=== PATIENT | male | born 1945 | race Caucasian/White ===

== ENCOUNTER 2018-06-03 14:07 | Inpatient (IN) ==
[2018-06-03] MEDS: Midazolam 50 MG/50 ML Inj 50 MG/50 ML BAG IV.CONT PRN (14:30)
[2018-06-03] MEDS: fentaNYL 10 mcg/mL Premix Drip 2,500 MCG/250 ML BAG IV.SIG PRN (14:34)
[2018-06-03 15:02] LABS: ABG PCO2 45 mmHg (38-42); ABG PO2 83 mmHg (61-120)
--- NOTE | 2018-06-03 15:04 | XR ---
EXAM DATE: 06/03/2018 3:00 PM EST AGE/SEX: 73 years / Male INDICATIONS: Patient presents with respiratory distress; post intubation. CLINICAL DATA: This is the patient's initial encounter. Patient reports that signs and symptoms have been present for 1 day and indicates a pain score of Nonresponsive. MEDICAL/SURGICAL HISTORY: Non-responsive. Non-responsive. COMPARISON: No prior exams available for comparison. FINDINGS: There is an ETT at the level of the clavicles. There is an NGT coursing beyond the GE junction. Cardi ac silhouette is enlarged with diffuse bilateral perihilar opacities and hazy opacities. More conflue nt airspace disease at the left lung base. Osseous structures are intact. CONCLUSION: 1. ETT in good position. NGT beyond the GE junction. 2. Cardiomegaly with pulmonary edema pattern. 3. More focal airspace consolidation in the left lower lung zone. Electronically signed by: Jovanni Finn MD 06/03/2018 3:02 PM EST
--- NOTE | 2018-06-03 15:05 | ED ---
HPI General Chief Complaint: Respiratory Symptoms Stated Complaint: cardiac Time Seen by Provider: 06/03/18 14:20 Source: EMS Mode of arrival: EMS Limitations: altered mental status History of Present Illness 73-year-old male was brought in by EMS with complaint of chest pain and shortness of breath. 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 Patient was found to be hypoxic. EMS was called. Patient was brought to ED for evaluation. Patient was given nonrebreathing mask on the way to the ED. Upon arrival patient's obtunded and unable to provide information. Patient's finally came and provided more information. Patient has been short of breath for the past 2 weeks. Patient was seen by personal physician in [place] and referred to surgical coder. Patient is awaiting bypass surgery scheduled at [facility] in [facility]. 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 Patient has history of diabetes. Patient is on Lasix 4 mg twice a day and Coumadin. Patient was advised to stop Coumadin for the past 3 days [address] bypass surgery[address] Dr. Wisdom, was contacted, advised that patient is seeing Dr. Gupta for 3 valve surgery and CABG next weeks. Patient supposed to have valve surgery of all valves except pulmonary valve. Related Data Home Medications Medication Instructions Recorded Confirmed amlodipine 5 mg PO DAILY 06/03/18 06/03/18 ascorbic acid (vitamin C) [Vitamin 500 mg PO DAILY 06/03/18 06/03/18 C] aspirin 81 mg PO DAILY 06/03/18 06/03/18 atorvastatin [Lipitor] 20 mg PO DAILY 06/03/18 06/03/18 calcium carbonate [Calcium 600] 600 mg PO DAILY 06/03/18 06/03/18 cinnamon bark [Cinnamon] 1,000 mg PO BID 06/03/18 06/03/18 cyanocobalamin (vitamin B-12) 1,000 mcg PO DAILY 06/03/18 06/03/18 [Vitamin B-12] famotidine 20 mg PO DAILY 06/03/18 06/03/18 ferrous sulfate [iron] 325 mg PO BID 06/03/18 06/03/18 furosemide [Lasix] 40 mg PO DAILY 06/03/18 06/03/18 gabapentin 300 mg PO 5 TIMES A DAY 06/03/18 06/03/18 glimepiride 2 mg PO BID 06/03/18 06/03/18 hydrocodone-acetaminophen [[place]] 1 tab PO Q6H PRN 06/03/18 06/03/18 insulin glargine [Lantus U-100 65 unit SUBCUT DAILY 06/03/18 06/03/18 Insulin] lisinopril 10 mg PO DAILY 06/03/18 06/03/18 metformin 500 mg PO QID 06/03/18 06/03/18 metoprolol tartrate 50 mg PO BID 06/03/18 06/03/18 niacin 500 mg PO DAILY 06/03/18 06/03/18 potassium 99 mg PO BID 06/03/18 06/03/18 warfarin [Coumadin] 5 mg PO DAILY 06/03/18 06/03/18 Allergies Allergy/AdvReac Type Severity Reaction Status Date / Time No Allergy Information Allergy Verified 06/03/18 14:22 Available Review of Systems ROS Unobtainable ROS Unobtainable: unobtainable due to mental condition PMFSH Medical History Medical History MDRO (multiple drug resistant organisms) resistance (Acute ~06/03/18) Social History Social History Substance History: Unable to Obtain Smoking Status: Unknown if ever smoked How Often Do You Have a Drink Containing Alcohol: Unable to Obtain Recent Travel in [facility] within the Last 8 Weeks: No Recent Out of Country Travel within the Last 8 Weeks: No Immunization History Tetanus Immunization: Unable to Assess Exam Narrative Exam Narrative: GENERAL: Well-nourished, well-developed patient. SKIN: Focused skin assessment warm/dry. HEAD: Normocephalic. EYES: No scleral icterus. No injection or drainage. NECK: Supple, trachea midline. No JVD or lymphadenopathy. CARDIOVASCULAR: Regular rate and rhythm without murmurs, gallops, or rubs. RESPIRATORY: Labored breathing with rhonchi bibasilar. No wheezes. GASTROINTESTINAL: Abdomen soft, non-tender, nondistended. MUSCULOSKELETAL: No cyanosis, or edema. BACK: Nontender without obvious deformity. No CVA tenderness. Neurologic exam: Patient is obtunded. Patient moves extremity minimally. No obvious focal neurologic deficit. Procedures Central Line Placement Right Femoral: Time Out Performed: Yes MD Prep: mask, gown and gloves Central Line Prep: Povidone-Iodine 1% and sterile drapes applied Ultrasound Used for Placement: Yes Central Line Lumen Inserted: triple Post Procedure: sutured in place, good blood return, all ports aspirated, flushed, capped and sterile dressing applied Patient Tolerated Procedure: well Complications: none Intubation Time Out Performed: Yes Sedative: etomidate Mg Given: 20 Paralytic: succinylcholine Mg Given: 100 Laryngoscope: fiber optic video scope Assist Device Used: fiber optic device ET Tube Size: 7.5 ET Tube Uncuffed: No Tube Secured Depth (cm): 23 Tube Secured Location: lips Tube Placement Confirmation: visualized tube passing through cords, equal breath sounds bilaterally, no breath sounds over epigastrium and confirmation by capnometry Patient Tolerated Procedure: well Intubation Complications: none Course Initial Documented Vital Signs Pulse Rate 87 06/03/18 14:09 Respiratory Rate 27 H 06/03/18 14:09 Blood Pressure 140/89 06/03/18 14:09 Pulse Oximetry 70 L 06/03/18 14:09 Last Documented Vital Signs Temperature 99.3 F 06/08/18 08:00 Pulse Rate 50 L 06/08/18 10:00 Respiratory Rate 16 06/08/18 10:00 Blood Pressure 117/57 L 06/08/18 10:00 Pulse Oximetry 96 06/08/18 10:00 Critical Care Time Critical Care Time: Yes Total Critical Care Time: 60 Attestation: Aggregate critical care time was 60 minutes. Time to perform other separately billable procedures was not included in the critical care time. My time did not include minutes spent treating any other patients simultaneously or on activities that did not directly contribute to the patient's treatment. The services I provided to this patient were to treat and/or prevent clinically significant deterioration that could result in: I provided critical care services requiring my management, as noted below: Chart data review, documentation time, medication orders and management, vital sign assessments/reviewing monitor data, ordering and reviewing lab tests, ordering and interpreting/reviewing x-rays and diagnostic studies, care of the patient and discussion of the patient with the admitting physicians. Medical Decision Making MDM Narrative Medical decision making narrative: 73-year-old male was brought in by EMS with complaint of chest pain or shortness of. Patient was obtunded. Patient was intubated. Right femoral central line placement. Normal saline solution 125 cc an hour. Versed drip and fentanyl drip for sedation. OG tube and Spence catheter applied. I spoke with Dr. Wisdom at [facility]. Patient's doctor is Dr. Gupta. Dr. Gupta's phone #[phone]. I tried to call the number and the physicians in surgery. Will call back. Medical Screen Exam Complete: Yes Emergency Medical Condition: Yes Lab Data Lab results reviewed: Yes I reviewed the patient's lab results. Result diagrams: 06/08/18 04:30 06/08/18 04:30 Lab Results 06/03/18 06/03/18 06/03/18 Range/Units 14:51 14:55 15:00 WBC 9.9 (4.0-11.0) th/mm3 RBC 3.76 L (4.50-5.90) mil/mm3 Hgb 11.2 L (13.0-17.0) gm/dL Hct 34.5 L (39.0-51.0) % MCV 91.8 (80.0-100.0) fL MCH 29.8 (27.0-34.0) pg MCHC 32.5 (32.0-36.0) % RDW 16.6 (11.6-17.2) % Plt Count 212 (150-450) th/mm3 MPV 8.5 (7.0-11.0) fL Neut % (Auto) 86.3 H (16.0-70.0) % Lymph % (Auto) 7.2 L (9.0-44.0) % [place] % (Auto) 5.1 (0.0-8.0) % Eos % (Auto) 1.0 (0.0-4.0) % Baso % (Auto) 0.4 (0.0-2.0) % Neut # (Auto) 8.5 H (1.8-7.7) th/mm3 Lymph # (Auto) 0.7 L (1.0-4.8) th/mm3 [place] # (Auto) 0.5 (0.0-0.9) th/mm3 Eos # (Auto) 0.1 (0.0-0.4) th/mm3 Baso # (Auto) 0.0 (0.0-0.2) th/mm3 WBC Differential . Differential Comment Auto diff final PT (9.8-11.6) sec INR Ratio APTT (23.4-31.7) sec D-Dimer Quant (PE/DVT) (0.00-0.50) mg/L FEU Puncture Site Right radial Patient Temperature 98.6 O2 Saturation 93 (90-100) % ABG pH 7.33 L (7.380-7.420) ABG pCO2 45 H (38-42) mmHg ABG pO2 83 (61-120) mmHg ABG HCO3 23 (22-26) mmol/L ABG O2 Content 15.2 (12.0-20.0) Vol % ABG Base Excess -2.0 (-2-2) mmol/L ABG Methemoglobin 0.4 (0-2) % Gino Test Present Hemoglobin 11.6 L (12.0-16.0) G/DL Carboxyhemoglobin 1.7 (0-4) % O2 Delivery Device Ventilator Vent Setting Vac/16/550/+8 Inspired O2 100 % Critical Value No Sodium (136-145) meq/L Potassium (3.5-5.1) meq/L Chloride (98-107) meq/L Carbon Dioxide (21.0-32.0) meq/L Anion Gap (5-15) meq/L BUN (7-18) mg/dL Creatinine (0.60-1.30) mg/dL Estimated GFR (>89) mL/min POC Glucose (68-110) mg/dl Random Glucose (74-106) mg/dL Lactic Acid (0.4-2.0) mmol/L Calcium (8.5-10.1) mg/dL Phosphorus (2.5-4.9) mg/dL Magnesium (1.5-2.5) mg/dL Total Bilirubin (0.2-1.0) mg/dL AST (15-37) U/L ALT (12-78) U/L Alkaline Phosphatase (45-117) U/L Total Creatine Kinase (39-308) U/L CK-MB (CK-2) (0.5-3.6) ng/mL Troponin I (0.02-0.05) ng/mL B-Natriuretic Peptide (0-100) pg/mL Total Protein (6.4-8.2) g/dL Albumin (3.4-5.0) g/dL Procalcitonin (0.00-0.08) ng/mL Urine Color Yellow (Yellw/Straw) Urine Clarity Hazy H (Clear) Urine pH 5.0 (5.0-8.5) Ur Specific [place] 1.016 (1.002-1.035) Urine Protein 100 H (Neg-Trace) mg/dL Urine Glucose (UA) Negative (Negative) mg/dL Urine Ketones Negative (Negative) mg/dL Urine Occult Blood Negative (Negative) Urine Nitrate Negative (Negative) Urine Bilirubin Negative (Negative) Urine Urobilinogen Less than 2 (Less than 2) mg/dL Ur Leukocyte Esterase Negative (Negative) Urine WBC 1 (0-5) /hpf Ur Squamous Epith Cells <1 (0-5) /hpf Hyaline Casts 14 (0-3) /lpf Urine Mucus Few H (Occasional) /lpf Micro UA Comment Cath-culture not ind Ur Microscopic Review Not Reportable Urine Culture Comments Cath-cult not ind Nasal Screen MRSA (PCR) (Negative) Random Vancomycin Comment 06/03/18 06/03/18 06/03/18 Range/Units 15:00 15:00 15:00 WBC (4.0-11.0) th/mm3 RBC (4.50-5.90) mil/mm3 Hgb (13.0-17.0) gm/dL Hct (39.0-51.0) % MCV (80.0-100.0) fL MCH (27.0-34.0) pg MCHC (32.0-36.0) % RDW (11.6-17.2) % Plt Count (150-450) th/mm3 MPV (7.0-11.0) fL Neut % (Auto) (16.0-70.0) % Lymph % (Auto) (9.0-44.0) % [place] % (Auto) (0.0-8.0) % Eos % (Auto) (0.0-4.0) % Baso % (Auto) (0.0-2.0) % Neut # (Auto) (1.8-7.7) th/mm3 Lymph # (Auto) (1.0-4.8) th/mm3 [place] # (Auto) (0.0-0.9) th/mm3 Eos # (Auto) (0.0-0.4) th/mm3 Baso # (Auto) (0.0-0.2) th/mm3 WBC Differential Differential Comment PT (9.8-11.6) sec INR Ratio APTT (23.4-31.7) sec D-Dimer Quant (PE/DVT) (0.00-0.50) mg/L FEU Puncture Site Patient Temperature O2 Saturation (90-100) % ABG pH (7.380-7.420) ABG pCO2 (38-42) mmHg ABG pO2 (61-120) mmHg ABG HCO3 (22-26) mmol/L ABG O2 Content (12.0-20.0) Vol % ABG Base Excess (-2-2) mmol/L ABG Methemoglobin (0-2) % Gino Test Hemoglobin (12.0-16.0) G/DL Carboxyhemoglobin (0-4) % O2 Delivery Device Vent Setting Inspired O2 % Critical Value Sodium 142 (136-145) meq/L Potassium 5.1 (3.5-5.1) meq/L Chloride 107 (98-107) meq/L Carbon Dioxide 26.1 (21.0-32.0) meq/L Anion Gap 9 (5-15) meq/L BUN 32 H (7-18) mg/dL Creatinine 2.08 H (0.60-1.30) mg/dL Estimated GFR 32 L (>89) mL/min POC Glucose (68-110) mg/dl Random Glucose 283 H (74-106) mg/dL Lactic Acid (0.4-2.0) mmol/L Calcium 8.4 L (8.5-10.1) mg/dL Phosphorus (2.5-4.9) mg/dL Magnesium (1.5-2.5) mg/dL Total Bilirubin 0.7 (0.2-1.0) mg/dL AST 26 (15-37) U/L ALT 32 (12-78) U/L Alkaline Phosphatase 88 (45-117) U/L Total Creatine Kinase 145 Cancelled (39-308) U/L CK-MB (CK-2) 6.2 H (0.5-3.6) ng/mL Troponin I 0.04 (0.02-0.05) ng/mL B-Natriuretic Peptide 755 H (0-100) pg/mL Total Protein 6.9 (6.4-8.2) g/dL Albumin 3.1 L (3.4-5.0) g/dL Procalcitonin (0.00-0.08) ng/mL Urine Color (Yellw/Straw) Urine Clarity (Clear) Urine pH (5.0-8.5) Ur Specific [place] (1.002-1.035) Urine Protein (Neg-Trace) mg/dL Urine Glucose (UA) (Negative) mg/dL Urine Ketones (Negative) mg/dL Urine Occult Blood (Negative) Urine Nitrate (Negative) Urine Bilirubin (Negative) Urine Urobilinogen (Less than 2) mg/dL Ur Leukocyte Esterase (Negative) Urine WBC (0-5) /hpf Ur Squamous Epith Cells (0-5) /hpf Hyaline Casts (0-3) /lpf Urine Mucus (Occasional) /lpf Micro UA Comment Ur Microscopic Review Urine Culture Comments Nasal Screen MRSA (PCR) (Negative) Random Vancomycin Comment 06/03/18 06/03/18 06/03/18 Range/Units 15:00 15:43 20:45 WBC (4.0-11.0) th/mm3 RBC (4.50-5.90) mil/mm3 Hgb (13.0-17.0) gm/dL Hct (39.0-51.0) % MCV (80.0-100.0) fL MCH (27.0-34.0) pg MCHC (32.0-36.0) % RDW (11.6-17.2) % Plt Count (150-450) th/mm3 MPV (7.0-11.0) fL Neut % (Auto) (16.0-70.0) % Lymph % (Auto) (9.0-44.0) % [place] % (Auto) (0.0-8.0) % Eos % (Auto) (0.0-4.0) % Baso % (Auto) (0.0-2.0) % Neut # (Auto) (1.8-7.7) th/mm3 Lymph # (Auto) (1.0-4.8) th/mm3 [place] # (Auto) (0.0-0.9) th/mm3 Eos # (Auto) (0.0-0.4) th/mm3 Baso # (Auto) (0.0-0.2) th/mm3 WBC Differential Differential Comment PT 12.6 H (9.8-11.6) sec INR 1.2 Ratio APTT 26.1 (23.4-31.7) sec D-Dimer Quant (PE/DVT) 3.03 H (0.00-0.50) mg/L FEU Puncture Site Patient Temperature O2 Saturation (90-100) % ABG pH (7.380-7.420) ABG pCO2 (38-42) mmHg ABG pO2 (61-120) mmHg ABG HCO3 (22-26) mmol/L ABG O2 Content (12.0-20.0) Vol % ABG Base Excess (-2-2) mmol/L ABG Methemoglobin (0-2) % Gino Test Hemoglobin (12.0-16.0) G/DL Carboxyhemoglobin (0-4) % O2 Delivery Device Vent Setting Inspired O2 % Critical Value Sodium (136-145) meq/L Potassium (3.5-5.1) meq/L Chloride (98-107) meq/L Carbon Dioxide (21.0-32.0) meq/L Anion Gap (5-15) meq/L BUN (7-18) mg/dL Creatinine (0.60-1.30) mg/dL Estimated GFR (>89) mL/min POC Glucose (68-110) mg/dl Random Glucose (74-106) mg/dL Lactic Acid 3.1 H (0.4-2.0) mmol/L Calcium (8.5-10.1) mg/dL Phosphorus (2.5-4.9) mg/dL Magnesium (1.5-2.5) mg/dL Total Bilirubin (0.2-1.0) mg/dL AST (15-37) U/L ALT (12-78) U/L Alkaline Phosphatase (45-117) U/L Total Creatine Kinase (39-308) U/L CK-MB (CK-2) (0.5-3.6) ng/mL Troponin I (0.02-0.05) ng/mL B-Natriuretic Peptide (0-100) pg/mL Total Protein (6.4-8.2) g/dL Albumin (3.4-5.0) g/dL Procalcitonin (0.00-0.08) ng/mL Urine Color (Yellw/Straw) Urine Clarity (Clear) Urine pH (5.0-8.5) Ur Specific [place] (1.002-1.035) Urine Protein (Neg-Trace) mg/dL Urine Glucose (UA) (Negative) mg/dL Urine Ketones (Negative) mg/dL Urine Occult Blood (Negative) Urine Nitrate (Negative) Urine Bilirubin (Negative) Urine Urobilinogen (Less than 2) mg/dL Ur Leukocyte Esterase (Negative) Urine WBC (0-5) /hpf Ur Squamous Epith Cells (0-5) /hpf Hyaline Casts (0-3) /lpf Urine Mucus (Occasional) /lpf Micro UA Comment Ur Microscopic Review Urine Culture Comments Nasal Screen MRSA (PCR) Mrsa detected (Negative) Random Vancomycin Comment 06/03/18 06/03/18 06/04/18 Range/Units 20:46 20:46 03:55 WBC (4.0-11.0) th/mm3 RBC (4.50-5.90) mil/mm3 Hgb (13.0-17.0) gm/dL Hct (39.0-51.0) % MCV (80.0-100.0) fL MCH (27.0-34.0) pg MCHC (32.0-36.0) % RDW (11.6-17.2) % Plt Count (150-450) th/mm3 MPV (7.0-11.0) fL Neut % (Auto) (16.0-70.0) % Lymph % (Auto) (9.0-44.0) % [place] % (Auto) (0.0-8.0) % Eos % (Auto) (0.0-4.0) % Baso % (Auto) (0.0-2.0) % Neut # (Auto) (1.8-7.7) th/mm3 Lymph # (Auto) (1.0-4.8) th/mm3 [place] # (Auto) (0.0-0.9) th/mm3 Eos # (Auto) (0.0-0.4) th/mm3 Baso # (Auto) (0.0-0.2) th/mm3 WBC Differential Differential Comment PT (9.8-11.6) sec INR Ratio APTT (23.4-31.7) sec D-Dimer Quant (PE/DVT) (0.00-0.50) mg/L FEU Puncture Site Patient Temperature O2 Saturation (90-100) % ABG pH (7.380-7.420) ABG pCO2 (38-42) mmHg ABG pO2 (61-120) mmHg ABG HCO3 (22-26) mmol/L ABG O2 Content (12.0-20.0) Vol % ABG Base Excess (-2-2) mmol/L ABG Methemoglobin (0-2) % Gino Test Hemoglobin (12.0-16.0) G/DL Carboxyhemoglobin (0-4) % O2 Delivery Device Vent Setting Inspired O2 % Critical Value Sodium 144 147 H (136-145) meq/L Potassium 4.1 D 3.3 L D (3.5-5.1) meq/L Chloride 108 H 108 H (98-107) meq/L Carbon Dioxide 28.4 29.1 (21.0-32.0) meq/L Anion Gap 8 10 (5-15) meq/L BUN 33 H 33 H (7-18) mg/dL Creatinine 1.90 H 1.79 H (0.60-1.30) mg/dL Estimated GFR 35 L 38 L (>89) mL/min POC Glucose (68-110) mg/dl Random Glucose 150 H D 57 L (74-106) mg/dL Lactic Acid 1.7 (0.4-2.0) mmol/L Calcium 8.7 8.7 (8.5-10.1) mg/dL Phosphorus 3.0 3.0 (2.5-4.9) mg/dL Magnesium 2.0 2.0 (1.5-2.5) mg/dL Total Bilirubin 1.0 0.9 (0.2-1.0) mg/dL AST 21 17 (15-37) U/L ALT 28 25 (12-78) U/L Alkaline Phosphatase 85 80 (45-117) U/L Total Creatine Kinase 118 90 (39-308) U/L CK-MB (CK-2) 4.9 H (0.5-3.6) ng/mL Troponin I 0.07 H 0.07 H (0.02-0.05) ng/mL B-Natriuretic Peptide (0-100) pg/mL Total Protein 7.0 6.7 (6.4-8.2) g/dL Albumin 3.0 L 2.9 L (3.4-5.0) g/dL Procalcitonin (0.00-0.08) ng/mL Urine Color (Yellw/Straw) Urine Clarity (Clear) Urine pH (5.0-8.5) Ur Specific [place] (1.002-1.035) Urine Protein (Neg-Trace) mg/dL Urine Glucose (UA) (Negative) mg/dL Urine Ketones (Negative) mg/dL Urine Occult Blood (Negative) Urine Nitrate (Negative) Urine Bilirubin (Negative) Urine Urobilinogen (Less than 2) mg/dL Ur Leukocyte Esterase (Negative) Urine WBC (0-5) /hpf Ur Squamous Epith Cells (0-5) /hpf Hyaline Casts (0-3) /lpf Urine Mucus (Occasional) /lpf Micro UA Comment Ur Microscopic Review Urine Culture Comments Nasal Screen MRSA (PCR) (Negative) Random Vancomycin Comment 06/04/18 06/04/18 06/04/18 Range/Units 03:55 03:55 03:55 WBC 7.7 (4.0-11.0) th/mm3 RBC 3.91 L (4.50-5.90) mil/mm3 Hgb 11.3 L (13.0-17.0) gm/dL Hct 34.8 L (39.0-51.0) % MCV 88.9 (80.0-100.0) fL MCH 29.0 (27.0-34.0) pg MCHC 32.6 (32.0-36.0) % RDW 15.8 (11.6-17.2) % Plt Count 201 (150-450) th/mm3 MPV 8.0 (7.0-11.0) fL Neut % (Auto) 69.9 (16.0-70.0) % Lymph % (Auto) 18.0 (9.0-44.0) % [place] % (Auto) 8.7 H (0.0-8.0) % Eos % (Auto) 2.8 (0.0-4.0) % Baso % (Auto) 0.6 (0.0-2.0) % Neut # (Auto) 5.4 (1.8-7.7) th/mm3 Lymph # (Auto) 1.4 (1.0-4.8) th/mm3 [place] # (Auto) 0.7 (0.0-0.9) th/mm3 Eos # (Auto) 0.2 (0.0-0.4) th/mm3 Baso # (Auto) 0.0 (0.0-0.2) th/mm3 WBC Differential . Differential Comment Auto diff final PT 12.1 H (9.8-11.6) sec INR 1.2 Ratio APTT (23.4-31.7) sec D-Dimer Quant (PE/DVT) (0.00-0.50) mg/L FEU Puncture Site Patient Temperature O2 Saturation (90-100) % ABG pH (7.380-7.420) ABG pCO2 (38-42) mmHg ABG pO2 (61-120) mmHg ABG HCO3 (22-26) mmol/L ABG O2 Content (12.0-20.0) Vol % ABG Base Excess (-2-2) mmol/L ABG Methemoglobin (0-2) % Gino Test Hemoglobin (12.0-16.0) G/DL Carboxyhemoglobin (0-4) % O2 Delivery Device Vent Setting Inspired O2 % Critical Value Sodium (136-145) meq/L Potassium (3.5-5.1) meq/L Chloride (98-107) meq/L Carbon Dioxide (21.0-32.0) meq/L Anion Gap (5-15) meq/L BUN (7-18) mg/dL Creatinine (0.60-1.30) mg/dL Estimated GFR (>89) mL/min POC Glucose (68-110) mg/dl Random Glucose (74-106) mg/dL Lactic Acid (0.4-2.0) mmol/L Calcium (8.5-10.1) mg/dL Phosphorus (2.5-4.9) mg/dL Magnesium (1.5-2.5) mg/dL Total Bilirubin (0.2-1.0) mg/dL AST (15-37) U/L ALT (12-78) U/L Alkaline Phosphatase (45-117) U/L Total Creatine Kinase (39-308) U/L CK-MB (CK-2) (0.5-3.6) ng/mL Troponin I (0.02-0.05) ng/mL B-Natriuretic Peptide 811 H (0-100) pg/mL Total Protein (6.4-8.2) g/dL Albumin (3.4-5.0) g/dL Procalcitonin (0.00-0.08) ng/mL Urine Color (Yellw/Straw) Urine Clarity (Clear) Urine pH (5.0-8.5) Ur Specific [place] (1.002-1.035) Urine Protein (Neg-Trace) mg/dL Urine Glucose (UA) (Negative) mg/dL Urine Ketones (Negative) mg/dL Urine Occult Blood (Negative) Urine Nitrate (Negative) Urine Bilirubin (Negative) Urine Urobilinogen (Less than 2) mg/dL Ur Leukocyte Esterase (Negative) Urine WBC (0-5) /hpf Ur Squamous Epith Cells (0-5) /hpf Hyaline Casts (0-3) /lpf Urine Mucus (Occasional) /lpf Micro UA Comment Ur Microscopic Review Urine Culture Comments Nasal Screen MRSA (PCR) (Negative) Random Vancomycin Comment 06/04/18 06/04/18 06/04/18 Range/Units 03:55 05:03 05:31 WBC (4.0-11.0) th/mm3 RBC (4.50-5.90) mil/mm3 Hgb (13.0-17.0) gm/dL Hct (39.0-51.0) % MCV (80.0-100.0) fL MCH (27.0-34.0) pg MCHC (32.0-36.0) % RDW (11.6-17.2) % Plt Count (150-450) th/mm3 MPV (7.0-11.0) fL Neut % (Auto) (16.0-70.0) % Lymph % (Auto) (9.0-44.0) % [place] % (Auto) (0.0-8.0) % Eos % (Auto) (0.0-4.0) % Baso % (Auto) (0.0-2.0) % Neut # (Auto) (1.8-7.7) th/mm3 Lymph # (Auto) (1.0-4.8) th/mm3 [place] # (Auto) (0.0-0.9) th/mm3 Eos # (Auto) (0.0-0.4) th/mm3 Baso # (Auto) (0.0-0.2) th/mm3 WBC Differential Differential Comment PT (9.8-11.6) sec INR Ratio APTT (23.4-31.7) sec D-Dimer Quant (PE/DVT) (0.00-0.50) mg/L FEU Puncture Site Patient Temperature O2 Saturation (90-100) % ABG pH (7.380-7.420) ABG pCO2 (38-42) mmHg ABG pO2 (61-120) mmHg ABG HCO3 (22-26) mmol/L ABG O2 Content (12.0-20.0) Vol % ABG Base Excess (-2-2) mmol/L ABG Methemoglobin (0-2) % Gino Test Hemoglobin (12.0-16.0) G/DL Carboxyhemoglobin (0-4) % O2 Delivery Device Vent Setting Inspired O2 % Critical Value Sodium (136-145) meq/L Potassium (3.5-5.1) meq/L Chloride (98-107) meq/L Carbon Dioxide (21.0-32.0) meq/L Anion Gap (5-15) meq/L BUN (7-18) mg/dL Creatinine (0.60-1.30) mg/dL Estimated GFR (>89) mL/min POC Glucose 66 L 89 (68-110) mg/dl Random Glucose (74-106) mg/dL Lactic Acid 1.3 (0.4-2.0) mmol/L Calcium (8.5-10.1) mg/dL Phosphorus (2.5-4.9) mg/dL Magnesium (1.5-2.5) mg/dL Total Bilirubin (0.2-1.0) mg/dL AST (15-37) U/L ALT (12-78) U/L Alkaline Phosphatase (45-117) U/L Total Creatine Kinase (39-308) U/L CK-MB (CK-2) (0.5-3.6) ng/mL Troponin I (0.02-0.05) ng/mL B-Natriuretic Peptide (0-100) pg/mL Total Protein (6.4-8.2) g/dL Albumin (3.4-5.0) g/dL Procalcitonin (0.00-0.08) ng/mL Urine Color (Yellw/Straw) Urine Clarity (Clear) Urine pH (5.0-8.5) Ur Specific [place] (1.002-1.035) Urine Protein (Neg-Trace) mg/dL Urine Glucose (UA) (Negative) mg/dL Urine Ketones (Negative) mg/dL Urine Occult Blood (Negative) Urine Nitrate (Negative) Urine Bilirubin (Negative) Urine Urobilinogen (Less than 2) mg/dL Ur Leukocyte Esterase (Negative) Urine WBC (0-5) /hpf Ur Squamous Epith Cells (0-5) /hpf Hyaline Casts (0-3) /lpf Urine Mucus (Occasional) /lpf Micro UA Comment Ur Microscopic Review Urine Culture Comments Nasal Screen MRSA (PCR) (Negative) Random Vancomycin Comment 06/04/18 06/04/18 06/04/18 Range/Units 06:05 07:50 08:29 WBC (4.0-11.0) th/mm3 RBC (4.50-5.90) mil/mm3 Hgb (13.0-17.0) gm/dL Hct (39.0-51.0) % MCV (80.0-100.0) fL MCH (27.0-34.0) pg MCHC (32.0-36.0) % RDW (11.6-17.2) % Plt Count (150-450) th/mm3 MPV (7.0-11.0) fL Neut % (Auto) (16.0-70.0) % Lymph % (Auto) (9.0-44.0) % [place] % (Auto) (0.0-8.0) % Eos % (Auto) (0.0-4.0) % Baso % (Auto) (0.0-2.0) % Neut # (Auto) (1.8-7.7) th/mm3 Lymph # (Auto) (1.0-4.8) th/mm3 [place] # (Auto) (0.0-0.9) th/mm3 Eos # (Auto) (0.0-0.4) th/mm3 Baso # (Auto) (0.0-0.2) th/mm3 WBC Differential Differential Comment PT (9.8-11.6) sec INR Ratio APTT (23.4-31.7) sec D-Dimer Quant (PE/DVT) (0.00-0.50) mg/L FEU Puncture Site Right radial Patient Temperature 98.6 O2 Saturation 92 (90-100) % ABG pH 7.48 H (7.380-7.420) ABG pCO2 37 L (38-42) mmHg ABG pO2 69 (61-120) mmHg ABG HCO3 28 H (22-26) mmol/L ABG O2 Content 15.2 (12.0-20.0) Vol % ABG Base Excess 4.2 H (-2-2) mmol/L ABG Methemoglobin 1.4 (0-2) % Gino Test Present Hemoglobin 11.7 L (12.0-16.0) G/DL Carboxyhemoglobin 1.4 (0-4) % O2 Delivery Device Ventilator Vent Setting [id number] Inspired O2 40 % Critical Value No Sodium (136-145) meq/L Potassium (3.5-5.1) meq/L Chloride (98-107) meq/L Carbon Dioxide (21.0-32.0) meq/L Anion Gap (5-15) meq/L BUN (7-18) mg/dL Creatinine (0.60-1.30) mg/dL Estimated GFR (>89) mL/min POC Glucose 75 (68-110) mg/dl Random Glucose (74-106) mg/dL Lactic Acid (0.4-2.0) mmol/L Calcium (8.5-10.1) mg/dL Phosphorus (2.5-4.9) mg/dL Magnesium (1.5-2.5) mg/dL Total Bilirubin (0.2-1.0) mg/dL AST (15-37) U/L ALT (12-78) U/L Alkaline Phosphatase (45-117) U/L Total Creatine Kinase 89 (39-308) U/L CK-MB (CK-2) (0.5-3.6) ng/mL Troponin I 0.06 H (0.02-0.05) ng/mL B-Natriuretic Peptide (0-100) pg/mL Total Protein (6.4-8.2) g/dL Albumin (3.4-5.0) g/dL Procalcitonin (0.00-0.08) ng/mL Urine Color (Yellw/Straw) Urine Clarity (Clear) Urine pH (5.0-8.5) Ur Specific [place] (1.002-1.035) Urine Protein (Neg-Trace) mg/dL Urine Glucose (UA) (Negative) mg/dL Urine Ketones (Negative) mg/dL Urine Occult Blood (Negative) Urine Nitrate (Negative) Urine Bilirubin (Negative) Urine Urobilinogen (Less than 2) mg/dL Ur Leukocyte Esterase (Negative) Urine WBC (0-5) /hpf Ur Squamous Epith Cells (0-5) /hpf Hyaline Casts (0-3) /lpf Urine Mucus (Occasional) /lpf Micro UA Comment Ur Microscopic Review Urine Culture Comments Nasal Screen MRSA (PCR) (Negative) Random Vancomycin Comment 06/04/18 06/04/18 06/04/18 Range/Units 11:35 11:56 12:40 WBC (4.0-11.0) th/mm3 RBC (4.50-5.90) mil/mm3 Hgb (13.0-17.0) gm/dL Hct (39.0-51.0) % MCV (80.0-100.0) fL MCH (27.0-34.0) pg MCHC (32.0-36.0) % RDW (11.6-17.2) % Plt Count (150-450) th/mm3 MPV (7.0-11.0) fL Neut % (Auto) (16.0-70.0) % Lymph % (Auto) (9.0-44.0) % [place] % (Auto) (0.0-8.0) % Eos % (Auto) (0.0-4.0) % Baso % (Auto) (0.0-2.0) % Neut # (Auto) (1.8-7.7) th/mm3 Lymph # (Auto) (1.0-4.8) th/mm3 [place] # (Auto) (0.0-0.9) th/mm3 Eos # (Auto) (0.0-0.4) th/mm3 Baso # (Auto) (0.0-0.2) th/mm3 WBC Differential Differential Comment PT (9.8-11.6) sec INR Ratio APTT 28.4 (23.4-31.7) sec D-Dimer Quant (PE/DVT) (0.00-0.50) mg/L FEU Puncture Site Patient Temperature O2 Saturation (90-100) % ABG pH (7.380-7.420) ABG pCO2 (38-42) mmHg ABG pO2 (61-120) mmHg ABG HCO3 (22-26) mmol/L ABG O2 Content (12.0-20.0) Vol % ABG Base Excess (-2-2) mmol/L ABG Methemoglobin (0-2) % Gino Test Hemoglobin (12.0-16.0) G/DL Carboxyhemoglobin (0-4) % O2 Delivery Device Vent Setting Inspired O2 % Critical Value Sodium (136-145) meq/L Potassium (3.5-5.1) meq/L Chloride (98-107) meq/L Carbon Dioxide (21.0-32.0) meq/L Anion Gap (5-15) meq/L BUN (7-18) mg/dL Creatinine (0.60-1.30) mg/dL Estimated GFR (>89) mL/min POC Glucose 64 L 131 H (68-110) mg/dl Random Glucose (74-106) mg/dL Lactic Acid (0.4-2.0) mmol/L Calcium (8.5-10.1) mg/dL Phosphorus (2.5-4.9) mg/dL Magnesium (1.5-2.5) mg/dL Total Bilirubin (0.2-1.0) mg/dL AST (15-37) U/L ALT (12-78) U/L Alkaline Phosphatase (45-117) U/L Total Creatine Kinase (39-308) U/L CK-MB (CK-2) (0.5-3.6) ng/mL Troponin I (0.02-0.05) ng/mL B-Natriuretic Peptide (0-100) pg/mL Total Protein (6.4-8.2) g/dL Albumin (3.4-5.0) g/dL Procalcitonin (0.00-0.08) ng/mL Urine Color (Yellw/Straw) Urine Clarity (Clear) Urine pH (5.0-8.5) Ur Specific [place] (1.002-1.035) Urine Protein (Neg-Trace) mg/dL Urine Glucose (UA) (Negative) mg/dL Urine Ketones (Negative) mg/dL Urine Occult Blood (Negative) Urine Nitrate (Negative) Urine Bilirubin (Negative) Urine Urobilinogen (Less than 2) mg/dL Ur Leukocyte Esterase (Negative) Urine WBC (0-5) /hpf Ur Squamous Epith Cells (0-5) /hpf Hyaline Casts (0-3) /lpf Urine Mucus (Occasional) /lpf Micro UA Comment Ur Microscopic Review Urine Culture Comments Nasal Screen MRSA (PCR) (Negative) Random Vancomycin Comment 06/04/18 06/04/18 06/04/18 Range/Units 15:38 15:38 15:38 WBC (4.0-11.0) th/mm3 RBC (4.50-5.90) mil/mm3 Hgb (13.0-17.0) gm/dL Hct (39.0-51.0) % MCV (80.0-100.0) fL MCH (27.0-34.0) pg MCHC (32.0-36.0) % RDW (11.6-17.2) % Plt Count (150-450) th/mm3 MPV (7.0-11.0) fL Neut % (Auto) (16.0-70.0) % Lymph % (Auto) (9.0-44.0) % [place] % (Auto) (0.0-8.0) % Eos % (Auto) (0.0-4.0) % Baso % (Auto) (0.0-2.0) % Neut # (Auto) (1.8-7.7) th/mm3 Lymph # (Auto) (1.0-4.8) th/mm3 [place] # (Auto) (0.0-0.9) th/mm3 Eos # (Auto) (0.0-0.4) th/mm3 Baso # (Auto) (0.0-0.2) th/mm3 WBC Differential Differential Comment PT (9.8-11.6) sec INR Ratio APTT (23.4-31.7) sec D-Dimer Quant (PE/DVT) (0.00-0.50) mg/L FEU Puncture Site Patient Temperature O2 Saturation (90-100) % ABG pH (7.380-7.420) ABG pCO2 (38-42) mmHg ABG pO2 (61-120) mmHg ABG HCO3 (22-26) mmol/L ABG O2 Content (12.0-20.0) Vol % ABG Base Excess (-2-2) mmol/L ABG Methemoglobin (0-2) % Gino Test Hemoglobin (12.0-16.0) G/DL Carboxyhemoglobin (0-4) % O2 Delivery Device Vent Setting Inspired O2 % Critical Value Sodium (136-145) meq/L Potassium 4.0 (3.5-5.1) meq/L Chloride (98-107) meq/L Carbon Dioxide (21.0-32.0) meq/L Anion Gap (5-15) meq/L BUN (7-18) mg/dL Creatinine (0.60-1.30) mg/dL Estimated GFR (>89) mL/min POC Glucose (68-110) mg/dl Random Glucose (74-106) mg/dL Lactic Acid (0.4-2.0) mmol/L Calcium (8.5-10.1) mg/dL Phosphorus (2.5-4.9) mg/dL Magnesium (1.5-2.5) mg/dL Total Bilirubin (0.2-1.0) mg/dL AST (15-37) U/L ALT (12-78) U/L Alkaline Phosphatase (45-117) U/L Total Creatine Kinase 95 (39-308) U/L CK-MB (CK-2) (0.5-3.6) ng/mL Troponin I 0.06 H (0.02-0.05) ng/mL B-Natriuretic Peptide (0-100) pg/mL Total Protein (6.4-8.2) g/dL Albumin (3.4-5.0) g/dL Procalcitonin 0.07 (0.00-0.08) ng/mL Urine Color (Yellw/Straw) Urine Clarity (Clear) Urine pH (5.0-8.5) Ur Specific [place] (1.002-1.035) Urine Protein (Neg-Trace) mg/dL Urine Glucose (UA) (Negative) mg/dL Urine Ketones (Negative) mg/dL Urine Occult Blood (Negative) Urine Nitrate (Negative) Urine Bilirubin (Negative) Urine Urobilinogen (Less than 2) mg/dL Ur Leukocyte Esterase (Negative) Urine WBC (0-5) /hpf Ur Squamous Epith Cells (0-5) /hpf Hyaline Casts (0-3) /lpf Urine Mucus (Occasional) /lpf Micro UA Comment Ur Microscopic Review Urine Culture Comments Nasal Screen MRSA (PCR) (Negative) Random Vancomycin Comment 06/04/18 06/04/18 06/04/18 Range/Units 17:22 18:50 18:50 WBC (4.0-11.0) th/mm3 RBC (4.50-5.90) mil/mm3 Hgb (13.0-17.0) gm/dL Hct (39.0-51.0) % MCV (80.0-100.0) fL MCH (27.0-34.0) pg MCHC (32.0-36.0) % RDW (11.6-17.2) % Plt Count (150-450) th/mm3 MPV (7.0-11.0) fL Neut % (Auto) (16.0-70.0) % Lymph % (Auto) (9.0-44.0) % [place] % (Auto) (0.0-8.0) % Eos % (Auto) (0.0-4.0) % Baso % (Auto) (0.0-2.0) % Neut # (Auto) (1.8-7.7) th/mm3 Lymph # (Auto) (1.0-4.8) th/mm3 [place] # (Auto) (0.0-0.9) th/mm3 Eos # (Auto) (0.0-0.4) th/mm3 Baso # (Auto) (0.0-0.2) th/mm3 WBC Differential Differential Comment PT (9.8-11.6) sec INR Ratio APTT 34.1 H D (23.4-31.7) sec D-Dimer Quant (PE/DVT) (0.00-0.50) mg/L FEU Puncture Site Patient Temperature O2 Saturation (90-100) % ABG pH (7.380-7.420) ABG pCO2 (38-42) mmHg ABG pO2 (61-120) mmHg ABG HCO3 (22-26) mmol/L ABG O2 Content (12.0-20.0) Vol % ABG Base Excess (-2-2) mmol/L ABG Methemoglobin (0-2) % Gino Test Hemoglobin (12.0-16.0) G/DL Carboxyhemoglobin (0-4) % O2 Delivery Device Vent Setting Inspired O2 % Critical Value Sodium 142 (136-145) meq/L Potassium 4.2 (3.5-5.1) meq/L Chloride 105 (98-107) meq/L Carbon Dioxide 30.2 (21.0-32.0) meq/L Anion Gap 7 (5-15) meq/L BUN 27 H (7-18) mg/dL Creatinine 1.89 H (0.60-1.30) mg/dL Estimated GFR 35 L (>89) mL/min POC Glucose 103 (68-110) mg/dl Random Glucose 188 H D (74-106) mg/dL Lactic Acid (0.4-2.0) mmol/L Calcium 8.6 (8.5-10.1) mg/dL Phosphorus 4.0 D (2.5-4.9) mg/dL Magnesium 1.8 (1.5-2.5) mg/dL Total Bilirubin (0.2-1.0) mg/dL AST (15-37) U/L ALT (12-78) U/L Alkaline Phosphatase (45-117) U/L Total Creatine Kinase (39-308) U/L CK-MB (CK-2) (0.5-3.6) ng/mL Troponin I (0.02-0.05) ng/mL B-Natriuretic Peptide (0-100) pg/mL Total Protein (6.4-8.2) g/dL Albumin (3.4-5.0) g/dL Procalcitonin (0.00-0.08) ng/mL Urine Color (Yellw/Straw) Urine Clarity (Clear) Urine pH (5.0-8.5) Ur Specific [place] (1.002-1.035) Urine Protein (Neg-Trace) mg/dL Urine Glucose (UA) (Negative) mg/dL Urine Ketones (Negative) mg/dL Urine Occult Blood (Negative) Urine Nitrate (Negative) Urine Bilirubin (Negative) Urine Urobilinogen (Less than 2) mg/dL Ur Leukocyte Esterase (Negative) Urine WBC (0-5) /hpf Ur Squamous Epith Cells (0-5) /hpf Hyaline Casts (0-3) /lpf Urine Mucus (Occasional) /lpf Micro UA Comment Ur Microscopic Review Urine Culture Comments Nasal Screen MRSA (PCR) (Negative) Random Vancomycin Comment 06/04/18 06/04/18 06/05/18 Range/Units 23:39 23:41 03:00 WBC (4.0-11.0) th/mm3 RBC (4.50-5.90) mil/mm3 Hgb (13.0-17.0) gm/dL Hct (39.0-51.0) % MCV (80.0-100.0) fL MCH (27.0-34.0) pg MCHC (32.0-36.0) % RDW (11.6-17.2) % Plt Count (150-450) th/mm3 MPV (7.0-11.0) fL Neut % (Auto) (16.0-70.0) % Lymph % (Auto) (9.0-44.0) % [place] % (Auto) (0.0-8.0) % Eos % (Auto) (0.0-4.0) % Baso % (Auto) (0.0-2.0) % Neut # (Auto) (1.8-7.7) th/mm3 Lymph # (Auto) (1.0-4.8) th/mm3 [place] # (Auto) (0.0-0.9) th/mm3 Eos # (Auto) (0.0-0.4) th/mm3 Baso # (Auto) (0.0-0.2) th/mm3 WBC Differential Differential Comment PT (9.8-11.6) sec INR Ratio APTT (23.4-31.7) sec D-Dimer Quant (PE/DVT) (0.00-0.50) mg/L FEU Puncture Site Patient Temperature O2 Saturation (90-100) % ABG pH (7.380-7.420) ABG pCO2 (38-42) mmHg ABG pO2 (61-120) mmHg ABG HCO3 (22-26) mmol/L ABG O2 Content (12.0-20.0) Vol % ABG Base Excess (-2-2) mmol/L ABG Methemoglobin (0-2) % Gino Test Hemoglobin (12.0-16.0) G/DL Carboxyhemoglobin (0-4) % O2 Delivery Device Vent Setting Inspired O2 % Critical Value Sodium 142 (136-145) meq/L Potassium 4.1 (3.5-5.1) meq/L Chloride 105 (98-107) meq/L Carbon Dioxide 27.9 (21.0-32.0) meq/L Anion Gap 9 (5-15) meq/L BUN 27 H (7-18) mg/dL Creatinine 1.78 H (0.60-1.30) mg/dL Estimated GFR 38 L (>89) mL/min POC Glucose 334 H 317 H (68-110) mg/dl Random Glucose 310 H D (74-106) mg/dL Lactic Acid (0.4-2.0) mmol/L Calcium 8.1 L (8.5-10.1) mg/dL Phosphorus 3.2 (2.5-4.9) mg/dL Magnesium 1.9 (1.5-2.5) mg/dL Total Bilirubin 0.7 (0.2-1.0) mg/dL AST 49 H (15-37) U/L ALT 21 (12-78) U/L Alkaline Phosphatase 72 (45-117) U/L Total Creatine Kinase 290 (39-308) U/L CK-MB (CK-2) (0.5-3.6) ng/mL Troponin I (0.02-0.05) ng/mL B-Natriuretic Peptide (0-100) pg/mL Total Protein 6.1 L D (6.4-8.2) g/dL Albumin 2.4 L (3.4-5.0) g/dL Procalcitonin (0.00-0.08) ng/mL Urine Color (Yellw/Straw) Urine Clarity (Clear) Urine pH (5.0-8.5) Ur Specific [place] (1.002-1.035) Urine Protein (Neg-Trace) mg/dL Urine Glucose (UA) (Negative) mg/dL Urine Ketones (Negative) mg/dL Urine Occult Blood (Negative) Urine Nitrate (Negative) Urine Bilirubin (Negative) Urine Urobilinogen (Less than 2) mg/dL Ur Leukocyte Esterase (Negative) Urine WBC (0-5) /hpf Ur Squamous Epith Cells (0-5) /hpf Hyaline Casts (0-3) /lpf Urine Mucus (Occasional) /lpf Micro UA Comment Ur Microscopic Review Urine Culture Comments Nasal Screen MRSA (PCR) (Negative) Random Vancomycin Comment 06/05/18 06/05/18 06/05/18 Range/Units 03:00 03:00 03:00 WBC 10.3 (4.0-11.0) th/mm3 RBC 3.61 L (4.50-5.90) mil/mm3 Hgb 10.8 L (13.0-17.0) gm/dL Hct 31.8 L (39.0-51.0) % MCV 87.9 (80.0-100.0) fL MCH 29.8 (27.0-34.0) pg MCHC 33.9 (32.0-36.0) % RDW 16.0 (11.6-17.2) % Plt Count 226 (150-450) th/mm3 MPV 8.2 (7.0-11.0) fL Neut % (Auto) 69.1 (16.0-70.0) % Lymph % (Auto) 18.1 (9.0-44.0) % [place] % (Auto) 11.5 H (0.0-8.0) % Eos % (Auto) 0.9 (0.0-4.0) % Baso % (Auto) 0.4 (0.0-2.0) % Neut # (Auto) 7.1 (1.8-7.7) th/mm3 Lymph # (Auto) 1.9 (1.0-4.8) th/mm3 [place] # (Auto) 1.2 H (0.0-0.9) th/mm3 Eos # (Auto) 0.1 (0.0-0.4) th/mm3 Baso # (Auto) 0.0 (0.0-0.2) th/mm3 WBC Differential . Differential Comment Auto diff final PT (9.8-11.6) sec INR Ratio APTT (23.4-31.7) sec D-Dimer Quant (PE/DVT) (0.00-0.50) mg/L FEU Puncture Site Patient Temperature O2 Saturation (90-100) % ABG pH (7.380-7.420) ABG pCO2 (38-42) mmHg ABG pO2 (61-120) mmHg ABG HCO3 (22-26) mmol/L ABG O2 Content (12.0-20.0) Vol % ABG Base Excess (-2-2) mmol/L ABG Methemoglobin (0-2) % Gino Test Hemoglobin (12.0-16.0) G/DL Carboxyhemoglobin (0-4) % O2 Delivery Device Vent Setting Inspired O2 % Critical Value Sodium (136-145) meq/L Potassium (3.5-5.1) meq/L Chloride (98-107) meq/L Carbon Dioxide (21.0-32.0) meq/L Anion Gap (5-15) meq/L BUN (7-18) mg/dL Creatinine (0.60-1.30) mg/dL Estimated GFR (>89) mL/min POC Glucose (68-110) mg/dl Random Glucose (74-106) mg/dL Lactic Acid 1.5 (0.4-2.0) mmol/L Calcium (8.5-10.1) mg/dL Phosphorus (2.5-4.9) mg/dL Magnesium (1.5-2.5) mg/dL Total Bilirubin (0.2-1.0) mg/dL AST (15-37) U/L ALT (12-78) U/L Alkaline Phosphatase (45-117) U/L Total Creatine Kinase (39-308) U/L CK-MB (CK-2) (0.5-3.6) ng/mL Troponin I (0.02-0.05) ng/mL B-Natriuretic Peptide 590 H (0-100) pg/mL Total Protein (6.4-8.2) g/dL Albumin (3.4-5.0) g/dL Procalcitonin (0.00-0.08) ng/mL Urine Color (Yellw/Straw) Urine Clarity (Clear) Urine pH (5.0-8.5) Ur Specific [place] (1.002-1.035) Urine Protein (Neg-Trace) mg/dL Urine Glucose (UA) (Negative) mg/dL Urine Ketones (Negative) mg/dL Urine Occult Blood (Negative) Urine Nitrate (Negative) Urine Bilirubin (Negative) Urine Urobilinogen (Less than 2) mg/dL Ur Leukocyte Esterase (Negative) Urine WBC (0-5) /hpf Ur Squamous Epith Cells (0-5) /hpf Hyaline Casts (0-3) /lpf Urine Mucus (Occasional) /lpf Micro UA Comment Ur Microscopic Review Urine Culture Comments Nasal Screen MRSA (PCR) (Negative) Random Vancomycin Comment 06/05/18 06/05/18 06/05/18 Range/Units 03:00 05:28 06:08 WBC (4.0-11.0) th/mm3 RBC (4.50-5.90) mil/mm3 Hgb (13.0-17.0) gm/dL Hct (39.0-51.0) % MCV (80.0-100.0) fL MCH (27.0-34.0) pg MCHC (32.0-36.0) % RDW (11.6-17.2) % Plt Count (150-450) th/mm3 MPV (7.0-11.0) fL Neut % (Auto) (16.0-70.0) % Lymph % (Auto) (9.0-44.0) % [place] % (Auto) (0.0-8.0) % Eos % (Auto) (0.0-4.0) % Baso % (Auto) (0.0-2.0) % Neut # (Auto) (1.8-7.7) th/mm3 Lymph # (Auto) (1.0-4.8) th/mm3 [place] # (Auto) (0.0-0.9) th/mm3 Eos # (Auto) (0.0-0.4) th/mm3 Baso # (Auto) (0.0-0.2) th/mm3 WBC Differential Differential Comment PT 11.4 (9.8-11.6) sec INR 1.1 Ratio APTT 39.6 H (23.4-31.7) sec D-Dimer Quant (PE/DVT) (0.00-0.50) mg/L FEU Puncture Site Art line Patient Temperature 98.6 O2 Saturation 95 (90-100) % ABG pH 7.44 H (7.380-7.420) ABG pCO2 40 (38-42) mmHg ABG pO2 93 (61-120) mmHg ABG HCO3 27 H (22-26) mmol/L ABG O2 Content 15.1 (12.0-20.0) Vol % ABG Base Excess 2.8 H (-2-2) mmol/L ABG Methemoglobin 1.5 (0-2) % Gino Test Hemoglobin 11.3 L (12.0-16.0) G/DL Carboxyhemoglobin 1.5 (0-4) % O2 Delivery Device Ventilator Vent Setting [id number]/[id number] Inspired O2 40 % Critical Value No Sodium (136-145) meq/L Potassium (3.5-5.1) meq/L Chloride (98-107) meq/L Carbon Dioxide (21.0-32.0) meq/L Anion Gap (5-15) meq/L BUN (7-18) mg/dL Creatinine (0.60-1.30) mg/dL Estimated GFR (>89) mL/min POC Glucose 291 H (68-110) mg/dl Random Glucose (74-106) mg/dL Lactic Acid (0.4-2.0) mmol/L Calcium (8.5-10.1) mg/dL Phosphorus (2.5-4.9) mg/dL Magnesium (1.5-2.5) mg/dL Total Bilirubin (0.2-1.0) mg/dL AST (15-37) U/L ALT (12-78) U/L Alkaline Phosphatase (45-117) U/L Total Creatine Kinase (39-308) U/L CK-MB (CK-2) (0.5-3.6) ng/mL Troponin I (0.02-0.05) ng/mL B-Natriuretic Peptide (0-100) pg/mL Total Protein (6.4-8.2) g/dL Albumin (3.4-5.0) g/dL Procalcitonin (0.00-0.08) ng/mL Urine Color (Yellw/Straw) Urine Clarity (Clear) Urine pH (5.0-8.5) Ur Specific [place] (1.002-1.035) Urine Protein (Neg-Trace) mg/dL Urine Glucose (UA) (Negative) mg/dL Urine Ketones (Negative) mg/dL Urine Occult Blood (Negative) Urine Nitrate (Negative) Urine Bilirubin (Negative) Urine Urobilinogen (Less than 2) mg/dL Ur Leukocyte Esterase (Negative) Urine WBC (0-5) /hpf Ur Squamous Epith Cells (0-5) /hpf Hyaline Casts (0-3) /lpf Urine Mucus (Occasional) /lpf Micro UA Comment Ur Microscopic Review Urine Culture Comments Nasal Screen MRSA (PCR) (Negative) Random Vancomycin Comment 06/05/18 06/05/18 06/05/18 Range/Units 10:00 11:18 11:55 WBC (4.0-11.0) th/mm3 RBC (4.50-5.90) mil/mm3 Hgb (13.0-17.0) gm/dL Hct (39.0-51.0) % MCV (80.0-100.0) fL MCH (27.0-34.0) pg MCHC (32.0-36.0) % RDW (11.6-17.2) % Plt Count (150-450) th/mm3 MPV (7.0-11.0) fL Neut % (Auto) (16.0-70.0) % Lymph % (Auto) (9.0-44.0) % [place] % (Auto) (0.0-8.0) % Eos % (Auto) (0.0-4.0) % Baso % (Auto) (0.0-2.0) % Neut # (Auto) (1.8-7.7) th/mm3 Lymph # (Auto) (1.0-4.8) th/mm3 [place] # (Auto) (0.0-0.9) th/mm3 Eos # (Auto) (0.0-0.4) th/mm3 Baso # (Auto) (0.0-0.2) th/mm3 WBC Differential Differential Comment PT (9.8-11.6) sec INR Ratio APTT 39.9 H (23.4-31.7) sec D-Dimer Quant (PE/DVT) (0.00-0.50) mg/L FEU Puncture Site Patient Temperature O2 Saturation (90-100) % ABG pH (7.380-7.420) ABG pCO2 (38-42) mmHg ABG pO2 (61-120) mmHg ABG HCO3 (22-26) mmol/L ABG O2 Content (12.0-20.0) Vol % ABG Base Excess (-2-2) mmol/L ABG Methemoglobin (0-2) % Gino Test Hemoglobin (12.0-16.0) G/DL Carboxyhemoglobin (0-4) % O2 Delivery Device Vent Setting Inspired O2 % Critical Value Sodium (136-145) meq/L Potassium (3.5-5.1) meq/L Chloride (98-107) meq/L Carbon Dioxide (21.0-32.0) meq/L Anion Gap (5-15) meq/L BUN (7-18) mg/dL Creatinine (0.60-1.30) mg/dL Estimated GFR (>89) mL/min POC Glucose 373 H (68-110) mg/dl Random Glucose (74-106) mg/dL Lactic Acid (0.4-2.0) mmol/L Calcium (8.5-10.1) mg/dL Phosphorus (2.5-4.9) mg/dL Magnesium (1.5-2.5) mg/dL Total Bilirubin (0.2-1.0) mg/dL AST (15-37) U/L ALT (12-78) U/L Alkaline Phosphatase (45-117) U/L Total Creatine Kinase 188 (39-308) U/L CK-MB (CK-2) (0.5-3.6) ng/mL Troponin I (0.02-0.05) ng/mL B-Natriuretic Peptide (0-100) pg/mL Total Protein (6.4-8.2) g/dL Albumin (3.4-5.0) g/dL Procalcitonin (0.00-0.08) ng/mL Urine Color (Yellw/Straw) Urine Clarity (Clear) Urine pH (5.0-8.5) Ur Specific [place] (1.002-1.035) Urine Protein (Neg-Trace) mg/dL Urine Glucose (UA) (Negative) mg/dL Urine Ketones (Negative) mg/dL Urine Occult Blood (Negative) Urine Nitrate (Negative) Urine Bilirubin (Negative) Urine Urobilinogen (Less than 2) mg/dL Ur Leukocyte Esterase (Negative) Urine WBC (0-5) /hpf Ur Squamous Epith Cells (0-5) /hpf Hyaline Casts (0-3) /lpf Urine Mucus (Occasional) /lpf Micro UA Comment Ur Microscopic Review Urine Culture Comments Nasal Screen MRSA (PCR) (Negative) Random Vancomycin Comment 06/05/18 06/05/18 06/05/18 Range/Units 17:00 17:18 23:00 WBC (4.0-11.0) th/mm3 RBC (4.50-5.90) mil/mm3 Hgb (13.0-17.0) gm/dL Hct (39.0-51.0) % MCV (80.0-100.0) fL MCH (27.0-34.0) pg MCHC (32.0-36.0) % RDW (11.6-17.2) % Plt Count (150-450) th/mm3 MPV (7.0-11.0) fL Neut % (Auto) (16.0-70.0) % Lymph % (Auto) (9.0-44.0) % [place] % (Auto) (0.0-8.0) % Eos % (Auto) (0.0-4.0) % Baso % (Auto) (0.0-2.0) % Neut # (Auto) (1.8-7.7) th/mm3 Lymph # (Auto) (1.0-4.8) th/mm3 [place] # (Auto) (0.0-0.9) th/mm3 Eos # (Auto) (0.0-0.4) th/mm3 Baso # (Auto) (0.0-0.2) th/mm3 WBC Differential Differential Comment PT (9.8-11.6) sec INR Ratio APTT 44.1 H 47.3 H (23.4-31.7) sec D-Dimer Quant (PE/DVT) (0.00-0.50) mg/L FEU Puncture Site Patient Temperature O2 Saturation (90-100) % ABG pH (7.380-7.420) ABG pCO2 (38-42) mmHg ABG pO2 (61-120) mmHg ABG HCO3 (22-26) mmol/L ABG O2 Content (12.0-20.0) Vol % ABG Base Excess (-2-2) mmol/L ABG Methemoglobin (0-2) % Gino Test Hemoglobin (12.0-16.0) G/DL Carboxyhemoglobin (0-4) % O2 Delivery Device Vent Setting Inspired O2 % Critical Value Sodium (136-145) meq/L Potassium (3.5-5.1) meq/L Chloride (98-107) meq/L Carbon Dioxide (21.0-32.0) meq/L Anion Gap (5-15) meq/L BUN (7-18) mg/dL Creatinine (0.60-1.30) mg/dL Estimated GFR (>89) mL/min POC Glucose 335 H (68-110) mg/dl Random Glucose (74-106) mg/dL Lactic Acid (0.4-2.0) mmol/L Calcium (8.5-10.1) mg/dL Phosphorus (2.5-4.9) mg/dL Magnesium (1.5-2.5) mg/dL Total Bilirubin (0.2-1.0) mg/dL AST (15-37) U/L ALT (12-78) U/L Alkaline Phosphatase (45-117) U/L Total Creatine Kinase (39-308) U/L CK-MB (CK-2) (0.5-3.6) ng/mL Troponin I (0.02-0.05) ng/mL B-Natriuretic Peptide (0-100) pg/mL Total Protein (6.4-8.2) g/dL Albumin (3.4-5.0) g/dL Procalcitonin (0.00-0.08) ng/mL Urine Color (Yellw/Straw) Urine Clarity (Clear) Urine pH (5.0-8.5) Ur Specific [place] (1.002-1.035) Urine Protein (Neg-Trace) mg/dL Urine Glucose (UA) (Negative) mg/dL Urine Ketones (Negative) mg/dL Urine Occult Blood (Negative) Urine Nitrate (Negative) Urine Bilirubin (Negative) Urine Urobilinogen (Less than 2) mg/dL Ur Leukocyte Esterase (Negative) Urine WBC (0-5) /hpf Ur Squamous Epith Cells (0-5) /hpf Hyaline Casts (0-3) /lpf Urine Mucus (Occasional) /lpf Micro UA Comment Ur Microscopic Review Urine Culture Comments Nasal Screen MRSA (PCR) (Negative) Random Vancomycin Comment 06/05/18 06/06/18 06/06/18 Range/Units 23:31 05:08 05:25 WBC 10.0 (4.0-11.0) th/mm3 RBC 3.42 L (4.50-5.90) mil/mm3 Hgb 10.2 L (13.0-17.0) gm/dL Hct 30.5 L (39.0-51.0) % MCV 89.2 (80.0-100.0) fL MCH 30.0 (27.0-34.0) pg MCHC 33.6 (32.0-36.0) % RDW 15.8 (11.6-17.2) % Plt Count 157 D (150-450) th/mm3 MPV 8.4 (7.0-11.0) fL Neut % (Auto) 75.5 H (16.0-70.0) % Lymph % (Auto) 12.4 (9.0-44.0) % [place] % (Auto) 11.0 H (0.0-8.0) % Eos % (Auto) 0.8 (0.0-4.0) % Baso % (Auto) 0.3 (0.0-2.0) % Neut # (Auto) 7.6 (1.8-7.7) th/mm3 Lymph # (Auto) 1.2 (1.0-4.8) th/mm3 [place] # (Auto) 1.1 H (0.0-0.9) th/mm3 Eos # (Auto) 0.1 (0.0-0.4) th/mm3 Baso # (Auto) 0.0 (0.0-0.2) th/mm3 WBC Differential . Differential Comment Auto diff final PT (9.8-11.6) sec INR Ratio APTT (23.4-31.7) sec D-Dimer Quant (PE/DVT) (0.00-0.50) mg/L FEU Puncture Site Art line Patient Temperature 98.6 O2 Saturation 92 (90-100) % ABG pH 7.41 (7.380-7.420) ABG pCO2 42 (38-42) mmHg ABG pO2 75 (61-120) mmHg ABG HCO3 26 (22-26) mmol/L ABG O2 Content 15.4 (12.0-20.0) Vol % ABG Base Excess 1.9 (-2-2) mmol/L ABG Methemoglobin 1.4 (0-2) % Gino Test Hemoglobin 11.8 L (12.0-16.0) G/DL Carboxyhemoglobin 1.8 (0-4) % O2 Delivery Device Ventilator Vent Setting [id number] Inspired O2 35 % Critical Value No Sodium (136-145) meq/L Potassium (3.5-5.1) meq/L Chloride (98-107) meq/L Carbon Dioxide (21.0-32.0) meq/L Anion Gap (5-15) meq/L BUN (7-18) mg/dL Creatinine (0.60-1.30) mg/dL Estimated GFR (>89) mL/min POC Glucose 346 H (68-110) mg/dl Random Glucose (74-106) mg/dL Lactic Acid (0.4-2.0) mmol/L Calcium (8.5-10.1) mg/dL Phosphorus (2.5-4.9) mg/dL Magnesium (1.5-2.5) mg/dL Total Bilirubin (0.2-1.0) mg/dL AST (15-37) U/L ALT (12-78) U/L Alkaline Phosphatase (45-117) U/L Total Creatine Kinase (39-308) U/L CK-MB (CK-2) (0.5-3.6) ng/mL Troponin I (0.02-0.05) ng/mL B-Natriuretic Peptide (0-100) pg/mL Total Protein (6.4-8.2) g/dL Albumin (3.4-5.0) g/dL Procalcitonin (0.00-0.08) ng/mL Urine Color (Yellw/Straw) Urine Clarity (Clear) Urine pH (5.0-8.5) Ur Specific [place] (1.002-1.035) Urine Protein (Neg-Trace) mg/dL Urine Glucose (UA) (Negative) mg/dL Urine Ketones (Negative) mg/dL Urine Occult Blood (Negative) Urine Nitrate (Negative) Urine Bilirubin (Negative) Urine Urobilinogen (Less than 2) mg/dL Ur Leukocyte Esterase (Negative) Urine WBC (0-5) /hpf Ur Squamous Epith Cells (0-5) /hpf Hyaline Casts (0-3) /lpf Urine Mucus (Occasional) /lpf Micro UA Comment Ur Microscopic Review Urine Culture Comments Nasal Screen MRSA (PCR) (Negative) Random Vancomycin Comment 06/06/18 06/06/18 06/06/18 Range/Units 05:25 05:25 05:25 WBC (4.0-11.0) th/mm3 RBC (4.50-5.90) mil/mm3 Hgb (13.0-17.0) gm/dL Hct (39.0-51.0) % MCV (80.0-100.0) fL MCH (27.0-34.0) pg MCHC (32.0-36.0) % RDW (11.6-17.2) % Plt Count (150-450) th/mm3 MPV (7.0-11.0) fL Neut % (Auto) (16.0-70.0) % Lymph % (Auto) (9.0-44.0) % [place] % (Auto) (0.0-8.0) % Eos % (Auto) (0.0-4.0) % Baso % (Auto) (0.0-2.0) % Neut # (Auto) (1.8-7.7) th/mm3 Lymph # (Auto) (1.0-4.8) th/mm3 [place] # (Auto) (0.0-0.9) th/mm3 Eos # (Auto) (0.0-0.4) th/mm3 Baso # (Auto) (0.0-0.2) th/mm3 WBC Differential Differential Comment PT 10.8 (9.8-11.6) sec INR 1.1 Ratio APTT (23.4-31.7) sec D-Dimer Quant (PE/DVT) (0.00-0.50) mg/L FEU Puncture Site Patient Temperature O2 Saturation (90-100) % ABG pH (7.380-7.420) ABG pCO2 (38-42) mmHg ABG pO2 (61-120) mmHg ABG HCO3 (22-26) mmol/L ABG O2 Content (12.0-20.0) Vol % ABG Base Excess (-2-2) mmol/L ABG Methemoglobin (0-2) % Gino Test Hemoglobin (12.0-16.0) G/DL Carboxyhemoglobin (0-4) % O2 Delivery Device Vent Setting Inspired O2 % Critical Value Sodium 138 (136-145) meq/L Potassium 4.6 (3.5-5.1) meq/L Chloride 102 (98-107) meq/L Carbon Dioxide 27.4 (21.0-32.0) meq/L Anion Gap 9 (5-15) meq/L BUN 29 H (7-18) mg/dL Creatinine 1.87 H (0.60-1.30) mg/dL Estimated GFR 36 L (>89) mL/min POC Glucose (68-110) mg/dl Random Glucose 396 H (74-106) mg/dL Lactic Acid (0.4-2.0) mmol/L Calcium 7.8 L (8.5-10.1) mg/dL Phosphorus 3.2 (2.5-4.9) mg/dL Magnesium 2.3 (1.5-2.5) mg/dL Total Bilirubin 0.6 (0.2-1.0) mg/dL AST 20 (15-37) U/L ALT 19 (12-78) U/L Alkaline Phosphatase 73 (45-117) U/L Total Creatine Kinase (39-308) U/L CK-MB (CK-2) (0.5-3.6) ng/mL Troponin I (0.02-0.05) ng/mL B-Natriuretic Peptide 1037 H (0-100) pg/mL Total Protein 6.1 L (6.4-8.2) g/dL Albumin 2.0 L (3.4-5.0) g/dL Procalcitonin (0.00-0.08) ng/mL Urine Color (Yellw/Straw) Urine Clarity (Clear) Urine pH (5.0-8.5) Ur Specific [place] (1.002-1.035) Urine Protein (Neg-Trace) mg/dL Urine Glucose (UA) (Negative) mg/dL Urine Ketones (Negative) mg/dL Urine Occult Blood (Negative) Urine Nitrate (Negative) Urine Bilirubin (Negative) Urine Urobilinogen (Less than 2) mg/dL Ur Leukocyte Esterase (Negative) Urine WBC (0-5) /hpf Ur Squamous Epith Cells (0-5) /hpf Hyaline Casts (0-3) /lpf Urine Mucus (Occasional) /lpf Micro UA Comment Ur Microscopic Review Urine Culture Comments Nasal Screen MRSA (PCR) (Negative) Random Vancomycin Comment 06/06/18 06/06/18 06/06/18 Range/Units 05:25 05:25 06:10 WBC (4.0-11.0) th/mm3 RBC (4.50-5.90) mil/mm3 Hgb (13.0-17.0) gm/dL Hct (39.0-51.0) % MCV (80.0-100.0) fL MCH (27.0-34.0) pg MCHC (32.0-36.0) % RDW (11.6-17.2) % Plt Count (150-450) th/mm3 MPV (7.0-11.0) fL Neut % (Auto) (16.0-70.0) % Lymph % (Auto) (9.0-44.0) % [place] % (Auto) (0.0-8.0) % Eos % (Auto) (0.0-4.0) % Baso % (Auto) (0.0-2.0) % Neut # (Auto) (1.8-7.7) th/mm3 Lymph # (Auto) (1.0-4.8) th/mm3 [place] # (Auto) (0.0-0.9) th/mm3 Eos # (Auto) (0.0-0.4) th/mm3 Baso # (Auto) (0.0-0.2) th/mm3 WBC Differential Differential Comment PT (9.8-11.6) sec INR Ratio APTT 50.7 H (23.4-31.7) sec D-Dimer Quant (PE/DVT) (0.00-0.50) mg/L FEU Puncture Site Patient Temperature O2 Saturation (90-100) % ABG pH (7.380-7.420) ABG pCO2 (38-42) mmHg ABG pO2 (61-120) mmHg ABG HCO3 (22-26) mmol/L ABG O2 Content (12.0-20.0) Vol % ABG Base Excess (-2-2) mmol/L ABG Methemoglobin (0-2) % Gino Test Hemoglobin (12.0-16.0) G/DL Carboxyhemoglobin (0-4) % O2 Delivery Device Vent Setting Inspired O2 % Critical Value Sodium (136-145) meq/L Potassium (3.5-5.1) meq/L Chloride (98-107) meq/L Carbon Dioxide (21.0-32.0) meq/L Anion Gap (5-15) meq/L BUN (7-18) mg/dL Creatinine (0.60-1.30) mg/dL Estimated GFR (>89) mL/min POC Glucose 355 H (68-110) mg/dl Random Glucose (74-106) mg/dL Lactic Acid 1.3 (0.4-2.0) mmol/L Calcium (8.5-10.1) mg/dL Phosphorus (2.5-4.9) mg/dL Magnesium (1.5-2.5) mg/dL Total Bilirubin (0.2-1.0) mg/dL AST (15-37) U/L ALT (12-78) U/L Alkaline Phosphatase (45-117) U/L Total Creatine Kinase (39-308) U/L CK-MB (CK-2) (0.5-3.6) ng/mL Troponin I (0.02-0.05) ng/mL B-Natriuretic Peptide (0-100) pg/mL Total Protein (6.4-8.2) g/dL Albumin (3.4-5.0) g/dL Procalcitonin (0.00-0.08) ng/mL Urine Color (Yellw/Straw) Urine Clarity (Clear) Urine pH (5.0-8.5) Ur Specific [place] (1.002-1.035) Urine Protein (Neg-Trace) mg/dL Urine Glucose (UA) (Negative) mg/dL Urine Ketones (Negative) mg/dL Urine Occult Blood (Negative) Urine Nitrate (Negative) Urine Bilirubin (Negative) Urine Urobilinogen (Less than 2) mg/dL Ur Leukocyte Esterase (Negative) Urine WBC (0-5) /hpf Ur Squamous Epith Cells (0-5) /hpf Hyaline Casts (0-3) /lpf Urine Mucus (Occasional) /lpf Micro UA Comment Ur Microscopic Review Urine Culture Comments Nasal Screen MRSA (PCR) (Negative) Random Vancomycin Comment 06/06/18 06/06/18 06/06/18 Range/Units 08:59 09:55 11:59 WBC (4.0-11.0) th/mm3 RBC (4.50-5.90) mil/mm3 Hgb (13.0-17.0) gm/dL Hct (39.0-51.0) % MCV (80.0-100.0) fL MCH (27.0-34.0) pg MCHC (32.0-36.0) % RDW (11.6-17.2) % Plt Count (150-450) th/mm3 MPV (7.0-11.0) fL Neut % (Auto) (16.0-70.0) % Lymph % (Auto) (9.0-44.0) % [place] % (Auto) (0.0-8.0) % Eos % (Auto) (0.0-4.0) % Baso % (Auto) (0.0-2.0) % Neut # (Auto) (1.8-7.7) th/mm3 Lymph # (Auto) (1.0-4.8) th/mm3 [place] # (Auto) (0.0-0.9) th/mm3 Eos # (Auto) (0.0-0.4) th/mm3 Baso # (Auto) (0.0-0.2) th/mm3 WBC Differential Differential Comment PT (9.8-11.6) sec INR Ratio APTT (23.4-31.7) sec D-Dimer Quant (PE/DVT) (0.00-0.50) mg/L FEU Puncture Site Art line Art line Art line Patient Temperature 98.6 98.6 98.6 O2 Saturation 89 L* 96 97 (90-100) % ABG pH 7.38 7.37 L 7.36 L (7.380-7.420) ABG pCO2 46 H 46 H 48 H (38-42) mmHg ABG pO2 65 164 H 192 H (61-120) mmHg ABG HCO3 26 26 26 (22-26) mmol/L ABG O2 Content 13.5 14.3 14.4 (12.0-20.0) Vol % ABG Base Excess 1.8 1.1 1.2 (-2-2) mmol/L ABG Methemoglobin 1.3 1.4 1.3 (0-2) % Gino Test Hemoglobin 10.7 L 10.3 L 10.2 L (12.0-16.0) G/DL Carboxyhemoglobin 1.9 1.6 1.3 (0-4) % O2 Delivery Device Ventilator Ventilator Ventilator Vent Setting [id number] Bilevel Bilevel Inspired O2 100 100 80 % Critical Value Yes No No Sodium (136-145) meq/L Potassium (3.5-5.1) meq/L Chloride (98-107) meq/L Carbon Dioxide (21.0-32.0) meq/L Anion Gap (5-15) meq/L BUN (7-18) mg/dL Creatinine (0.60-1.30) mg/dL Estimated GFR (>89) mL/min POC Glucose (68-110) mg/dl Random Glucose (74-106) mg/dL Lactic Acid (0.4-2.0) mmol/L Calcium (8.5-10.1) mg/dL Phosphorus (2.5-4.9) mg/dL Magnesium (1.5-2.5) mg/dL Total Bilirubin (0.2-1.0) mg/dL AST (15-37) U/L ALT (12-78) U/L Alkaline Phosphatase (45-117) U/L Total Creatine Kinase (39-308) U/L CK-MB (CK-2) (0.5-3.6) ng/mL Troponin I (0.02-0.05) ng/mL B-Natriuretic Peptide (0-100) pg/mL Total Protein (6.4-8.2) g/dL Albumin (3.4-5.0) g/dL Procalcitonin (0.00-0.08) ng/mL Urine Color (Yellw/Straw) Urine Clarity (Clear) Urine pH (5.0-8.5) Ur Specific [place] (1.002-1.035) Urine Protein (Neg-Trace) mg/dL Urine Glucose (UA) (Negative) mg/dL Urine Ketones (Negative) mg/dL Urine Occult Blood (Negative) Urine Nitrate (Negative) Urine Bilirubin (Negative) Urine Urobilinogen (Less than 2) mg/dL Ur Leukocyte Esterase (Negative) Urine WBC (0-5) /hpf Ur Squamous Epith Cells (0-5) /hpf Hyaline Casts (0-3) /lpf Urine Mucus (Occasional) /lpf Micro UA Comment Ur Microscopic Review Urine Culture Comments Nasal Screen MRSA (PCR) (Negative) Random Vancomycin Comment 06/06/18 06/06/18 06/07/18 Range/Units 12:14 17:39 00:05 WBC (4.0-11.0) th/mm3 RBC (4.50-5.90) mil/mm3 Hgb (13.0-17.0) gm/dL Hct (39.0-51.0) % MCV (80.0-100.0) fL MCH (27.0-34.0) pg MCHC (32.0-36.0) % RDW (11.6-17.2) % Plt Count (150-450) th/mm3 MPV (7.0-11.0) fL Neut % (Auto) (16.0-70.0) % Lymph % (Auto) (9.0-44.0) % [place] % (Auto) (0.0-8.0) % Eos % (Auto) (0.0-4.0) % Baso % (Auto) (0.0-2.0) % Neut # (Auto) (1.8-7.7) th/mm3 Lymph # (Auto) (1.0-4.8) th/mm3 [place] # (Auto) (0.0-0.9) th/mm3 Eos # (Auto) (0.0-0.4) th/mm3 Baso # (Auto) (0.0-0.2) th/mm3 WBC Differential Differential Comment PT (9.8-11.6) sec INR Ratio APTT (23.4-31.7) sec D-Dimer Quant (PE/DVT) (0.00-0.50) mg/L FEU Puncture Site Patient Temperature O2 Saturation (90-100) % ABG pH (7.380-7.420) ABG pCO2 (38-42) mmHg ABG pO2 (61-120) mmHg ABG HCO3 (22-26) mmol/L ABG O2 Content (12.0-20.0) Vol % ABG Base Excess (-2-2) mmol/L ABG Methemoglobin (0-2) % Gino Test Hemoglobin (12.0-16.0) G/DL Carboxyhemoglobin (0-4) % O2 Delivery Device Vent Setting Inspired O2 % Critical Value Sodium (136-145) meq/L Potassium (3.5-5.1) meq/L Chloride (98-107) meq/L Carbon Dioxide (21.0-32.0) meq/L Anion Gap (5-15) meq/L BUN (7-18) mg/dL Creatinine (0.60-1.30) mg/dL Estimated GFR (>89) mL/min POC Glucose 450 H 437 H 347 H (68-110) mg/dl Random Glucose (74-106) mg/dL Lactic Acid (0.4-2.0) mmol/L Calcium (8.5-10.1) mg/dL Phosphorus (2.5-4.9) mg/dL Magnesium (1.5-2.5) mg/dL Total Bilirubin (0.2-1.0) mg/dL AST (15-37) U/L ALT (12-78) U/L Alkaline Phosphatase (45-117) U/L Total Creatine Kinase (39-308) U/L CK-MB (CK-2) (0.5-3.6) ng/mL Troponin I (0.02-0.05) ng/mL B-Natriuretic Peptide (0-100) pg/mL Total Protein (6.4-8.2) g/dL Albumin (3.4-5.0) g/dL Procalcitonin (0.00-0.08) ng/mL Urine Color (Yellw/Straw) Urine Clarity (Clear) Urine pH (5.0-8.5) Ur Specific [place] (1.002-1.035) Urine Protein (Neg-Trace) mg/dL Urine Glucose (UA) (Negative) mg/dL Urine Ketones (Negative) mg/dL Urine Occult Blood (Negative) Urine Nitrate (Negative) Urine Bilirubin (Negative) Urine Urobilinogen (Less than 2) mg/dL Ur Leukocyte Esterase (Negative) Urine WBC (0-5) /hpf Ur Squamous Epith Cells (0-5) /hpf Hyaline Casts (0-3) /lpf Urine Mucus (Occasional) /lpf Micro UA Comment Ur Microscopic Review Urine Culture Comments Nasal Screen MRSA (PCR) (Negative) Random Vancomycin Comment 06/07/18 06/07/18 06/07/18 Range/Units 04:02 05:10 05:10 WBC 8.9 (4.0-11.0) th/mm3 RBC 3.02 L (4.50-5.90) mil/mm3 Hgb 9.0 L (13.0-17.0) gm/dL Hct 27.0 L (39.0-51.0) % MCV 89.4 (80.0-100.0) fL MCH 29.9 (27.0-34.0) pg MCHC 33.4 (32.0-36.0) % RDW 15.8 (11.6-17.2) % Plt Count 159 (150-450) th/mm3 MPV 9.6 (7.0-11.0) fL Neut % (Auto) 77.3 H (16.0-70.0) % Lymph % (Auto) 10.3 (9.0-44.0) % [place] % (Auto) 9.7 H (0.0-8.0) % Eos % (Auto) 2.3 (0.0-4.0) % Baso % (Auto) 0.4 (0.0-2.0) % Neut # (Auto) 6.9 (1.8-7.7) th/mm3 Lymph # (Auto) 0.9 L (1.0-4.8) th/mm3 [place] # (Auto) 0.9 (0.0-0.9) th/mm3 Eos # (Auto) 0.2 (0.0-0.4) th/mm3 Baso # (Auto) 0.0 (0.0-0.2) th/mm3 WBC Differential . Differential Comment Auto diff final PT (9.8-11.6) sec INR Ratio APTT (23.4-31.7) sec D-Dimer Quant (PE/DVT) (0.00-0.50) mg/L FEU Puncture Site Art line Patient Temperature 98.6 O2 Saturation 96 (90-100) % ABG pH 7.39 (7.380-7.420) ABG pCO2 43 H (38-42) mmHg ABG pO2 119 (61-120) mmHg ABG HCO3 25 (22-26) mmol/L ABG O2 Content 12.4 (12.0-20.0) Vol % ABG Base Excess 0.8 (-2-2) mmol/L ABG Methemoglobin 1.3 (0-2) % Gino Test Hemoglobin 9.0 L (12.0-16.0) G/DL Carboxyhemoglobin 1.5 (0-4) % O2 Delivery Device Ventilator Vent Setting Bilevel Inspired O2 40 % Critical Value No Sodium 138 (136-145) meq/L Potassium 4.9 (3.5-5.1) meq/L Chloride 102 (98-107) meq/L Carbon Dioxide 27.7 (21.0-32.0) meq/L Anion Gap 8 (5-15) meq/L BUN 49 H (7-18) mg/dL Creatinine 2.71 H (0.60-1.30) mg/dL Estimated GFR 23 L (>89) mL/min POC Glucose (68-110) mg/dl Random Glucose 378 H (74-106) mg/dL Lactic Acid (0.4-2.0) mmol/L Calcium 8.1 L (8.5-10.1) mg/dL Phosphorus 4.2 D (2.5-4.9) mg/dL Magnesium 2.6 H (1.5-2.5) mg/dL Total Bilirubin 0.5 (0.2-1.0) mg/dL AST 13 L (15-37) U/L ALT 15 (12-78) U/L Alkaline Phosphatase 73 (45-117) U/L Total Creatine Kinase (39-308) U/L CK-MB (CK-2) (0.5-3.6) ng/mL Troponin I (0.02-0.05) ng/mL B-Natriuretic Peptide (0-100) pg/mL Total Protein 6.4 (6.4-8.2) g/dL Albumin 2.1 L (3.4-5.0) g/dL Procalcitonin (0.00-0.08) ng/mL Urine Color (Yellw/Straw) Urine Clarity (Clear) Urine pH (5.0-8.5) Ur Specific [place] (1.002-1.035) Urine Protein (Neg-Trace) mg/dL Urine Glucose (UA) (Negative) mg/dL Urine Ketones (Negative) mg/dL Urine Occult Blood (Negative) Urine Nitrate (Negative) Urine Bilirubin (Negative) Urine Urobilinogen (Less than 2) mg/dL Ur Leukocyte Esterase (Negative) Urine WBC (0-5) /hpf Ur Squamous Epith Cells (0-5) /hpf Hyaline Casts (0-3) /lpf Urine Mucus (Occasional) /lpf Micro UA Comment Ur Microscopic Review Urine Culture Comments Nasal Screen MRSA (PCR) (Negative) Random Vancomycin Comment 06/07/18 06/07/18 06/07/18 Range/Units 05:10 06:09 09:13 WBC (4.0-11.0) th/mm3 RBC (4.50-5.90) mil/mm3 Hgb (13.0-17.0) gm/dL Hct (39.0-51.0) % MCV (80.0-100.0) fL MCH (27.0-34.0) pg MCHC (32.0-36.0) % RDW (11.6-17.2) % Plt Count (150-450) th/mm3 MPV (7.0-11.0) fL Neut % (Auto) (16.0-70.0) % Lymph % (Auto) (9.0-44.0) % [place] % (Auto) (0.0-8.0) % Eos % (Auto) (0.0-4.0) % Baso % (Auto) (0.0-2.0) % Neut # (Auto) (1.8-7.7) th/mm3 Lymph # (Auto) (1.0-4.8) th/mm3 [place] # (Auto) (0.0-0.9) th/mm3 Eos # (Auto) (0.0-0.4) th/mm3 Baso # (Auto) (0.0-0.2) th/mm3 WBC Differential Differential Comment PT 10.0 (9.8-11.6) sec INR 1.0 Ratio APTT 41.5 H (23.4-31.7) sec D-Dimer Quant (PE/DVT) (0.00-0.50) mg/L FEU Puncture Site Art line Patient Temperature 98.6 O2 Saturation 90 (90-100) % ABG pH 7.37 L (7.380-7.420) ABG pCO2 46 H (38-42) mmHg ABG pO2 67 (61-120) mmHg ABG HCO3 26 (22-26) mmol/L ABG O2 Content 12.4 (12.0-20.0) Vol % ABG Base Excess 1.0 (-2-2) mmol/L ABG Methemoglobin 1.5 (0-2) % Gino Test Hemoglobin 9.7 L (12.0-16.0) G/DL Carboxyhemoglobin 1.4 (0-4) % O2 Delivery Device Ventilator Vent Setting Ac/prvc Inspired O2 40 % Critical Value No Sodium (136-145) meq/L Potassium (3.5-5.1) meq/L Chloride (98-107) meq/L Carbon Dioxide (21.0-32.0) meq/L Anion Gap (5-15) meq/L BUN (7-18) mg/dL Creatinine (0.60-1.30) mg/dL Estimated GFR (>89) mL/min POC Glucose 461 H* (68-110) mg/dl Random Glucose (74-106) mg/dL Lactic Acid (0.4-2.0) mmol/L Calcium (8.5-10.1) mg/dL Phosphorus (2.5-4.9) mg/dL Magnesium (1.5-2.5) mg/dL Total Bilirubin (0.2-1.0) mg/dL AST (15-37) U/L ALT (12-78) U/L Alkaline Phosphatase (45-117) U/L Total Creatine Kinase (39-308) U/L CK-MB (CK-2) (0.5-3.6) ng/mL Troponin I (0.02-0.05) ng/mL B-Natriuretic Peptide (0-100) pg/mL Total Protein (6.4-8.2) g/dL Albumin (3.4-5.0) g/dL Procalcitonin (0.00-0.08) ng/mL Urine Color (Yellw/Straw) Urine Clarity (Clear) Urine pH (5.0-8.5) Ur Specific [place] (1.002-1.035) Urine Protein (Neg-Trace) mg/dL Urine Glucose (UA) (Negative) mg/dL Urine Ketones (Negative) mg/dL Urine Occult Blood (Negative) Urine Nitrate (Negative) Urine Bilirubin (Negative) Urine Urobilinogen (Less than 2) mg/dL Ur Leukocyte Esterase (Negative) Urine WBC (0-5) /hpf Ur Squamous Epith Cells (0-5) /hpf Hyaline Casts (0-3) /lpf Urine Mucus (Occasional) /lpf Micro UA Comment Ur Microscopic Review Urine Culture Comments Nasal Screen MRSA (PCR) (Negative) Random Vancomycin Comment 06/07/18 06/07/18 06/07/18 Range/Units 11:57 13:56 15:04 WBC (4.0-11.0) th/mm3 RBC (4.50-5.90) mil/mm3 Hgb (13.0-17.0) gm/dL Hct (39.0-51.0) % MCV (80.0-100.0) fL MCH (27.0-34.0) pg MCHC (32.0-36.0) % RDW (11.6-17.2) % Plt Count (150-450) th/mm3 MPV (7.0-11.0) fL Neut % (Auto) (16.0-70.0) % Lymph % (Auto) (9.0-44.0) % [place] % (Auto) (0.0-8.0) % Eos % (Auto) (0.0-4.0) % Baso % (Auto) (0.0-2.0) % Neut # (Auto) (1.8-7.7) th/mm3 Lymph # (Auto) (1.0-4.8) th/mm3 [place] # (Auto) (0.0-0.9) th/mm3 Eos # (Auto) (0.0-0.4) th/mm3 Baso # (Auto) (0.0-0.2) th/mm3 WBC Differential Differential Comment PT (9.8-11.6) sec INR Ratio APTT (23.4-31.7) sec D-Dimer Quant (PE/DVT) (0.00-0.50) mg/L FEU Puncture Site Patient Temperature O2 Saturation (90-100) % ABG pH (7.380-7.420) ABG pCO2 (38-42) mmHg ABG pO2 (61-120) mmHg ABG HCO3 (22-26) mmol/L ABG O2 Content (12.0-20.0) Vol % ABG Base Excess (-2-2) mmol/L ABG Methemoglobin (0-2) % Gino Test Hemoglobin (12.0-16.0) G/DL Carboxyhemoglobin (0-4) % O2 Delivery Device Vent Setting Inspired O2 % Critical Value Sodium (136-145) meq/L Potassium (3.5-5.1) meq/L Chloride (98-107) meq/L Carbon Dioxide (21.0-32.0) meq/L Anion Gap (5-15) meq/L BUN (7-18) mg/dL Creatinine (0.60-1.30) mg/dL Estimated GFR (>89) mL/min POC Glucose 352 H 476 H* 507 H* (68-110) mg/dl Random Glucose (74-106) mg/dL Lactic Acid (0.4-2.0) mmol/L Calcium (8.5-10.1) mg/dL Phosphorus (2.5-4.9) mg/dL Magnesium (1.5-2.5) mg/dL Total Bilirubin (0.2-1.0) mg/dL AST (15-37) U/L ALT (12-78) U/L Alkaline Phosphatase (45-117) U/L Total Creatine Kinase (39-308) U/L CK-MB (CK-2) (0.5-3.6) ng/mL Troponin I (0.02-0.05) ng/mL B-Natriuretic Peptide (0-100) pg/mL Total Protein (6.4-8.2) g/dL Albumin (3.4-5.0) g/dL Procalcitonin (0.00-0.08) ng/mL Urine Color (Yellw/Straw) Urine Clarity (Clear) Urine pH (5.0-8.5) Ur Specific [place] (1.002-1.035) Urine Protein (Neg-Trace) mg/dL Urine Glucose (UA) (Negative) mg/dL Urine Ketones (Negative) mg/dL Urine Occult Blood (Negative) Urine Nitrate (Negative) Urine Bilirubin (Negative) Urine Urobilinogen (Less than 2) mg/dL Ur Leukocyte Esterase (Negative) Urine WBC (0-5) /hpf Ur Squamous Epith Cells (0-5) /hpf Hyaline Casts (0-3) /lpf Urine Mucus (Occasional) /lpf Micro UA Comment Ur Microscopic Review Urine Culture Comments Nasal Screen MRSA (PCR) (Negative) Random Vancomycin Comment 06/07/18 06/07/18 06/07/18 Range/Units 15:59 17:14 18:17 WBC (4.0-11.0) th/mm3 RBC (4.50-5.90) mil/mm3 Hgb (13.0-17.0) gm/dL Hct (39.0-51.0) % MCV (80.0-100.0) fL MCH (27.0-34.0) pg MCHC (32.0-36.0) % RDW (11.6-17.2) % Plt Count (150-450) th/mm3 MPV (7.0-11.0) fL Neut % (Auto) (16.0-70.0) % Lymph % (Auto) (9.0-44.0) % [place] % (Auto) (0.0-8.0) % Eos % (Auto) (0.0-4.0) % Baso % (Auto) (0.0-2.0) % Neut # (Auto) (1.8-7.7) th/mm3 Lymph # (Auto) (1.0-4.8) th/mm3 [place] # (Auto) (0.0-0.9) th/mm3 Eos # (Auto) (0.0-0.4) th/mm3 Baso # (Auto) (0.0-0.2) th/mm3 WBC Differential Differential Comment PT (9.8-11.6) sec INR Ratio APTT (23.4-31.7) sec D-Dimer Quant (PE/DVT) (0.00-0.50) mg/L FEU Puncture Site Patient Temperature O2 Saturation (90-100) % ABG pH (7.380-7.420) ABG pCO2 (38-42) mmHg ABG pO2 (61-120) mmHg ABG HCO3 (22-26) mmol/L ABG O2 Content (12.0-20.0) Vol % ABG Base Excess (-2-2) mmol/L ABG Methemoglobin (0-2) % Gino Test Hemoglobin (12.0-16.0) G/DL Carboxyhemoglobin (0-4) % O2 Delivery Device Vent Setting Inspired O2 % Critical Value Sodium (136-145) meq/L Potassium (3.5-5.1) meq/L Chloride (98-107) meq/L Carbon Dioxide (21.0-32.0) meq/L Anion Gap (5-15) meq/L BUN (7-18) mg/dL Creatinine (0.60-1.30) mg/dL Estimated GFR (>89) mL/min POC Glucose 507 H* 393 H 357 H (68-110) mg/dl Random Glucose (74-106) mg/dL Lactic Acid (0.4-2.0) mmol/L Calcium (8.5-10.1) mg/dL Phosphorus (2.5-4.9) mg/dL Magnesium (1.5-2.5) mg/dL Total Bilirubin (0.2-1.0) mg/dL AST (15-37) U/L ALT (12-78) U/L Alkaline Phosphatase (45-117) U/L Total Creatine Kinase (39-308) U/L CK-MB (CK-2) (0.5-3.6) ng/mL Troponin I (0.02-0.05) ng/mL B-Natriuretic Peptide (0-100) pg/mL Total Protein (6.4-8.2) g/dL Albumin (3.4-5.0) g/dL Procalcitonin (0.00-0.08) ng/mL Urine Color (Yellw/Straw) Urine Clarity (Clear) Urine pH (5.0-8.5) Ur Specific [place] (1.002-1.035) Urine Protein (Neg-Trace) mg/dL Urine Glucose (UA) (Negative) mg/dL Urine Ketones (Negative) mg/dL Urine Occult Blood (Negative) Urine Nitrate (Negative) Urine Bilirubin (Negative) Urine Urobilinogen (Less than 2) mg/dL Ur Leukocyte Esterase (Negative) Urine WBC (0-5) /hpf Ur Squamous Epith Cells (0-5) /hpf Hyaline Casts (0-3) /lpf Urine Mucus (Occasional) /lpf Micro UA Comment Ur Microscopic Review Urine Culture Comments Nasal Screen MRSA (PCR) (Negative) Random Vancomycin Comment 06/07/18 06/07/18 06/07/18 Range/Units 19:11 19:25 20:16 WBC (4.0-11.0) th/mm3 RBC (4.50-5.90) mil/mm3 Hgb (13.0-17.0) gm/dL Hct (39.0-51.0) % MCV (80.0-100.0) fL MCH (27.0-34.0) pg MCHC (32.0-36.0) % RDW (11.6-17.2) % Plt Count (150-450) th/mm3 MPV (7.0-11.0) fL Neut % (Auto) (16.0-70.0) % Lymph % (Auto) (9.0-44.0) % [place] % (Auto) (0.0-8.0) % Eos % (Auto) (0.0-4.0) % Baso % (Auto) (0.0-2.0) % Neut # (Auto) (1.8-7.7) th/mm3 Lymph # (Auto) (1.0-4.8) th/mm3 [place] # (Auto) (0.0-0.9) th/mm3 Eos # (Auto) (0.0-0.4) th/mm3 Baso # (Auto) (0.0-0.2) th/mm3 WBC Differential Differential Comment PT (9.8-11.6) sec INR Ratio APTT (23.4-31.7) sec D-Dimer Quant (PE/DVT) (0.00-0.50) mg/L FEU Puncture Site Patient Temperature O2 Saturation (90-100) % ABG pH (7.380-7.420) ABG pCO2 (38-42) mmHg ABG pO2 (61-120) mmHg ABG HCO3 (22-26) mmol/L ABG O2 Content (12.0-20.0) Vol % ABG Base Excess (-2-2) mmol/L ABG Methemoglobin (0-2) % Gino Test Hemoglobin (12.0-16.0) G/DL Carboxyhemoglobin (0-4) % O2 Delivery Device Vent Setting Inspired O2 % Critical Value Sodium 140 (136-145) meq/L Potassium 4.2 (3.5-5.1) meq/L Chloride 101 (98-107) meq/L Carbon Dioxide 26.8 (21.0-32.0) meq/L Anion Gap 12 (5-15) meq/L BUN 56 H (7-18) mg/dL Creatinine 2.67 H (0.60-1.30) mg/dL Estimated GFR 24 L (>89) mL/min POC Glucose 362 H 247 H (68-110) mg/dl Random Glucose 284 H (74-106) mg/dL Lactic Acid (0.4-2.0) mmol/L Calcium 8.8 (8.5-10.1) mg/dL Phosphorus (2.5-4.9) mg/dL Magnesium (1.5-2.5) mg/dL Total Bilirubin (0.2-1.0) mg/dL AST (15-37) U/L ALT (12-78) U/L Alkaline Phosphatase (45-117) U/L Total Creatine Kinase (39-308) U/L CK-MB (CK-2) (0.5-3.6) ng/mL Troponin I (0.02-0.05) ng/mL B-Natriuretic Peptide (0-100) pg/mL Total Protein (6.4-8.2) g/dL Albumin (3.4-5.0) g/dL Procalcitonin (0.00-0.08) ng/mL Urine Color (Yellw/Straw) Urine Clarity (Clear) Urine pH (5.0-8.5) Ur Specific [place] (1.002-1.035) Urine Protein (Neg-Trace) mg/dL Urine Glucose (UA) (Negative) mg/dL Urine Ketones (Negative) mg/dL Urine Occult Blood (Negative) Urine Nitrate (Negative) Urine Bilirubin (Negative) Urine Urobilinogen (Less than 2) mg/dL Ur Leukocyte Esterase (Negative) Urine WBC (0-5) /hpf Ur Squamous Epith Cells (0-5) /hpf Hyaline Casts (0-3) /lpf Urine Mucus (Occasional) /lpf Micro UA Comment Ur Microscopic Review Urine Culture Comments Nasal Screen MRSA (PCR) (Negative) Random Vancomycin Comment 06/07/18 06/07/18 06/07/18 Range/Units 21:18 22:16 23:06 WBC (4.0-11.0) th/mm3 RBC (4.50-5.90) mil/mm3 Hgb (13.0-17.0) gm/dL Hct (39.0-51.0) % MCV (80.0-100.0) fL MCH (27.0-34.0) pg MCHC (32.0-36.0) % RDW (11.6-17.2) % Plt Count (150-450) th/mm3 MPV (7.0-11.0) fL Neut % (Auto) (16.0-70.0) % Lymph % (Auto) (9.0-44.0) % [place] % (Auto) (0.0-8.0) % Eos % (Auto) (0.0-4.0) % Baso % (Auto) (0.0-2.0) % Neut # (Auto) (1.8-7.7) th/mm3 Lymph # (Auto) (1.0-4.8) th/mm3 [place] # (Auto) (0.0-0.9) th/mm3 Eos # (Auto) (0.0-0.4) th/mm3 Baso # (Auto) (0.0-0.2) th/mm3 WBC Differential Differential Comment PT (9.8-11.6) sec INR Ratio APTT (23.4-31.7) sec D-Dimer Quant (PE/DVT) (0.00-0.50) mg/L FEU Puncture Site Patient Temperature O2 Saturation (90-100) % ABG pH (7.380-7.420) ABG pCO2 (38-42) mmHg ABG pO2 (61-120) mmHg ABG HCO3 (22-26) mmol/L ABG O2 Content (12.0-20.0) Vol % ABG Base Excess (-2-2) mmol/L ABG Methemoglobin (0-2) % Gino Test Hemoglobin (12.0-16.0) G/DL Carboxyhemoglobin (0-4) % O2 Delivery Device Vent Setting Inspired O2 % Critical Value Sodium (136-145) meq/L Potassium (3.5-5.1) meq/L Chloride (98-107) meq/L Carbon Dioxide (21.0-32.0) meq/L Anion Gap (5-15) meq/L BUN (7-18) mg/dL Creatinine (0.60-1.30) mg/dL Estimated GFR (>89) mL/min POC Glucose 240 H 236 H 218 H (68-110) mg/dl Random Glucose (74-106) mg/dL Lactic Acid (0.4-2.0) mmol/L Calcium (8.5-10.1) mg/dL Phosphorus (2.5-4.9) mg/dL Magnesium (1.5-2.5) mg/dL Total Bilirubin (0.2-1.0) mg/dL AST (15-37) U/L ALT (12-78) U/L Alkaline Phosphatase (45-117) U/L Total Creatine Kinase (39-308) U/L CK-MB (CK-2) (0.5-3.6) ng/mL Troponin I (0.02-0.05) ng/mL B-Natriuretic Peptide (0-100) pg/mL Total Protein (6.4-8.2) g/dL Albumin (3.4-5.0) g/dL Procalcitonin (0.00-0.08) ng/mL Urine Color (Yellw/Straw) Urine Clarity (Clear) Urine pH (5.0-8.5) Ur Specific [place] (1.002-1.035) Urine Protein (Neg-Trace) mg/dL Urine Glucose (UA) (Negative) mg/dL Urine Ketones (Negative) mg/dL Urine Occult Blood (Negative) Urine Nitrate (Negative) Urine Bilirubin (Negative) Urine Urobilinogen (Less than 2) mg/dL Ur Leukocyte Esterase (Negative) Urine WBC (0-5) /hpf Ur Squamous Epith Cells (0-5) /hpf Hyaline Casts (0-3) /lpf Urine Mucus (Occasional) /lpf Micro UA Comment Ur Microscopic Review Urine Culture Comments Nasal Screen MRSA (PCR) (Negative) Random Vancomycin Comment 06/08/18 06/08/18 06/08/18 Range/Units 00:14 01:08 02:19 WBC (4.0-11.0) th/mm3 RBC (4.50-5.90) mil/mm3 Hgb (13.0-17.0) gm/dL Hct (39.0-51.0) % MCV (80.0-100.0) fL MCH (27.0-34.0) pg MCHC (32.0-36.0) % RDW (11.6-17.2) % Plt Count (150-450) th/mm3 MPV (7.0-11.0) fL Neut % (Auto) (16.0-70.0) % Lymph % (Auto) (9.0-44.0) % [place] % (Auto) (0.0-8.0) % Eos % (Auto) (0.0-4.0) % Baso % (Auto) (0.0-2.0) % Neut # (Auto) (1.8-7.7) th/mm3 Lymph # (Auto) (1.0-4.8) th/mm3 [place] # (Auto) (0.0-0.9) th/mm3 Eos # (Auto) (0.0-0.4) th/mm3 Baso # (Auto) (0.0-0.2) th/mm3 WBC Differential Differential Comment PT (9.8-11.6) sec INR Ratio APTT (23.4-31.7) sec D-Dimer Quant (PE/DVT) (0.00-0.50) mg/L FEU Puncture Site Patient Temperature O2 Saturation (90-100) % ABG pH (7.380-7.420) ABG pCO2 (38-42) mmHg ABG pO2 (61-120) mmHg ABG HCO3 (22-26) mmol/L ABG O2 Content (12.0-20.0) Vol % ABG Base Excess (-2-2) mmol/L ABG Methemoglobin (0-2) % Gino Test Hemoglobin (12.0-16.0) G/DL Carboxyhemoglobin (0-4) % O2 Delivery Device Vent Setting Inspired O2 % Critical Value Sodium (136-145) meq/L Potassium (3.5-5.1) meq/L Chloride (98-107) meq/L Carbon Dioxide (21.0-32.0) meq/L Anion Gap (5-15) meq/L BUN (7-18) mg/dL Creatinine (0.60-1.30) mg/dL Estimated GFR (>89) mL/min POC Glucose 204 H 220 H 210 H (68-110) mg/dl Random Glucose (74-106) mg/dL Lactic Acid (0.4-2.0) mmol/L Calcium (8.5-10.1) mg/dL Phosphorus (2.5-4.9) mg/dL Magnesium (1.5-2.5) mg/dL Total Bilirubin (0.2-1.0) mg/dL AST (15-37) U/L ALT (12-78) U/L Alkaline Phosphatase (45-117) U/L Total Creatine Kinase (39-308) U/L CK-MB (CK-2) (0.5-3.6) ng/mL Troponin I (0.02-0.05) ng/mL B-Natriuretic Peptide (0-100) pg/mL Total Protein (6.4-8.2) g/dL Albumin (3.4-5.0) g/dL Procalcitonin (0.00-0.08) ng/mL Urine Color (Yellw/Straw) Urine Clarity (Clear) Urine pH (5.0-8.5) Ur Specific [place] (1.002-1.035) Urine Protein (Neg-Trace) mg/dL Urine Glucose (UA) (Negative) mg/dL Urine Ketones (Negative) mg/dL Urine Occult Blood (Negative) Urine Nitrate (Negative) Urine Bilirubin (Negative) Urine Urobilinogen (Less than 2) mg/dL Ur Leukocyte Esterase (Negative) Urine WBC (0-5) /hpf Ur Squamous Epith Cells (0-5) /hpf Hyaline Casts (0-3) /lpf Urine Mucus (Occasional) /lpf Micro UA Comment Ur Microscopic Review Urine Culture Comments Nasal Screen MRSA (PCR) (Negative) Random Vancomycin Comment 11/06/08/18 06/08/18 Range/Units 03:23 04:25 04:30 WBC 9.8 (4.0-11.0) th/mm3 RBC 3.04 L (4.50-5.90) mil/mm3 Hgb 9.2 L (13.0-17.0) gm/dL Hct 26.8 L (39.0-51.0) % MCV 88.2 (80.0-100.0) fL MCH 30.1 (27.0-34.0) pg MCHC 34.2 (32.0-36.0) % RDW 15.8 (11.6-17.2) % Plt Count 195 (150-450) th/mm3 MPV 9.2 (7.0-11.0) fL Neut % (Auto) 80.8 H (16.0-70.0) % Lymph % (Auto) 9.1 (9.0-44.0) % [place] % (Auto) 8.3 H (0.0-8.0) % Eos % (Auto) 1.6 (0.0-4.0) % Baso % (Auto) 0.2 (0.0-2.0) % Neut # (Auto) 7.9 H (1.8-7.7) th/mm3 Lymph # (Auto) 0.9 L (1.0-4.8) th/mm3 [place] # (Auto) 0.8 (0.0-0.9) th/mm3 Eos # (Auto) 0.2 (0.0-0.4) th/mm3 Baso # (Auto) 0.0 (0.0-0.2) th/mm3 WBC Differential . Differential Comment Auto diff final PT (9.8-11.6) sec INR Ratio APTT (23.4-31.7) sec D-Dimer Quant (PE/DVT) (0.00-0.50) mg/L FEU Puncture Site Patient Temperature O2 Saturation (90-100) % ABG pH (7.380-7.420) ABG pCO2 (38-42) mmHg ABG pO2 (61-120) mmHg ABG HCO3 (22-26) mmol/L ABG O2 Content (12.0-20.0) Vol % ABG Base Excess (-2-2) mmol/L ABG Methemoglobin (0-2) % Gino Test Hemoglobin (12.0-16.0) G/DL Carboxyhemoglobin (0-4) % O2 Delivery Device Vent Setting Inspired O2 % Critical Value Sodium (136-145) meq/L Potassium (3.5-5.1) meq/L Chloride (98-107) meq/L Carbon Dioxide (21.0-32.0) meq/L Anion Gap (5-15) meq/L BUN (7-18) mg/dL Creatinine (0.60-1.30) mg/dL Estimated GFR (>89) mL/min POC Glucose 208 H 198 H (68-110) mg/dl Random Glucose (74-106) mg/dL Lactic Acid (0.4-2.0) mmol/L Calcium (8.5-10.1) mg/dL Phosphorus (2.5-4.9) mg/dL Magnesium (1.5-2.5) mg/dL Total Bilirubin (0.2-1.0) mg/dL AST (15-37) U/L ALT (12-78) U/L Alkaline Phosphatase (45-117) U/L Total Creatine Kinase (39-308) U/L CK-MB (CK-2) (0.5-3.6) ng/mL Troponin I (0.02-0.05) ng/mL B-Natriuretic Peptide (0-100) pg/mL Total Protein (6.4-8.2) g/dL Albumin (3.4-5.0) g/dL Procalcitonin (0.00-0.08) ng/mL Urine Color (Yellw/Straw) Urine Clarity (Clear) Urine pH (5.0-8.5) Ur Specific [place] (1.002-1.035) Urine Protein (Neg-Trace) mg/dL Urine Glucose (UA) (Negative) mg/dL Urine Ketones (Negative) mg/dL Urine Occult Blood (Negative) Urine Nitrate (Negative) Urine Bilirubin (Negative) Urine Urobilinogen (Less than 2) mg/dL Ur Leukocyte Esterase (Negative) Urine WBC (0-5) /hpf Ur Squamous Epith Cells (0-5) /hpf Hyaline Casts (0-3) /lpf Urine Mucus (Occasional) /lpf Micro UA Comment Ur Microscopic Review Urine Culture Comments Nasal Screen MRSA (PCR) (Negative) Random Vancomycin Comment 06/08/18 06/08/18 06/08/18 Range/Units 04:30 04:30 05:00 WBC (4.0-11.0) th/mm3 RBC (4.50-5.90) mil/mm3 Hgb (13.0-17.0) gm/dL Hct (39.0-51.0) % MCV (80.0-100.0) fL MCH (27.0-34.0) pg MCHC (32.0-36.0) % RDW (11.6-17.2) % Plt Count (150-450) th/mm3 MPV (7.0-11.0) fL Neut % (Auto) (16.0-70.0) % Lymph % (Auto) (9.0-44.0) % [place] % (Auto) (0.0-8.0) % Eos % (Auto) (0.0-4.0) % Baso % (Auto) (0.0-2.0) % Neut # (Auto) (1.8-7.7) th/mm3 Lymph # (Auto) (1.0-4.8) th/mm3 [place] # (Auto) (0.0-0.9) th/mm3 Eos # (Auto) (0.0-0.4) th/mm3 Baso # (Auto) (0.0-0.2) th/mm3 WBC Differential Differential Comment PT 9.8 (9.8-11.6) sec INR 1.0 Ratio APTT 35.6 H (23.4-31.7) sec D-Dimer Quant (PE/DVT) (0.00-0.50) mg/L FEU Puncture Site Art line Patient Temperature 98.6 O2 Saturation 96 (90-100) % ABG pH 7.48 H (7.380-7.420) ABG pCO2 37 L (38-42) mmHg ABG pO2 129 H (61-120) mmHg ABG HCO3 28 H (22-26) mmol/L ABG O2 Content 12.8 (12.0-20.0) Vol % ABG Base Excess 4.2 H (-2-2) mmol/L ABG Methemoglobin 1.4 (0-2) % Gino Test Hemoglobin 9.3 L (12.0-16.0) G/DL Carboxyhemoglobin 1.5 (0-4) % O2 Delivery Device Ventilator Vent Setting See comment Inspired O2 50 % Critical Value No Sodium 142 (136-145) meq/L Potassium 4.0 (3.5-5.1) meq/L Chloride 103 (98-107) meq/L Carbon Dioxide 29.8 (21.0-32.0) meq/L Anion Gap 9 (5-15) meq/L BUN 66 H (7-18) mg/dL Creatinine 2.61 H (0.60-1.30) mg/dL Estimated GFR 24 L (>89) mL/min POC Glucose (68-110) mg/dl Random Glucose 171 H D (74-106) mg/dL Lactic Acid (0.4-2.0) mmol/L Calcium 8.7 (8.5-10.1) mg/dL Phosphorus 3.2 D (2.5-4.9) mg/dL Magnesium 2.6 H (1.5-2.5) mg/dL Total Bilirubin 0.5 (0.2-1.0) mg/dL AST 25 (15-37) U/L ALT 26 (12-78) U/L Alkaline Phosphatase 90 (45-117) U/L Total Creatine Kinase (39-308) U/L CK-MB (CK-2) (0.5-3.6) ng/mL Troponin I (0.02-0.05) ng/mL B-Natriuretic Peptide (0-100) pg/mL Total Protein 6.6 (6.4-8.2) g/dL Albumin 2.0 L (3.4-5.0) g/dL Procalcitonin (0.00-0.08) ng/mL Urine Color (Yellw/Straw) Urine Clarity (Clear) Urine pH (5.0-8.5) Ur Specific [place] (1.002-1.035) Urine Protein (Neg-Trace) mg/dL Urine Glucose (UA) (Negative) mg/dL Urine Ketones (Negative) mg/dL Urine Occult Blood (Negative) Urine Nitrate (Negative) Urine Bilirubin (Negative) Urine Urobilinogen (Less than 2) mg/dL Ur Leukocyte Esterase (Negative) Urine WBC (0-5) /hpf Ur Squamous Epith Cells (0-5) /hpf Hyaline Casts (0-3) /lpf Urine Mucus (Occasional) /lpf Micro UA Comment Ur Microscopic Review Urine Culture Comments Nasal Screen MRSA (PCR) (Negative) Random Vancomycin 18.1 Comment 06/08/18 06/08/18 06/08/18 Range/Units 05:23 06:17 08:00 WBC (4.0-11.0) th/mm3 RBC (4.50-5.90) mil/mm3 Hgb (13.0-17.0) gm/dL Hct (39.0-51.0) % MCV (80.0-100.0) fL MCH (27.0-34.0) pg MCHC (32.0-36.0) % RDW (11.6-17.2) % Plt Count (150-450) th/mm3 MPV (7.0-11.0) fL Neut % (Auto) (16.0-70.0) % Lymph % (Auto) (9.0-44.0) % [place] % (Auto) (0.0-8.0) % Eos % (Auto) (0.0-4.0) % Baso % (Auto) (0.0-2.0) % Neut # (Auto) (1.8-7.7) th/mm3 Lymph # (Auto) (1.0-4.8) th/mm3 [place] # (Auto) (0.0-0.9) th/mm3 Eos # (Auto) (0.0-0.4) th/mm3 Baso # (Auto) (0.0-0.2) th/mm3 WBC Differential Differential Comment PT (9.8-11.6) sec INR Ratio APTT (23.4-31.7) sec D-Dimer Quant (PE/DVT) (0.00-0.50) mg/L FEU Puncture Site Patient Temperature O2 Saturation (90-100) % ABG pH (7.380-7.420) ABG pCO2 (38-42) mmHg ABG pO2 (61-120) mmHg ABG HCO3 (22-26) mmol/L ABG O2 Content (12.0-20.0) Vol % ABG Base Excess (-2-2) mmol/L ABG Methemoglobin (0-2) % Gino Test Hemoglobin (12.0-16.0) G/DL Carboxyhemoglobin (0-4) % O2 Delivery Device Vent Setting Inspired O2 % Critical Value Sodium (136-145) meq/L Potassium (3.5-5.1) meq/L Chloride (98-107) meq/L Carbon Dioxide (21.0-32.0) meq/L Anion Gap (5-15) meq/L BUN (7-18) mg/dL Creatinine (0.60-1.30) mg/dL Estimated GFR (>89) mL/min POC Glucose 182 H 183 H 186 H (68-110) mg/dl Random Glucose (74-106) mg/dL Lactic Acid (0.4-2.0) mmol/L Calcium (8.5-10.1) mg/dL Phosphorus (2.5-4.9) mg/dL Magnesium (1.5-2.5) mg/dL Total Bilirubin (0.2-1.0) mg/dL AST (15-37) U/L ALT (12-78) U/L Alkaline Phosphatase (45-117) U/L Total Creatine Kinase (39-308) U/L CK-MB (CK-2) (0.5-3.6) ng/mL Troponin I (0.02-0.05) ng/mL B-Natriuretic Peptide (0-100) pg/mL Total Protein (6.4-8.2) g/dL Albumin (3.4-5.0) g/dL Procalcitonin (0.00-0.08) ng/mL Urine Color (Yellw/Straw) Urine Clarity (Clear) Urine pH (5.0-8.5) Ur Specific [place] (1.002-1.035) Urine Protein (Neg-Trace) mg/dL Urine Glucose (UA) (Negative) mg/dL Urine Ketones (Negative) mg/dL Urine Occult Blood (Negative) Urine Nitrate (Negative) Urine Bilirubin (Negative) Urine Urobilinogen (Less than 2) mg/dL Ur Leukocyte Esterase (Negative) Urine WBC (0-5) /hpf Ur Squamous Epith Cells (0-5) /hpf Hyaline Casts (0-3) /lpf Urine Mucus (Occasional) /lpf Micro UA Comment Ur Microscopic Review Urine Culture Comments Nasal Screen MRSA (PCR) (Negative) Random Vancomycin Comment 06/08/18 Range/Units 09:07 WBC (4.0-11.0) th/mm3 RBC (4.50-5.90) mil/mm3 Hgb (13.0-17.0) gm/dL Hct (39.0-51.0) % MCV (80.0-100.0) fL MCH (27.0-34.0) pg MCHC (32.0-36.0) % RDW (11.6-17.2) % Plt Count (150-450) th/mm3 MPV (7.0-11.0) fL Neut % (Auto) (16.0-70.0) % Lymph % (Auto) (9.0-44.0) % [place] % (Auto) (0.0-8.0) % Eos % (Auto) (0.0-4.0) % Baso % (Auto) (0.0-2.0) % Neut # (Auto) (1.8-7.7) th/mm3 Lymph # (Auto) (1.0-4.8) th/mm3 [place] # (Auto) (0.0-0.9) th/mm3 Eos # (Auto) (0.0-0.4) th/mm3 Baso # (Auto) (0.0-0.2) th/mm3 WBC Differential Differential Comment PT (9.8-11.6) sec INR Ratio APTT (23.4-31.7) sec D-Dimer Quant (PE/DVT) (0.00-0.50) mg/L FEU Puncture Site Patient Temperature O2 Saturation (90-100) % ABG pH (7.380-7.420) ABG pCO2 (38-42) mmHg ABG pO2 (61-120) mmHg ABG HCO3 (22-26) mmol/L ABG O2 Content (12.0-20.0) Vol % ABG Base Excess (-2-2) mmol/L ABG Methemoglobin (0-2) % Gino Test Hemoglobin (12.0-16.0) G/DL Carboxyhemoglobin (0-4) % O2 Delivery Device Vent Setting Inspired O2 % Critical Value Sodium (136-145) meq/L Potassium (3.5-5.1) meq/L Chloride (98-107) meq/L Carbon Dioxide (21.0-32.0) meq/L Anion Gap (5-15) meq/L BUN (7-18) mg/dL Creatinine (0.60-1.30) mg/dL Estimated GFR (>89) mL/min POC Glucose 176 H (68-110) mg/dl Random Glucose (74-106) mg/dL Lactic Acid (0.4-2.0) mmol/L Calcium (8.5-10.1) mg/dL Phosphorus (2.5-4.9) mg/dL Magnesium (1.5-2.5) mg/dL Total Bilirubin (0.2-1.0) mg/dL AST (15-37) U/L ALT (12-78) U/L Alkaline Phosphatase (45-117) U/L Total Creatine Kinase (39-308) U/L CK-MB (CK-2) (0.5-3.6) ng/mL Troponin I (0.02-0.05) ng/mL B-Natriuretic Peptide (0-100) pg/mL Total Protein (6.4-8.2) g/dL Albumin (3.4-5.0) g/dL Procalcitonin (0.00-0.08) ng/mL Urine Color (Yellw/Straw) Urine Clarity (Clear) Urine pH (5.0-8.5) Ur Specific [place] (1.002-1.035) Urine Protein (Neg-Trace) mg/dL Urine Glucose (UA) (Negative) mg/dL Urine Ketones (Negative) mg/dL Urine Occult Blood (Negative) Urine Nitrate (Negative) Urine Bilirubin (Negative) Urine Urobilinogen (Less than 2) mg/dL Ur Leukocyte Esterase (Negative) Urine WBC (0-5) /hpf Ur Squamous Epith Cells (0-5) /hpf Hyaline Casts (0-3) /lpf Urine Mucus (Occasional) /lpf Micro UA Comment Ur Microscopic Review Urine Culture Comments Nasal Screen MRSA (PCR) (Negative) Random Vancomycin Comment Imaging Data Attestation: I personally reviewed and interpreted this imaging study as follows : Radiologist's impression: Chest X-Ray 06/03/18 14:22 CONCLUSION: 1. ETT in good position. NGT beyond the GE junction. 2. Cardiomegaly with pulmonary edema pattern. 3. More focal airspace consolidation in the left lower lung zone. Head CT 06/03/18 15:01 CONCLUSION: No acute intracranial abnormality demonstrated. . Chest X-Ray 06/04/18 05:00 CONCLUSION: Unchanged exam. Chest X-Ray 06/05/18 05:00 CONCLUSION: No interval change. Chest X-Ray 06/06/18 09:18 CONCLUSION: Bilateral effusions and diffuse interstitial prominence most consistent with CHF. Unchanged from prior. Chest X-Ray 06/06/18 17:04 CONCLUSION: 1. New left IJ central venous catheter with distal tip projecting over the mid SVC. 2. No appreciable pneumothorax. 3. Persistent ill-defined opacification of the mid and lower lungs, likely a combination of airspace disease and pleural fluid. Abdomen/Bladder Ultrasound 06/07/18 00:00 CONCLUSION: 1. Mildly increased renal cortical echogenicity bilaterally. 2. No evidence of hydronephrosis Chest X-Ray 06/07/18 04:00 CONCLUSION: 1. No significant change. Perihilar and bibasilar opacities are again noted most characteristic of pulmonary edema. 2. Bilateral pleural effusions are again noted. Chest X-Ray 06/08/18 06:00 CONCLUSION: Findings most characteristic of congestive heart failure. This appears mildly increased in the perihilar regions. Discharge Plan Discharge Disposition Patient Disposition: 30 Still Patient Discharge Details Diagnosis: Respiratory failure, Sepsis, Pulmonary edema Physicians Team ED Provider: Ousmane Rich Primary Care Provider: UNKNOWN, Attending Provider: Nadir Verduzco Other Providers: Kalen Schwab ; Jenaro Murrieta Status ED Status: Left Department Discharge Information Discharge Date/Time: 06/03/18 20:45
[2018-06-03 15:34] LABS: Baso % (Auto) 0.4 % (0.0-2.0); Eos # (Auto) 0.1 th/mm3 (0.0-0.4); Hematocrit 34.5 % (39.0-51.0); Hemoglobin 11.2 gm/dL (13.0-17.0); Lymph # (Auto) 0.7 th/mm3 (1.0-4.8); Lymph % (Auto) 7.2 % (9.0-44.0); Mean Corpuscular HGB Conc 32.5 % (32.0-36.0); Mean Corpuscular Hemoglobin 29.8 pg (27.0-34.0); Mean Corpuscular Volume 91.8 fL (80.0-100.0); Mean Platelet Volume 8.5 fL (7.0-11.0); Mono # (Auto) 0.5 th/mm3 (0.0-0.9); Mono % (Auto) 5.1 % (0.0-8.0); Neut # (Auto) 8.5 th/mm3 (1.8-7.7); Neut % (Auto) 86.3 % (16.0-70.0); Platelet Count 212 th/mm3 (150-450); Red Blood Count 3.76 mil/mm3 (4.50-5.90); Red Cell Distribution Width 16.6 % (11.6-17.2); White Blood Count 9.9 th/mm3 (4.0-11.0)
[2018-06-03] MEDS: DOPamine 800 MG/500 ML Premix 800 MG/500 ML PLAST..BAG IV.CONT PRN (15:34)
[2018-06-03 15:44] LABS: Bilirubin,Urine Negative (Negative); Clarity,Urine Hazy (Clear); Color,Urine Yellow (Yellw/Straw); Glucose,Urine (UA) Negative (Negative); Hyaline Casts,Urine 14 /lpf (0-3); Leukocyte Esterase,Urine Negative (Negative); Mucus,Urine Few /lpf (Occasional); Nitrite,Urine Negative (Negative); Specific Gravity,Urine 1.016 (1.002-1.035); Squamous Epithelial Cell,Urine <1 /hpf (0-5)
[2018-06-03 15:47] LABS: Alanine Aminotransferase 32 U/L (12-78); Albumin 3.1 g/dL (3.4-5.0); Anion Gap 9 meq/L (5-15); Aspartate Aminotransferase 26 U/L (15-37); Blood Urea Nitrogen 32 mg/dL (7-18); Calcium 8.4 mg/dL (8.5-10.1); Carbon Dioxide 26.1 meq/L (21.0-32.0); Chloride 107 meq/L (98-107); Glomerular Filtration Rate 32 mL/min (>89); Glucose,Random 283 mg/dL (74-106); Potassium 5.1 meq/L (3.5-5.1); Sodium 142 meq/L (136-145)
[2018-06-03 15:51] LABS: Alkaline Phosphatase 88 U/L (45-117); Creatine Kinase 145 U/L (39-308); Total Protein 6.9 g/dL (6.4-8.2); Troponin I 0.04 ng/mL (0.02-0.05)
[2018-06-03 16:04] LABS: Creatine Kinase MB 6.2 ng/mL (0.5-3.6)
[2018-06-03 16:10] LABS: Activated Partial Thrombo Time 26.1 sec (23.4-31.7); INR 1.2 Ratio; Prothrombin Time 12.6 sec (9.8-11.6)
[2018-06-03 16:12] LABS: D-Dimer 3.03 mg/L FEU (0.00-0.50)
[2018-06-03] MEDS ORDERED: Piperacil/Tazo 2.25 GM Premix 50 ML IV.SIG ONE (16:49)
[2018-06-03] MEDS ORDERED: Vancomycin Inj 1,000 MG in Sodium Chlor 0.9% Inj 250 ML IV.SIG ONE (16:49)
--- NOTE | 2018-06-03 18:15 | P.HPCC ---
History of Present Illness Service: Critical care Medicine Primary Care Physician: UNKNOWN Chief Complaint: Shortness of breath History of Present Illness: 73-year-old male with a medical history of cardiac problems who recently had a workup done at [facility] and [facility] in [place] per family and was evaluated by CT surgeon at [facility] in [place] last week including Dr. Jay Wisdom per family for CT surgery. Patient has been having shortness of breath for the last week or so per his and today his breathing worsened and he was brought to the ER at [facility] where he was in respiratory extremis with O2 sats in the 70s and was intubated and placed on mechanical ventilation. He was also very hypotensive on arrival and after receiving about 500 cc of normal saline bolus he was started on Levophed and dopamine for pressor support. He had a femoral central line placed by ER physician. His chest x-ray in the ER showed pulmonary edema and questionable infiltrates. He did not have a fever or white count on his labs and due to elevated creatinine could not get a CTA of the chest per ER physician. Subsequently he was maintaining his O2 sats around 96% on mechanical ventilation with 100% FiO2 with heart rate in the 60s and systolic blood pressure 100s on dopamine 5 mics per KG per minute. When I evaluated the patient in the ER he was propofol, orally intubated on mechanical ventilation. I spoke with patient's who could not really give me any details of his medical history including recent workup or diagnosis. She tells me he has a history of having "holes in the heart" however is unclear regarding what surgery he was scheduled for at [facility]. I discussed this with Dr. Rich in the ER and requested that he contact Dr. Jay Wisdom who evaluated the patient for his to see if he would want patient transferred to [facility] as he was scheduled for surgery there with him. We do not have any details of his recent workup or diagnosis at this time. Inpatient Certification: I certify that the inpatient services were ordered in accordance with Medicare regulations governing the order. This includes certification that hospital inpatient services are reasonable and necessary and in the case of services not specified as inpatient-only under 42 CFR 419.22(n), that they are appropriately provided as inpatient services in accordance to with the 2-midnight benchmark under 43 CFR 412.3(e) Estimated Total Length of Stay (Days): 7 Plans for Post Hospital Care: Not yet determined Review of Systems unobtainable due to endotracheal tube PMFSH - History History Provided By: Family Member, Med Spec / EMT - Medical / Surgical Hx Neg / Unobtainable Medical Problems Denied: Unable to Obtain - Tobacco History Smoking Status: Unknown if ever smoked - Alcohol History How Often Do You Have a Drink Containing Alcohol: Unable to Obtain - Substance Use History Substance History: Unable to Obtain - Travel History Recent Travel in the [place] Within the Last 8 Weeks: No Recent Travel Out of the Country Within the Last 8 Weeks: No - Immunization History Tetanus Immunization: Unable to Assess Medications and Allergies Active Medications: Active Medications Fentanyl (Fentanyl 10 Mcg/Ml Premix Drip) 2,500 mcg in 250 mls @ 5 mls/hr IV.SIG TITRATE PRN; Protocol PRN Reason: Per Protocol Last Admin: 06/03/18 14:34 Dose: 50 mcg/hr, 5 mls/hr Midazolam HCl (Versed Inj) 50 mg in 50 mls @ 2 mls/hr IV.CONT TITRATE PRN; Protocol PRN Reason: Per Protocol Last Titration: 06/03/18 14:37 Dose: 7 mg/hr, 7 mls/hr Dopamine HCl/Dextrose (Dopamine 800 Mg/500 Ml Premix) 800 mg in 500 mls @ 12.757 mls/hr IV.CONT TITRATE PRN; Protocol PRN Reason: Per Protocol Last Titration: 06/03/18 15:53 Dose: 5 mcg/kg/min, 21.26 mls/hr Norepinephrine Bitartrate (Levophed-Dextrose 4 Mg/250 Ml Drip) 4 mg in 250 mls @ 7.5 mls/hr IV.SIG TITRATE PRN; Protocol PRN Reason: Per Protocol Terbutaline Sulfate (Brethine Inj) 1 mg SQ ONCE PRN PRN Reason: Extravasation Terbutaline Sulfate (Brethine Inj) 1 mg SQ UNSCH PRN PRN Reason: For Extravasation Allergies Allergy/AdvReac Type Severity Reaction Status Date / Time No Allergy Information Allergy Verified 06/03/18 14:22 Available Home Medications Medication Instructions Recorded Confirmed Type amlodipine 5 mg PO DAILY 06/03/18 06/03/18 History ascorbic acid (vitamin C) [Vitamin 500 mg PO DAILY 06/03/18 06/03/18 History C] aspirin 81 mg PO DAILY 06/03/18 06/03/18 History atorvastatin [Lipitor] 20 mg PO DAILY 06/03/18 06/03/18 History calcium carbonate [Calcium 600] 600 mg PO DAILY 06/03/18 06/03/18 History cinnamon bark [Cinnamon] 1,000 mg PO BID 06/03/18 06/03/18 History cyanocobalamin (vitamin B-12) 1,000 mcg PO DAILY 06/03/18 06/03/18 History [Vitamin B-12] famotidine 20 mg PO DAILY 06/03/18 06/03/18 History ferrous sulfate [iron] 325 mg PO BID 06/03/18 06/03/18 History furosemide [Lasix] 40 mg PO DAILY 06/03/18 06/03/18 History gabapentin 300 mg PO 5 TIMES A DAY 06/03/18 06/03/18 History glimepiride 2 mg PO BID 06/03/18 06/03/18 History hydrocodone-acetaminophen [Mitchell] 1 tab PO Q6H PRN 06/03/18 06/03/18 History insulin glargine [Lantus U-100 65 unit SUBCUT DAILY 06/03/18 06/03/18 History Insulin] lisinopril 10 mg PO DAILY 06/03/18 06/03/18 History metformin 500 mg PO QID 06/03/18 06/03/18 History metoprolol tartrate 50 mg PO BID 06/03/18 06/03/18 History niacin 500 mg PO DAILY 06/03/18 06/03/18 History potassium 99 mg PO BID 06/03/18 06/03/18 History warfarin [Coumadin] 5 mg PO DAILY 06/03/18 06/03/18 History Results - Labs CBC & Chem 7: 06/03/18 15:00 06/03/18 15:00 Labs: Short CBC 06/03/18 Range/Units 15:00 WBC 9.9 (4.0-11.0) th/mm3 Hgb 11.2 L (13.0-17.0) gm/dL Hct 34.5 L (39.0-51.0) % Plt Count 212 (150-450) th/mm3 BMP 06/03/18 15:00 Sodium 142 Potassium 5.1 Chloride 107 Carbon Dioxide 26.1 BUN 32 H Creatinine 2.08 H Calcium 8.4 L Cardiac Enzymes 06/03/18 06/03/18 Range/Units 15:00 15:00 Total Creatine Kinase 145 Cancelled (39-308) U/L CK-MB (CK-2) 6.2 H (0.5-3.6) ng/mL Troponin I 0.04 (0.02-0.05) ng/mL Liver Function 06/03/18 Range/Units 15:00 Total Bilirubin 0.7 (0.2-1.0) mg/dL AST 26 (15-37) U/L ALT 32 (12-78) U/L Alkaline Phosphatase 88 (45-117) U/L Albumin 3.1 L (3.4-5.0) g/dL Urine 06/03/18 Range/Units 14:51 Urine Color Yellow (Yellw/Straw) Urine Clarity Hazy H (Clear) Urine pH 5.0 (5.0-8.5) Ur Specific [place] 1.016 (1.002-1.035) Urine Protein 100 H (Neg-Trace) mg/dL Urine Glucose (UA) Negative (Negative) mg/dL - Imaging Impressions Chest X-Ray 06/03/18 14:22 CONCLUSION: 1. ETT in good position. NGT beyond the GE junction. 2. Cardiomegaly with pulmonary edema pattern. 3. More focal airspace consolidation in the left lower lung zone. Exam Vital signs: Vital Signs 06/03/18 14:09 06/03/18 14:17 06/03/18 14:34 Pulse Rate 87 92 H 93 H Respiratory Rate 27 H 24 17 Blood Pressure 140/89 114/60 Pulse Oximetry 70 L 92 L 99 06/03/18 14:41 06/03/18 14:47 06/03/18 15:23 Pulse Rate 59 L Respiratory Rate 16 17 Blood Pressure 72/40 L Pulse Oximetry 92 L 94 L 96 06/03/18 15:45 06/03/18 15:53 06/03/18 16:01 Pulse Rate 60 62 62 Respiratory Rate 17 17 12 Blood Pressure 66/36 L 77/42 L 86/48 L Pulse Oximetry 93 L 94 L 94 L 06/03/18 16:15 06/03/18 16:25 Pulse Rate 65 67 Respiratory Rate 12 12 Blood Pressure 89/53 L 96/51 L Pulse Oximetry 95 96 Intake & Output 06/02/18 06/03/18 06/03/18 18:59 06:59 18:59 Weight 113.398 kg Narrative: HEENT/ Neuro: Sedated, orally intubated, Pallor present, no icterus, tongue/ mucosa moist Neck: No JVD Chest/Pulm: on mech vent, good air entry bilaterally, no wheezing or crackles CVS: S1-S2 regular, no murmur GI/abdomen: soft, nontender, bowel sounds sluggish Extremities: warm bilaterally, no edema Caprini VTE Risk Assessment Caprini VTE Risk Assessment: Moderate/High Risk (score >= 2) Caprini Risk Assessment Model: Point Value = 1 Point Value = 2 Point Value = 3 Point Value = 5 Age 41-60 Minor surgery BMI > 25 kg/m2 Swollen legs Varicose veins or History of unexplained or recurrent spontaneous Oral contraceptives or hormone replacement Sepsis (< 1 month) Serious lung disease, including pneumonia (< 1 month) Abnormal pulmonary function Acute myocardial infarction Congestive heart failure (< 1 month) History of inflammatory bowel disease Medical patient at bed rest Age 61-74 Arthroscopic surgery Major open surgery (> 45 min) Laparoscopic surgery (> 45 min) Malignancy Confined to bed (> 72 hours) Immobilizing plaster cast Central venous access Age >= 75 History of VTE Family history of VTE Factor V Leiden Prothrombin [id number] Lupus anticoagulant Anticardiolipin antibodies Elevated serum homocysteine Heparin-induced thrombocytopenia Other congenital or acquired thrombophilia Stroke (< 1 month) Elective arthroplasty Hip, pelvis, or leg fracture Acute spinal cord injury (< 1 month) Prophylaxis Regimen: Total Risk Factor Score Risk Level Prophylaxis Regimen 0-1 Low Early ambulation 2 Moderate Order ONE of the following: *Sequential Compression Device (SCD) *Heparin 5000 units SQ BID 3-4 Higher Order ONE of the following medications: *Heparin 5000 units SQ TID *Enoxaparin/Lovenox 40 mg SQ daily (WT < 150 kg, CrCl > 30 mL/min) *Enoxaparin/Lovenox 30 mg SQ daily (WT < 150 kg, CrCl > 10-29 mL/min) *Enoxaparin/Lovenox 30 mg SQ BID (WT < 150 kg, CrCl > 30 mL/min) AND/OR *Sequential Compression Device (SCD) 5 or more Highest Order ONE of the following medications: *Heparin 5000 units SQ TID (Preferred with Epidurals) *Enoxaparin/Lovenox 40 mg SQ daily (WT < 150 kg, CrCl > 30 mL/min) *Enoxaparin/Lovenox 30 mg SQ daily (WT < 150 kg, CrCl > 10-29 mL/min) *Enoxaparin/Lovenox 30 mg SQ BID (WT < 150 kg, CrCl > 30 mL/min) AND *Sequential Compression Device (SCD) Assessment and Plan - Assessment and Plan Plan: 73-year-old male with: Acute respiratory failure Hypotension Pulmonary edema Questionable pulmonary infiltrate HANS Plan: Neuro: Sedation with propofol, a follow-up CT head which is pending, follow neuro checks Cardiovascular: Awaiting stat 2D echo. On dopamine 5 mics per KG per minute for hypotension. May require diuresis. Further recommendations following 2D echo and decision regarding transfer to [facility] ER physician speaks with Dr. Dylan Wisdom. If admitted at [facility] [place] will plan to obtain cardiac enzymes cardiology evaluation and medical records from Dr. Connor Wisdom as well as [facility] regarding his previous cardiac workup. Pulmonary: Continue mechanical ventilation, vent bundle, bronchodilators as needed. GI/liver: N.p.o. for now Renal: Strict intake output, monitor and replete electrolytes, follow BUN creatinine. Chest x-ray with pulmonary edema. Await 2D echo to decide fluid management including diuretics. Heme: Follow CBC and coags Endocrine: Watch for hyperglycemia, SSI for glycemic control if needed. Prophylaxis: PPI/SCDs/subcu heparin versus full anticoagulation provided head CT negative for bleed
--- NOTE | 2018-06-03 20:17 | CT ---
EXAM DATE: 06/03/2018 8:15 PM EST AGE/SEX: 73 years / Male INDICATIONS: Altered Mental Status CLINICAL DATA: This is the patient's initial encounter. Patient reports that signs and symptoms have been present for 1 day and indicates a pain score of 0/10. MEDICAL/SURGICAL HISTORY: Non-responsive. Non-responsive. RADIATION DOSE: 56.35 CTDI (mGy) COMPARISON: No prior exams available for comparison. TECHNIQUE: CT of the head without contrast. Using automated exposure control and adjustment of the mA and/or kV according to patient size, radiation dose was kept as low as reasonably achievable to ob tain optimal diagnostic quality images. DICOM format image data is available electronically for revi ew and comparison. FINDINGS: Cerebrum: The ventricles are normal for age. No evidence of midline shift, mass lesion, hemorrhage or acute infarction. No extraaxial fluid collections are seen. Posterior Fossa: The cerebellum and brainstem are intact. The 4th ventricle is midline. The cerebe llopontine angle is unremarkable. Extracranial: The visualized portion of the orbits is intact. Skull: The calvaria is intact. No evidence of skull fracture. CONCLUSION: No acute intracranial abnormality demonstrated. . Electronically signed by: Maximo Mitchell MD 06/03/2018 8:16 PM EST
[2018-06-03 21:30] LABS: Alanine Aminotransferase 28 U/L (12-78); Anion Gap 8 meq/L (5-15); Aspartate Aminotransferase 21 U/L (15-37); Blood Urea Nitrogen 33 mg/dL (7-18); Calcium 8.7 mg/dL (8.5-10.1); Carbon Dioxide 28.4 meq/L (21.0-32.0); Chloride 108 meq/L (98-107); Glomerular Filtration Rate 35 mL/min (>89); Glucose,Random 150 mg/dL (74-106); Potassium 4.1 meq/L (3.5-5.1); Sodium 144 meq/L (136-145)
[2018-06-03 21:35] LABS: Alkaline Phosphatase 85 U/L (45-117); Creatine Kinase 118 U/L (39-308); Troponin I 0.07 ng/mL (0.02-0.05)
[2018-06-03 21:50] LABS: Creatine Kinase MB 4.9 ng/mL (0.5-3.6)
[2018-06-03] MEDS: Famotidine PF Inj 20 MG/2 ML Vial IV.PUSH SCH (21:50)
--- NOTE | 2018-06-03 21:56 | ECG ---
Date Performed: 06/03/2018 Time Performed: 14:15:19 PTAGE: 73 years EKG: SINUS TACHYCARDIA POSSIBLE ANTERIOR MYOCARDIAL INFARCTION ABNORMAL ECG NO PREVIOUS TRACING DOCTOR: Wilber Lazaro Interpretating Date/Time 06/03/2018 21:56:39
[2018-06-04] MEDS: Midazolam 50 MG/50 ML Inj 50 MG/50 ML BAG IV.CONT PRN ×3 (01:05→16:35)
[2018-06-04] MEDS: DOPamine 800 MG/500 ML Premix 800 MG/500 ML PLAST..BAG IV.CONT PRN (01:24)
[2018-06-04] MEDS ORDERED: Potassium Chlor 40 mEq Premix 40 MEQ/100 ML PIGGYBACK IV.SIG PRN ×2 (03:38)
[2018-06-04] MEDS ORDERED: Sodium Phosphate Inj 30 MMOL in Sodium Chlor 0.9% Inj 250 ML IV.SIG PRN (03:38)
[2018-06-04] MEDS ORDERED: Potassium Phosphate Inj 30 MMOL in Sodium Chlor 0.9% Inj 250 ML IV.SIG PRN (03:38)
[2018-06-04] MEDS ORDERED: Potassium Phosphate 500 MG Soluble Tablet PO PRN ×2 (03:38)
[2018-06-04] MEDS ORDERED: Potassium Chlor 20 mEq Premix 20 MEQ/100 ML PIGGYBACK IV.SIG PRN (03:38)
[2018-06-04] MEDS ORDERED: Magnesium Sulfate Inj 2 GM in Sodium Chlor 0.9% Inj 96 ML IV.SIG PRN (03:38)
[2018-06-04] MEDS ORDERED: Magnesium Sulfate Inj 4 GM in Sodium Chlor 0.9% Inj 92 ML IV.SIG PRN (03:38)
[2018-06-04] MEDS ORDERED: Magnesium Oxide 400 MG Tablet PO PRN (03:38)
[2018-06-04] MEDS ORDERED: Potassium Chloride 25 MEQ Effervescent Tablet PO PRN (03:38)
[2018-06-04] MEDS ORDERED: Chlorhexidine Gluconate 2% 1 Pack (2 Cloths) TOPICAL PRN (04:00)
[2018-06-04] MEDS: Chlorhexidine Gluconate 2% 1 Pack (2 Cloths) TOPICAL SCH (04:16)
[2018-06-04 04:21] LABS: Baso % (Auto) 0.6 % (0.0-2.0); Eos # (Auto) 0.2 th/mm3 (0.0-0.4); Eos % (Auto) 2.8 % (0.0-4.0); Hematocrit 34.8 % (39.0-51.0); Hemoglobin 11.3 gm/dL (13.0-17.0); Lymph # (Auto) 1.4 th/mm3 (1.0-4.8); Mean Corpuscular HGB Conc 32.6 % (32.0-36.0); Mean Corpuscular Volume 88.9 fL (80.0-100.0); Mono # (Auto) 0.7 th/mm3 (0.0-0.9); Mono % (Auto) 8.7 % (0.0-8.0); Neut # (Auto) 5.4 th/mm3 (1.8-7.7); Neut % (Auto) 69.9 % (16.0-70.0); Platelet Count 201 th/mm3 (150-450); Red Blood Count 3.91 mil/mm3 (4.50-5.90); Red Cell Distribution Width 15.8 % (11.6-17.2); White Blood Count 7.7 th/mm3 (4.0-11.0)
[2018-06-04 04:29] LABS: INR 1.2 Ratio; Prothrombin Time 12.1 sec (9.8-11.6)
[2018-06-04 04:47] LABS: Alanine Aminotransferase 25 U/L (12-78); Albumin 2.9 g/dL (3.4-5.0); Anion Gap 10 meq/L (5-15); Aspartate Aminotransferase 17 U/L (15-37); Blood Urea Nitrogen 33 mg/dL (7-18); Calcium 8.7 mg/dL (8.5-10.1); Carbon Dioxide 29.1 meq/L (21.0-32.0); Chloride 108 meq/L (98-107); Glomerular Filtration Rate 38 mL/min (>89); Glucose,Random 57 mg/dL (74-106); Potassium 3.3 meq/L (3.5-5.1); Sodium 147 meq/L (136-145)
[2018-06-04 04:52] LABS: Alkaline Phosphatase 80 U/L (45-117); Total Protein 6.7 g/dL (6.4-8.2); Troponin I 0.07 ng/mL (0.02-0.05)
[2018-06-04] MEDS: Potassium Chlor 20 mEq Premix 20 MEQ/100 ML PIGGYBACK IV.SIG PRN ×2 (04:55→07:11)
[2018-06-04 04:56] LABS: Creatine Kinase 90 U/L (39-308)
[2018-06-04] MEDS ORDERED: Dextrose 50% in Water Syringe 50 ML ONE (05:12)
[2018-06-04] MEDS ORDERED: Dextrose 50% in Water 50 ML Vial IV.PUSH ONE (05:30)
--- NOTE | 2018-06-04 05:44 | XR ---
EXAM DATE: 06/04/2018 4:43 AM EST AGE/SEX: 73 years / Male INDICATIONS: Shortness of breath, possible pulmonary disease. CLINICAL DATA: This is the patient's subsequent encounter. Patient reports that signs and symptoms h ave been present for 2 days and indicates a pain score of Nonresponsive. MEDICAL/SURGICAL HISTORY: Non-responsive. Non-responsive. COMPARISON: [facility] [place] 1V SINGLE AP, [place]/03/2018. . FINDINGS: A single AP view of the chest demonstrates no significant change. Bilateral posterior layering pleura l effusions. Bibasilar consolidations left larger than right. Mild cardiomegaly. Tip of the endotrach eal tube 3 cm from the jatin. Nasogastric tube courses off the inferior margin of the film. Degenera tive spine. CONCLUSION: Unchanged exam. Electronically signed by: Gabe Yost MD 06/04/2018 5:42 AM EST
[2018-06-04 06:19] LABS: ABG Base Excess 4.2 mmol/L (-2-2); ABG PCO2 37 mmHg (38-42); ABG PO2 69 mmHG (61-120)
[2018-06-04 09:15] LABS: Troponin I 0.06 ng/mL (0.02-0.05)
[2018-06-04] MEDS ORDERED: Dextrose 50% in Water 50 ML Vial IV.PUSH PRN (10:13)
[2018-06-04] MEDS: Famotidine PF Inj 20 MG/2 ML Vial IV.PUSH SCH ×2 (10:17→22:26)
[2018-06-04] MEDS: Insulin NovoLIN Regular Correctional Sugar Inj SQ SCH ×3 (11:42→23:48)
[2018-06-04] MEDS ORDERED: Heparin 10,000 UNITS/10 ML Vial (for IV use) IV.PUSH STA (12:14)
--- NOTE | 2018-06-04 12:42 | MB ---
cc: Kalen Schwab MD DATE: 06/04/2018 REASON FOR CONSULTATION: Coronary artery disease, hypertension, valvular disease. HISTORY OF PRESENT ILLNESS: History is unobtainable from the patient who is intubated and sedated. Limited history is obtained from electronic records, both from [facility] and [facility]. He is a 73-year-old white male with a history of non-Hodgkin lymphoma, status post chemotherapy, paroxysmal atrial fibrillation, sleep apnea, diabetes, congestive heart failure, reportedly severe coronary artery disease and valvular disease, being considered for open heart surgery in the near future by Dr. Brandyn Enriquez, who was brought to the hospital due to chest pains, shortness of breath. He was found to be hypotensive and in congestive heart failure, so he was admitted for further evaluation and treatment. Because of increasing respiratory distress, he was intubated and placed on mechanical ventilation. PAST MEDICAL HISTORY: 1. Non-Hodgkin lymphoma, status post chemotherapy. 2. Paroxysmal atrial fibrillation. 3. Sleep apnea. 4. Diabetes. 5. Congestive heart failure, dating back to at least 2014, at which time he had an echocardiogram 01/07/2015 showing ejection fraction of 20-25%. He did have another echocardiogram 06/08/2016 showing ejection fraction of 55-60% during an admission for congestive heart failure at [facility]. 6. Reportedly severe coronary artery disease and valvular disease, currently being considered for open heart surgery at [facility]. CARDIAC MEDICATIONS AT HOME: 1. Potassium 99 mg b.i.d. 2. Niacin 500 mg daily. 3. Aspirin 81 mg daily. 4. Warfarin 5 mg daily. 5. Atorvastatin 20 mg daily. 6. Amlodipine 5 mg daily. 7. Lisinopril 10 mg daily. 8. Metoprolol tartrate 50 mg b.i.d. 9. Furosemide 40 mg daily. ALLERGIES: UNKNOWN. FAMILY HISTORY: Noncontributory. SOCIAL HISTORY: The patient is a former smoker. There is no definite history of alcohol abuse. REVIEW OF SYSTEMS: As in history of present illness, otherwise negative or noncontributory. Review of systems currently unobtainable. PHYSICAL EXAMINATION: VITAL SIGNS: His blood pressure 107/61 with a pulse of 75, respirations 16. GENERAL: He is a well-developed, well-nourished white male, currently intubated and sedated. NECK: Jugular venous pressure is 8-9 cm of water. Carotid pulses are 2+ bilaterally and without bruits. CHEST: Reveals clear lungs butterfield anteriorly. CARDIAC: He has a regular rhythm and rate with a grade 2/6 systolic ejection murmur heard throughout the precordium, heard best at the right upper sternal border. The S2 heart sound is markedly diminished. There may also be a separate grade 2/6 holosystolic murmur heard closer to the apex. ABDOMEN: He has a soft, obese abdomen. Bowel sounds are present. There is no definite hepatosplenomegaly. EXTREMITIES: Reveals no clubbing, cyanosis or edema. DIAGNOSTIC DATA: EKG shows sinus tachycardia, poor R-wave progression. Chest x-ray shows increased perihilar opacities and left lower lobe consolidation. LABORATORY DATA: Includes WBC 7.7, hemoglobin 11.3, platelets 201. INR 1.2. Potassium 3.3, BUN 33, creatinine 1.79. Troponin 0.07, CK 90. Brain-natriuretic peptide level 811. IMPRESSION: Acute congestive heart failure in this 73-year-old white male with history of non-Hodgkin lymphoma, paroxysmal atrial fibrillation, sleep apnea, diabetes, congestive heart failure, reportedly severe coronary and valvular disease, being considered for open heart surgery by Dr. Enriquez at [facility] in the near future. Chest x-ray and his clinical presentation are most consistent with acute congestive heart failure. His ejection fraction is severely reduced at 20-25% by echocardiogram yesterday. He also likely has severe aortic stenosis by exam and by echocardiogram. There may also be moderate mitral regurgitation. The patient was initially hypotensive. He is now off pressor support. Chest x-ray today is overall unchanged compared to admission. The patient does remain in sinus rhythm. RECOMMENDATIONS: 1. Intravenous furosemide diuresis. 2. When blood pressures are better, would resume his beta celestine therapy. 3. Resume statin therapy when he is able to take oral medications. 4. Await additional history, recent testing results from outside hospitals. He does not appear to have had a cardiac catheterization at [facility] or [facility] recently. He may have had work up done at [facility]. MD SUSANA Carrillo/alisia , 12:12 PM , 12:24 PM [email or web address]
[2018-06-04] MEDS: Heparin Drip 25,000 UNIT/250 ML BAG IV.CONT PRN (12:45)
--- NOTE | 2018-06-04 15:32 | P.PNCC ---
Subjective Subjective Remarks/Hospital Course: 06/03: 73-year-old male with a medical history of cardiac problems who recently had a workup done at [facility] and [facility] in [place] per family and was evaluated by CT surgeon at [facility] in [place] last week including Dr. Jay Wisdom per family for CT surgery. Patient has been having shortness of breath for the last week or so per his and today his breathing worsened and he was brought to the ER at [facility] where he was in respiratory extremis with O2 sats in the 70s and was intubated and placed on mechanical ventilation. He was also very hypotensive on arrival and after receiving about 500 cc of normal saline bolus he was started on Levophed and dopamine for pressor support. He had a femoral central line placed by ER physician. His chest x-ray in the ER showed pulmonary edema and questionable infiltrates. He did not have a fever or white count on his labs and due to elevated creatinine could not get a CTA of the chest per ER physician. Subsequently he was maintaining his O2 sats around 96% on mechanical ventilation with 100% FiO2 with heart rate in the 60s and systolic blood pressure 100s on dopamine 5 mics per KG per minute. When I evaluated the patient in the ER he was propofol, orally intubated on mechanical ventilation. I spoke with patient's who could not really give me any details of his medical history including recent workup or diagnosis. She tells me he has a history of having "holes in the heart" however is unclear regarding what surgery he was scheduled for at [facility]. I discussed this with Dr. Rich in the ER and requested that he contact Dr. Jay Wisdom who evaluated the patient for his to see if he would want patient transferred to [facility] as he was scheduled for surgery there with him. We do not have any details of his recent workup or diagnosis at this time. 06/04 : Further history revealed following cardiology evaluation by Dr. Schwab who was able to look up his medical records at [facility]. Patient reportedly has severe coronary artery disease and valvular dysfunction and was scheduled for surgery in the near future with CT surgeon at [facility]. Still awaiting medical records from outside hospitals regarding cardiac workup. In the meanwhile patient remains sedated, orally intubated on mechanical ventilation. Off dopamine. Objective Vital Signs / I&O: Vital Signs 06/03/18 15:23 06/03/18 15:45 06/03/18 15:53 Temperature Pulse Rate 59 L 60 62 Respiratory Rate 17 17 17 Blood Pressure 72/40 L 66/36 L 77/42 L Pulse Oximetry 96 93 L 94 L 06/03/18 16:01 06/03/18 16:15 06/03/18 16:25 Temperature Pulse Rate 62 65 67 Respiratory Rate 12 12 12 Blood Pressure 86/48 L 89/53 L 96/51 L Pulse Oximetry 94 L 95 96 06/03/18 17:05 06/03/18 17:30 06/03/18 18:10 Temperature Pulse Rate 69 67 71 Respiratory Rate 14 17 17 Blood Pressure 102/55 L 103/55 L 103/54 L Pulse Oximetry 96 06/03/18 18:35 06/03/18 18:56 06/03/18 19:16 Temperature Pulse Rate 66 66 Respiratory Rate 12 16 16 Blood Pressure 99/55 L 100/57 L Pulse Oximetry 97 97 98 06/03/18 19:50 06/03/18 19:58 06/03/18 20:00 Temperature Pulse Rate 64 64 64 Respiratory Rate 16 16 Blood Pressure 98/56 L Pulse Oximetry 98 100 06/03/18 20:10 06/03/18 20:20 06/03/18 20:28 Temperature 97.5 F L Pulse Rate 84 Respiratory Rate 17 19 Blood Pressure Pulse Oximetry 100 100 06/03/18 20:33 06/03/18 20:45 06/03/18 21:00 Temperature Pulse Rate 80 79 77 Respiratory Rate 41 H 2 L 12 Blood Pressure 108/56 L 108/65 115/62 Pulse Oximetry 91 L 100 06/03/18 21:15 06/03/18 21:34 06/03/18 21:45 Temperature Pulse Rate 74 69 65 Respiratory Rate 2 L 3 L 1 L Blood Pressure 108/55 L 103/57 L 102/58 L Pulse Oximetry 100 100 100 06/03/18 22:00 06/03/18 22:15 06/03/18 22:30 Temperature Pulse Rate 67 71 67 Respiratory Rate 0 L 0 L 8 L Blood Pressure 105/59 L 106/57 L 103/59 L Pulse Oximetry 98 98 98 06/03/18 22:45 06/03/18 23:00 06/03/18 23:15 Temperature Pulse Rate 67 65 64 Respiratory Rate 8 L 11 L 10 L Blood Pressure 102/58 L 100/56 L 102/55 L Pulse Oximetry 99 99 100 06/03/18 23:30 06/03/18 23:45 06/04/18 00:00 Temperature Pulse Rate 65 64 65 Respiratory Rate 12 7 L 8 L Blood Pressure 101/55 L 102/58 L 113/57 L Pulse Oximetry 100 100 100 06/04/18 00:15 06/04/18 00:30 06/04/18 00:45 Temperature Pulse Rate 59 L 61 61 Respiratory Rate 7 L 0 L 0 L Blood Pressure 101/58 L 106/56 L 108/57 L Pulse Oximetry 100 100 100 06/04/18 00:53 06/04/18 01:00 06/04/18 01:15 Temperature Pulse Rate 62 65 Respiratory Rate 16 1 L 8 L Blood Pressure 107/59 L 109/58 L Pulse Oximetry 99 98 97 06/04/18 01:30 06/04/18 01:45 06/04/18 01:57 Temperature Pulse Rate 61 56 L 54 L Respiratory Rate 3 L 6 L 5 L Blood Pressure 91/50 L 86/49 L 83/52 L Pulse Oximetry 97 97 98 06/04/18 02:00 06/04/18 02:06 06/04/18 02:15 Temperature Pulse Rate 54 L 53 L 54 L Respiratory Rate 0 L 1 L 7 L Blood Pressure 85/51 L 99/56 L 99/57 L Pulse Oximetry 97 97 97 06/04/18 02:30 06/04/18 02:45 06/04/18 03:00 Temperature Pulse Rate 57 L 56 L 56 L Respiratory Rate 16 16 11 L Blood Pressure 99/54 L 97/53 L 96/54 L Pulse Oximetry 97 97 97 06/04/18 03:15 06/04/18 03:30 06/04/18 03:45 Temperature Pulse Rate 57 L 58 L 57 L Respiratory Rate 13 15 16 Blood Pressure 98/54 L 97/54 L 99/57 L Pulse Oximetry 97 97 97 06/04/18 04:00 06/04/18 04:15 06/04/18 04:30 Temperature 97.6 F Pulse Rate 59 L 58 L 64 Respiratory Rate 16 15 16 Blood Pressure 99/56 L 99/54 L 99/54 L Pulse Oximetry 97 96 97 06/04/18 04:45 06/04/18 04:46 06/04/18 05:00 Temperature Pulse Rate 68 66 Respiratory Rate 16 16 16 Blood Pressure 106/55 L 104/59 L Pulse Oximetry 97 97 06/04/18 05:15 06/04/18 05:30 06/04/18 05:45 Temperature Pulse Rate 68 72 69 Respiratory Rate 16 16 16 Blood Pressure 108/67 123/61 114/59 L Pulse Oximetry 96 94 L 97 06/04/18 06:00 06/04/18 06:15 06/04/18 06:30 Temperature Pulse Rate 68 69 71 Respiratory Rate 16 16 16 Blood Pressure 105/70 107/62 106/60 Pulse Oximetry 97 97 97 06/04/18 06:45 06/04/18 07:00 06/04/18 07:15 Temperature Pulse Rate 73 72 73 Respiratory Rate 16 15 17 Blood Pressure 111/65 112/64 109/62 Pulse Oximetry 96 97 97 06/04/18 07:30 06/04/18 07:45 06/04/18 08:00 Temperature 97.7 F Pulse Rate 90 82 76 Respiratory Rate 16 15 16 Blood Pressure 109/63 109/65 101/55 L Pulse Oximetry 97 96 97 06/04/18 08:15 06/04/18 08:30 06/04/18 08:45 Temperature Pulse Rate 71 68 68 Respiratory Rate 16 16 16 Blood Pressure 100/55 L 94/53 L 95/54 L Pulse Oximetry 96 97 97 06/04/18 09:00 06/04/18 09:12 06/04/18 09:15 Temperature Pulse Rate 67 67 67 Respiratory Rate 16 16 16 Blood Pressure 96/54 L 102/59 L Pulse Oximetry 97 98 06/04/18 09:30 06/04/18 09:45 06/04/18 10:00 Temperature Pulse Rate 69 74 77 Respiratory Rate 16 16 16 Blood Pressure 106/62 111/65 112/66 Pulse Oximetry 98 98 98 06/04/18 10:15 06/04/18 10:30 06/04/18 10:45 Temperature Pulse Rate 76 77 76 Respiratory Rate 16 16 16 Blood Pressure 112/64 111/64 113/65 Pulse Oximetry 99 98 98 06/04/18 11:00 06/04/18 11:15 06/04/18 11:30 Temperature Pulse Rate 75 76 80 Respiratory Rate 16 13 13 Blood Pressure 107/61 107/59 L 117/61 Pulse Oximetry 98 98 98 06/04/18 11:45 06/04/18 12:00 06/04/18 12:15 Temperature 98.4 F Pulse Rate 83 81 82 Respiratory Rate 13 13 13 Blood Pressure 115/65 118/64 112/64 Pulse Oximetry 99 100 99 06/04/18 12:30 06/04/18 12:45 06/04/18 13:00 Temperature Pulse Rate 81 84 83 Respiratory Rate 14 16 14 Blood Pressure 112/65 112/64 108/63 Pulse Oximetry 99 99 99 06/04/18 13:15 06/04/18 13:30 06/04/18 13:45 Temperature Pulse Rate 87 84 82 Respiratory Rate 17 16 16 Blood Pressure 114/63 106/66 99/51 L Pulse Oximetry 99 99 99 06/04/18 14:00 06/04/18 14:15 06/04/18 14:30 Temperature Pulse Rate 85 76 76 Respiratory Rate 16 16 16 Blood Pressure 99/57 L 89/54 L 89/54 L Pulse Oximetry 99 99 100 06/04/18 14:45 Temperature Pulse Rate 75 Respiratory Rate 14 Blood Pressure 88/54 L Pulse Oximetry 98 Intake & Output 06/03/18 06/04/18 06/04/18 18:59 06:59 18:59 Intake Total 250 / 250 700 / 700 150 / 150 Output Total 700 / 700 3000 / 3000 Balance -450 / -450 -2300 / -2300 150 / 150 Weight 113.398 kg 108.5 kg Intake: IV 250 / 250 700 / 700 150 / 150 DOPamine 800 MG/500 ML Premix 500 / 500 800 mg In 500 ml @ 3 MCG/KG/MIN 12.757 mls/hr IV.CONT TITRATE PRN Rx#:[id number] Versed Inj 50 mg In 50 ml @ 2 50 / 50 50 / 50 MG/HR 2 mls/hr IV.CONT TITRATE PRN Rx#:[id number] Zosyn 2.25 GM Premix 50 ML @ 50 / 50 100 mls/hr IV.SIG ONCE ONE Rx#: [id number] KCl 20 mEq Premix Inj 20 meq In 100 / 100 100 / 100 100 ml @ 50 mls/hr IV.SIG Q2H PRN Rx#:[id number] Vancomycin Inj 1,000 MG In NS 250 / 250 Inj 250 ML @ 250 mls/hr IV.SIG ONCE ONE Rx#:[id number] Oral 0 / 0 Output: Urine Amount (Catheter) 700 / 700 3000 / 3000 Indwelling Urethral Catheter 700 / 700 3000 / 3000 Other: Weight On Admission 110 kg Result Diagrams: 06/04/18 03:55 06/04/18 03:55 Other Results: Laboratory Results - last 24 hr 06/03/18 06/03/18 06/03/18 14:51 15:00 15:00 WBC 9.9 RBC 3.76 L Hgb 11.2 L Hct 34.5 L MCV 91.8 MCH 29.8 MCHC 32.5 RDW 16.6 Plt Count 212 MPV 8.5 Neut % (Auto) 86.3 H Lymph % (Auto) 7.2 L Morton % (Auto) 5.1 Eos % (Auto) 1.0 Baso % (Auto) 0.4 Neut # (Auto) 8.5 H Lymph # (Auto) 0.7 L Morton # (Auto) 0.5 Eos # (Auto) 0.1 Baso # (Auto) 0.0 WBC Differential . Differential Comment Auto diff final PT INR APTT D-Dimer Quant (PE/DVT) Puncture Site Patient Temperature O2 Saturation ABG pH ABG pCO2 ABG pO2 ABG HCO3 ABG O2 Content ABG Base Excess ABG Methemoglobin Gino Test Hemoglobin Carboxyhemoglobin O2 Delivery Device Vent Setting Inspired O2 Critical Value Sodium 142 Potassium 5.1 Chloride 107 Carbon Dioxide 26.1 Anion Gap 9 BUN 32 H Creatinine 2.08 H Estimated GFR 32 L POC Glucose Random Glucose 283 H Lactic Acid Calcium 8.4 L Phosphorus Magnesium Total Bilirubin 0.7 AST 26 ALT 32 Alkaline Phosphatase 88 Total Creatine Kinase 145 CK-MB (CK-2) 6.2 H Troponin I 0.04 B-Natriuretic Peptide Total Protein 6.9 Albumin 3.1 L Urine Color Yellow Urine Clarity Hazy H Urine pH 5.0 Ur Specific [place] 1.016 Urine Protein 100 H Urine Glucose (UA) Negative Urine Ketones Negative Urine Occult Blood Negative Urine Nitrate Negative Urine Bilirubin Negative Urine Urobilinogen Less than 2 Ur Leukocyte Esterase Negative Urine WBC 1 Ur Squamous Epith Cells <1 Hyaline Casts 14 Urine Mucus Few H Micro UA Comment Cath-culture not ind Ur Microscopic Review Not Reportable Urine Culture Comments Cath-cult not ind Nasal Screen MRSA (PCR) 06/03/18 06/03/18 06/03/18 15:00 15:00 15:00 WBC RBC Hgb Hct MCV MCH MCHC RDW Plt Count MPV Neut % (Auto) Lymph % (Auto) Morton % (Auto) Eos % (Auto) Baso % (Auto) Neut # (Auto) Lymph # (Auto) Morton # (Auto) Eos # (Auto) Baso # (Auto) WBC Differential Differential Comment PT INR APTT D-Dimer Quant (PE/DVT) Puncture Site Patient Temperature O2 Saturation ABG pH ABG pCO2 ABG pO2 ABG HCO3 ABG O2 Content ABG Base Excess ABG Methemoglobin Gino Test Hemoglobin Carboxyhemoglobin O2 Delivery Device Vent Setting Inspired O2 Critical Value Sodium Potassium Chloride Carbon Dioxide Anion Gap BUN Creatinine Estimated GFR POC Glucose Random Glucose Lactic Acid 3.1 H Calcium Phosphorus Magnesium Total Bilirubin AST ALT Alkaline Phosphatase Total Creatine Kinase Cancelled CK-MB (CK-2) Troponin I B-Natriuretic Peptide 755 H Total Protein Albumin Urine Color Urine Clarity Urine pH Ur Specific [place] Urine Protein Urine Glucose (UA) Urine Ketones Urine Occult Blood Urine Nitrate Urine Bilirubin Urine Urobilinogen Ur Leukocyte Esterase Urine WBC Ur Squamous Epith Cells Hyaline Casts Urine Mucus Micro UA Comment Ur Microscopic Review Urine Culture Comments Nasal Screen MRSA (PCR) 06/03/18 06/03/18 06/03/18 15:43 20:45 20:46 WBC RBC Hgb Hct MCV MCH MCHC RDW Plt Count MPV Neut % (Auto) Lymph % (Auto) Morton % (Auto) Eos % (Auto) Baso % (Auto) Neut # (Auto) Lymph # (Auto) Morton # (Auto) Eos # (Auto) Baso # (Auto) WBC Differential Differential Comment PT 12.6 H INR 1.2 APTT 26.1 D-Dimer Quant (PE/DVT) 3.03 H Puncture Site Patient Temperature O2 Saturation ABG pH ABG pCO2 ABG pO2 ABG HCO3 ABG O2 Content ABG Base Excess ABG Methemoglobin Gino Test Hemoglobin Carboxyhemoglobin O2 Delivery Device Vent Setting Inspired O2 Critical Value Sodium 144 Potassium 4.1 D Chloride 108 H Carbon Dioxide 28.4 Anion Gap 8 BUN 33 H Creatinine 1.90 H Estimated GFR 35 L POC Glucose Random Glucose 150 H D Lactic Acid Calcium 8.7 Phosphorus 3.0 Magnesium 2.0 Total Bilirubin 1.0 AST 21 ALT 28 Alkaline Phosphatase 85 Total Creatine Kinase 118 CK-MB (CK-2) 4.9 H Troponin I 0.07 H B-Natriuretic Peptide Total Protein 7.0 Albumin 3.0 L Urine Color Urine Clarity Urine pH Ur Specific [place] Urine Protein Urine Glucose (UA) Urine Ketones Urine Occult Blood Urine Nitrate Urine Bilirubin Urine Urobilinogen Ur Leukocyte Esterase Urine WBC Ur Squamous Epith Cells Hyaline Casts Urine Mucus Micro UA Comment Ur Microscopic Review Urine Culture Comments Nasal Screen MRSA (PCR) Mrsa detected 06/03/18 06/04/18 06/04/18 20:46 03:55 03:55 WBC 7.7 RBC 3.91 L Hgb 11.3 L Hct 34.8 L MCV 88.9 MCH 29.0 MCHC 32.6 RDW 15.8 Plt Count 201 MPV 8.0 Neut % (Auto) 69.9 Lymph % (Auto) 18.0 Morton % (Auto) 8.7 H Eos % (Auto) 2.8 Baso % (Auto) 0.6 Neut # (Auto) 5.4 Lymph # (Auto) 1.4 Morton # (Auto) 0.7 Eos # (Auto) 0.2 Baso # (Auto) 0.0 WBC Differential . Differential Comment Auto diff final PT INR APTT D-Dimer Quant (PE/DVT) Puncture Site Patient Temperature O2 Saturation ABG pH ABG pCO2 ABG pO2 ABG HCO3 ABG O2 Content ABG Base Excess ABG Methemoglobin Gino Test Hemoglobin Carboxyhemoglobin O2 Delivery Device Vent Setting Inspired O2 Critical Value Sodium 147 H Potassium 3.3 L D Chloride 108 H Carbon Dioxide 29.1 Anion Gap 10 BUN 33 H Creatinine 1.79 H Estimated GFR 38 L POC Glucose Random Glucose 57 L Lactic Acid 1.7 Calcium 8.7 Phosphorus 3.0 Magnesium 2.0 Total Bilirubin 0.9 AST 17 ALT 25 Alkaline Phosphatase 80 Total Creatine Kinase 90 CK-MB (CK-2) Troponin I 0.07 H B-Natriuretic Peptide Total Protein 6.7 Albumin 2.9 L Urine Color Urine Clarity Urine pH Ur Specific [place] Urine Protein Urine Glucose (UA) Urine Ketones Urine Occult Blood Urine Nitrate Urine Bilirubin Urine Urobilinogen Ur Leukocyte Esterase Urine WBC Ur Squamous Epith Cells Hyaline Casts Urine Mucus Micro UA Comment Ur Microscopic Review Urine Culture Comments Nasal Screen MRSA (PCR) 06/04/18 06/04/18 06/04/18 03:55 03:55 03:55 WBC RBC Hgb Hct MCV MCH MCHC RDW Plt Count MPV Neut % (Auto) Lymph % (Auto) Morton % (Auto) Eos % (Auto) Baso % (Auto) Neut # (Auto) Lymph # (Auto) Morton # (Auto) Eos # (Auto) Baso # (Auto) WBC Differential Differential Comment PT 12.1 H INR 1.2 APTT D-Dimer Quant (PE/DVT) Puncture Site Patient Temperature O2 Saturation ABG pH ABG pCO2 ABG pO2 ABG HCO3 ABG O2 Content ABG Base Excess ABG Methemoglobin Gino Test Hemoglobin Carboxyhemoglobin O2 Delivery Device Vent Setting Inspired O2 Critical Value Sodium Potassium Chloride Carbon Dioxide Anion Gap BUN Creatinine Estimated GFR POC Glucose Random Glucose Lactic Acid 1.3 Calcium Phosphorus Magnesium Total Bilirubin AST ALT Alkaline Phosphatase Total Creatine Kinase CK-MB (CK-2) Troponin I B-Natriuretic Peptide 811 H Total Protein Albumin Urine Color Urine Clarity Urine pH Ur Specific [place] Urine Protein Urine Glucose (UA) Urine Ketones Urine Occult Blood Urine Nitrate Urine Bilirubin Urine Urobilinogen Ur Leukocyte Esterase Urine WBC Ur Squamous Epith Cells Hyaline Casts Urine Mucus Micro UA Comment Ur Microscopic Review Urine Culture Comments Nasal Screen MRSA (PCR) 06/04/18 06/04/18 06/04/18 05:03 05:31 06:05 WBC RBC Hgb Hct MCV MCH MCHC RDW Plt Count MPV Neut % (Auto) Lymph % (Auto) Morton % (Auto) Eos % (Auto) Baso % (Auto) Neut # (Auto) Lymph # (Auto) Morton # (Auto) Eos # (Auto) Baso # (Auto) WBC Differential Differential Comment PT INR APTT D-Dimer Quant (PE/DVT) Puncture Site Right radial Patient Temperature 98.6 O2 Saturation 92 ABG pH 7.48 H ABG pCO2 37 L ABG pO2 69 ABG HCO3 28 H ABG O2 Content 15.2 ABG Base Excess 4.2 H ABG Methemoglobin 1.4 Gino Test Present Hemoglobin 11.7 L Carboxyhemoglobin 1.4 O2 Delivery Device Ventilator Vent Setting [id number] Inspired O2 40 Critical Value No Sodium Potassium Chloride Carbon Dioxide Anion Gap BUN Creatinine Estimated GFR POC Glucose 66 L 89 Random Glucose Lactic Acid Calcium Phosphorus Magnesium Total Bilirubin AST ALT Alkaline Phosphatase Total Creatine Kinase CK-MB (CK-2) Troponin I B-Natriuretic Peptide Total Protein Albumin Urine Color Urine Clarity Urine pH Ur Specific [place] Urine Protein Urine Glucose (UA) Urine Ketones Urine Occult Blood Urine Nitrate Urine Bilirubin Urine Urobilinogen Ur Leukocyte Esterase Urine WBC Ur Squamous Epith Cells Hyaline Casts Urine Mucus Micro UA Comment Ur Microscopic Review Urine Culture Comments Nasal Screen MRSA (PCR) 06/04/18 06/04/18 06/04/18 07:50 08:29 11:35 WBC RBC Hgb Hct MCV MCH MCHC RDW Plt Count MPV Neut % (Auto) Lymph % (Auto) Morton % (Auto) Eos % (Auto) Baso % (Auto) Neut # (Auto) Lymph # (Auto) Morton # (Auto) Eos # (Auto) Baso # (Auto) WBC Differential Differential Comment PT INR APTT D-Dimer Quant (PE/DVT) Puncture Site Patient Temperature O2 Saturation ABG pH ABG pCO2 ABG pO2 ABG HCO3 ABG O2 Content ABG Base Excess ABG Methemoglobin Gino Test Hemoglobin Carboxyhemoglobin O2 Delivery Device Vent Setting Inspired O2 Critical Value Sodium Potassium Chloride Carbon Dioxide Anion Gap BUN Creatinine Estimated GFR POC Glucose 75 64 L Random Glucose Lactic Acid Calcium Phosphorus Magnesium Total Bilirubin AST ALT Alkaline Phosphatase Total Creatine Kinase 89 CK-MB (CK-2) Troponin I 0.06 H B-Natriuretic Peptide Total Protein Albumin Urine Color Urine Clarity Urine pH Ur Specific [place] Urine Protein Urine Glucose (UA) Urine Ketones Urine Occult Blood Urine Nitrate Urine Bilirubin Urine Urobilinogen Ur Leukocyte Esterase Urine WBC Ur Squamous Epith Cells Hyaline Casts Urine Mucus Micro UA Comment Ur Microscopic Review Urine Culture Comments Nasal Screen MRSA (PCR) 06/04/18 06/04/18 11:56 12:40 WBC RBC Hgb Hct MCV MCH MCHC RDW Plt Count MPV Neut % (Auto) Lymph % (Auto) Morton % (Auto) Eos % (Auto) Baso % (Auto) Neut # (Auto) Lymph # (Auto) Morton # (Auto) Eos # (Auto) Baso # (Auto) WBC Differential Differential Comment PT INR APTT 28.4 D-Dimer Quant (PE/DVT) Puncture Site Patient Temperature O2 Saturation ABG pH ABG pCO2 ABG pO2 ABG HCO3 ABG O2 Content ABG Base Excess ABG Methemoglobin Gino Test Hemoglobin Carboxyhemoglobin O2 Delivery Device Vent Setting Inspired O2 Critical Value Sodium Potassium Chloride Carbon Dioxide Anion Gap BUN Creatinine Estimated GFR POC Glucose 131 H Random Glucose Lactic Acid Calcium Phosphorus Magnesium Total Bilirubin AST ALT Alkaline Phosphatase Total Creatine Kinase CK-MB (CK-2) Troponin I B-Natriuretic Peptide Total Protein Albumin Urine Color Urine Clarity Urine pH Ur Specific [place] Urine Protein Urine Glucose (UA) Urine Ketones Urine Occult Blood Urine Nitrate Urine Bilirubin Urine Urobilinogen Ur Leukocyte Esterase Urine WBC Ur Squamous Epith Cells Hyaline Casts Urine Mucus Micro UA Comment Ur Microscopic Review Urine Culture Comments Nasal Screen MRSA (PCR) Imaging: Impressions Chest X-Ray 06/03/18 14:22 CONCLUSION: 1. ETT in good position. NGT beyond the GE junction. 2. Cardiomegaly with pulmonary edema pattern. 3. More focal airspace consolidation in the left lower lung zone. Head CT 06/03/18 15:01 CONCLUSION: No acute intracranial abnormality demonstrated. . Chest X-Ray 06/04/18 05:00 CONCLUSION: Unchanged exam. Objective Remarks: HEENT/ Neuro: Sedated, orally intubated, Pallor present, no icterus, tongue/ mucosa moist Neck: No JVD Chest/Pulm: on mech vent, good air entry bilaterally, no wheezing or crackles CVS: S1-S2 regular, systolic murmur murmur noted GI/abdomen: soft, nontender, bowel sounds sluggish Extremities: warm bilaterally, no edema Assessment and Plan - Assessment and Plan Plan: 73-year-old male with: Acute respiratory failure Hypotension Pulmonary edema Questionable pulmonary infiltrate Severe CAD Aortic stenosis Moderate to severe mitral regurgitation, moderate mitral stenosis History of paroxysmal A. fib History of non-Hodgkin's lymphoma status post previous chemotherapy Obstructive sleep apnea syndrome HASN Plan: Neuro: Sedation with propofol, CT head negative for bleed, follow neuro checks Cardiovascular: 2D echo results noted. Off dopamine. Obtain medical records from [facility] regarding his previous cardiac workup. Aspirin, statin. Betablocker if remains off dopamine. Cardiology consult noted. Started on heparin GTT for anticoagulation per Dr. Schwab and Lasix for diuresis. Will initiate aspirin 81 mg daily Pulmonary: Continue mechanical ventilation, vent bundle, bronchodilators as needed. GI/liver: Start tube feeds and advance to goal as tolerated Renal: Strict intake output, monitor and replete electrolytes, follow BUN creatinine. Chest x-ray with pulmonary edema. Diuresis with Lasix. Heme: Follow CBC and coags Endocrine: Watch for hyperglycemia, SSI for glycemic control if needed. Prophylaxis: PPI/SCDs/full anticoagulation with heparin gtt. Condition critical Time spent on critical care excluding procedures 40 minutes
[2018-06-04] MEDS: fentaNYL 10 mcg/mL Premix Drip 2,500 MCG/250 ML BAG IV.SIG PRN (16:30)
[2018-06-04 16:56] LABS: Troponin I 0.06 ng/mL (0.02-0.05)
[2018-06-04] MEDS ORDERED: Digoxin Inj 500 MCG/2 ML Ampul ONE (19:18)
[2018-06-04] MEDS ORDERED: AMIODARONE IV.CONT PRN ×2 (19:24)
[2018-06-04] MEDS ORDERED: DEXTROSE 5% IV.CONT PRN ×2 (19:24)
[2018-06-04] MEDS ORDERED: WATER IV.CONT PRN ×2 (19:24)
[2018-06-04] MEDS ORDERED: Amiodarone Inj 150 MG in Dextrose 5% in Water Inj 97 ML IV.SIG ONE ×2 (20:00)
[2018-06-04 20:04] LABS: Calcium 8.6 mg/dL (8.5-10.1); Carbon Dioxide 30.2 meq/L (21.0-32.0); Magnesium 1.8 mg/dL (1.5-2.5); Potassium 4.2 meq/L (3.5-5.1)
[2018-06-05] MEDS: Midazolam 50 MG/50 ML Inj 50 MG/50 ML BAG IV.CONT PRN ×2 (02:43→11:15)
[2018-06-05 03:08] LABS: Baso % (Auto) 0.4 % (0.0-2.0); Eos # (Auto) 0.1 th/mm3 (0.0-0.4); Eos % (Auto) 0.9 % (0.0-4.0); Hematocrit 31.8 % (39.0-51.0); Hemoglobin 10.8 gm/dL (13.0-17.0); Lymph # (Auto) 1.9 th/mm3 (1.0-4.8); Lymph % (Auto) 18.1 % (9.0-44.0); Mean Corpuscular HGB Conc 33.9 % (32.0-36.0); Mean Corpuscular Hemoglobin 29.8 pg (27.0-34.0); Mean Corpuscular Volume 87.9 fL (80.0-100.0); Mean Platelet Volume 8.2 fL (7.0-11.0); Mono # (Auto) 1.2 th/mm3 (0.0-0.9); Mono % (Auto) 11.5 % (0.0-8.0); Neut # (Auto) 7.1 th/mm3 (1.8-7.7); Neut % (Auto) 69.1 % (16.0-70.0); Platelet Count 226 th/mm3 (150-450); Red Blood Count 3.61 mil/mm3 (4.50-5.90); White Blood Count 10.3 th/mm3 (4.0-11.0)
[2018-06-05 03:21] LABS: Activated Partial Thrombo Time 39.6 sec (23.4-31.7); INR 1.1 Ratio; Prothrombin Time 11.4 sec (9.8-11.6)
[2018-06-05 03:42] LABS: Alanine Aminotransferase 21 U/L (12-78); Albumin 2.4 g/dL (3.4-5.0); Alkaline Phosphatase 72 U/L (45-117); Anion Gap 9 meq/L (5-15); Aspartate Aminotransferase 49 U/L (15-37); Blood Urea Nitrogen 27 mg/dL (7-18); Calcium 8.1 mg/dL (8.5-10.1); Carbon Dioxide 27.9 meq/L (21.0-32.0); Chloride 105 meq/L (98-107); Creatine Kinase 290 U/L (39-308); Glomerular Filtration Rate 38 mL/min (>89); Glucose,Random 310 mg/dL (74-106); Magnesium 1.9 mg/dL (1.5-2.5); Phosphorus 3.2 mg/dL (2.5-4.9); Potassium 4.1 meq/L (3.5-5.1); Sodium 142 meq/L (136-145); Total Protein 6.1 g/dL (6.4-8.2)
[2018-06-05] MEDS: Chlorhexidine Gluconate 2% 1 Pack (2 Cloths) TOPICAL SCH (03:50)
--- NOTE | 2018-06-05 04:38 | XR ---
EXAM DATE: 06/05/2018 4:13 AM EST AGE/SEX: 73 years / Male INDICATIONS: Shortness of breath, possible pulmonary disease. CLINICAL DATA: This is the patient's subsequent encounter. Patient reports that signs and symptoms h ave been present for 3 days and indicates a pain score of Nonresponsive. MEDICAL/SURGICAL HISTORY: Non-responsive. Non-responsive. COMPARISON: [facility] [place], CHEST 1V SINGLE AP, 06/04/2018. . FINDINGS: A single AP view of the chest demonstrates no interval change. Bilateral posterior layering pleural e ffusions with bibasilar pulmonary infiltrates. Mild cardiomegaly. Endotracheal tube 5 cm from the car harsha. Nasogastric tube tip just past the GE junction. CONCLUSION: No interval change. Electronically signed by: Gabe Yost MD 06/05/2018 4:37 AM EST
[2018-06-05 05:37] LABS: ABG Base Excess 2.8 mmol/L (-2-2); ABG PCO2 40 mmHg (38-42); ABG PO2 93 mmHG (61-120)
[2018-06-05] MEDS: Insulin NovoLIN Regular Correctional Sugar Inj SQ SCH ×4 (06:09→23:43)
[2018-06-05] MEDS: Famotidine PF Inj 20 MG/2 ML Vial IV.PUSH SCH ×2 (08:58→20:48)
--- NOTE | 2018-06-05 10:43 | P.PNCA ---
Subjective Interval history: Intubated. Sedated. Medications and Allergies Active Medications: Active Medications Acetaminophen (Tylenol Liq) 650 mg NG/OG Q6H PRN PRN Reason: TEMP>101F, PAIN 1-10, HEADACHE Last Admin: 06/05/18 09:00 Dose: 650 mg Albuterol (Duoneb Neb (Prn)) 1 ampul NEB Q2HR NEB PRN PRN Reason: WHEEZING Albuterol (Duoneb Neb (Migdalia)) 1 ampul NEB Q6HR NEB MIGDALIA Last Admin: 06/05/18 08:29 Dose: 1 ampul Chlorhexidine Gluconate (Chlorhexidine 2% Cloth) 3 pack TOPICAL DAILY@0400 MIGDALIA Stop: 06/09/18 03:59 Last Admin: 06/05/18 03:50 Dose: 3 pack Chlorhexidine Gluconate (Chlorhexidine 2% Cloth) 3 pack TOPICAL DAILY@0400 PRN PRN Reason: Extra cloth needed Stop: 06/09/18 03:59 Dextrose (D50w Vial) 50 ml IV.PUSH UNSCH PRN PRN Reason: PER HYPOGLYCEMIA PROTOCOL Last Admin: 06/04/18 11:42 Dose: 50 ml Famotidine (Pepcid Pf Inj) 20 mg IV.PUSH Q12HR MIGDALIA Last Admin: 06/05/18 08:58 Dose: 20 mg Furosemide (Lasix Inj) 40 mg IV.PUSH DAILY MIGDALIA Last Admin: 06/05/18 08:56 Dose: 40 mg Glucagon (Glucagon Inj) 1 mg OTHER PRN PRN PRN Reason: for Hypoglycemia Protocol Fentanyl (Fentanyl 10 Mcg/Ml Premix Drip) 2,500 mcg in 250 mls @ 5 mls/hr IV.SIG TITRATE PRN; Protocol PRN Reason: Per Protocol Last Titration: 06/05/18 06:39 Dose: 150 mcg/hr, 15 mls/hr Midazolam HCl (Versed Inj) 50 mg in 50 mls @ 2 mls/hr IV.CONT TITRATE PRN; Protocol PRN Reason: Per Protocol Last Titration: 06/05/18 06:40 Dose: 6 mg/hr, 6 mls/hr Dopamine HCl/Dextrose (Dopamine 800 Mg/500 Ml Premix) 800 mg in 500 mls @ 12.757 mls/hr IV.CONT TITRATE PRN; Protocol PRN Reason: Per Protocol Last Titration: 06/04/18 18:02 Dose: Infused Norepinephrine Bitartrate (Levophed-Dextrose 4 Mg/250 Ml Drip) 4 mg in 250 mls @ 7.5 mls/hr IV.SIG TITRATE PRN; Protocol PRN Reason: Per Protocol Last Titration: 06/05/18 06:39 Dose: 0 mcg/min, 0 mls/hr Magnesium Sulfate 4 gm/ Sodium (Chloride) 100 mls @ 50 mls/hr IV.SIG UNSCH PRN PRN Reason: For Magnesium 0.9 - 1.1 mg/dL Magnesium Sulfate 2 gm/ Sodium (Chloride) 100 mls @ 50 mls/hr IV.SIG UNSCH PRN PRN Reason: For Magnesium 1.2 - 1.6 mg/dL Potassium Chloride (Kcl 40 Meq Premix Inj) 40 meq in 100 mls @ 25 mls/hr IV.SIG Q2H PRN PRN Reason: For Potassium 2.8 - 3.2 mEq/L Potassium Chloride (Kcl 20 Meq Premix Inj) 20 meq in 100 mls @ 50 mls/hr IV.SIG Q2H PRN PRN Reason: For Potassium 3.3 - 3.5 mEq/L Last Infusion: 06/04/18 10:25 Dose: Infused Potassium Chloride (Kcl 40 Meq Premix Inj) 40 meq in 100 mls @ 25 mls/hr IV.SIG UNSCH PRN PRN Reason: For Potassium 3.3 - 3.5 mEq/L Potassium Phosphate 30 mmol/ (Sodium Chloride) 260 mls @ 42 mls/hr IV.SIG UNSCH PRN PRN Reason: SEE LABEL COMMENTS Sodium Phosphate 30 mmol/ (Sodium Chloride) 260 mls @ 42 mls/hr IV.SIG UNSCH PRN PRN Reason: For Phosphorus < 2.5 mg/dL Potassium Chloride (Kcl 20 Meq Premix Inj) 20 meq in 100 mls @ 50 mls/hr IV.SIG Q2H PRN PRN Reason: For Potassium 2.8 - 3.2 mEq/L Heparin Sodium/Dextrose (Heparin/D5w 25,000 U/250 Ml) 25,000 unit in 250 mls @ 10 mls/hr IV.CONT TITRATE PRN; Protocol PRN Reason: Per Protocol Last Titration: 06/05/18 03:56 Dose: 1,200 units/hr, 12 mls/hr Cefepime HCl 1,000 mg/ Sodium (Chloride) 100 mls @ 200 mls/hr IV.SIG Q8H MIGDALIA Last Admin: 06/05/18 08:57 Dose: 200 mls/hr Amiodarone HCl 450 mg/ (Dextrose) 250 mls @ 33.33 mls/hr IV.CONT TITRATE PRN; Protocol PRN Reason: Per Protocol Last Admin: 06/05/18 05:22 Dose: 0.5 mg/min, 16.66 mls/hr Insulin Human Regular (Novolin R Correctional Sugar Inj) 0 units SQ Q6HR MIGDALIA; Protocol Last Admin: 06/05/18 06:09 Dose: 5 units Magnesium Oxide (Mag-Ox) 800 mg PO UNSCH PRN PRN Reason: For Magnesium 1.2 - 1.6 mg/dL Ondansetron HCl (Zofran Inj) 4 mg IV.PUSH Q6H PRN PRN Reason: NAUSEA OR VOMITING Potassium Bicarb/Potassium Chloride (K-Lyte Cl Eff) 50 meq PO UNSCH PRN PRN Reason: For Potassium 3.3 - 3.5 mEq/L Potassium Phosphate (K-Phos Original) 2,000 mg PO Q4H PRN PRN Reason: Phosphorus Less Than 2.5 mg/dL Potassium Phosphate (K-Phos Original) 2,000 mg PO UNSCH PRN PRN Reason: SEE LABEL COMMENTS Sodium Chloride (Ns Flush) 2 ml IV.FLUSH UNSCH PRN PRN Reason: FLUSH AFTER USING IV ACCESS Terbutaline Sulfate (Brethine Inj) 1 mg SQ ONCE PRN PRN Reason: Extravasation Terbutaline Sulfate (Brethine Inj) 1 mg SQ UNSCH PRN PRN Reason: For Extravasation Allergies Allergy/AdvReac Type Severity Reaction Status Date / Time No Allergy Information Allergy Verified 06/03/18 14:22 Available Home Medications Medication Instructions Recorded Confirmed Type amlodipine 5 mg PO DAILY 06/03/18 06/03/18 History ascorbic acid (vitamin C) [Vitamin 500 mg PO DAILY 06/03/18 06/03/18 History C] aspirin 81 mg PO DAILY 06/03/18 06/03/18 History atorvastatin [Lipitor] 20 mg PO DAILY 06/03/18 06/03/18 History calcium carbonate [Calcium 600] 600 mg PO DAILY 06/03/18 06/03/18 History cinnamon bark [Cinnamon] 1,000 mg PO BID 06/03/18 06/03/18 History cyanocobalamin (vitamin B-12) 1,000 mcg PO DAILY 06/03/18 06/03/18 History [Vitamin B-12] famotidine 20 mg PO DAILY 06/03/18 06/03/18 History ferrous sulfate [iron] 325 mg PO BID 06/03/18 06/03/18 History furosemide [Lasix] 40 mg PO DAILY 06/03/18 06/03/18 History gabapentin 300 mg PO 5 TIMES A DAY 06/03/18 06/03/18 History glimepiride 2 mg PO BID 06/03/18 06/03/18 History hydrocodone-acetaminophen [[place]] 1 tab PO Q6H PRN 06/03/18 06/03/18 History insulin glargine [Lantus U-100 65 unit SUBCUT DAILY 06/03/18 06/03/18 History Insulin] lisinopril 10 mg PO DAILY 06/03/18 06/03/18 History metformin 500 mg PO QID 06/03/18 06/03/18 History metoprolol tartrate 50 mg PO BID 06/03/18 06/03/18 History niacin 500 mg PO DAILY 06/03/18 06/03/18 History potassium 99 mg PO BID 06/03/18 06/03/18 History warfarin [Coumadin] 5 mg PO DAILY 06/03/18 06/03/18 History Physical Exam Vital signs: Vital Signs 06/04/18 10:45 06/04/18 11:00 06/04/18 11:15 Temperature Pulse Rate 76 75 76 Respiratory Rate 16 16 13 Blood Pressure 113/65 107/61 107/59 L Pulse Oximetry 98 98 98 06/04/18 11:30 06/04/18 11:45 06/04/18 12:00 Temperature 98.4 F Pulse Rate 80 83 81 Respiratory Rate 13 13 13 Blood Pressure 117/61 115/65 118/64 Pulse Oximetry 98 99 100 06/04/18 12:15 06/04/18 12:30 06/04/18 12:45 Temperature Pulse Rate 82 81 84 Respiratory Rate 13 14 16 Blood Pressure 112/64 112/65 112/64 Pulse Oximetry 99 99 99 06/04/18 13:00 06/04/18 13:15 11/10/18 13:30 Temperature Pulse Rate 83 87 84 Respiratory Rate 14 17 16 Blood Pressure 108/63 114/63 106/66 Pulse Oximetry 99 99 99 06/04/18 13:45 06/04/18 14:00 06/04/18 14:15 Temperature Pulse Rate 82 85 76 Respiratory Rate 16 16 16 Blood Pressure 99/51 L 99/57 L 89/54 L Pulse Oximetry 99 99 99 06/04/18 14:30 06/04/18 14:45 06/04/18 15:00 Temperature Pulse Rate 76 75 77 Respiratory Rate 16 14 16 Blood Pressure 89/54 L 88/54 L 90/54 L Pulse Oximetry 100 98 99 06/04/18 15:15 06/04/18 15:30 06/04/18 15:45 Temperature Pulse Rate 79 89 98 H Respiratory Rate 13 13 13 Blood Pressure 98/59 L 119/72 126/72 Pulse Oximetry 99 99 98 06/04/18 16:00 06/04/18 16:15 06/04/18 16:24 Temperature Pulse Rate 98 H 104 H 102 H Respiratory Rate 16 14 20 Blood Pressure 130/81 138/80 Pulse Oximetry 95 96 06/04/18 16:30 06/04/18 16:45 06/04/18 17:00 Temperature 101.3 F H Pulse Rate 104 H 104 H 102 H Respiratory Rate 14 14 16 Blood Pressure 129/72 131/68 111/55 L Pulse Oximetry 92 L 96 96 06/04/18 17:30 06/04/18 18:00 06/04/18 18:30 Temperature 101 F H Pulse Rate 94 H 92 H 90 Respiratory Rate 16 13 15 Blood Pressure 101/54 L 93/51 L 85/50 L Pulse Oximetry 93 L 94 L 95 06/04/18 18:34 06/04/18 18:37 06/04/18 18:38 Temperature Pulse Rate 90 90 91 H Respiratory Rate 16 12 16 Blood Pressure 81/45 L 74/46 L Pulse Oximetry 95 95 95 06/04/18 18:41 06/04/18 18:44 06/04/18 18:45 Temperature 101 F H Pulse Rate 88 93 H 98 H Respiratory Rate 16 16 14 Blood Pressure 80/49 L 72/43 L 74/47 L Pulse Oximetry 97 93 L 93 L 06/04/18 18:46 06/04/18 18:49 06/04/18 18:53 Temperature Pulse Rate 106 H 117 H 116 H Respiratory Rate 16 16 16 Blood Pressure 80/49 L 80/48 L 81/50 L Pulse Oximetry 97 95 95 06/04/18 18:55 06/04/18 19:00 06/04/18 19:05 Temperature Pulse Rate 115 H 108 H 113 H Respiratory Rate 16 13 19 Blood Pressure 84/53 L 84/47 L 77/47 L Pulse Oximetry 91 L 91 L 92 L 06/04/18 19:06 06/04/18 19:10 06/04/18 19:12 Temperature Pulse Rate 153 H 158 H Respiratory Rate 16 17 19 Blood Pressure 82/50 L 84/51 L Pulse Oximetry 90 L 93 L 93 L 06/04/18 19:15 06/04/18 19:20 06/04/18 19:23 Temperature Pulse Rate 157 H 149 H 146 H Respiratory Rate 27 H 16 15 Blood Pressure 86/52 L 77/53 L 83/52 L Pulse Oximetry 94 L 98 98 06/04/18 19:25 06/04/18 19:30 06/04/18 19:35 Temperature Pulse Rate 143 H 135 H 135 H Respiratory Rate 0 L 0 L 1 L Blood Pressure 93/49 L 83/51 L 84/54 L Pulse Oximetry 99 99 99 06/04/18 19:40 06/04/18 19:42 06/04/18 19:45 Temperature Pulse Rate 134 H 131 H 127 H Respiratory Rate 0 L 1 L 1 L Blood Pressure 75/56 L 75/50 L 74/50 L Pulse Oximetry 99 99 99 06/04/18 19:47 06/04/18 19:50 06/04/18 19:55 Temperature Pulse Rate 126 H 123 H 120 H Respiratory Rate 0 L 0 L 0 L Blood Pressure 86/50 L 88/56 L 88/53 L Pulse Oximetry 99 99 100 06/04/18 20:00 06/04/18 20:05 06/04/18 20:10 Temperature 100.1 F H Pulse Rate 119 H 117 H 120 H Respiratory Rate 1 L 0 L 0 L Blood Pressure 96/50 L 84/49 L 84/51 L Pulse Oximetry 100 100 99 06/04/18 20:15 06/04/18 20:20 06/04/18 20:25 Temperature Pulse Rate 116 H 116 H 114 H Respiratory Rate 0 L 15 16 Blood Pressure 80/52 L 88/52 L 87/51 L Pulse Oximetry 100 99 98 06/04/18 20:30 06/04/18 20:35 06/04/18 20:40 Temperature Pulse Rate 115 H 115 H 109 H Respiratory Rate 16 16 16 Blood Pressure 88/54 L 90/55 L 89/54 L Pulse Oximetry 98 98 98 06/04/18 20:41 06/04/18 20:45 06/04/18 20:50 Temperature Pulse Rate 109 H 110 H 107 H Respiratory Rate 16 16 16 Blood Pressure 88/50 L 96/54 L Pulse Oximetry 98 99 06/04/18 20:55 06/04/18 21:00 06/04/18 22:00 Temperature Pulse Rate 110 H 106 H 95 H Respiratory Rate 16 16 16 Blood Pressure 99/49 L 99/57 L 96/62 L Pulse Oximetry 99 99 99 06/04/18 23:00 06/05/18 00:00 06/05/18 00:06 Temperature Pulse Rate 80 71 Respiratory Rate 16 16 16 Blood Pressure 106/52 L 112/56 L Pulse Oximetry 99 100 100 06/05/18 01:00 06/05/18 01:01 06/05/18 02:00 Temperature Pulse Rate 67 66 67 Respiratory Rate 16 16 16 Blood Pressure 91/47 L Pulse Oximetry 99 99 99 06/05/18 02:35 06/05/18 03:00 06/05/18 04:00 Temperature 99.9 F H Pulse Rate 65 62 68 Respiratory Rate 16 16 13 Blood Pressure 100/54 L 103/55 L 116/53 L Pulse Oximetry 99 99 99 06/05/18 04:27 06/05/18 04:28 06/05/18 05:00 Temperature Pulse Rate 78 79 Respiratory Rate 16 16 0 L Blood Pressure 112/56 L Pulse Oximetry 100 100 06/05/18 05:51 06/05/18 06:00 06/05/18 08:00 Temperature Pulse Rate 108 H 111 H Respiratory Rate 12 15 16 Blood Pressure 111/67 112/58 L Pulse Oximetry 99 98 98 Intake & Output 06/04/18 06/05/18 06/05/18 18:59 06:59 18:59 Intake Total 911 / 911 1625 / 1625 Output Total 2165 / 2165 650 / 650 Balance -1254 / -1254 975 / 975 Weight 110.5 kg Intake: IV 620 / 620 750 / 750 Cordarone Inj 450 MG In D5W Inj 250 / 250 241 ML @ 1 MG/MIN 33.33 mls/hr IV.CONT TITRATE PRN Rx#: [id number] DOPamine 800 MG/500 ML Premix 100 / 100 800 mg In 500 ml @ 3 MCG/KG/MIN 12.757 mls/hr IV.CONT TITRATE PRN Rx#:[id number] Versed Inj 50 mg In 50 ml @ 2 100 / 100 50 / 50 MG/HR 2 mls/hr IV.CONT TITRATE PRN Rx#:[id number] Cordarone Inj 150 MG In D5W Inj 100 / 100 97 ML @ 600 mls/hr IV.SIG ONCE ONE Rx#:[id number] Maxipime Inj 1,000 MG In NS Inj 100 / 100 100 / 100 100 ML @ 200 mls/hr IV.SIG Q8H MIGDALIA Rx#:[id number] Levophed-Dextrose 4 mg/250 ml 250 / 250 Drip 4 mg In 250 ml @ 2 MCG/MIN 7.5 mls/hr IV.SIG TITRATE PRN Rx#:[id number] KCl 20 mEq Premix Inj 20 meq In 100 / 100 100 ml @ 50 mls/hr IV.SIG Q2H PRN Rx#:[id number] fentaNYL 10 mcg/mL Premix Drip 220 / 220 2,500 mcg In 250 ml @ 50 MCG/HR 5 mls/hr IV.SIG TITRATE PRN Rx #:[id number] Oral 0 / 0 0 / 0 Tube Feeding 251 / 251 875 / 875 Water Bolus Amount 40 / 40 0 / 0 Output: Urine Amount (Catheter) 216 / 216 650 / 650 Indwelling Urethral Catheter 2164 / 216 650 / 650 - Constitutional Comments: Intubated. Sedated. - Routine Neck Exam Absent: JVD - Routine Respiratory Exam Comments: Lungs clear anteriorly. - Routine Cardiovascular Exam Present: S1, S2, murmur, irregular rhythm. Absent: gallop Comments: II/ diffuse systolic murmur. Markedly diminished S2. - Routine Abdominal Exam Present: soft, normoactive bowel sounds. Absent: organomegaly - Routine Extremities Exam Absent: cyanosis, clubbing, edema - Urinary Catheter Management Indwelling Urethral Catheter Cath placed during this visit: yes Reason for continuing: Hourly intake/output Insertion date: 06/03/18 Insertion time: 14:46 Results 06/05/18 03:00 06/05/18 03:00 Cardiac Enzymes 06/03/18 06/03/18 06/03/18 Range/Units 15:00 15:00 20:46 AST 26 21 (15-37) U/L CK-MB (CK-2) 6.2 H 4.9 H (0.5-3.6) ng/mL Troponin I 0.04 0.07 H (0.02-0.05) ng/mL B-Natriuretic Peptide 755 H (0-100) pg/mL 06/04/18 06/04/18 06/04/18 Range/Units 03:55 03:55 08:29 AST 17 (15-37) U/L CK-MB (CK-2) (0.5-3.6) ng/mL Troponin I 0.07 H 0.06 H (0.02-0.05) ng/mL B-Natriuretic Peptide 811 H (0-100) pg/mL 06/04/18 06/05/18 06/05/18 Range/Units 15:38 03:00 03:00 AST 49 H (15-37) U/L CK-MB (CK-2) (0.5-3.6) ng/mL Troponin I 0.06 H (0.02-0.05) ng/mL B-Natriuretic Peptide 590 H (0-100) pg/mL Coagulation 06/03/18 06/03/18 06/04/18 Range/Units 15:00 15:43 03:55 PT 12.6 H 12.1 H (9.8-11.6) sec APTT 26.1 (23.4-31.7) sec B-Natriuretic Peptide 755 H (0-100) pg/mL 06/04/18 06/04/18 06/04/18 Range/Units 03:55 12:40 18:50 PT (9.8-11.6) sec APTT 28.4 34.1 H D (23.4-31.7) sec B-Natriuretic Peptide 811 H (0-100) pg/mL 06/05/18 06/05/1818 Range/Units 03:00 03:00 10:00 PT 11.4 (9.8-11.6) sec APTT 39.6 H 39.9 H (23.4-31.7) sec B-Natriuretic Peptide 590 H (0-100) pg/mL CBC 06/03/18 06/04/18 06/05/18 Range/Units 15:00 03:55 03:00 WBC 9.9 7.7 10.3 (4.0-11.0) th/mm3 RBC 3.76 L 3.91 L 3.61 L (4.50-5.90) mil/mm3 Hgb 11.2 L 11.3 L 10.8 L (13.0-17.0) gm/dL Hct 34.5 L 34.8 L 31.8 L (39.0-51.0) % Plt Count 212 201 226 (150-450) th/mm3 Neut # (Auto) 8.5 H 5.4 7.1 (1.8-7.7) th/mm3 Lymph # (Auto) 0.7 L 1.4 1.9 (1.0-4.8) th/mm3 [place] # (Auto) 0.5 0.7 1.2 H (0.0-0.9) th/mm3 Eos # (Auto) 0.1 0.2 0.1 (0.0-0.4) th/mm3 Baso # (Auto) 0.0 0.0 0.0 (0.0-0.2) th/mm3 Comprehensive Metabolic Panel 06/03/18 06/03/18 06/04/18 Range/Units 15:00 20:46 03:55 Sodium 142 144 147 H (136-145) meq/L Potassium 5.1 4.1 D 3.3 L D (3.5-5.1) meq/L Chloride 107 108 H 108 H (98-107) meq/L Carbon Dioxide 26.1 28.4 29.1 (21.0-32.0) meq/L BUN 32 H 33 H 33 H (7-18) mg/dL Creatinine 2.08 H 1.90 H 1.79 H (0.60-1.30) mg/dL Calcium 8.4 L 8.7 8.7 (8.5-10.1) mg/dL AST 26 21 17 (15-37) U/L ALT 32 28 25 (12-78) U/L Alkaline Phosphatase 88 85 80 (45-117) U/L Total Protein 6.9 7.0 6.7 (6.4-8.2) g/dL Albumin 3.1 L 3.0 L 2.9 L (3.4-5.0) g/dL 06/04/18 06/04/18 06/05/18 Range/Units 15:38 18:50 03:00 Sodium 142 142 (136-145) meq/L Potassium 4.0 4.2 4.1 (3.5-5.1) meq/L Chloride 105 105 (98-107) meq/L Carbon Dioxide 30.2 27.9 (21.0-32.0) meq/L BUN 27 H 27 H (7-18) mg/dL Creatinine 1.89 H 1.78 H (0.60-1.30) mg/dL Calcium 8.6 8.1 L (8.5-10.1) mg/dL AST 49 H (15-37) U/L ALT 21 (12-78) U/L Alkaline Phosphatase 72 (45-117) U/L Total Protein 6.1 L D (6.4-8.2) g/dL Albumin 2.4 L (3.4-5.0) g/dL Intake and Output 06/04/18 06/05/18 06/05/18 22:59 06:59 14:59 Intake Total 911 / 911 1475 / 1475 Output Total 2165 / 2165 650 / 650 Balance -1254 / -1254 825 / 825 Intake: IV 620 / 620 600 / 600 Cordarone Inj 450 MG In D5W Inj 250 / 250 241 ML @ 1 MG/MIN 33.33 mls/hr IV.CONT TITRATE PRN Rx#: [id number] DOPamine 800 MG/500 ML Premix 100 / 100 800 mg In 500 ml @ 3 MCG/KG/MIN 12.757 mls/hr IV.CONT TITRATE PRN Rx#:[id number] Versed Inj 50 mg In 50 ml @ 2 100 / 100 MG/HR 2 mls/hr IV.CONT TITRATE PRN Rx#:[id number] Cordarone Inj 150 MG In D5W Inj 100 / 100 97 ML @ 600 mls/hr IV.SIG ONCE ONE Rx#:[id number] Maxipime Inj 1,000 MG In NS Inj 100 / 100 100 / 100 100 ML @ 200 mls/hr IV.SIG Q8H [facility] Rx#:[id number] Levophed-Dextrose 4 mg/250 ml 250 / 250 Drip 4 mg In 250 ml @ 2 MCG/MIN 7.5 mls/hr IV.SIG TITRATE PRN Rx#:[id number] fentaNYL 10 mcg/mL Premix Drip 220 / 220 2,500 mcg In 250 ml @ 50 MCG/HR 5 mls/hr IV.SIG TITRATE PRN Rx #:[id number] Oral 0 / 0 0 / 0 Tube Feeding 251 / 251 875 / 875 Water Bolus Amount 40 / 40 0 / 0 Output: Urine Amount (Catheter) 2165 / 2165 650 / 650 Indwelling Urethral Catheter 2165 / 2165 650 / 650 Other: Weight 110.5 kg - Imaging and Cardiology Imaging: Impressions Chest X-Ray 06/03/18 14:22 CONCLUSION: 1. ETT in good position. NGT beyond the GE junction. 2. Cardiomegaly with pulmonary edema pattern. 3. More focal airspace consolidation in the left lower lung zone. Head CT 06/03/18 15:01 CONCLUSION: No acute intracranial abnormality demonstrated. . Chest X-Ray 06/04/18 05:00 CONCLUSION: Unchanged exam. Chest X-Ray 06/05/18 05:00 CONCLUSION: No interval change. Assessment and Plan - Assessment (1) Congestive heart failure Code(s): I50.9 - Heart failure, unspecified Status: Acute Plan: Severely reduced left ventricular function. Acute CHF. No change overnight. Chest x-ray unchanged. Recommend continue diuresis. No beta celestine, ARB or HAI-I with hypotension, renal insufficiency. (2) Paroxysmal atrial fibrillation Code(s): I48.0 - Paroxysmal atrial fibrillation Status: Acute Plan: Back in atrial fib, initially elevated HR's, now normal on IV Amiodarone. Recommend continue IV Amiodarone, heparin drip. His thromboembolic risk is high. (3) Aortic stenosis Code(s): I35.0 - Nonrheumatic aortic (valve) stenosis Status: Chronic Plan: Severe by exam, echo. Await CABG/AVR which apparently was to be performed by Dr. Enriquez at [facility]. (4) Coronary artery disease Code(s): I25.10 - Atherosclerotic heart disease of [place] coronary artery without angina pectoris Status: Chronic Plan: Overall no definite evidence for ACS. CK's negative for DE. No acute EKG changes. Troponin levels only minimally elevated, in the setting of renal insufficiency. Recommend daily aspirin. - Plan Code Status: full code (1) Congestive heart failure Qualifiers: Heart failure type: systolic (4) Coronary artery disease Qualifiers: Coronary Disease-Associated Artery/Lesion type: [place] artery [place] vs. transplanted heart: [place] heart Associated angina: angina presence unspecified Qualified Code(s): I25.10 - Atherosclerotic heart disease of [place] coronary artery without angina pectoris
[2018-06-05] MEDS: Heparin Drip 25,000 UNIT/250 ML BAG IV.CONT PRN (11:05)
[2018-06-05] MEDS ORDERED: Heparin 10,000 UNITS/10 ML Vial (for IV use) IV.PUSH PRN (11:19)
[2018-06-05] MEDS: Heparin 10,000 UNITS/10 ML Vial (for IV use) IV.PUSH PRN (11:22)
--- NOTE | 2018-06-05 12:04 | P.DIET ---
Nutritional Evaluation Type of nutrition evaluation: initial Nutrition consult regarding: Tube Feeding Subjective Subjective Comments: Assessment here uses guidelines from [employer] and [employer] for critically ill patients w/BMI > 30 Objective - Diagnosis Respiratory Failure, Pulmonary Edema, Pneumonia - Objective % IBW: 168 Energy Needs - Lower Range (kCal/kg): 11 Energy Needs - Upper Range (kCal/kg): 14 Lower Limit kCal/kg (kCals): 1,194 Upper Limit kCal/kg (kCals): 1,519 Lower Limit Protein Factor (Grams per Kg): 1.5 Upper Limit Protein Factor (Grams per Kg): 1.8 Lower Protein Needs (Protein): 97 Upper Protein Needs (Protein): 116 Dietitian Reviewed in Medical Record: Curent medications, Intake & Output, Labs , Medical history, Tube feeding Diet Order: NPO Objective Comments: PMH includes: Severe CAD, Aortic Stenosis, h/o paroxymal AFib, Non-Hodgkin's Lymphoma s/p previous chemotherapy; HERMAN, HANS Labs include: BUN 27, Creatinine 1.78, estGFR 38, random Glucose 310, POC Glucose 291 Meds include: Lasix, Zofran, Pepcid, Novolin R +UOP 2815ml Feeding - Current Tube Feeding Tube Feeding Product: Jevity 1.5 Tube Feeding Rate: 60 Current kCals Provided by Tube Feedin,160 Current Protein Provided by Tube Feeding (gPRO): 92 Current Free H2O Provided (m/l): 1,094 Assessment Assessment: Pt is at nutritional risk r/t diagnosis and need for TF'ing. To best meet pt's assessed needs, while on vent support, Rec TF'ing w/Vital High Protein @ goal rate 50ml/hr to offer 1200 kcal, 105g protein and 1003ml free water. Monitor renal labs and glucose closely. Additional Recs r/t Clinical Course. Recommendations: 1. To best meet pt's assessed needs, while on vent support, Rec TF'ing w/Vital High Protein @ goal rate 50ml/hr 2. Additional Recs r/t Clinical Course Dietitian to Monitor: Lab values, Renal labs, Glucose level, Intake & Output, Tube feeding tolerance, Weight change, Medical course
[2018-06-05] MEDS: fentaNYL 10 mcg/mL Premix Drip 2,500 MCG/250 ML BAG IV.SIG PRN (12:32)
--- NOTE | 2018-06-05 12:56 | ECHRPT ---
Indication: Cardiomyopathy CONCLUSIONS Moderately dilated left ventricle. Mild concentric left ventricular hypertrophy. The left ventricular systolic function is severely reduced with an estimated ejection fraction in th e range of 20-25%. There is global left ventricular dysfunction. The right ventricle is mildly dilated. Moderate mitral valve regurgitation. Moderate mitral annular calcification. [id number] mitral valve stenosis. Diffuse calcification of the aortic valve. Trace aortic valve regurgitation. Aortic valve sclerosis is present. Aortic valve area is 1.3 cm. Aortic valve mean gradient is 26.2 mmHg. Moderate to severe aortic valve stenosis (probable low gradient aortic stenosis with reduced ejectio n fraction) There is mild tricuspid valve regurgitation. The estimated pulmonary arterial pressure is 64 mmHg. A large left sided pleural effusion is noted. BP: 115 / 62 HR: 77 Rhythm: MEASUREMENTS (Male / Female) Normal Values Technical Quality:Fair 2D ECHO LV Diastolic Diameter PLAX 5.6 cm 4.2 - 5.9 / 3.9 - 5.3 cm LV Systolic Diameter PLAX 4.4 cm IVS Diastolic Thickness 1.0 cm 0.6 - 1.0 / 0.6 - 0.9 cm LVPW Diastolic Thickness 1.0 cm 0.6 - 1.0 / 0.6 - 0.9 cm LV Relative Wall Thickness 0.3 RV Internal Dim ED PLAX 4.6 cm LVOT Diameter 2.0 cm Aortic Root Diameter 3.1 cm LA Systolic Diameter LX 3.8 cm 3.0 - 4.0 / 2.7 - 3.8 cm DOPPLER AV Peak Velocity 329.6 cm/s AV Peak Gradient 43.5 mmHg AV Mean Gradient 26.2 mmHg AV Velocity Time Integral 81.3 cm LVOT Peak Velocity 170.0 cm/s LVOT Peak Gradient 11.6 mmHg LVOT Velocity Time Integral 34.2 cm LVOT Cardiac Index 3515.5 cm/minm AV Area Cont Eq vti 1.3 cm AV Area Cont Eq pk 1.6 cm Mitral E Point Velocity 96.3 cm/s LV E' Lateral Velocity 8.1 cm/s Mitral E to LV E' Lateral Ratio 11.9 LV E' Septal Velocity 5.4 cm/s Mitral E to LV E' Septal Ratio 18.0 TR Peak Velocity 350.0 cm/s TR Peak Gradient 49.0 mmHg Right Atrial Pressure 15.0 mmHg Pulmonary Artery Systolic Pressu 64.0 mmHg Right Ventricular Systolic Press 64.0 mmHg PV Peak Velocity 172.0 cm/s PV Peak Gradient 11.8 mmHg FINDINGS LEFT VENTRICLE Moderately dilated left ventricle. Mild concentric left ventricular hypertrophy. The left ventricular systolic function is severely reduced with an estimated ejection fraction in th e range of 20-25%. There is global left ventricular dysfunction. RIGHT VENTRICLE The right ventricle is mildly dilated. LEFT ATRIUM The left atrial size is normal. RIGHT ATRIUM The right atrial size is normal. ATRIAL SEPTUM Normal atrial septal thickness without atrial level shunting by limited color doppler interrogation. AORTA The aortic root and proximal ascending aorta are normal in size on limited imaging. MITRAL VALVE Moderate mitral valve regurgitation. Moderate mitral annular calcification. [id number]-oestriad mitral valve stenosis. AORTIC VALVE Diffuse calcification of the aortic valve. Trace aortic valve regurgitation. Aortic valve sclerosis is present. Aortic valve area is 1.3 cm. Aortic valve mean gradient is 26.2 mmHg. Moderate to severe aortic valve stenosis (probable low gradient aortic stenosis with reduced ejectio n fraction) TRICUSPID VALVE There is mild tricuspid valve regurgitation. The estimated pulmonary arterial pressure is 64 mmHg. PULMONARY VALVE No pulmonary valve regurgitation or stenosis. VESSELS The inferior vena cava is normal in size. PERICARDIUM A large left sided pleural effusion is noted. Seun Walker MD, FACC (Electronically Signed) Final Date:03 June 2018 21:58
[2018-06-05] MEDS ORDERED: Digoxin Inj 500 MCG/2 ML Ampul IV.PUSH ONE (15:40)
[2018-06-05] MEDS ORDERED: Vancomycin Consult Pharmacy OTHER PRN (15:43)
[2018-06-05] MEDS ORDERED: Amiodarone Inj 150 MG in Dextrose 5% in Water Inj 97 ML IV.SIG ONE ×2 (16:00)
[2018-06-05] MEDS ORDERED: Magnesium Sulfate Inj 2 GM in Sodium Chlor 0.9% Inj 96 ML IV.SIG ONE (16:00)
--- NOTE | 2018-06-05 16:08 | P.PNCC ---
Subjective Subjective Remarks/Hospital Course: 06/03: 73-year-old male with a medical history of cardiac problems who recently had a workup done at [facility] in [place] per family and was evaluated by CT surgeon at [facility] in [place] last week including Dr. Jay Wisdom per family for CT surgery. Patient has been having shortness of breath for the last week or so per his and today his breathing worsened and he was brought to the ER at [facility] where he was in respiratory extremis with O2 sats in the 70s and was intubated and placed on mechanical ventilation. He was also very hypotensive on arrival and after receiving about 500 cc of normal saline bolus he was started on Levophed and dopamine for pressor support. He had a femoral central line placed by ER physician. His chest x-ray in the ER showed pulmonary edema and questionable infiltrates. He did not have a fever or white count on his labs and due to elevated creatinine could not get a CTA of the chest per ER physician. Subsequently he was maintaining his O2 sats around 96% on mechanical ventilation with 100% FiO2 with heart rate in the 60s and systolic blood pressure 100s on dopamine 5 mics per KG per minute. When I evaluated the patient in the ER he was propofol, orally intubated on mechanical ventilation. I spoke with patient's who could not really give me any details of his medical history including recent workup or diagnosis. She tells me he has a history of having "holes in the heart" however is unclear regarding what surgery he was scheduled for at [facility]. I discussed this with Dr. Rich in the ER and requested that he contact Dr. Jay Wisdom who evaluated the patient for his to see if he would want patient transferred to [facility] as he was scheduled for surgery there with him. We do not have any details of his recent workup or diagnosis at this time. 06/04 : Further history revealed following cardiology evaluation by Dr. Schwab who was able to look up his medical records at [facility]. Patient reportedly has severe coronary artery disease and valvular dysfunction and was scheduled for surgery in the near future with CT surgeon at [facility]. Still awaiting medical records from outside hospitals regarding cardiac workup. In the meanwhile patient remains sedated, orally intubated on mechanical ventilation. Off dopamine. 06/05: off pressors. remains intubated. back in afib RVR. diuresing. Objective Vital Signs / I&O: Vital Signs 06/04/18 16:15 06/04/18 16:24 06/04/18 16:30 Temperature Pulse Rate 104 H 102 H 104 H Respiratory Rate 14 20 14 Blood Pressure 138/80 129/72 Pulse Oximetry 96 92 L 06/04/18 16:45 06/04/18 17:00 06/04/18 17:30 Temperature 38.5 C H 38.3 C H Pulse Rate 104 H 102 H 94 H Respiratory Rate 14 16 16 Blood Pressure 131/68 111/55 L 101/54 L Pulse Oximetry 96 96 93 L 06/04/18 18:00 06/04/18 18:30 06/04/18 18:34 Temperature Pulse Rate 92 H 90 90 Respiratory Rate 13 15 16 Blood Pressure 93/51 L 85/50 L 81/45 L Pulse Oximetry 94 L 95 95 06/04/18 18:37 06/04/18 18:38 06/04/18 18:41 Temperature 38.3 C H Pulse Rate 90 91 H 88 Respiratory Rate 12 16 16 Blood Pressure 74/46 L 80/49 L Pulse Oximetry 95 95 97 06/04/18 18:44 06/04/18 18:45 06/04/18 18:46 Temperature Pulse Rate 93 H 98 H 106 H Respiratory Rate 16 14 16 Blood Pressure 72/43 L 74/47 L 80/49 L Pulse Oximetry 93 L 93 L 97 06/04/18 18:49 06/04/18 18:53 06/04/18 18:55 Temperature Pulse Rate 117 H 116 H 115 H Respiratory Rate 16 16 16 Blood Pressure 80/48 L 81/50 L 84/53 L Pulse Oximetry 95 95 91 L 06/04/18 19:00 06/04/18 19:05 06/04/18 19:06 Temperature Pulse Rate 108 H 113 H Respiratory Rate 13 19 16 Blood Pressure 84/47 L 77/47 L Pulse Oximetry 91 L 92 L 90 L 06/04/18 19:10 06/04/18 19:12 06/04/18 19:15 Temperature Pulse Rate 153 H 158 H 157 H Respiratory Rate 17 19 27 H Blood Pressure 82/50 L 84/51 L 86/52 L Pulse Oximetry 93 L 93 L 94 L 06/04/18 19:20 06/04/18 19:23 06/04/18 19:25 Temperature Pulse Rate 149 H 146 H 143 H Respiratory Rate 16 15 0 L Blood Pressure 77/53 L 83/52 L 93/49 L Pulse Oximetry 98 98 99 06/04/18 19:30 06/04/18 19:35 06/04/18 19:40 Temperature Pulse Rate 135 H 135 H 134 H Respiratory Rate 0 L 1 L 0 L Blood Pressure 83/51 L 84/54 L 75/56 L Pulse Oximetry 99 99 99 06/04/18 19:42 06/04/18 19:45 06/04/18 19:47 Temperature Pulse Rate 131 H 127 H 126 H Respiratory Rate 1 L 1 L 0 L Blood Pressure 75/50 L 74/50 L 86/50 L Pulse Oximetry 99 99 99 06/04/18 19:50 06/04/18 19:55 06/04/18 20:00 Temperature 37.8 C H Pulse Rate 123 H 120 H 119 H Respiratory Rate 0 L 0 L 1 L Blood Pressure 88/56 L 88/53 L 96/50 L Pulse Oximetry 99 100 100 06/04/18 20:05 06/04/18 20:10 06/04/18 20:15 Temperature Pulse Rate 117 H 120 H 116 H Respiratory Rate 0 L 0 L 0 L Blood Pressure 84/49 L 84/51 L 80/52 L Pulse Oximetry 100 99 100 06/04/18 20:20 06/04/18 20:25 06/04/18 20:30 Temperature Pulse Rate 116 H 114 H 115 H Respiratory Rate 15 16 16 Blood Pressure 88/52 L 87/51 L 88/54 L Pulse Oximetry 99 98 98 06/04/18 20:35 06/04/18 20:40 06/04/18 20:41 Temperature Pulse Rate 115 H 109 H 109 H Respiratory Rate 16 16 16 Blood Pressure 90/55 L 89/54 L Pulse Oximetry 98 98 06/04/18 20:45 06/04/18 20:50 06/04/18 20:55 Temperature Pulse Rate 110 H 107 H 110 H Respiratory Rate 16 16 16 Blood Pressure 88/50 L 96/54 L 99/49 L Pulse Oximetry 98 99 99 06/04/18 21:00 06/04/18 22:00 06/04/18 23:00 Temperature Pulse Rate 106 H 95 H 80 Respiratory Rate 16 16 16 Blood Pressure 99/57 L 96/62 L 106/52 L Pulse Oximetry 99 99 99 06/05/18 00:00 06/05/18 00:06 06/05/18 01:00 Temperature Pulse Rate 71 67 Respiratory Rate 16 16 16 Blood Pressure 112/56 L Pulse Oximetry 100 100 99 06/05/18 01:01 06/05/18 02:00 06/05/18 02:35 Temperature Pulse Rate 66 67 65 Respiratory Rate 16 16 16 Blood Pressure 91/47 L 100/54 L Pulse Oximetry 99 99 99 06/05/18 03:00 06/05/18 04:00 06/05/18 04:27 Temperature 37.7 C H Pulse Rate 62 68 78 Respiratory Rate 16 13 16 Blood Pressure 103/55 L 116/53 L Pulse Oximetry 99 99 06/05/18 04:28 06/05/18 05:00 06/05/18 05:51 Temperature Pulse Rate 79 108 H Respiratory Rate 16 0 L 12 Blood Pressure 112/56 L 111/67 Pulse Oximetry 100 100 99 06/05/18 06:00 06/05/18 06:45 06/05/18 07:00 Temperature Pulse Rate 111 H 113 H 130 H Respiratory Rate 15 16 16 Blood Pressure 112/58 L 112/55 L 102/57 L Pulse Oximetry 98 94 L 95 06/05/18 07:15 06/05/18 08:00 06/05/18 08:01 Temperature 38.5 C H Pulse Rate 127 H 106 H 106 H Respiratory Rate 16 16 14 Blood Pressure 87/48 L 88/52 L Pulse Oximetry 96 97 97 06/05/18 09:00 06/05/18 09:05 06/05/18 10:00 Temperature Pulse Rate 124 H 127 H 120 H Respiratory Rate 14 13 13 Blood Pressure 83/52 L 104/60 95/53 L Pulse Oximetry 97 97 97 06/05/18 11:00 06/05/18 11:32 06/05/18 12:00 Temperature 38.3 C H Pulse Rate 71 74 Respiratory Rate 15 16 14 Blood Pressure 106/61 108/62 Pulse Oximetry 97 98 98 06/05/18 13:00 06/05/18 14:00 06/05/18 14:01 Temperature Pulse Rate 81 124 H 125 H Respiratory Rate 16 16 16 Blood Pressure 115/56 L 106/58 L Pulse Oximetry 99 98 98 06/05/18 14:23 06/05/18 15:00 Temperature Pulse Rate 121 H 127 H Respiratory Rate 16 9 L Blood Pressure 94/58 L Pulse Oximetry 97 97 Intake & Output 06/04/18 06/05/18 06/05/18 18:59 06:59 18:59 Intake Total 911 / 911 1625 / 1625 610 / 610 Output Total 2165 / 2165 650 / 650 Balance -1254 / -1254 975 / 975 610 / 610 Weight 110.5 kg Intake: IV 620 / 620 750 / 750 610 / 610 Cordarone Inj 450 MG In D5W Inj 250 / 250 241 ML @ 1 MG/MIN 33.33 mls/hr IV.CONT TITRATE PRN Rx#: [id number] DOPamine 800 MG/500 ML Premix 100 / 100 800 mg In 500 ml @ 3 MCG/KG/MIN 12.757 mls/hr IV.CONT TITRATE PRN Rx#:[id number] Heparin/D5W 25,000 U/250 mL 25, 240 / 240 000 unit In 250 ml @ 1,000 UNITS/HR 10 mls/hr IV.CONT TITRATE PRN Rx#:[id number] Versed Inj 50 mg In 50 ml @ 2 100 / 100 50 / 50 40 / 40 MG/HR 2 mls/hr IV.CONT TITRATE PRN Rx#:[id number] Cordarone Inj 150 MG In D5W Inj 100 / 100 97 ML @ 600 mls/hr IV.SIG ONCE ONE Rx#:[id number] Maxipime Inj 1,000 MG In NS Inj 100 / 100 100 / 100 90 / 90 100 ML @ 200 mls/hr IV.SIG Q8H BLANCHE Rx#:[id number] Levophed-Dextrose 4 mg/250 ml 250 / 250 Drip 4 mg In 250 ml @ 2 MCG/MIN 7.5 mls/hr IV.SIG TITRATE PRN Rx#:[id number] KCl 20 mEq Premix Inj 20 meq In 100 / 100 100 ml @ 50 mls/hr IV.SIG Q2H PRN Rx#:[id number] fentaNYL 10 mcg/mL Premix Drip 220 / 220 240 / 240 2,500 mcg In 250 ml @ 50 MCG/HR 5 mls/hr IV.SIG TITRATE PRN Rx #:[id number] Oral 0 / 0 0 / 0 Tube Feeding 251 / 251 875 / 875 Water Bolus Amount 40 / 40 0 / 0 Output: Urine Amount (Catheter) 2164 / 2164 650 / 650 Indwelling Urethral Catheter 2164 / 2164 650 / 650 Result Diagrams: 06/05/18 03:00 06/05/18 03:00 Objective Remarks: gen: elderly male, lying in bed, intubated, sedated, critically ill. HEENT: nc. at. very poor dentition. mucous membranes moist. Neck: trachea midline. [place] and neck circumference make accurate assessment of JVD difficult. Chest/Pulm: on mech vent, equal chest rise. fio2 40%. peep 5. CVS: tachycardic rate, irregularly irregular rhythm. afib by tele. GI/abdomen: soft, nontender, nondistended. no guarding. Extremities: warm bilaterally, 1+ edema. neuro: RASS -2. withdraws x 4. does not follow commands. Assessment and Plan - Assessment and Plan Plan: 73-year-old male with: Acute hypoxic and hypercarbic respiratory failure Cardiogenic shock- resolving Acute Pulmonary edema Questionable pulmonary infiltrate Severe CAD Severe Aortic stenosis Moderate to severe mitral regurgitation, moderate mitral stenosis History of paroxysmal A. fib History of non-Hodgkin's lymphoma status post previous chemotherapy Obstructive sleep apnea syndrome HANS Plan: Neuro: Sedation with propofol, CT head negative for bleed, follow neuro checks. daily sedation vacation. Cardiovascular: 2D echo results noted. Off dopamine. Aspirin, statin. Betablocker if remains off dopamine. Cardiology consult noted. Started on heparin GTT for anticoagulation per Dr. Schwab and Lasix for diuresis. Will initiate aspirin 81 mg daily. amiodarone drip, increase to 1mg/min. rebolus amio. digoxin 0.5mg iv x 1. 2gm mgso4 for persistent RVR. Pulmonary: Continue mechanical ventilation, vent bundle, bronchodilators as needed. daily SBTs. GI/liver: tube feeds and advance to goal as tolerated Renal: Strict intake output, monitor and replete electrolytes, follow BUN creatinine. Chest x-ray with pulmonary edema. Diuresis with Lasix. Heme: Follow CBC and coags Endocrine: Watch for hyperglycemia, SSI for glycemic control if needed. Prophylaxis: PPI/SCDs/full anticoagulation with heparin gtt. Condition critical Time spent on critical care excluding procedures 36 minutes
[2018-06-05] MEDS ORDERED: Vancomycin Inj 2,000 MG in Sodium Chlor 0.9% Inj 500 ML IV.SIG ONE (17:00)
[2018-06-06] MEDS: fentaNYL 10 mcg/mL Premix Drip 2,500 MCG/250 ML BAG IV.SIG PRN (02:53)
[2018-06-06 05:23] LABS: ABG Base Excess 1.9 mmol/L (-2-2); ABG PCO2 42 mmHg (38-42); ABG PO2 75 mmHG (61-120)
[2018-06-06 05:43] LABS: Baso % (Auto) 0.3 % (0.0-2.0); Eos # (Auto) 0.1 th/mm3 (0.0-0.4); Eos % (Auto) 0.8 % (0.0-4.0); Hematocrit 30.5 % (39.0-51.0); Hemoglobin 10.2 gm/dL (13.0-17.0); Lymph # (Auto) 1.2 th/mm3 (1.0-4.8); Lymph % (Auto) 12.4 % (9.0-44.0); Mean Corpuscular HGB Conc 33.6 % (32.0-36.0); Mean Corpuscular Volume 89.2 fL (80.0-100.0); Mean Platelet Volume 8.4 fL (7.0-11.0); Mono # (Auto) 1.1 th/mm3 (0.0-0.9); Neut # (Auto) 7.6 th/mm3 (1.8-7.7); Neut % (Auto) 75.5 % (16.0-70.0); Platelet Count 157 th/mm3 (150-450); Red Blood Count 3.42 mil/mm3 (4.50-5.90); Red Cell Distribution Width 15.8 % (11.6-17.2)
[2018-06-06 05:55] LABS: INR 1.1 Ratio; Prothrombin Time 10.8 sec (9.8-11.6)
[2018-06-06 06:13] LABS: Alanine Aminotransferase 19 U/L (12-78); Anion Gap 9 meq/L (5-15); Aspartate Aminotransferase 20 U/L (15-37); Blood Urea Nitrogen 29 mg/dL (7-18); Calcium 7.8 mg/dL (8.5-10.1); Carbon Dioxide 27.4 meq/L (21.0-32.0); Chloride 102 meq/L (98-107); Glomerular Filtration Rate 36 mL/min (>89); Glucose,Random 396 mg/dL (74-106); Magnesium 2.3 mg/dL (1.5-2.5); Phosphorus 3.2 mg/dL (2.5-4.9); Potassium 4.6 meq/L (3.5-5.1); Sodium 138 meq/L (136-145)
[2018-06-06 06:15] LABS: Alkaline Phosphatase 73 U/L (45-117); Total Protein 6.1 g/dL (6.4-8.2)
[2018-06-06] MEDS: Insulin NovoLIN Regular Correctional Sugar Inj SQ SCH ×3 (06:17→17:48)
[2018-06-06] MEDS: Chlorhexidine Gluconate 2% 1 Pack (2 Cloths) TOPICAL SCH (06:17)
[2018-06-06] MEDS: Heparin Drip 25,000 UNIT/250 ML BAG IV.CONT PRN (06:27)
--- NOTE | 2018-06-06 08:19 | P.PNCA ---
Subjective Interval history: Intubated. Sedated. Medications and Allergies Active Medications: Active Medications Acetaminophen (Tylenol Liq) 650 mg NG/OG Q6H PRN PRN Reason: TEMP>101F, PAIN 1-10, HEADACHE Last Admin: 06/05/18 17:20 Dose: 650 mg Albuterol (Duoneb Neb (Prn)) 1 ampul NEB Q2HR NEB PRN PRN Reason: WHEEZING Albuterol (Duoneb Neb (Migdalia)) 1 ampul NEB Q6HR NEB MIGDALIA Last Admin: 06/06/18 03:40 Dose: 1 ampul Aspirin (Aspirin Chew) 81 mg PO DAILY MIGDALIA Last Admin: 06/05/18 12:00 Dose: 81 mg Chlorhexidine Gluconate (Chlorhexidine 2% Cloth) 3 pack TOPICAL DAILY@0400 MIGDALIA Stop: 06/09/18 03:59 Last Admin: 06/06/18 06:17 Dose: 3 pack Chlorhexidine Gluconate (Chlorhexidine 2% Cloth) 3 pack TOPICAL DAILY@0400 PRN PRN Reason: Extra cloth needed Stop: 06/09/18 03:59 Dextrose (D50w Vial) 50 ml IV.PUSH UNSCH PRN PRN Reason: PER HYPOGLYCEMIA PROTOCOL Last Admin: 06/04/18 11:42 Dose: 50 ml Famotidine (Pepcid Pf Inj) 20 mg IV.PUSH Q12HR MIGDALIA Last Admin: 06/05/18 20:48 Dose: 20 mg Furosemide (Lasix Inj) 40 mg IV.PUSH DAILY MIGDALIA Last Admin: 06/05/18 08:56 Dose: 40 mg Glucagon (Glucagon Inj) 1 mg OTHER PRN PRN PRN Reason: for Hypoglycemia Protocol Heparin Sodium (Porcine) (Heparin Inj) 5,000 units IV.PUSH UNSCH PRN PRN Reason: aPTT < 25 Heparin Sodium (Porcine) (Heparin Inj) 2,500 units IV.PUSH UNSCH PRN PRN Reason: aPTT 25-39 Last Admin: 06/05/18 11:22 Dose: 2,500 units Fentanyl (Fentanyl 10 Mcg/Ml Premix Drip) 2,500 mcg in 250 mls @ 5 mls/hr IV.SIG TITRATE PRN; Protocol PRN Reason: Per Protocol Last Admin: 06/06/18 02:53 Dose: 200 mcg/hr, 20 mls/hr Midazolam HCl (Versed Inj) 50 mg in 50 mls @ 2 mls/hr IV.CONT TITRATE PRN; Protocol PRN Reason: Per Protocol Last Titration: 06/05/18 18:45 Dose: Infused Dopamine HCl/Dextrose (Dopamine 800 Mg/500 Ml Premix) 800 mg in 500 mls @ 12.757 mls/hr IV.CONT TITRATE PRN; Protocol PRN Reason: Per Protocol Last Titration: 06/04/18 18:02 Dose: Infused Norepinephrine Bitartrate (Levophed-Dextrose 4 Mg/250 Ml Drip) 4 mg in 250 mls @ 7.5 mls/hr IV.SIG TITRATE PRN; Protocol PRN Reason: Per Protocol Last Titration: 06/06/18 06:30 Dose: Infused Magnesium Sulfate 4 gm/ Sodium (Chloride) 100 mls @ 50 mls/hr IV.SIG UNSCH PRN PRN Reason: For Magnesium 0.9 - 1.1 mg/dL Magnesium Sulfate 2 gm/ Sodium (Chloride) 100 mls @ 50 mls/hr IV.SIG UNSCH PRN PRN Reason: For Magnesium 1.2 - 1.6 mg/dL Potassium Chloride (Kcl 40 Meq Premix Inj) 40 meq in 100 mls @ 25 mls/hr IV.SIG Q2H PRN PRN Reason: For Potassium 2.8 - 3.2 mEq/L Potassium Chloride (Kcl 20 Meq Premix Inj) 20 meq in 100 mls @ 50 mls/hr IV.SIG Q2H PRN PRN Reason: For Potassium 3.3 - 3.5 mEq/L Last Infusion: 06/04/18 10:25 Dose: Infused Potassium Chloride (Kcl 40 Meq Premix Inj) 40 meq in 100 mls @ 25 mls/hr IV.SIG UNSCH PRN PRN Reason: For Potassium 3.3 - 3.5 mEq/L Potassium Phosphate 30 mmol/ (Sodium Chloride) 260 mls @ 42 mls/hr IV.SIG UNSCH PRN PRN Reason: SEE LABEL COMMENTS Sodium Phosphate 30 mmol/ (Sodium Chloride) 260 mls @ 42 mls/hr IV.SIG UNSCH PRN PRN Reason: For Phosphorus < 2.5 mg/dL Potassium Chloride (Kcl 20 Meq Premix Inj) 20 meq in 100 mls @ 50 mls/hr IV.SIG Q2H PRN PRN Reason: For Potassium 2.8 - 3.2 mEq/L Heparin Sodium/Dextrose (Heparin/D5w 25,000 U/250 Ml) 25,000 unit in 250 mls @ 10 mls/hr IV.CONT TITRATE PRN; Protocol PRN Reason: Per Protocol Last Admin: 06/06/18 06:27 Dose: 1,300 units/hr, 13 mls/hr Cefepime HCl 1,000 mg/ Sodium (Chloride) 100 mls @ 200 mls/hr IV.SIG Q8H MIGDALIA Last Infusion: 06/06/18 00:39 Dose: Infused Amiodarone HCl 450 mg/ (Dextrose) 250 mls @ 33.33 mls/hr IV.CONT CONT PRN PRN Reason: tachycardia Last Admin: 06/06/18 04:23 Dose: 1 mg/min, 33.33 mls/hr Vancomycin HCl 1,500 mg/ (Sodium Chloride) 515 mls @ 250 mls/hr IV.SIG Q24H MIGDALIA Insulin Human Regular (Novolin R Correctional Sugar Inj) 0 units SQ Q6HR MIGDALIA; Protocol Last Admin: 06/06/18 06:17 Dose: 9 units Magnesium Oxide (Mag-Ox) 800 mg PO UNSCH PRN PRN Reason: For Magnesium 1.2 - 1.6 mg/dL Miscellaneous Information ([facility] Ordered Lab Info) 1 each OTHER ONCE MIGDALIA Ondansetron HCl (Zofran Inj) 4 mg IV.PUSH Q6H PRN PRN Reason: NAUSEA OR VOMITING Pharmacy Profile Note (Vancomycin Consult Pharmacy) 1 each OTHER UNSCH PRN PRN Reason: Pharmacy to dose Potassium Bicarb/Potassium Chloride (K-Lyte Cl Eff) 50 meq PO UNSCH PRN PRN Reason: For Potassium 3.3 - 3.5 mEq/L Potassium Phosphate (K-Phos Original) 2,000 mg PO Q4H PRN PRN Reason: Phosphorus Less Than 2.5 mg/dL Potassium Phosphate (K-Phos Original) 2,000 mg PO UNSCH PRN PRN Reason: SEE LABEL COMMENTS Sodium Chloride (Ns Flush) 2 ml IV.FLUSH UNSCH PRN PRN Reason: FLUSH AFTER USING IV ACCESS Terbutaline Sulfate (Brethine Inj) 1 mg SQ ONCE PRN PRN Reason: Extravasation Terbutaline Sulfate (Brethine Inj) 1 mg SQ UNSCH PRN PRN Reason: For Extravasation Allergies Allergy/AdvReac Type Severity Reaction Status Date / Time No Allergy Information Allergy Verified 06/03/18 14:22 Available Home Medications Medication Instructions Recorded Confirmed Type amlodipine 5 mg PO DAILY 06/03/18 06/03/18 History ascorbic acid (vitamin C) [Vitamin 500 mg PO DAILY 06/03/18 06/03/18 History C] aspirin 81 mg PO DAILY 06/03/18 06/03/18 History atorvastatin [Lipitor] 20 mg PO DAILY 06/03/18 06/03/18 History calcium carbonate [Calcium 600] 600 mg PO DAILY 06/03/18 06/03/18 History cinnamon bark [Cinnamon] 1,000 mg PO BID 06/03/18 06/03/18 History cyanocobalamin (vitamin B-12) 1,000 mcg PO DAILY 06/03/18 06/03/18 History [Vitamin B-12] famotidine 20 mg PO DAILY 06/03/18 06/03/18 History ferrous sulfate [iron] 325 mg PO BID 06/03/18 06/03/18 History furosemide [Lasix] 40 mg PO DAILY 06/03/18 06/03/18 History gabapentin 300 mg PO 5 TIMES A DAY 06/03/18 06/03/18 History glimepiride 2 mg PO BID 06/03/18 06/03/18 History hydrocodone-acetaminophen [[place]] 1 tab PO Q6H PRN 06/03/18 06/03/18 History insulin glargine [Lantus U-100 65 unit SUBCUT DAILY 06/03/18 06/03/18 History Insulin] lisinopril 10 mg PO DAILY 06/03/18 06/03/18 History metformin 500 mg PO QID 06/03/18 06/03/18 History metoprolol tartrate 50 mg PO BID 06/03/18 06/03/18 History niacin 500 mg PO DAILY 06/03/18 06/03/18 History potassium 99 mg PO BID 06/03/18 06/03/18 History warfarin [Coumadin] 5 mg PO DAILY 06/03/18 06/03/18 History Physical Exam Vital signs: Vital Signs 06/05/18 09:00 06/05/18 09:05 06/05/18 10:00 Temperature Pulse Rate 124 H 127 H 120 H Respiratory Rate 14 13 13 Blood Pressure 83/52 L 104/60 95/53 L Pulse Oximetry 97 97 97 06/05/18 11:00 06/05/18 11:32 06/05/18 12:00 Temperature 100.9 F H Pulse Rate 71 74 Respiratory Rate 15 16 14 Blood Pressure 106/61 108/62 Pulse Oximetry 97 98 98 06/05/18 13:00 06/05/18 14:00 06/05/18 14:01 Temperature Pulse Rate 81 124 H 125 H Respiratory Rate 16 16 16 Blood Pressure 115/56 L 106/58 L Pulse Oximetry 99 98 98 06/05/18 14:23 06/05/18 15:00 06/05/18 16:00 Temperature 102.9 F H Pulse Rate 121 H 127 H 134 H Respiratory Rate 16 9 L 14 Blood Pressure 94/58 L 107/64 Pulse Oximetry 97 97 97 06/05/18 17:00 06/05/18 17:01 06/05/18 18:00 Temperature Pulse Rate 121 H 126 H 97 H Respiratory Rate 14 14 14 Blood Pressure 127/61 107/60 Pulse Oximetry 92 L 92 L 92 L 06/05/18 19:00 06/05/18 19:57 06/05/18 19:58 Temperature 100.2 F H Pulse Rate 76 67 Respiratory Rate 17 19 16 Blood Pressure 110/55 L Pulse Oximetry 93 L 95 06/05/18 20:00 06/05/18 20:01 06/05/18 21:00 Temperature Pulse Rate 73 123 H 71 Respiratory Rate 24 28 H 16 Blood Pressure 131/74 Pulse Oximetry 95 99 95 06/05/18 21:01 06/05/18 22:00 06/05/18 23:00 Temperature Pulse Rate 73 67 58 L Respiratory Rate 16 16 16 Blood Pressure 95/54 L 107/56 L 118/58 L Pulse Oximetry 95 97 97 06/05/18 23:30 06/05/18 23:59 06/06/18 00:00 Temperature Pulse Rate 57 L 57 L Respiratory Rate 16 16 16 Blood Pressure 108/51 L Pulse Oximetry 97 97 97 06/06/18 01:00 06/06/18 02:00 06/06/18 03:00 Temperature Pulse Rate 62 61 58 L Respiratory Rate 16 16 16 Blood Pressure 112/55 L 103/55 L 100/54 L Pulse Oximetry 95 94 L 93 L 06/06/18 03:38 06/06/18 03:40 06/06/18 04:00 Temperature Pulse Rate 62 58 L Respiratory Rate 22 16 16 Blood Pressure 103/52 L Pulse Oximetry 98 94 L 06/06/18 05:00 06/06/18 06:00 Temperature Pulse Rate 55 L 71 Respiratory Rate 16 16 Blood Pressure 101/53 L 129/58 L Pulse Oximetry 94 L 91 L Intake & Output 06/05/18 06/06/18 06/06/18 18:59 06:59 18:59 Intake Total 2434 / 2434 1954 / 1954 Output Total 1700 / 1700 550 / 550 Balance 734 / 734 1404 / 1404 Weight 110.5 kg Intake: IV 1590 / 1590 1090 / 1090 Cordarone Inj 450 MG In D5W Inj 175 / 175 250 / 250 241 ML @ 1 MG/MIN 33.33 mls/hr IV.CONT CONT PRN Rx#:[id number] Heparin/D5W 25,000 U/250 mL 25, 240 / 240 250 / 250 000 unit In 250 ml @ 1,000 UNITS/HR 10 mls/hr IV.CONT TITRATE PRN Rx#:[id number] Versed Inj 50 mg In 50 ml @ 2 45 / 45 MG/HR 2 mls/hr IV.CONT TITRATE PRN Rx#:[id number] Cordarone Inj 150 MG In D5W Inj 90 / 90 97 ML @ 100 mls/hr IV.SIG ONCE ONE Rx#:[id number] Maxipime Inj 1,000 MG In NS Inj 180 / 180 100 / 100 100 ML @ 200 mls/hr IV.SIG Q8H MIGDALIA Rx#:[id number] Magnesium Sulfate Inj 2 GM In 100 / 100 NS Inj 96 ML @ 50 mls/hr IV.SIG ONCE ONE Rx#:[id number] Levophed-Dextrose 4 mg/250 ml 240 / 240 Drip 4 mg In 250 ml @ 2 MCG/MIN 7.5 mls/hr IV.SIG TITRATE PRN Rx#:[id number] Vancomycin Inj 2,000 MG In NS 520 / 520 Inj 500 ML @ 250 mls/hr IV.SIG ONCE ONE Rx#:[id number] fentaNYL 10 mcg/mL Premix Drip 240 / 240 250 / 250 2,500 mcg In 250 ml @ 50 MCG/HR 5 mls/hr IV.SIG TITRATE PRN Rx #:[id number] Oral 0 / 0 Tube Feeding 754 / 754 864 / 864 Water Bolus Amount 90 / 90 Output: Urine Amount (Catheter) 1700 / 1700 550 / 550 Indwelling Urethral Catheter 1700 / 1700 Straight 550 / 550 Other: # Incontinent Voids 1 - Constitutional Comments: Intubated. Sedated. - Routine Neck Exam Absent: JVD - Routine Respiratory Exam Comments: Lungs clear anteriorly. - Routine Cardiovascular Exam Present: RRR, S1, S2, murmur. Absent: gallop Comments: Unchanged diffuse systolic murmur. - Routine Abdominal Exam Present: soft, normoactive bowel sounds. Absent: organomegaly - Routine Extremities Exam Absent: cyanosis, clubbing, edema - Urinary Catheter Management Indwelling Urethral Catheter Cath placed during this visit: yes, but has since been removed by the nurse Reason for continuing: Decision to DC catheter Insertion date: 06/03/18 Insertion time: 14:46 Removal date: 06/05/18 Removal time: 18:00 Straight Cath placed during this visit: no Results 06/06/18 05:25 06/06/18 05:25 Cardiac Enzymes 06/04/18 06/04/18 06/05/18 Range/Units 08:29 15:38 03:00 AST 49 H (15-37) U/L Troponin I 0.06 H 0.06 H (0.02-0.05) ng/mL B-Natriuretic Peptide (0-100) pg/mL 06/05/18 06/06/18 06/06/18 Range/Units 03:00 05:25 05:25 AST 20 (15-37) U/L Troponin I (0.02-0.05) ng/mL B-Natriuretic Peptide 590 H 1037 H (0-100) pg/mL Coagulation 06/04/18 06/04/18 06/05/18 Range/Units 12:40 18:50 03:00 PT (9.8-11.6) sec APTT 28.4 34.1 H D (23.4-31.7) sec B-Natriuretic Peptide 590 H (0-100) pg/mL 06/05/18 06/05/18 06/05/18 Range/Units 03:00 10:00 17:00 PT 11.4 (9.8-11.6) sec APTT 39.6 H 39.9 H 44.1 H (23.4-31.7) sec B-Natriuretic Peptide (0-100) pg/mL 06/05/18 06/06/18 06/06/18 Range/Units 23:00 05:25 05:25 PT 10.8 (9.8-11.6) sec APTT 47.3 H (23.4-31.7) sec B-Natriuretic Peptide 1037 H (0-100) pg/mL 06/06/18 Range/Units 05:25 PT (9.8-11.6) sec APTT 50.7 H (23.4-31.7) sec B-Natriuretic Peptide (0-100) pg/mL CBC 06/05/18 06/06/18 Range/Units 03:00 05:25 WBC 10.3 10.0 (4.0-11.0) th/mm3 RBC 3.61 L 3.42 L (4.50-5.90) mil/mm3 Hgb 10.8 L 10.2 L (13.0-17.0) gm/dL Hct 31.8 L 30.5 L (39.0-51.0) % Plt Count 226 157 D (150-450) th/mm3 Neut # (Auto) 7.1 7.6 (1.8-7.7) th/mm3 Lymph # (Auto) 1.9 1.2 (1.0-4.8) th/mm3 [place]eves # (Auto) 1.2 H 1.1 H (0.0-0.9) th/mm3 Eos # (Auto) 0.1 0.1 (0.0-0.4) th/mm3 Baso # (Auto) 0.0 0.0 (0.0-0.2) th/mm3 Comprehensive Metabolic Panel 06/04/18 06/04/18 06/05/18 Range/Units 15:38 18:50 03:00 Sodium 142 142 (136-145) meq/L Potassium 4.0 4.2 4.1 (3.5-5.1) meq/L Chloride 105 105 (98-107) meq/L Carbon Dioxide 30.2 27.9 (21.0-32.0) meq/L BUN 27 H 27 H (7-18) mg/dL Creatinine 1.89 H 1.78 H (0.60-1.30) mg/dL Calcium 8.6 8.1 L (8.5-10.1) mg/dL AST 49 H (15-37) U/L ALT 21 (12-78) U/L Alkaline Phosphatase 72 (45-117) U/L Total Protein 6.1 L D (6.4-8.2) g/dL Albumin 2.4 L (3.4-5.0) g/dL 06/06/18 Range/Units 05:25 Sodium 138 (136-145) meq/L Potassium 4.6 (3.5-5.1) meq/L Chloride 102 (98-107) meq/L Carbon Dioxide 27.4 (21.0-32.0) meq/L BUN 29 H (7-18) mg/dL Creatinine 1.87 H (0.60-1.30) mg/dL Calcium 7.8 L (8.5-10.1) mg/dL AST 20 (15-37) U/L ALT 19 (12-78) U/L Alkaline Phosphatase 73 (45-117) U/L Total Protein 6.1 L (6.4-8.2) g/dL Albumin 2.0 L (3.4-5.0) g/dL Intake and Output 06/05/18 06/06/18 06/06/18 22:59 06:59 14:59 Intake Total 1824 / 1824 1954 / 1954 Output Total 1700 / 1700 550 / 550 Balance 124 / 124 1404 / 1404 Intake: IV 980 / 980 1090 / 1090 Cordarone Inj 450 MG In D5W Inj 175 / 175 250 / 250 241 ML @ 1 MG/MIN 33.33 mls/hr IV.CONT CONT PRN Rx#:[id number] Heparin/D5W 25,000 U/250 mL 25, 250 / 250 000 unit In 250 ml @ 1,000 UNITS/HR 10 mls/hr IV.CONT TITRATE PRN Rx#:[id number] Versed Inj 50 mg In 50 ml @ 2 5 / 5 MG/HR 2 mls/hr IV.CONT TITRATE PRN Rx#:[id number] Cordarone Inj 150 MG In D5W Inj 90 / 90 97 ML @ 100 mls/hr IV.SIG ONCE ONE Rx#:[id number] Maxipime Inj 1,000 MG In NS Inj 90 / 90 100 / 100 100 ML @ 200 mls/hr IV.SIG Q8H MIGDALIA Rx#:[id number] Magnesium Sulfate Inj 2 GM In 100 / 100 NS Inj 96 ML @ 50 mls/hr IV.SIG ONCE ONE Rx#:[id number] Levophed-Dextrose 4 mg/250 ml 240 / 240 Drip 4 mg In 250 ml @ 2 MCG/MIN 7.5 mls/hr IV.SIG TITRATE PRN Rx#:[id number] Vancomycin Inj 2,000 MG In NS 520 / 520 Inj 500 ML @ 250 mls/hr IV.SIG ONCE ONE Rx#:[id number] fentaNYL 10 mcg/mL Premix Drip 250 / 250 2,500 mcg In 250 ml @ 50 MCG/HR 5 mls/hr IV.SIG TITRATE PRN Rx #:[id number] Oral 0 / 0 Tube Feeding 754 / 754 864 / 864 Water Bolus Amount 90 / 90 Output: Urine Amount (Catheter) 1700 / 1700 550 / 550 Indwelling Urethral Catheter 1700 / 1700 Straight 550 / 550 Other: # Incontinent Voids 1 Weight 110.5 kg - Imaging and Cardiology Imaging: Impressions Chest X-Ray 06/05/18 05:00 CONCLUSION: No interval change. Assessment and Plan - Assessment (1) Congestive heart failure Code(s): I50.9 - Heart failure, unspecified Status: Acute Plan: Severely reduced left ventricular function. Acute CHF. No major change overnight. Recommend continued diuresis. Consider start low dose beta cel[place]. No ARB or HAI-I with renal insufficiency. (2) Paroxysmal atrial fibrillation Code(s): I48.0 - Paroxysmal atrial fibrillation Status: Acute Plan: Possibly back in NSR or accelerated junctional. Few runs AIVR. Occasional atrial flutter as well. Recommend continue IV Amiodarone, heparin drip. His thromboembolic risk is high. (3) Aortic stenosis Code(s): I35.0 - Nonrheumatic aortic (valve) stenosis Status: Chronic Plan: Severe by exam, echo. Await CABG/AVR which apparently was to be performed by Dr. Enriquez at [facility]. (4) Coronary artery disease Code(s): I25.10 - Atherosclerotic heart disease of [place] coronary artery without angina pectoris Status: Chronic Plan: Overall no definite evidence for ACS. CK's negative for [place]. No acute EKG changes. Troponin levels only minimally elevated, in the setting of renal insufficiency. - Plan Code Status: full code (1) Congestive heart failure Qualifiers: Heart failure type: systolic (4) Coronary artery disease Qualifiers: Coronary Disease-Associated Artery/Lesion type: [place] artery [place] vs. transplanted heart: [place] heart Associated angina: angina presence unspecified Qualified Code(s): I25.10 - Atherosclerotic heart disease of [place] coronary artery without angina pectoris
[2018-06-06] MEDS: Famotidine PF Inj 20 MG/2 ML Vial IV.PUSH SCH ×2 (08:37→21:27)
[2018-06-06] MEDS ORDERED: Sodium Chloride 0.9% 2 ML Flush PRN IV.FLUSH (09:58)
--- NOTE | 2018-06-06 09:58 | P.PNCC ---
Subjective Subjective Remarks/Hospital Course: 06/03: 73-year-old male with a medical history of cardiac problems who recently had a workup done at [facility] in [place] per family and was evaluated by CT surgeon at [facility] in [place] last week including Dr. Jay Wisdom per family for CT surgery. Patient has been having shortness of breath for the last week or so per his and today his breathing worsened and he was brought to the ER at [facility] where he was in respiratory extremis with O2 sats in the 70s and was intubated and placed on mechanical ventilation. He was also very hypotensive on arrival and after receiving about 500 cc of normal saline bolus he was started on Levophed and dopamine for pressor support. He had a femoral central line placed by ER physician. His chest x-ray in the ER showed pulmonary edema and questionable infiltrates. He did not have a fever or white count on his labs and due to elevated creatinine could not get a CTA of the chest per ER physician. Subsequently he was maintaining his O2 sats around 96% on mechanical ventilation with 100% FiO2 with heart rate in the 60s and systolic blood pressure 100s on dopamine 5 mics per KG per minute. When I evaluated the patient in the ER he was propofol, orally intubated on mechanical ventilation. I spoke with patient's who could not really give me any details of his medical history including recent workup or diagnosis. She tells me he has a history of having "holes in the heart" however is unclear regarding what surgery he was scheduled for at [facility]. I discussed this with Dr. Rich in the ER and requested that he contact Dr. Jay Wisdom who evaluated the patient for his to see if he would want patient transferred to [facility] as he was scheduled for surgery there with him. We do not have any details of his recent workup or diagnosis at this time. 06/04 : Further history revealed following cardiology evaluation by Dr. Schwab who was able to look up his medical records at [facility]. Patient reportedly has severe coronary artery disease and valvular dysfunction and was scheduled for surgery in the near future with CT surgeon at [facility]. Still awaiting medical records from outside hospitals regarding cardiac workup. In the meanwhile patient remains sedated, orally intubated on mechanical ventilation. Off dopamine. 06/05: off pressors. remains intubated. back in afib RVR. diuresing. 06/06: This a.m., patient had worsening hypoxia requiring 100% O2. I was called emergently at bedside by RT. Blood gas reviewed, vent settings changed, currently patient 98% on FiO2 of 1. T-max of 102.9. I/O 4388/2250. Sedation is achieved with fentanyl drip. Patient is sedated and intubated, opens eyes to voice stimuli but does not follow any commands. Amiodarone is infusing at 1 mg/min, patient is still in A. fib with heart rate in the 60s-70s. ROS -unobtainable, patient is intubated Objective Vital Signs / I&O: Vital Signs 06/05/18 10:00 06/05/18 11:00 06/05/18 11:32 Temperature Pulse Rate 120 H 71 Respiratory Rate 13 15 16 Blood Pressure 95/53 L 106/61 Pulse Oximetry 97 97 98 06/05/18 12:00 06/05/18 13:00 06/05/18 14:00 Temperature 100.9 F H Pulse Rate 74 81 124 H Respiratory Rate 14 16 16 Blood Pressure 108/62 115/56 L Pulse Oximetry 98 99 98 06/05/18 14:01 06/05/18 14:23 06/05/18 15:00 Temperature Pulse Rate 125 H 121 H 127 H Respiratory Rate 16 16 9 L Blood Pressure 106/58 L 94/58 L Pulse Oximetry 98 97 97 06/05/18 16:00 06/05/18 17:00 06/05/18 17:01 Temperature 102.9 F H Pulse Rate 134 H 121 H 126 H Respiratory Rate 14 14 14 Blood Pressure 107/64 127/61 Pulse Oximetry 97 92 L 92 L 06/05/18 18:00 06/05/18 19:00 06/05/18 19:57 Temperature 100.2 F H Pulse Rate 97 H 76 Respiratory Rate 14 17 19 Blood Pressure 107/60 110/55 L Pulse Oximetry 92 L 93 L 95 06/05/18 19:58 06/05/18 20:00 06/05/18 20:01 Temperature Pulse Rate 67 73 123 H Respiratory Rate 16 24 28 H Blood Pressure 131/74 Pulse Oximetry 95 99 06/05/18 21:00 06/05/18 21:01 11/11/18 22:00 Temperature Pulse Rate 71 73 67 Respiratory Rate 16 16 16 Blood Pressure 95/54 L 107/56 L Pulse Oximetry 95 95 97 06/05/18 23:00 06/05/18 23:30 06/05/18 23:59 Temperature Pulse Rate 58 L 57 L Respiratory Rate 16 16 16 Blood Pressure 118/58 L 108/51 L Pulse Oximetry 97 97 97 06/06/18 00:00 06/06/18 01:00 06/06/18 02:00 Temperature Pulse Rate 57 L 62 61 Respiratory Rate 16 16 16 Blood Pressure 112/55 L 103/55 L Pulse Oximetry 97 95 94 L 06/06/18 03:00 06/06/18 03:38 06/06/18 03:40 Temperature Pulse Rate 58 L 62 Respiratory Rate 16 22 16 Blood Pressure 100/54 L Pulse Oximetry 93 L 98 06/06/18 04:00 06/06/18 05:00 06/06/18 06:00 Temperature Pulse Rate 58 L 55 L 71 Respiratory Rate 16 16 16 Blood Pressure 103/52 L 101/53 L 129/58 L Pulse Oximetry 94 L 94 L 91 L 06/06/18 08:43 06/06/18 08:49 06/06/18 09:37 Temperature Pulse Rate 60 Respiratory Rate 16 16 18 Blood Pressure Pulse Oximetry 92 L 99 Intake & Output 06/05/18 06/06/18 06/06/18 18:59 06:59 18:59 Intake Total 2434 / 2434 1954 / 1954 Output Total 1700 / 1700 550 / 550 Balance 734 / 734 1404 / 1404 Weight 110.5 kg Intake: IV 1590 / 1590 1090 / 1090 Cordarone Inj 450 MG In D5W Inj 175 / 175 250 / 250 241 ML @ 1 MG/MIN 33.33 mls/hr IV.CONT CONT PRN Rx#:[id number] Heparin/D5W 25,000 U/250 mL 25, 240 / 240 250 / 250 000 unit In 250 ml @ 1,000 UNITS/HR 10 mls/hr IV.CONT TITRATE PRN Rx#:[id number] Versed Inj 50 mg In 50 ml @ 2 45 / 45 MG/HR 2 mls/hr IV.CONT TITRATE PRN Rx#:[id number] Cordarone Inj 150 MG In D5W Inj 90 / 90 97 ML @ 100 mls/hr IV.SIG ONCE ONE Rx#:[id number] Maxipime Inj 1,000 MG In NS Inj 180 / 180 100 / 100 100 ML @ 200 mls/hr IV.SIG Q8H BLANCHE Rx#:[id number] Magnesium Sulfate Inj 2 GM In 100 / 100 NS Inj 96 ML @ 50 mls/hr IV.SIG ONCE ONE Rx#:[id number] Levophed-Dextrose 4 mg/250 ml 240 / 240 Drip 4 mg In 250 ml @ 2 MCG/MIN 7.5 mls/hr IV.SIG TITRATE PRN Rx#:[id number] Vancomycin Inj 2,000 MG In NS 520 / 520 Inj 500 ML @ 250 mls/hr IV.SIG ONCE ONE Rx#:[id number] fentaNYL 10 mcg/mL Premix Drip 240 / 240 250 / 250 2,500 mcg In 250 ml @ 50 MCG/HR 5 mls/hr IV.SIG TITRATE PRN Rx #:[id number] Oral 0 / 0 Tube Feeding 754 / 754 864 / 864 Water Bolus Amount 90 / 90 Output: Urine Amount (Catheter) 1700 / 1700 550 / 550 Indwelling Urethral Catheter 1700 / 1700 Straight 550 / 550 Other: # Incontinent Voids 1 Result Diagrams: 06/06/18 05:25 06/06/18 05:25 Other Results: Magnesium 2.3, BNP 1037 ABG 7.38/45.6/65/26 on 100% oxygen Albumin 2 Imaging: Chest x-ray reviewed -worsening bibasilar infiltrates, pulmonary congestion Objective Remarks: General: Elderly gentleman, intubated and sedated, very ill-appearing HEENT: Pupils are equal and reactive, sclerae anicteric, orally intubated, + NGT Neck: Trachea midline, neck is supple and without rigidity, unable to appreciate neck vein distention due to body habitus, no carotid bruit Chest/Pulm: Coarse breath sounds bilateral, decreased breath sounds at bases, no wheezes CVS: Irregular heart sounds, systolic ejection murmur at the apex GI/abdomen: Soft, appears nontender, distended, unable to appreciate hepatomegaly or splenomegaly Extremities: Warm and well-perfused, peripheral pulses are present, 1+ edema. Neuro: RASS -2, opens eyes to voice stimuli but does not follow any commands, pupils are equal and reactive, no gaze deviation, withdraws to pain Assessment and Plan - Assessment and Plan Plan: 73-year-old male with: Acute hypoxic and hypercarbic respiratory failure -worsening O2 requirements with worsening bibasilar infiltrates Cardiogenic shock-off pressors Acute Pulmonary edema -worsening despite diuresis MRSA pneumonia -persistently febrile despite appropriate antibiotics Severe CAD Severe Aortic stenosis Moderate to severe mitral regurgitation, moderate mitral stenosis Paroxysmal A. fib - better controlled on amiodarone History of non-Hodgkin's lymphoma status post previous chemotherapy Obstructive sleep apnea syndrome HANS -urine output remains adequate Uncontrolled diabetes Plan: Neuro: Sedation with fentanyl, CT head negative for bleed, follow neuro checks. daily sedation vacation Cardiovascular: Cardiology following, off dopamine. Continue amiodarone infusion per cardiology. Diuresis with Lasix, received 40 mg this morning. We will repeat albumin and Lasix in the afternoon. 2D echo results noted. Aspirin , statin. Betablocker if remains off dopamine. Will initiate aspirin 81 mg daily. Pulmonary: Continue mechanical ventilation, due to worsening hypoxia ventilator settings changed to APRV, PH 28, TH 5, Tpeep 0.7, Peep 0, PS above peep 4. Repeat ABG at 10 and will readjust settings based on results. Continue broad- spectrum antibiotics with vancomycin GI/liver: tube feeds and advance to goal as tolerated Renal: Strict intake output, monitor and replete electrolytes, follow BUN creatinine. Diuresis with Lasix. Place Spence catheter for accurate urine output measurement Heme: Follow CBC and coags ID: Continue broad-spectrum antibiotics with vancomycin and cefepime. Due to persistent fever check respiratory viral panel PCR and will ask infectious disease consult evaluate. Femoral central line will need to be changed Endocrine: Continue insulin sliding scale, add insulin NPH 5 units twice daily due to high blood sugar Prophylaxis: PPI/SCDs/full anticoagulation with heparin gtt Patient remains critically ill, with worsening hypoxic and hypercapnic respiratory failure despite full support, MRSA pneumonia, and he is at very high risk for further deterioration and . No family was present at bedside. I spent 34 minutes of critical care time, excluding procedures, managing life- threatening oxygenation, ventilator, sedation, diuresis, reviewing data and ordering labs, discussing with nursing staff and RT.
--- NOTE | 2018-06-06 09:59 | XR ---
EXAM DATE: 06/06/2018 9:31 AM EST AGE/SEX: 73 years / Male INDICATIONS: Short of Breath CLINICAL DATA: This is the patient's subsequent encounter. Patient reports that signs and symptoms h ave been present for 3 days and indicates a pain score of Nonresponsive. MEDICAL/SURGICAL HISTORY: Non-responsive. Non-responsive. COMPARISON: [facility], CHEST 1V SINGLE AP, 06/05/2018. . FINDINGS: The endotracheal tubes in good position. There is a nasogastric tube present. The heart is mildly enl arged. There are bilateral effusions and diffuse interstitial prominence. The exam would suggest aneudy estive failure. The overall appearance of the exam is unchanged from a prior dated 06/05/2018. CONCLUSION: Bilateral effusions and diffuse interstitial prominence most consistent with CHF. Unchanged from ronn gardner Electronically signed by: Jeffy Sanchez MD 06/06/2018 9:58 AM EST
[2018-06-06 10:09] LABS: ABG Base Excess 1.8 mmol/L (-2-2); ABG PCO2 46 mmHg (38-42); ABG PO2 65 mmHG (61-120)
[2018-06-06 10:11] LABS: ABG Base Excess 1.1 mmol/L (-2-2); ABG PCO2 46 mmHg (38-42); ABG PO2 164 mmHG (61-120)
[2018-06-06 12:07] LABS: ABG Base Excess 1.2 mmol/L (-2-2); ABG PCO2 48 mmHg (38-42); ABG PO2 192 mmHG (61-120)
--- NOTE | 2018-06-06 13:35 | MB ---
cc: Jenaro Murrieta MD DATE: 06/06/2018 REQUESTING PHYSICIAN: Dr. Turner REASON FOR CONSULTATION: MRSA pneumonia. Persistent fever despite broad spectrum antibiotics. HISTORY OF PRESENT ILLNESS: This is a 73-year-old white male who was brought to the emergency department with respiratory distress. The patient was also noted to have altered mental status. The patient was intubated and he remains on the ventilator. The patient has had fevers with temperature being persistently elevated since 06/04/2018. He was admitted on 06/03/2018 and temperature on admission was 97.5. Sputum culture was taken and has grown MRSA. Blood cultures have no growth. Urine culture has no growth. The last elevated temperature was 101.8 degrees early this morning. The patient is on vancomycin. His white blood cell count is normal. Chest x-ray showed bilateral effusions and diffuse interstitial prominence, most consistent with CHF. The patient is currently on 80% FiO2. He is sedated. Information is obtained from the medical record. The patient was also noted to have altered mental status when he presented to the emergency department. PAST MEDICAL HISTORY: Unable to obtain because the patient is on the ventilator. He reportedly has coronary artery disease and is here to undergo valve replacement for heart valve disease. ALLERGIES: UNABLE TO OBTAIN. MEDICATIONS: 1. Cefepime. 2. Vancomycin. 3. Amiodarone. 4. Aspirin. 5. DuoNeb. 6. Pepcid. 7. Fentanyl. 8. Potassium. SOCIAL HISTORY: The patient is . Unable to obtain smoking or alcohol use. PHYSICAL EXAMINATION: GENERAL: This is a moderately obese male who is intubated on the ventilator. He is sedated. VITAL SIGNS: Temperature 101.8, heart rate 57, blood pressure 105/52. HEENT: Unable to fully assess because the patient cannot cooperate. No icterus. Oropharynx intubated. NECK: No adenopathy. LUNGS: Coarse rhonchi bilaterally. HEART: A 3/6 to 4/6 systolic murmur at the left sternal border. ABDOMEN: Bowel sounds present. Obese, soft. Unable to appreciate tenderness. RECTAL: Not performed. EXTREMITIES: There is no clubbing, cyanosis or edema. Decreased peripheral pulses. SKIN: No rash. NEUROLOGIC: Unable to assess. PSYCHIATRIC: Unable to assess. LABORATORY DATA: WBC 10.0, platelets 157, hemoglobin 10.2. BUN 29, creatinine 1.87, estimated GFR 36. Liver function tests normal. A 2-D echocardiogram revealed a decreased ejection fraction in the range of 20% to 25%. IMPRESSION: 1. Pneumonia due to methicillin-resistant Staphylococcus aureus. 2. Acute respiratory failure. 3. Acute kidney disease. Unknown whether patient has chronic kidney disease as well. 4. Fever despite broad spectrum antibiotics. The only culture so far is methicillin-resistant Staphylococcus aureus in the sputum. White blood cell count is normal. Not knowing the patient's allergy history, it is also possible that he may be having fever on the basis of an allergy to medication of drug-induced fever due to cefepime. The vancomycin should adequately be treating the methicillin-resistant Staphylococcus aureus. RECOMMENDATIONS: 1. Discontinue cefepime. 2. Continue vancomycin. 3. Continue to follow the blood cultures. 4. Monitor temperature. 5. Monitor kidney function. Thank you for this consultation. The patient's progress will be monitored and further recommendations will given upon followup if necessary. MD LEANDER Camacho/kevin , 11:14 AM , 11:27 AM JAYDEN
[2018-06-06] MEDS ORDERED: Albumin Human 25% Inj 100 ML IV.SIG ONE (15:00)
[2018-06-06] MEDS ORDERED: Vancomycin Inj 1,500 MG in Sodium Chlor 0.9% Inj 500 ML IV.SIG SCH (17:00)
--- NOTE | 2018-06-06 17:13 | P.PCN ---
Date of procedure: 06/06/18 Pre-op diagnosis: Acute respiratory failure Procedure: Central Line Procedure Note -left internal jugular Diagnosis: Acute hypoxic respiratory failure Indications: Poor IV access, old femoral central line Consent: obtained Anesthesia: Patient was on fentanyl infusion which was continued during the procedure Description of the Procedure: The patient was placed in the supine, mild- Trendelenburg position. The area was prepped and draped sterilely. A 19g needle was inserted under negative pressure aspiration and dark venous blood was obtained. A guidewire was inserted easily without resistance. A small incision was made using a #11 blade. Using a modified Seldinger technique, the dilator and central venous catheter were advanced over the guidewire without resistance. All ports were aspirated and flushed, and had brisk blood return. The line was secured at 18 cm at the skin using 2-0 silk interrupted sutures. A Biopatch and Transparent sterile dressing were applied. There were no immediate complications noted. There was minimal EBL. The patient tolerated the procedure well. Ultrasound Guidance: Ultrasound guidance was used to identify the left internal jugular vein. The vascular anatomy was normal. The vessel was cannulated under direct, real-time ultrasound visualization. After placement of the guidewire, confirmation of the guidewire in the lumen of the vessel was made using ultrasound visualization, before dilation of the tract. A Chest x-ray has been ordered.
--- NOTE | 2018-06-06 17:37 | XR ---
EXAM DATE: 06/06/2018 5:32 PM EST AGE/SEX: 73 years / Male INDICATIONS: Central line placement. CLINICAL DATA: This is the patient's subsequent encounter. Patient reports that signs and symptoms h ave been present for 1 week and indicates a pain score of 0/10. MEDICAL/SURGICAL HISTORY: Non-responsive. Non-responsive. COMPARISON: [facility] [place], CHEST 1V SINGLE AP, 06/06/2018. . FINDINGS: A single AP view of the chest demonstrates interval placement of a left IJ central venous catheter wi th distal tip projecting over the mid SVC. No appreciable pneumothorax. Endotracheal tube and nasoent apurva tube remain in place. Persistent ill-defined opacification of the mid and lower lungs, likely a combination of airspace disease and pleural fluid. The cardiomediastinal contours are grossly stable. Postoperative changes of the right shoulder. CONCLUSION: 1. New left IJ central venous catheter with distal tip projecting over the mid SVC. 2. No appreciable pneumothorax. 3. Persistent ill-defined opacification of the mid and lower lungs, likely a combination of airspace disease and pleural fluid. Electronically signed by: Verona Robles MD 06/06/2018 5:36 PM EST
--- NOTE | 2018-06-06 19:51 | MG ---
cc: Dante Arnold MD, PhD TEST NUMBER: [id number] TECHNIQUE: 17-channel EEG. DESCRIPTION: Background rhythm reveals generalized slowing delta frequency of 3-4 Hz, amplitude 20 microvolts. Photic stimulation was done, but no driving response is elicited. There is fairly frequent muscle artifact. No epileptiform discharges were identified. INTERPRETATION: Abnormal study with significant diffuse slowing consistent with severe encephalopathy. Dante Arnold MD, PhD RAMA/sv/ll , 07:18 PM , 07:22 PM
[2018-06-06] MEDS: Sodium Chloride 0.9% 2 ML Flush BID IV.FLUSH SCH (21:27)
[2018-06-07] MEDS: Insulin NovoLIN Regular Correctional Sugar Inj SQ SCH ×2 (00:26→06:27)
[2018-06-07] MEDS: Heparin Drip 25,000 UNIT/250 ML BAG IV.CONT PRN ×2 (02:05→22:10)
[2018-06-07 04:15] LABS: ABG Base Excess 0.8 mmol/L (-2-2); ABG PCO2 43 mmHg (38-42); ABG PO2 119 mmHG (61-120)
[2018-06-07] MEDS: fentaNYL 10 mcg/mL Premix Drip 2,500 MCG/250 ML BAG IV.SIG PRN ×2 (04:35→20:03)
[2018-06-07] MEDS: Chlorhexidine Gluconate 2% 1 Pack (2 Cloths) TOPICAL SCH (05:04)
--- NOTE | 2018-06-07 05:51 | XR ---
EXAM DATE: 06/07/2018 5:09 AM EST AGE/SEX: 73 years / Male INDICATIONS: Short of breath. CLINICAL DATA: This is the patient's subsequent encounter. Patient reports that signs and symptoms h ave been present for 4 - 6 days and indicates a pain score of 0/10. MEDICAL/SURGICAL HISTORY: Non-responsive. Non-responsive. COMPARISON: [facility] [place], CHEST 1V SINGLE AP, 06/06/2018. . FINDINGS: 2 portable semierect views of the chest were obtained again demonstrating endotracheal tube in place with tip approximately 2 cm above the jatin. Nasogastric tube is again seen coursing through the eso phagus into the stomach. The left internal jugular central venous line remains in place. There is haz y perihilar and bibasilar opacities again noted without significant change. Both costophrenic angles are blunted. The heart size is at the upper limits of normal. The bony thorax is intact with degenera tive change and scoliosis. CONCLUSION: 1. No significant change. Perihilar and bibasilar opacities are again noted most characteristic of p ulmonary edema. 2. Bilateral pleural effusions are again noted. Electronically signed by: Riley Peter MD 06/07/2018 5:50 AM EST
[2018-06-07 06:08] LABS: Baso % (Auto) 0.4 % (0.0-2.0); Eos # (Auto) 0.2 th/mm3 (0.0-0.4); Eos % (Auto) 2.3 % (0.0-4.0); Lymph # (Auto) 0.9 th/mm3 (1.0-4.8); Lymph % (Auto) 10.3 % (9.0-44.0); Mean Corpuscular HGB Conc 33.4 % (32.0-36.0); Mean Corpuscular Hemoglobin 29.9 pg (27.0-34.0); Mean Corpuscular Volume 89.4 fL (80.0-100.0); Mean Platelet Volume 9.6 fL (7.0-11.0); Mono # (Auto) 0.9 th/mm3 (0.0-0.9); Mono % (Auto) 9.7 % (0.0-8.0); Neut # (Auto) 6.9 th/mm3 (1.8-7.7); Neut % (Auto) 77.3 % (16.0-70.0); Platelet Count 159 th/mm3 (150-450); Red Blood Count 3.02 mil/mm3 (4.50-5.90); Red Cell Distribution Width 15.8 % (11.6-17.2); White Blood Count 8.9 th/mm3 (4.0-11.0)
[2018-06-07 06:37] LABS: Alanine Aminotransferase 15 U/L (12-78); Albumin 2.1 g/dL (3.4-5.0); Alkaline Phosphatase 73 U/L (45-117); Anion Gap 8 meq/L (5-15); Aspartate Aminotransferase 13 U/L (15-37); Blood Urea Nitrogen 49 mg/dL (7-18); Calcium 8.1 mg/dL (8.5-10.1); Carbon Dioxide 27.7 meq/L (21.0-32.0); Chloride 102 meq/L (98-107); Glomerular Filtration Rate 23 mL/min (>89); Glucose,Random 378 mg/dL (74-106); Magnesium 2.6 mg/dL (1.5-2.5); Phosphorus 4.2 mg/dL (2.5-4.9); Potassium 4.9 meq/L (3.5-5.1); Sodium 138 meq/L (136-145); Total Protein 6.4 g/dL (6.4-8.2)
[2018-06-07 06:45] LABS: Activated Partial Thrombo Time 41.5 sec (23.4-31.7)
[2018-06-07] MEDS: Famotidine PF Inj 20 MG/2 ML Vial IV.PUSH SCH (08:57)
[2018-06-07] MEDS: Sodium Chloride 0.9% 2 ML Flush BID IV.FLUSH SCH ×2 (08:58→20:18)
[2018-06-07 09:23] LABS: ABG PCO2 46 mmHg (38-42); ABG PO2 67 mmHG (61-120)
--- NOTE | 2018-06-07 10:26 | P.PNID ---
Subjective Remarks: On the ventilator. Sedated. No meaningful response. Afebrile. Thick beige secretions via ETT. This is a 73-year-old white male who was brought to the emergency department with respiratory distress. The patient was also noted to have altered mental status. Past Medical History: PAST MEDICAL HISTORY: Unable to obtain because the patient is on the ventilator. He reportedly has coronary artery disease and is due to undergo valve replacement for heart valve disease. Allergies/Adverse Reactions: Allergies No Allergy Information Available Allergy (Verified 06/03/18 14:22) Allergy unobtainable Objective Vital Signs 06/06/18 11:00 06/06/18 12:00 06/06/18 13:00 Temperature 99.5 F 99.5 F Pulse Rate 56 L 54 L 52 L Respiratory Rate 16 16 16 Blood Pressure 99/53 L 100/53 L 97/51 L Pulse Oximetry 99 99 99 06/06/18 13:21 06/06/18 14:00 06/06/18 16:00 Temperature 99.3 F Pulse Rate 71 52 L Respiratory Rate 10 L 16 16 Blood Pressure 123/64 98/51 L Pulse Oximetry 99 98 98 06/06/18 16:27 06/06/18 17:00 06/06/18 18:00 Temperature Pulse Rate 51 L 53 L 51 L Respiratory Rate 29 H 18 20 Blood Pressure 102/51 L 93/55 L Pulse Oximetry 98 98 97 06/06/18 19:00 06/06/18 20:00 06/06/18 20:31 Temperature 97.8 F Pulse Rate 47 L 50 L 50 L Respiratory Rate 11 L 11 L 26 H Blood Pressure 94/54 L 97/55 L Pulse Oximetry 98 98 98 06/06/18 21:00 06/06/18 22:00 06/06/18 23:00 Temperature Pulse Rate 47 L 48 L 47 L Respiratory Rate 11 L 11 L 11 L Blood Pressure 95/50 L 100/51 L 92/52 L Pulse Oximetry 98 98 98 06/07/18 00:00 06/07/18 00:08 06/07/18 01:00 Temperature 98.7 F Pulse Rate 54 L 51 L Respiratory Rate 15 25 H 11 L Blood Pressure 96/57 L 99/53 L Pulse Oximetry 98 98 98 06/07/18 02:00 06/07/18 03:00 06/07/18 03:25 Temperature Pulse Rate 49 L 56 L 49 L Respiratory Rate 11 L 11 L 21 Blood Pressure 97/52 L 106/59 L Pulse Oximetry 98 98 06/07/18 03:52 06/07/18 04:00 06/07/18 05:00 Temperature 98.8 F Pulse Rate 52 L 52 L Respiratory Rate 20 11 L 11 L Blood Pressure 111/53 L 104/53 L Pulse Oximetry 97 98 97 06/07/18 05:45 06/07/18 06:00 06/07/18 08:00 Temperature 98.5 F Pulse Rate 76 62 56 L Respiratory Rate 11 L 11 L 16 Blood Pressure 130/60 117/56 L 125/58 L Pulse Oximetry 96 98 99 06/07/18 08:06 06/07/18 08:19 06/07/18 09:00 Temperature Pulse Rate 51 L 65 Respiratory Rate 29 H 16 Blood Pressure 123/58 L Pulse Oximetry 99 99 98 06/07/18 10:00 Temperature Pulse Rate 64 Respiratory Rate 16 Blood Pressure 130/60 Pulse Oximetry 96 Intake & Output 06/06/18 06/07/18 06/07/18 18:59 06:59 18:59 Intake Total 1080 / 1080 2404 / 2404 Output Total 600 / 600 300 / 300 Balance 480 / 480 2104 / 2104 Weight 110 kg Intake: IV 100 / 100 1495 / 1495 Heparin/D5W 25,000 U/250 mL 25, 250 / 250 000 unit In 250 ml @ 1,000 UNITS/HR 10 mls/hr IV.CONT TITRATE PRN Rx#:[id number] Flexbumin 25% Inj 100 ML @ 60 100 / 100 mls/hr IV.SIG ONCE ONE Rx#: [id number] Maxipime Inj 1,000 MG In NS Inj 100 / 100 200 / 200 100 ML @ 200 mls/hr IV.SIG Q8H [facility] Rx#:[id number] Vancomycin Inj 1,500 MG In NS 515 / 515 Inj 500 ML @ 250 mls/hr IV.SIG Q24H [facility] Rx#:[id number] fentaNYL 10 mcg/mL Premix Drip 430 / 430 2,500 mcg In 250 ml @ 50 MCG/HR 5 mls/hr IV.SIG TITRATE PRN Rx #:[id number] Tube Feeding 860 / 860 789 / 789 Water Bolus Amount 120 / 120 120 / 120 Output: Urine 600 / 600 Urine Amount (Catheter) 300 / 300 Indwelling Urethral Catheter 300 / 300 06/04/18 16:15 Sputum - Endotracheal Gram Stain - Final 06/04/18 16:15 Sputum - Endotracheal Sputum Culture - Final S. aureus MRSA 06/04/18 17:25 Blood - Peripheral Aerobic Blood Culture - Preliminary No growth in 2 days 06/04/18 17:25 Blood - Peripheral Anaerobic Blood Culture - Preliminary No growth in 2 days 06/04/18 17:30 Blood - Peripheral Aerobic Blood Culture - Preliminary No growth in 2 days 06/04/18 17:30 Blood - Peripheral Anaerobic Blood Culture - Preliminary No growth in 2 days 06/03/18 15:05 Blood - Peripheral Aerobic Blood Culture - Preliminary No growth in 3 days 06/03/18 15:05 Blood - Peripheral Anaerobic Blood Culture - Preliminary No growth in 3 days 06/03/18 15:00 Blood - Peripheral Aerobic Blood Culture - Preliminary No growth in 3 days 06/03/18 15:00 Blood - Peripheral Anaerobic Blood Culture - Preliminary No growth in 3 days 06/04/18 16:15 Catheterized Urine Urine Culture - Final No growth in 48 hours Lab - Hematology Results 06/06/18 06/07/18 05:25 05:10 WBC 10.0 8.9 RBC 3.42 L 3.02 L Hgb 10.2 L 9.0 L Hct 30.5 L 27.0 L MCV 89.2 89.4 MCH 30.0 29.9 MCHC 33.6 33.4 RDW 15.8 15.8 Plt Count 157 D 159 MPV 8.4 9.6 Neut % (Auto) 75.5 H 77.3 H Lymph % (Auto) 12.4 10.3 [place] % (Auto) 11.0 H 9.7 H Eos % (Auto) 0.8 2.3 Baso % (Auto) 0.3 0.4 Neut # (Auto) 7.6 6.9 Lymph # (Auto) 1.2 0.9 L [place] # (Auto) 1.1 H 0.9 Eos # (Auto) 0.1 0.2 Baso # (Auto) 0.0 0.0 WBC Differential . . Differential Comment Auto diff final Auto diff final Lab - Chemistry Results 06/05/18 06/05/18 06/05/18 11:18 11:55 17:18 Sodium Potassium Chloride Carbon Dioxide Anion Gap BUN Creatinine Estimated GFR POC Glucose 373 H 335 H Random Glucose Lactic Acid Calcium Phosphorus Magnesium Total Bilirubin AST ALT Alkaline Phosphatase Total Creatine Kinase 188 B-Natriuretic Peptide Total Protein Albumin 06/05/18 06/06/18 06/06/18 23:31 05:25 05:25 Sodium 138 Potassium 4.6 Chloride 102 Carbon Dioxide 27.4 Anion Gap 9 BUN 29 H Creatinine 1.87 H Estimated GFR 36 L POC Glucose 346 H Random Glucose 396 H Lactic Acid Calcium 7.8 L Phosphorus 3.2 Magnesium 2.3 Total Bilirubin 0.6 AST 20 ALT 19 Alkaline Phosphatase 73 Total Creatine Kinase B-Natriuretic Peptide 1037 H Total Protein 6.1 L Albumin 2.0 L 06/06/18 06/06/18 06/06/18 05:25 06:10 12:14 Sodium Potassium Chloride Carbon Dioxide Anion Gap BUN Creatinine Estimated GFR POC Glucose 355 H 450 H Random Glucose Lactic Acid 1.3 Calcium Phosphorus Magnesium Total Bilirubin AST ALT Alkaline Phosphatase Total Creatine Kinase B-Natriuretic Peptide Total Protein Albumin 06/06/18 06/07/18 06/07/18 17:39 00:05 05:10 Sodium 138 Potassium 4.9 Chloride 102 Carbon Dioxide 27.7 Anion Gap 8 BUN 49 H Creatinine 2.71 H Estimated GFR 23 L POC Glucose 437 H 347 H Random Glucose 378 H Lactic Acid Calcium 8.1 L Phosphorus 4.2 D Magnesium 2.6 H Total Bilirubin 0.5 AST 13 L ALT 15 Alkaline Phosphatase 73 Total Creatine Kinase B-Natriuretic Peptide Total Protein 6.4 Albumin 2.1 L 06/07/18 06:09 Sodium Potassium Chloride Carbon Dioxide Anion Gap BUN Creatinine Estimated GFR POC Glucose 461 H* Random Glucose Lactic Acid Calcium Phosphorus Magnesium Total Bilirubin AST ALT Alkaline Phosphatase Total Creatine Kinase B-Natriuretic Peptide Total Protein Albumin Imaging: ITS Impressions Head CT 06/03/18 15:01 CONCLUSION: No acute intracranial abnormality demonstrated. . Chest X-Ray 06/07/18 04:00 CONCLUSION: 1. No significant change. Perihilar and bibasilar opacities are again noted most characteristic of pulmonary edema. 2. Bilateral pleural effusions are again noted. Physical Exam: PHYSICAL EXAMINATION: GENERAL: Sedated on the ventilator. HEENT: Unable to fully assess because the patient cannot cooperate. No icterus. Oropharynx intubated. NECK: No adenopathy. LUNGS: Coarse rhonchi. HEART: A 3/6 to 4/6 systolic murmur at the left sternal border. ABDOMEN: Bowel sounds present. Obese, soft. EXTREMITIES: No clubbing, cyanosis or edema. Decreased peripheral pulses. SKIN: No rash. NEUROLOGIC: Unable to assess. Sedated on the vent. PSYCHIATRIC: Unable to assess. Assessment and Plan - Plan IMPRESSION: 1. Pneumonia due to methicillin-resistant Staphylococcus aureus. CXR has bilateral infiltrates. 2. Acute respiratory failure. 3. Acute kidney disease. 4. Fever. Temp lower. The only culture so far is methicillin-resistant Staphylococcus aureus in the sputum. RECOMMENDATIONS: 1. Continue vancomycin. 2. Continue to follow the blood cultures. 3. Monitor temperature. 4. Monitor kidney function.
--- NOTE | 2018-06-07 10:41 | P.PNCA ---
Subjective Interval history: Intubated. Sedated. Medications and Allergies Active Medications: Active Medications Acetaminophen (Tylenol Liq) 650 mg NG/OG Q6H PRN PRN Reason: TEMP>101F, PAIN 1-10, HEADACHE Last Admin: 06/06/18 10:40 Dose: 650 mg Albuterol (Duoneb Neb (Prn)) 1 ampul NEB Q2HR NEB PRN PRN Reason: WHEEZING Albuterol (Duoneb Neb ([place]ig[place])) 1 ampul NEB Q6HR NEB [facility]IG[facility]ALIA Last Admin: 06/07/18 08:05 Dose: 1 ampul Aspirin (Aspirin Chew) 81 mg PO DAILY [facility]IG[facility]ALIA Last Admin: 06/07/18 08:54 Dose: 81 mg Chlorhexidine Gluconate (Chlorhexidine 2% Cloth) 3 pack TOPICAL DAILY@0400 [facility] Stop: 06/09/18 03:59 Last Admin: 06/07/18 05:04 Dose: 3 pack Chlorhexidine Gluconate (Chlorhexidine 2% Cloth) 3 pack TOPICAL DAILY@0400 PRN PRN Reason: Extra cloth needed Stop: 06/09/18 03:59 Dextrose (D50w Vial) 50 ml IV.PUSH UNSCH PRN PRN Reason: PER HYPOGLYCEMIA PROTOCOL Last Admin: 06/04/18 11:42 Dose: 50 ml Famotidine (Pepcid Pf Inj) 10 mg IV.PUSH Q12HR [facility] Last Admin: 06/07/18 08:57 Dose: 10 mg Furosemide (Lasix Inj) 40 mg IV.PUSH DAILY [facility] Last Admin: 06/07/18 08:57 Dose: 40 mg Glucagon (Glucagon Inj) 1 mg OTHER PRN PRN PRN Reason: for Hypoglycemia Protocol Heparin Sodium (Porcine) (Heparin Inj) 5,000 units IV.PUSH UNSCH PRN PRN Reason: aPTT < 25 Heparin Sodium (Porcine) (Heparin Inj) 2,500 units IV.PUSH UNSCH PRN PRN Reason: aPTT 25-39 Last Admin: 06/05/18 11:22 Dose: 2,500 units Fentanyl (Fentanyl 10 Mcg/Ml Premix Drip) 2,500 mcg in 250 mls @ 5 mls/hr IV.SIG TITRATE PRN; Protocol PRN Reason: Per Protocol Last Admin: 06/07/18 04:35 Dose: 150 mcg/hr, 15 mls/hr Midazolam HCl (Versed Inj) 50 mg in 50 mls @ 2 mls/hr IV.CONT TITRATE PRN; Protocol PRN Reason: Per Protocol Last Titration: 06/05/18 18:45 Dose: Infused Dopamine HCl/Dextrose (Dopamine 800 Mg/500 Ml Premix) 800 mg in 500 mls @ 12.757 mls/hr IV.CONT TITRATE PRN; Protocol PRN Reason: Per Protocol Last Titration: 06/04/18 18:02 Dose: Infused Norepinephrine Bitartrate (Levophed-Dextrose 4 Mg/250 Ml Drip) 4 mg in 250 mls @ 7.5 mls/hr IV.SIG TITRATE PRN; Protocol PRN Reason: Per Protocol Last Titration: 06/06/18 06:30 Dose: Infused Magnesium Sulfate 4 gm/ Sodium (Chloride) 100 mls @ 50 mls/hr IV.SIG UNSCH PRN PRN Reason: For Magnesium 0.9 - 1.1 mg/dL Magnesium Sulfate 2 gm/ Sodium (Chloride) 100 mls @ 50 mls/hr IV.SIG UNSCH PRN PRN Reason: For Magnesium 1.2 - 1.6 mg/dL Potassium Chloride (Kcl 40 Meq Premix Inj) 40 meq in 100 mls @ 25 mls/hr IV.SIG Q2H PRN PRN Reason: For Potassium 2.8 - 3.2 mEq/L Potassium Chloride (Kcl 20 Meq Premix Inj) 20 meq in 100 mls @ 50 mls/hr IV.SIG Q2H PRN PRN Reason: For Potassium 3.3 - 3.5 mEq/L Last Infusion: 06/04/18 10:25 Dose: Infused Potassium Chloride (Kcl 40 Meq Premix Inj) 40 meq in 100 mls @ 25 mls/hr IV.SIG UNSCH PRN PRN Reason: For Potassium 3.3 - 3.5 mEq/L Potassium Phosphate 30 mmol/ (Sodium Chloride) 260 mls @ 42 mls/hr IV.SIG UNSCH PRN PRN Reason: SEE LABEL COMMENTS Sodium Phosphate 30 mmol/ (Sodium Chloride) 260 mls @ 42 mls/hr IV.SIG UNSCH PRN PRN Reason: For Phosphorus < 2.5 mg/dL Potassium Chloride (Kcl 20 Meq Premix Inj) 20 meq in 100 mls @ 50 mls/hr IV.SIG Q2H PRN PRN Reason: For Potassium 2.8 - 3.2 mEq/L Heparin Sodium/Dextrose (Heparin/D5w 25,000 U/250 Ml) 25,000 unit in 250 mls @ 10 mls/hr IV.CONT TITRATE PRN; Protocol PRN Reason: Per Protocol Last Admin: 06/07/18 02:05 Dose: 1,300 units/hr, 13 mls/hr Cefepime HCl 1,000 mg/ Sodium (Chloride) 100 mls @ 200 mls/hr IV.SIG Q8H [facility] Last Admin: 06/07/18 08:55 Dose: 200 mls/hr Amiodarone HCl 450 mg/ (Dextrose) 250 mls @ 33.33 mls/hr IV.CONT CONT PRN PRN Reason: tachycardia Last Infusion: 06/06/18 16:00 Dose: 0 mg/min, 0 mls/hr Insulin Human NPH (Novolin N Inj) 5 units SQ BID@0800,1700 [facility] Last Admin: 06/06/18 17:47 Dose: 5 units Insulin Human Regular (Novolin R Correctional Sugar Inj) 0 units SQ Q6HR [facility]; Protocol Last Admin: 06/07/18 06:27 Dose: 9 units Magnesium Oxide (Mag-Ox) 800 mg PO UNSCH PRN PRN Reason: For Magnesium 1.2 - 1.6 mg/dL Ondansetron HCl (Zofran Inj) 4 mg IV.PUSH Q6H PRN PRN Reason: NAUSEA OR VOMITING Pharmacy Profile Note (Vancomycin Consult Pharmacy) 1 each OTHER UNSCH PRN PRN Reason: Pharmacy to dose Potassium Bicarb/Potassium Chloride (K-Lyte Cl Eff) 50 meq PO UNSCH PRN PRN Reason: For Potassium 3.3 - 3.5 mEq/L Potassium Phosphate (K-Phos Original) 2,000 mg PO Q4H PRN PRN Reason: Phosphorus Less Than 2.5 mg/dL Potassium Phosphate (K-Phos Original) 2,000 mg PO UNSCH PRN PRN Reason: SEE LABEL COMMENTS Sodium Chloride (Ns Flush) 2 ml IV.FLUSH BID [facility] Last Admin: 06/07/18 08:58 Dose: 2 ml Sodium Chloride (Ns Flush) 2 ml IV.FLUSH PRN PRN PRN Reason: FLUSH AFTER USING IV ACCESS Terbutaline Sulfate (Brethine Inj) 1 mg SQ ONCE PRN PRN Reason: Extravasation Terbutaline Sulfate (Brethine Inj) 1 mg SQ UNSCH PRN PRN Reason: For Extravasation Allergies Allergy/AdvReac Type Severity Reaction Status Date / Time No Allergy Information Allergy Verified 06/03/18 14:22 Available Home Medications Medication Instructions Recorded Confirmed Type amlodipine 5 mg PO DAILY 06/03/18 06/03/18 History ascorbic acid (vitamin C) [Vitamin 500 mg PO DAILY 06/03/18 06/03/18 History C] aspirin 81 mg PO DAILY 06/03/18 06/03/18 History atorvastatin [Lipitor] 20 mg PO DAILY 06/03/18 06/03/18 History calcium carbonate [Calcium 600] 600 mg PO DAILY 06/03/18 06/03/18 History cinnamon bark [Cinnamon] 1,000 mg PO BID 06/03/18 06/03/18 History cyanocobalamin (vitamin B-12) 1,000 mcg PO DAILY 06/03/18 06/03/18 History [Vitamin B-12] famotidine 20 mg PO DAILY 06/03/18 06/03/18 History ferrous sulfate [iron] 325 mg PO BID 06/03/18 06/03/18 History furosemide [Lasix] 40 mg PO DAILY 06/03/18 06/03/18 History gabapentin 300 mg PO 5 TIMES A DAY 06/03/18 06/03/18 History glimepiride 2 mg PO BID 06/03/18 06/03/18 History hydrocodone-acetaminophen [[place]] 1 tab PO Q6H PRN 06/03/18 06/03/18 History insulin glargine [Lantus U-100 65 unit SUBCUT DAILY 06/03/18 06/03/18 History Insulin] lisinopril 10 mg PO DAILY 06/03/18 06/03/18 History metformin 500 mg PO QID 06/03/18 06/03/18 History metoprolol tartrate 50 mg PO BID 06/03/18 06/03/18 History niacin 500 mg PO DAILY 06/03/18 06/03/18 History potassium 99 mg PO BID 06/03/18 06/03/18 History warfarin [Coumadin] 5 mg PO DAILY 06/03/18 06/03/18 History Physical Exam Vital signs: Vital Signs 06/06/18 11:00 06/06/18 12:00 06/06/18 13:00 Temperature 99.5 F 99.5 F Pulse Rate 56 L 54 L 52 L Respiratory Rate 16 16 16 Blood Pressure 99/53 L 100/53 L 97/51 L Pulse Oximetry 99 99 99 06/06/18 13:21 06/06/18 14:00 06/06/18 16:00 Temperature 99.3 F Pulse Rate 71 52 L Respiratory Rate 10 L 16 16 Blood Pressure 123/64 98/51 L Pulse Oximetry 99 98 98 06/06/18 16:27 06/06/18 17:00 06/06/18 18:00 Temperature Pulse Rate 51 L 53 L 51 L Respiratory Rate 29 H 18 20 Blood Pressure 102/51 L 93/55 L Pulse Oximetry 98 98 97 06/06/18 19:00 06/06/18 20:00 06/06/18 20:31 Temperature 97.8 F Pulse Rate 47 L 50 L 50 L Respiratory Rate 11 L 11 L 26 H Blood Pressure 94/54 L 97/55 L Pulse Oximetry 98 98 98 06/06/18 21:00 06/06/18 22:00 06/06/18 23:00 Temperature Pulse Rate 47 L 48 L 47 L Respiratory Rate 11 L 11 L 11 L Blood Pressure 95/50 L 100/51 L 92/52 L Pulse Oximetry 98 98 98 06/07/18 00:00 06/07/18 00:08 06/07/18 01:00 Temperature 98.7 F Pulse Rate 54 L 51 L Respiratory Rate 15 25 H 11 L Blood Pressure 96/57 L 99/53 L Pulse Oximetry 98 98 98 06/07/18 02:00 06/07/18 03:00 06/07/18 03:25 Temperature Pulse Rate 49 L 56 L 49 L Respiratory Rate 11 L 11 L 21 Blood Pressure 97/52 L 106/59 L Pulse Oximetry 98 98 06/07/18 03:52 06/07/18 04:00 06/07/18 05:00 Temperature 98.8 F Pulse Rate 52 L 52 L Respiratory Rate 20 11 L 11 L Blood Pressure 111/53 L 104/53 L Pulse Oximetry 97 98 97 06/07/18 05:45 06/07/18 06:00 06/07/18 08:00 Temperature 98.5 F Pulse Rate 76 62 56 L Respiratory Rate 11 L 11 L 16 Blood Pressure 130/60 117/56 L 125/58 L Pulse Oximetry 96 98 99 06/07/18 08:06 06/07/18 08:19 06/07/18 09:00 Temperature Pulse Rate 51 L 65 Respiratory Rate 29 H 16 Blood Pressure 123/58 L Pulse Oximetry 99 99 98 06/07/18 10:00 Temperature Pulse Rate 64 Respiratory Rate 16 Blood Pressure 130/60 Pulse Oximetry 96 Intake & Output 06/06/18 06/07/18 06/07/18 18:59 06:59 18:59 Intake Total 1080 / 1080 2404 / 2404 Output Total 600 / 600 300 / 300 Balance 480 / 480 2104 / 2104 Weight 110 kg Intake: IV 100 / 100 1495 / 1495 Heparin/D5W 25,000 U/250 mL 25, 250 / 250 000 unit In 250 ml @ 1,000 UNITS/HR 10 mls/hr IV.CONT TITRATE PRN Rx#:[id number] Flexbumin 25% Inj 100 ML @ 60 100 / 100 mls/hr IV.SIG ONCE ONE Rx#: [id number] Maxipime Inj 1,000 MG In NS Inj 100 / 100 200 / 200 100 ML @ 200 mls/hr IV.SIG Q8H [facility] Rx#:[id number] Vancomycin Inj 1,500 MG In NS 515 / 515 Inj 500 ML @ 250 mls/hr IV.SIG Q24H [facility] Rx#:[id number] fentaNYL 10 mcg/mL Premix Drip 430 / 430 2,500 mcg In 250 ml @ 50 MCG/HR 5 mls/hr IV.SIG TITRATE PRN Rx #:[id number] Tube Feeding 860 / 860 789 / 789 Water Bolus Amount 120 / 120 120 / 120 Output: Urine 600 / 600 Urine Amount (Catheter) 300 / 300 Indwelling Urethral Catheter 300 / 300 - Constitutional Comments: Intubated. Sedated. - Routine Neck Exam Absent: JVD - Routine Respiratory Exam Comments: Lungs clear anteriorly. - Routine Cardiovascular Exam Present: RRR, S1, S2, murmur. Absent: gallop Comments: II-III/ ANGELA base with markedly diminished S2. II/ systolic murmur apex. - Routine Abdominal Exam Present: soft, normoactive bowel sounds. Absent: organomegaly - Routine Extremities Exam Absent: cyanosis, clubbing, edema - Urinary Catheter Management Indwelling Urethral Catheter Cath placed during this visit: yes, but has since been removed by the nurse Reason for continuing: Hourly intake/output Insertion date: 06/06/18 Insertion time: 16:00 Removal date: 06/05/18 Removal time: 18:00 Straight Cath placed during this visit: no Reason for continuing: Hourly intake/output Results 06/07/18 05:10 06/07/18 05:10 Cardiac Enzymes 06/06/18 06/06/18 06/07/18 Range/Units 05:25 05:25 05:10 AST 20 13 L (15-37) U/L B-Natriuretic Peptide 1037 H (0-100) pg/mL Coagulation 06/05/18 06/05/18 06/06/18 Range/Units 17:00 23:00 05:25 PT 10.8 (9.8-11.6) sec APTT 44.1 H 47.3 H (23.4-31.7) sec B-Natriuretic Peptide (0-100) pg/mL 06/06/18 06/06/18 06/07/18 Range/Units 05:25 05:25 05:10 PT 10.0 (9.8-11.6) sec APTT 50.7 H 41.5 H (23.4-31.7) sec B-Natriuretic Peptide 1037 H (0-100) pg/mL CBC 06/06/18 06/07/18 Range/Units 05:25 05:10 WBC 10.0 8.9 (4.0-11.0) th/mm3 RBC 3.42 L 3.02 L (4.50-5.90) mil/mm3 Hgb 10.2 L 9.0 L (13.0-17.0) gm/dL Hct 30.5 L 27.0 L (39.0-51.0) % Plt Count 157 D 159 (150-450) th/mm3 Neut # (Auto) 7.6 6.9 (1.8-7.7) th/mm3 Lymph # (Auto) 1.2 0.9 L (1.0-4.8) th/mm3 [place] # (Auto) 1.1 H 0.9 (0.0-0.9) th/mm3 Eos # (Auto) 0.1 0.2 (0.0-0.4) th/mm3 Baso # (Auto) 0.0 0.0 (0.0-0.2) th/mm3 Comprehensive Metabolic Panel 06/06/18 06/07/18 Range/Units 05:25 05:10 Sodium 138 138 (136-145) meq/L Potassium 4.6 4.9 (3.5-5.1) meq/L Chloride 102 102 (98-107) meq/L Carbon Dioxide 27.4 27.7 (21.0-32.0) meq/L BUN 29 H 49 H (7-18) mg/dL Creatinine 1.87 H 2.71 H (0.60-1.30) mg/dL Calcium 7.8 L 8.1 L (8.5-10.1) mg/dL AST 20 13 L (15-37) U/L ALT 19 15 (12-78) U/L Alkaline Phosphatase 73 73 (45-117) U/L Total Protein 6.1 L 6.4 (6.4-8.2) g/dL Albumin 2.0 L 2.1 L (3.4-5.0) g/dL Intake and Output 06/06/18 06/07/18 06/07/18 22:59 06:59 14:59 Intake Total 1180 / 1180 2204 / 2204 Output Total 600 / 600 300 / 300 Balance 580 / 580 1904 / 1904 Intake: IV 200 / 200 1295 / 1295 Heparin/D5W 25,000 U/250 mL 25, 250 / 250 000 unit In 250 ml @ 1,000 UNITS/HR 10 mls/hr IV.CONT TITRATE PRN Rx#:[id number] Flexbumin 25% Inj 100 ML @ 60 100 / 100 mls/hr IV.SIG ONCE ONE Rx#: [id number] Maxipime Inj 1,000 MG In NS Inj 100 / 100 100 / 100 100 ML @ 200 mls/hr IV.SIG Q8H [facility] Rx#:[id number] Vancomycin Inj 1,500 MG In NS 515 / 515 Inj 500 ML @ 250 mls/hr IV.SIG Q24H [facility] Rx#:[id number] fentaNYL 10 mcg/mL Premix Drip 430 / 430 2,500 mcg In 250 ml @ 50 MCG/HR 5 mls/hr IV.SIG TITRATE PRN Rx #:[id number] Tube Feeding 860 / 860 789 / 789 Water Bolus Amount 120 / 120 120 / 120 Output: Urine 600 / 600 Urine Amount (Catheter) 300 / 300 Indwelling Urethral Catheter 300 / 300 Other: Weight 110 kg - Imaging and Cardiology Imaging: Impressions Chest X-Ray 06/06/18 09:18 CONCLUSION: Bilateral effusions and diffuse interstitial prominence most consistent with CHF. Unchanged from prior. Chest X-Ray 06/06/18 17:04 CONCLUSION: 1. New left IJ central venous catheter with distal tip projecting over the mid SVC. 2. No appreciable pneumothorax. 3. Persistent ill-defined opacification of the mid and lower lungs, likely a combination of airspace disease and pleural fluid. Chest X-Ray 06/07/18 04:00 CONCLUSION: 1. No significant change. Perihilar and bibasilar opacities are again noted most characteristic of pulmonary edema. 2. Bilateral pleural effusions are again noted. Assessment and Plan - Assessment (1) Congestive heart failure Code(s): I50.9 - Heart failure, unspecified Status: Acute Plan: Severely reduced left ventricular function, EF 20-25%. Acute CHF, unchanged since admission. Chest x-ray unchanged. REC start beta [place]. No ARB or HAI-I with renal insufficiency. Intensify efforts to diurese. (2) Paroxysmal atrial fibrillation Code(s): I48.0 - Paroxysmal atrial fibrillation Status: Acute Plan: Back in NSR this morning. Episodic junctional rhythm necessitating discontinuation of IV Amiodarone. Few runs AIVR and possibly aberrantly conducted atrial tachycardia. Occasional atrial flutter as well. Recommend continue to hold IV Amiodarone, continue heparin drip. His thromboembolic risk is high. (3) Aortic stenosis Code(s): I35.0 - Nonrheumatic aortic (valve) stenosis Status: Chronic Plan: Severe by exam, echo. Await CABG/AVR which apparently was to be performed by Dr. Enriquez at [facility]. Patient currently in no condition to undergo open heart surgery. (4) Coronary artery disease Code(s): I25.10 - Atherosclerotic heart disease of [place] coronary artery without angina pectoris Status: Chronic Plan: Overall no definite evidence for ACS. CK's negative for [place]. No acute EKG changes. Troponin levels only minimally elevated, in the setting of renal insufficiency. - Plan Code Status: full code Discussed Condition With: nurse (1) Congestive heart failure Qualifiers: Heart failure type: systolic (4) Coronary artery disease Qualifiers: Coronary Disease-Associated Artery/Lesion type: [place] artery [place] vs. transplanted heart: [place] heart Associated angina: angina presence unspecified Qualified Code(s): I25.10 - Atherosclerotic heart disease of [place] coronary artery without angina pectoris
[2018-06-07] MEDS ORDERED: Dextrose 50% in Water 50 ML Vial IV.PUSH PRN (11:49)
[2018-06-07] MEDS ORDERED: Vancomycin Consult Pharmacy OTHER PRN (11:51)
--- NOTE | 2018-06-07 11:55 | P.PNCC ---
Subjective Subjective Remarks/Hospital Course: 06/03: 73-year-old male with a medical history of cardiac problems who recently had a workup done at [facility] and [facility] in [place] per family and was evaluated by CT surgeon at [facility] in [place] last week including Dr. Jay Wisdom per family for CT surgery. Patient has been having shortness of breath for the last week or so per his and today his breathing worsened and he was brought to the ER at [facility] where he was in respiratory extremis with O2 sats in the 70s and was intubated and placed on mechanical ventilation. He was also very hypotensive on arrival and after receiving about 500 cc of normal saline bolus he was started on Levophed and dopamine for pressor support. He had a femoral central line placed by ER physician. His chest x-ray in the ER showed pulmonary edema and questionable infiltrates. He did not have a fever or white count on his labs and due to elevated creatinine could not get a CTA of the chest per ER physician. Subsequently he was maintaining his O2 sats around 96% on mechanical ventilation with 100% FiO2 with heart rate in the 60s and systolic blood pressure 100s on dopamine 5 mics per KG per minute. When I evaluated the patient in the ER he was propofol, orally intubated on mechanical ventilation. I spoke with patient's who could not really give me any details of his medical history including recent workup or diagnosis. She tells me he has a history of having "holes in the heart" however is unclear regarding what surgery he was scheduled for at [facility]. I discussed this with Dr. Rich in the ER and requested that he contact Dr. Jay Wisdom who evaluated the patient for his to see if he would want patient transferred to [facility] as he was scheduled for surgery there with him. We do not have any details of his recent workup or diagnosis at this time. 06/04 : Further history revealed following cardiology evaluation by Dr. Schwab who was able to look up his medical records at [facility]. Patient reportedly has severe coronary artery disease and valvular dysfunction and was scheduled for surgery in the near future with CT surgeon at [facility]. Still awaiting medical records from outside hospitals regarding cardiac workup. In the meanwhile patient remains sedated, orally intubated on mechanical ventilation. Off dopamine. 06/05: off pressors. remains intubated. back in afib RVR. diuresing. 06/06: This a.m., patient had worsening hypoxia requiring 100% O2. I was called emergently at bedside by RT. Blood gas reviewed, vent settings changed, currently patient 98% on FiO2 of 1. T-max of 102.9. I/O 4388/2250. Sedation is achieved with fentanyl drip. Patient is sedated and intubated, opens eyes to voice stimuli but does not follow any commands. Amiodarone is infusing at 1 mg/min, patient is still in A. fib with heart rate in the 60s-70s. Subjective 06/07: Afebrile. Switch from APRV to PRVC ventilation. PEEP of 10. Arousable on the ventilator. Noted episodic dysrhythmias overnight. Amiodarone discontinued per cardiology recommendation. Potassium and magnesium are greater than 4/2 respectively. Objective Vital Signs / I&O: Vital Signs 06/06/18 12:00 06/06/18 13:00 06/06/18 13:21 Temperature 99.5 F 99.5 F Pulse Rate 54 L 52 L Respiratory Rate 16 16 10 L Blood Pressure 100/53 L 97/51 L Pulse Oximetry 99 99 99 06/06/18 14:00 06/06/18 16:00 06/06/18 16:27 Temperature 99.3 F Pulse Rate 71 52 L 51 L Respiratory Rate 16 16 29 H Blood Pressure 123/64 98/51 L Pulse Oximetry 98 98 98 06/06/18 17:00 06/06/18 18:00 06/06/18 19:00 Temperature Pulse Rate 53 L 51 L 47 L Respiratory Rate 18 20 11 L Blood Pressure 102/51 L 93/55 L 94/54 L Pulse Oximetry 98 97 98 06/06/18 20:00 06/06/18 20:31 06/06/18 21:00 Temperature 97.8 F Pulse Rate 50 L 50 L 47 L Respiratory Rate 11 L 26 H 11 L Blood Pressure 97/55 L 95/50 L Pulse Oximetry 98 98 98 06/06/18 22:00 06/06/18 23:00 06/07/18 00:00 Temperature 98.7 F Pulse Rate 48 L 47 L 54 L Respiratory Rate 11 L 11 L 15 Blood Pressure 100/51 L 92/52 L 96/57 L Pulse Oximetry 98 98 98 06/07/18 00:08 06/07/18 01:00 06/07/18 02:00 Temperature Pulse Rate 51 L 49 L Respiratory Rate 25 H 11 L 11 L Blood Pressure 99/53 L 97/52 L Pulse Oximetry 98 98 98 06/07/18 03:00 06/07/18 03:25 06/07/18 03:52 Temperature Pulse Rate 56 L 49 L Respiratory Rate 11 L 21 20 Blood Pressure 106/59 L Pulse Oximetry 98 97 06/07/18 04:00 06/07/18 05:00 06/07/18 05:45 Temperature 98.8 F Pulse Rate 52 L 52 L 76 Respiratory Rate 11 L 11 L 11 L Blood Pressure 111/53 L 104/53 L 130/60 Pulse Oximetry 98 97 96 06/07/18 06:00 06/07/18 08:00 06/07/18 08:06 Temperature 98.5 F Pulse Rate 62 49 L 51 L Respiratory Rate 11 L 16 29 H Blood Pressure 117/56 L 125/58 L Pulse Oximetry 98 99 99 06/07/18 08:19 06/07/18 09:00 06/07/18 10:00 Temperature Pulse Rate 65 64 Respiratory Rate 16 16 Blood Pressure 123/58 L 130/60 Pulse Oximetry 99 98 96 Intake & Output 06/06/18 06/07/18 06/07/18 18:59 06:59 18:59 Intake Total 1080 / 1080 2404 / 2404 Output Total 600 / 600 300 / 300 Balance 480 / 480 2104 / 2104 Weight 110 kg Intake: IV 100 / 100 1495 / 1495 Heparin/D5W 25,000 U/250 mL 25, 250 / 250 000 unit In 250 ml @ 1,000 UNITS/HR 10 mls/hr IV.CONT TITRATE PRN Rx#:[id number] Flexbumin 25% Inj 100 ML @ 60 100 / 100 mls/hr IV.SIG ONCE ONE Rx#: [id number] Maxipime Inj 1,000 MG In NS Inj 100 / 100 200 / 200 100 ML @ 200 mls/hr IV.SIG Q8H [facility] Rx#:[id number] Vancomycin Inj 1,500 MG In NS 515 / 515 Inj 500 ML @ 250 mls/hr IV.SIG Q24H [facility] Rx#:[id number] fentaNYL 10 mcg/mL Premix Drip 430 / 430 2,500 mcg In 250 ml @ 50 MCG/HR 5 mls/hr IV.SIG TITRATE PRN Rx #:[id number] Tube Feeding 860 / 860 789 / 789 Water Bolus Amount 120 / 120 120 / 120 Output: Urine 600 / 600 Urine Amount (Catheter) 300 / 300 Indwelling Urethral Catheter 300 / 300 Result Diagrams: 06/07/18 05:10 06/07/18 05:10 Other Results: Microbiology 06/04/18 17:25 Blood - Peripheral Aerobic Blood Culture - Preliminary No growth in 3 days 06/04/18 17:25 Blood - Peripheral Anaerobic Blood Culture - Preliminary No growth in 3 days 06/04/18 17:30 Blood - Peripheral Aerobic Blood Culture - Preliminary No growth in 3 days 06/04/18 17:30 Blood - Peripheral Anaerobic Blood Culture - Preliminary No growth in 3 days 06/03/18 15:05 Blood - Peripheral Aerobic Blood Culture - Preliminary No growth in 4 days 06/03/18 15:05 Blood - Peripheral Anaerobic Blood Culture - Preliminary No growth in 4 days 06/03/18 15:00 Blood - Peripheral Aerobic Blood Culture - Preliminary No growth in 4 days 06/03/18 15:00 Blood - Peripheral Anaerobic Blood Culture - Preliminary No growth in 4 days 06/04/18 16:15 Sputum - Endotracheal Gram Stain - Final 06/04/18 16:15 Sputum - Endotracheal Sputum Culture - Final S. aureus MRSA 06/04/18 16:15 Catheterized Urine Urine Culture - Final No growth in 48 hours Imaging: Chest X-Ray 06/03/18 14:22 CONCLUSION: 1. ETT in good position. NGT beyond the GE junction. 2. Cardiomegaly with pulmonary edema pattern. 3. More focal airspace consolidation in the left lower lung zone. Head CT 06/03/18 15:01 CONCLUSION: No acute intracranial abnormality demonstrated. . Chest X-Ray 06/04/18 05:00 CONCLUSION: Unchanged exam. Chest X-Ray 06/05/18 05:00 CONCLUSION: No interval change. Chest X-Ray 06/06/18 09:18 CONCLUSION: Bilateral effusions and diffuse interstitial prominence most consistent with CHF. Unchanged from prior. Chest X-Ray 06/06/18 17:04 CONCLUSION: 1. New left IJ central venous catheter with distal tip projecting over the mid SVC. 2. No appreciable pneumothorax. 3. Persistent ill-defined opacification of the mid and lower lungs, likely a combination of airspace disease and pleural fluid. Chest X-Ray 06/07/18 04:00 CONCLUSION: 1. No significant change. Perihilar and bibasilar opacities are again noted most characteristic of pulmonary edema. 2. Bilateral pleural effusions are again noted. Objective Remarks: General: Elderly gentleman, intubated and sedated, very ill-appearing HEENT: Pupils are equal and reactive, sclerae anicteric, orally intubated, + NGT Neck: Trachea midline, neck is supple and without rigidity, unable to appreciate neck vein distention due to body habitus, no carotid bruit. Left IJ CVL is clean dry and intact Chest/Pulm: Coarse breath sounds bilateral, decreased breath sounds at bases, no wheezes CVS: Irregular heart sounds, 2/6 systolic ejection murmur at the apex GI/abdomen: Soft, appears nontender, distended, unable to appreciate hepatomegaly or splenomegaly Extremities: Warm and well-perfused, peripheral pulses are present, 1+ edema. Neuro: RASS -2, opens eyes to voice stimuli but does not follow any commands, pupils are equal and reactive, no gaze deviation, withdraws to pain Assessment and Plan - Assessment and Plan Plan: 73-year-old male with: Acute hypoxic and hypercarbic respiratory failure -worsening O2 requirements with worsening bibasilar infiltrates Cardiogenic shock-resolving currently off pressors Acute Pulmonary edema -worsening despite diuresis MRSA pneumonia -persistently febrile despite appropriate antibiotics Severe CAD Severe Aortic stenosis Moderate to severe mitral regurgitation, moderate mitral stenosis Paroxysmal A. fib - better controlled on amiodarone but held due to junctional rhythm History of non-Hodgkin's lymphoma status post previous chemotherapy Obstructive sleep apnea syndrome HANS -worsening Uncontrolled diabetes MRSA pneumonia Plan: Neuro: Sedation with fentanyl and propofol drips, CT head negative for bleed, follow neuro checks. daily sedation vacation Cardiovascular: Cardiology following, off dopamine and norepinephrine. Discontinue amiodarone infusion per cardiology. Diuresis with bumetanide drip at 0.5 mg an hour, received 40 mg IV furosemide this morning. 2D echo results noted with ejection fraction 25%. Initiate statin when okay with cardiology. Still awaiting allergy information to be verified.. Today we will start carvedilol 6.25 mg twice daily if remains off dopamine. Will initiate aspirin 81 mg daily. Pulmonary: Continue mechanical ventilation, due to worsening hypoxia ventilator settings changed to PRVC Continue broad-spectrum antibiotics with vancomycin GI/liver: tube feeds and advance to goal as tolerated we will switch to Glucerna 1.5 goal 60 cc an hour. Lansoprazole for GI prophylaxis. Renal: Strict intake output, monitor and replete electrolytes, follow BUN creatinine. Diuresis with bumetanide drip. Place Spence catheter for accurate urine output measurement. Check urine eosinophils, sodium and creatinine. Heme: Follow CBC and coags ID: Continue broad-spectrum antibiotics with vancomycin and cefepime per infectious disease evaluation. Due to persistent fever check respiratory viral panel PCR and will ask infectious disease consult evaluate. Endocrine: Continue insulin drip. Add insulin detemir 5 units twice daily due to high blood sugar Prophylaxis: PPI/SCDs/full anticoagulation with heparin gtt No family was present at bedside. Discussed with [facility] RN. I spent 30 minutes of critical care time, excluding procedures, managing life- threatening oxygenation, ventilator, sedation, diuresis, reviewing data and ordering labs, discussing with nursing staff and RT. Code Status: Full code
[2018-06-07] MEDS: Artificial Tears Opth Drops 15 ML Bottle EACH EYE SCH ×2 (12:00→20:18)
[2018-06-07] MEDS: Bumetanide Inj 25 MG/100 ML BAG IV.CONT SCH (13:57)
[2018-06-07] MEDS: Insulin Regular (For Infusion) 100 UNIT in Sodium Chlor 0.9% Inj 99 ML IV.CONT PRN ×2 (13:59→20:02)
--- NOTE | 2018-06-07 14:07 | US ---
EXAM DATE: 06/07/2018 1:29 PM EST AGE/SEX: 73 years / Male INDICATIONS: Elevated labs. CLINICAL DATA: This is the patient's initial encounter. Patient reports that signs and symptoms have been present for 1 day and indicates a pain score of Nonresponsive. MEDICAL/SURGICAL HISTORY: . MDRO. MRSA. None. COMPARISON: No prior exams available for comparison. MEASUREMENTS: Right Kidney:__9.8 x 4.8 x 5.5 cm Left Kidney:__10.6 x 5.1 x 5.7 cm FINDINGS: Right Kidney: Increased echotexture. No mass or hydronephrosis. Left Kidney: Increased echotexture. No mass or hydronephrosis. Bladder: Spence catheter is present. Bladder decompressed. Other: None. CONCLUSION: 1. Mildly increased renal cortical echogenicity bilaterally. 2. No evidence of hydronephrosis Electronically signed by: Maximo Calle MD 06/07/2018 2:06 PM EST
[2018-06-07] MEDS ORDERED: Pharmacy Ordered Lab Info OTHER ONE (16:45)
[2018-06-07 20:13] LABS: Calcium 8.8 mg/dL (8.5-10.1); Carbon Dioxide 26.8 meq/L (21.0-32.0); Potassium 4.2 meq/L (3.5-5.1)
[2018-06-07] MEDS: Insulin Detemir Inj 1,000 UNIT/10 ML Vial SQ SCH (20:17)
[2018-06-07] MEDS: Mupirocin 2% Nasal Oint Topical Syringe EACH NARE SCH (20:18)
[2018-06-07] MEDS: Carvedilol 6.25 MG Tablet PO SCH (20:18)
--- NOTE | 2018-06-08 04:04 | XR ---
EXAM DATE: 06/08/2018 3:15 AM EST AGE/SEX: 73 years / Male INDICATIONS: Short of breath. Follow-up bilateral pleural effusions and pulmonary opacities. CLINICAL DATA: This is the patient's subsequent encounter. Patient reports that signs and symptoms h ave been present for 4 - 6 days and indicates a pain score of 0/10. MEDICAL/SURGICAL HISTORY: Non-responsive. Non-responsive. COMPARISON: [facility] [place], CHEST 1V SINGLE AP, 06/07/2018. . FINDINGS: A single AP portable semierect view of the chest was obtained and demonstrates an endotracheal tube i n place with the tip at the level of thoracic inlet. Hazy bilateral perihilar and bibasilar opacities remain with blunting of the costophrenic angles. The heart size remains enlarged. The bony thorax is intact. CONCLUSION: Findings most characteristic of congestive heart failure. This appears mildly increased in the perihi lar regions. Electronically signed by: Riley Peter MD 06/08/2018 4:02 AM EST
[2018-06-08 04:55] LABS: Baso % (Auto) 0.2 % (0.0-2.0); Eos # (Auto) 0.2 th/mm3 (0.0-0.4); Eos % (Auto) 1.6 % (0.0-4.0); Hematocrit 26.8 % (39.0-51.0); Hemoglobin 9.2 gm/dL (13.0-17.0); Lymph # (Auto) 0.9 th/mm3 (1.0-4.8); Lymph % (Auto) 9.1 % (9.0-44.0); Mean Corpuscular HGB Conc 34.2 % (32.0-36.0); Mean Corpuscular Hemoglobin 30.1 pg (27.0-34.0); Mean Corpuscular Volume 88.2 fL (80.0-100.0); Mean Platelet Volume 9.2 fL (7.0-11.0); Mono # (Auto) 0.8 th/mm3 (0.0-0.9); Mono % (Auto) 8.3 % (0.0-8.0); Neut # (Auto) 7.9 th/mm3 (1.8-7.7); Neut % (Auto) 80.8 % (16.0-70.0); Platelet Count 195 th/mm3 (150-450); Red Blood Count 3.04 mil/mm3 (4.50-5.90); Red Cell Distribution Width 15.8 % (11.6-17.2); White Blood Count 9.8 th/mm3 (4.0-11.0)
[2018-06-08 05:06] LABS: Activated Partial Thrombo Time 35.6 sec (23.4-31.7); Prothrombin Time 9.8 sec (9.8-11.6)
[2018-06-08 05:10] LABS: ABG Base Excess 4.2 mmol/L (-2-2); ABG PCO2 37 mmHg (38-42); ABG PO2 129 mmHG (61-120)
[2018-06-08] MEDS: Artificial Tears Opth Drops 15 ML Bottle EACH EYE SCH ×3 (05:18→20:39)
[2018-06-08] MEDS: Chlorhexidine Gluconate 2% 1 Pack (2 Cloths) TOPICAL SCH (05:18)
[2018-06-08] MEDS: Heparin 10,000 UNITS/10 ML Vial (for IV use) IV.PUSH PRN ×2 (05:18→16:53)
[2018-06-08 05:27] LABS: Alanine Aminotransferase 26 U/L (12-78); Alkaline Phosphatase 90 U/L (45-117); Anion Gap 9 meq/L (5-15); Aspartate Aminotransferase 25 U/L (15-37); Blood Urea Nitrogen 66 mg/dL (7-18); Calcium 8.7 mg/dL (8.5-10.1); Carbon Dioxide 29.8 meq/L (21.0-32.0); Chloride 103 meq/L (98-107); Glomerular Filtration Rate 24 mL/min (>89); Glucose,Random 171 mg/dL (74-106); Magnesium 2.6 mg/dL (1.5-2.5); Phosphorus 3.2 mg/dL (2.5-4.9); Sodium 142 meq/L (136-145); Total Protein 6.6 g/dL (6.4-8.2); Vancomycin,Random 18.1 Comment
--- NOTE | 2018-06-08 07:54 | P.PNCA ---
Subjective Interval history: Intubated. Sedated. Medications and Allergies Active Medications: Active Medications Acetaminophen (Tylenol Liq) 650 mg NG/OG Q6H PRN PRN Reason: TEMP>101F, PAIN 1-10, HEADACHE Last Admin: 06/06/18 10:40 Dose: 650 mg Albuterol (Duoneb Neb (Migdalia)) 1 ampul NEB Q4HR NEB [facility] Last Admin: 06/08/18 04:06 Dose: 1 ampul Albuterol (Albuterol Neb (Prn)) 2.5 mg NEB Q2HR NEB PRN PRN Reason: DYSPNEA Artificial Tears (Tears Naturale Opth Drops) 1 drop EACH EYE Q8H [facility] Last Admin: 06/08/18 05:18 Dose: 1 drop Aspirin (Aspirin Chew) 81 mg PO DAILY [facility] Last Admin: 06/07/18 08:54 Dose: 81 mg Carvedilol (Coreg) 6.25 mg PO BID [facility] Last Admin: 06/07/18 20:18 Dose: 6.25 mg Chlorhexidine Gluconate (Chlorhexidine 2% Cloth) 3 pack TOPICAL DAILY@0400 [facility] Stop: 06/09/18 03:59 Last Admin: 06/08/18 05:18 Dose: 3 pack Chlorhexidine Gluconate (Chlorhexidine 2% Cloth) 3 pack TOPICAL DAILY@0400 PRN PRN Reason: Extra cloth needed Stop: 06/09/18 03:59 Cyanocobalamin (Vitamin B12) 1,000 mcg PO DAILY [facility] Dextrose (D50w Vial) 50 ml IV.PUSH UNSCH PRN PRN Reason: PER HYPOGLYCEMIA PROTOCOL Glucagon (Glucagon Inj) 1 mg OTHER PRN PRN PRN Reason: for Hypoglycemia Protocol Heparin Sodium (Porcine) (Heparin Inj) 5,000 units IV.PUSH UNSCH PRN PRN Reason: aPTT < 25 Heparin Sodium (Porcine) (Heparin Inj) 2,500 units IV.PUSH UNSCH PRN PRN Reason: aPTT 25-39 Last Admin: 06/08/18 05:18 Dose: 2,500 units Fentanyl (Fentanyl 10 Mcg/Ml Premix Drip) 2,500 mcg in 250 mls @ 5 mls/hr IV.SIG TITRATE PRN; Protocol PRN Reason: Per Protocol Last Admin: 06/07/18 20:03 Dose: 150 mcg/hr, 15 mls/hr Midazolam HCl (Versed Inj) 50 mg in 50 mls @ 2 mls/hr IV.CONT TITRATE PRN; Protocol PRN Reason: Per Protocol Last Titration: 06/05/18 18:45 Dose: Infused Magnesium Sulfate 4 gm/ Sodium (Chloride) 100 mls @ 50 mls/hr IV.SIG UNSCH PRN PRN Reason: For Magnesium 0.9 - 1.1 mg/dL Magnesium Sulfate 2 gm/ Sodium (Chloride) 100 mls @ 50 mls/hr IV.SIG UNSCH PRN PRN Reason: For Magnesium 1.2 - 1.6 mg/dL Potassium Chloride (Kcl 40 Meq Premix Inj) 40 meq in 100 mls @ 25 mls/hr IV.SIG Q2H PRN PRN Reason: For Potassium 2.8 - 3.2 mEq/L Potassium Chloride (Kcl 20 Meq Premix Inj) 20 meq in 100 mls @ 50 mls/hr IV.SIG Q2H PRN PRN Reason: For Potassium 3.3 - 3.5 mEq/L Last Infusion: 06/04/18 10:25 Dose: Infused Potassium Chloride (Kcl 40 Meq Premix Inj) 40 meq in 100 mls @ 25 mls/hr IV.SIG UNSCH PRN PRN Reason: For Potassium 3.3 - 3.5 mEq/L Potassium Phosphate 30 mmol/ (Sodium Chloride) 260 mls @ 42 mls/hr IV.SIG UNSCH PRN PRN Reason: SEE LABEL COMMENTS Sodium Phosphate 30 mmol/ (Sodium Chloride) 260 mls @ 42 mls/hr IV.SIG UNSCH PRN PRN Reason: For Phosphorus < 2.5 mg/dL Potassium Chloride (Kcl 20 Meq Premix Inj) 20 meq in 100 mls @ 50 mls/hr IV.SIG Q2H PRN PRN Reason: For Potassium 2.8 - 3.2 mEq/L Heparin Sodium/Dextrose (Heparin/D5w 25,000 U/250 Ml) 25,000 unit in 250 mls @ 10 mls/hr IV.CONT TITRATE PRN; Protocol PRN Reason: Per Protocol Last Titration: 06/08/18 05:18 Dose: 1,400 units/hr, 14 mls/hr Amiodarone HCl 450 mg/ (Dextrose) 250 mls @ 33.33 mls/hr IV.CONT CONT PRN PRN Reason: tachycardia Last Infusion: 06/06/18 16:00 Dose: 0 mg/min, 0 mls/hr Bumetanide (Bumex Inj) 25 mg in 100 mls @ 2 mls/hr IV.CONT .Q24H [facility] Last Admin: 06/07/18 13:57 Dose: 0.5 mg/hr, 2 mls/hr Insulin Human Regular 100 unit (/ Sodium Chloride) 100 mls @ 0 mls/hr IV.CONT TITRATE PRN; Protocol PRN Reason: See protocol Last Titration: 06/08/18 03:30 Dose: 5 units/hr, 5 mls/hr Cefepime HCl 1,000 mg/ Sodium (Chloride) 100 mls @ 200 mls/hr IV.SIG Q12HR [facility] Last Infusion: 06/07/18 21:08 Dose: Infused Insulin Detemir (Levemir Inj) 5 unit SQ BID [facility] Last Admin: 06/07/18 20:17 Dose: 5 unit Lansoprazole (Prevacid Solutab) 30 mg NG/OG DAILY [facility] Magnesium Oxide (Mag-Ox) 800 mg PO UNSCH PRN PRN Reason: For Magnesium 1.2 - 1.6 mg/dL Mupirocin (Bactroban 2% Nasal Oint) 1 applicatio EACH NARE BID [facility] Last Admin: 06/07/18 20:18 Dose: 1 applicatio Ondansetron HCl (Zofran Inj) 4 mg IV.PUSH Q6H PRN PRN Reason: NAUSEA OR VOMITING Pharmacy Profile Note (Vancomycin Consult Pharmacy) 1 each OTHER UNSCH PRN PRN Reason: Pharmacy to dose Potassium Bicarb/Potassium Chloride (K-Lyte Cl Eff) 50 meq PO UNSCH PRN PRN Reason: For Potassium 3.3 - 3.5 mEq/L Potassium Phosphate (K-Phos Original) 2,000 mg PO Q4H PRN PRN Reason: Phosphorus Less Than 2.5 mg/dL Potassium Phosphate (K-Phos Original) 2,000 mg PO UNSCH PRN PRN Reason: SEE LABEL COMMENTS Sodium Chloride (Ns Flush) 2 ml IV.FLUSH BID [facility] Last Admin: 06/07/18 20:18 Dose: 2 ml Sodium Chloride (Ns Flush) 2 ml IV.FLUSH PRN PRN PRN Reason: FLUSH AFTER USING IV ACCESS Allergies Allergy/AdvReac Type Severity Reaction Status Date / Time No Allergy Information Allergy Verified 06/03/18 14:22 Available Home Medications Medication Instructions Recorded Confirmed Type amlodipine 5 mg PO DAILY 06/03/18 06/03/18 History ascorbic acid (vitamin C) [Vitamin 500 mg PO DAILY 06/03/18 06/03/18 History C] aspirin 81 mg PO DAILY 06/03/18 06/03/18 History atorvastatin [Lipitor] 20 mg PO DAILY 06/03/18 06/03/18 History calcium carbonate [Calcium 600] 600 mg PO DAILY 06/03/18 06/03/18 History cinnamon bark [Cinnamon] 1,000 mg PO BID 06/03/18 06/03/18 History cyanocobalamin (vitamin B-12) 1,000 mcg PO DAILY 06/03/18 06/03/18 History [Vitamin B-12] famotidine 20 mg PO DAILY 06/03/18 06/03/18 History ferrous sulfate [iron] 325 mg PO BID 06/03/18 06/03/18 History furosemide [Lasix] 40 mg PO DAILY 06/03/18 06/03/18 History gabapentin 300 mg PO 5 TIMES A DAY 06/03/18 06/03/18 History glimepiride 2 mg PO BID 06/03/18 06/03/18 History hydrocodone-acetaminophen [[place]] 1 tab PO Q6H PRN 06/03/18 06/03/18 History insulin glargine [Lantus U-100 65 unit SUBCUT DAILY 06/03/18 06/03/18 History Insulin] lisinopril 10 mg PO DAILY 06/03/18 06/03/18 History metformin 500 mg PO QID 06/03/18 06/03/18 History metoprolol tartrate 50 mg PO BID 06/03/18 06/03/18 History niacin 500 mg PO DAILY 06/03/18 06/03/18 History potassium 99 mg PO BID 06/03/18 06/03/18 History warfarin [Coumadin] 5 mg PO DAILY 06/03/18 06/03/18 History Physical Exam Vital signs: Vital Signs 06/07/18 08:00 06/07/18 08:06 06/07/18 08:19 Temperature 98.5 F Pulse Rate 49 L 51 L Respiratory Rate 16 29 H Blood Pressure 125/58 L Pulse Oximetry 99 99 99 06/07/18 09:00 06/07/18 10:00 06/07/18 11:00 Temperature Pulse Rate 65 64 71 Respiratory Rate 16 16 16 Blood Pressure 123/58 L 130/60 147/74 H Pulse Oximetry 98 96 93 L 06/07/18 11:57 06/07/18 12:00 06/07/18 13:00 Temperature 98.8 F Pulse Rate 69 71 Respiratory Rate 16 16 17 Blood Pressure 149/66 H 129/58 L Pulse Oximetry 93 L 92 L 93 L 06/07/18 14:00 06/07/18 15:00 06/07/18 15:57 Temperature Pulse Rate 68 59 L 57 L Respiratory Rate 16 16 16 Blood Pressure 130/62 138/63 Pulse Oximetry 93 L 97 97 06/07/18 16:00 06/07/18 17:00 06/07/18 18:00 Temperature Pulse Rate 63 55 L 56 L Respiratory Rate 16 18 16 Blood Pressure 136/62 120/58 L 118/56 L Pulse Oximetry 96 97 98 06/07/18 19:00 06/07/18 20:00 06/07/18 21:00 Temperature 98.9 F Pulse Rate 54 L 57 L 54 L Respiratory Rate 16 16 16 Blood Pressure 123/60 136/63 125/59 L Pulse Oximetry 98 98 98 06/07/18 21:12 06/07/18 22:00 06/07/18 23:00 Temperature Pulse Rate 51 L 50 L 50 L Respiratory Rate 16 16 16 Blood Pressure 122/59 L 121/58 L Pulse Oximetry 98 98 98 06/08/18 00:00 06/08/18 00:26 06/08/18 01:00 Temperature 98.8 F Pulse Rate 56 L 55 L 50 L Respiratory Rate 16 16 16 Blood Pressure 142/65 H Pulse Oximetry 98 99 98 06/08/18 01:01 06/08/18 02:00 06/08/18 03:00 Temperature Pulse Rate 49 L 48 L 55 L Respiratory Rate 16 16 16 Blood Pressure 123/58 L 121/58 L 137/62 Pulse Oximetry 98 98 98 06/08/18 04:00 06/08/18 04:08 06/08/18 05:00 Temperature 98.8 F Pulse Rate 68 61 55 L Respiratory Rate 22 16 16 Blood Pressure 162/72 H Pulse Oximetry 99 96 98 06/08/18 05:01 06/08/18 06:00 Temperature Pulse Rate 56 L 52 L Respiratory Rate 16 15 Blood Pressure 127/61 126/58 L Pulse Oximetry 98 98 Intake & Output 06/07/18 06/08/18 06/08/18 18:59 06:59 18:59 Intake Total 977 / 977 1455 / 1455 0 / 0 Output Total 1000 / 1000 1750 / 1750 Balance -23 / -23 -295 / -295 0 / 0 Weight 111.5 kg Intake: IV 700 / 700 0 / 0 Heparin/D5W 25,000 U/250 mL 25, 250 / 250 000 unit In 250 ml @ 1,000 UNITS/HR 10 mls/hr IV.CONT TITRATE PRN Rx#:[id number] NovoLIN R (IV Infusion) 100 100 / 100 UNIT In NS Inj 99 ML @ Per Protocol IV.CONT TITRATE PRN Rx #:[id number] Maxipime Inj 1,000 MG In NS Inj 100 / 100 100 ML @ 200 mls/hr IV.SIG Q12HR [facility] Rx#:[id number] fentaNYL 10 mcg/mL Premix Drip 250 / 250 2,500 mcg In 250 ml @ 50 MCG/HR 5 mls/hr IV.SIG TITRATE PRN Rx #:[id number] Tube Feeding 777 / 777 635 / 635 Water Bolus Amount 200 / 200 120 / 120 Output: Urine 1000 / 1000 Urine Amount (Catheter) 1750 / 1750 Indwelling Urethral Catheter 1750 / 1750 - Constitutional Comments: Intubated and sedated. - Routine Neck Exam Absent: JVD - Routine Respiratory Exam Comments: Lungs clear anteriorly. - Routine Cardiovascular Exam Present: RRR, S1, S2, murmur. Absent: gallop Comments: II/ ANGELA diffusely. Markedly diminished S2. - Routine Abdominal Exam Present: soft, normoactive bowel sounds. Absent: organomegaly - Routine Extremities Exam Absent: cyanosis, clubbing, edema - Urinary Catheter Management Indwelling Urethral Catheter Cath placed during this visit: yes, but has since been removed by the nurse Reason for continuing: Hourly intake/output Insertion date: 06/06/18 Insertion time: 16:00 Removal date: 06/05/18 Removal time: 18:00 Straight Cath placed during this visit: no Reason for continuing: Hourly intake/output Results 06/08/18 04:30 06/08/18 04:30 Cardiac Enzymes 06/07/18 06/08/18 Range/Units 05:10 04:30 AST 13 L 25 (15-37) U/L Coagulation 06/07/18 06/08/18 Range/Units 05:10 04:30 PT 10.0 9.8 (9.8-11.6) sec APTT 41.5 H 35.6 H (23.4-31.7) sec CBC 06/07/18 06/08/18 Range/Units 05:10 04:30 WBC 8.9 9.8 (4.0-11.0) th/mm3 RBC 3.02 L 3.04 L (4.50-5.90) mil/mm3 Hgb 9.0 L 9.2 L (13.0-17.0) gm/dL Hct 27.0 L 26.8 L (39.0-51.0) % Plt Count 159 195 (150-450) th/mm3 Neut # (Auto) 6.9 7.9 H (1.8-7.7) th/mm3 Lymph # (Auto) 0.9 L 0.9 L (1.0-4.8) th/mm3 [place] # (Auto) 0.9 0.8 (0.0-0.9) th/mm3 Eos # (Auto) 0.2 0.2 (0.0-0.4) th/mm3 Baso # (Auto) 0.0 0.0 (0.0-0.2) th/mm3 Comprehensive Metabolic Panel 06/07/18 06/07/18 06/08/18 Range/Units 05:10 19:25 04:30 Sodium 138 140 142 (136-145) meq/L Potassium 4.9 4.2 4.0 (3.5-5.1) meq/L Chloride 102 101 103 (98-107) meq/L Carbon Dioxide 27.7 26.8 29.8 (21.0-32.0) meq/L BUN 49 H 56 H 66 H (7-18) mg/dL Creatinine 2.71 H 2.67 H 2.61 H (0.60-1.30) mg/dL Calcium 8.1 L 8.8 8.7 (8.5-10.1) mg/dL AST 13 L 25 (15-37) U/L ALT 15 26 (12-78) U/L Alkaline Phosphatase 73 90 (45-117) U/L Total Protein 6.4 6.6 (6.4-8.2) g/dL Albumin 2.1 L 2.0 L (3.4-5.0) g/dL Intake and Output 06/07/18 06/08/18 06/08/18 22:59 06:59 14:59 Intake Total 1677 / 1677 755 / 755 0 / 0 Output Total 1000 / 1000 1750 / 1750 Balance 677 / 677 -995 / -995 0 / 0 Intake: IV 700 / 700 0 / 0 Heparin/D5W 25,000 U/250 mL 25, 250 / 250 000 unit In 250 ml @ 1,000 UNITS/HR 10 mls/hr IV.CONT TITRATE PRN Rx#:[id number] NovoLIN R (IV Infusion) 100 100 / 100 UNIT In NS Inj 99 ML @ Per Protocol IV.CONT TITRATE PRN Rx #:[id number] Maxipime Inj 1,000 MG In NS Inj 100 / 100 100 ML @ 200 mls/hr IV.SIG Q12HR [facility] Rx#:[id number] fentaNYL 10 mcg/mL Premix Drip 250 / 250 2,500 mcg In 250 ml @ 50 MCG/HR 5 mls/hr IV.SIG TITRATE PRN Rx #:[id number] Tube Feeding 777 / 777 635 / 635 Water Bolus Amount 200 / 200 120 / 120 Output: Urine 1000 / 1000 Urine Amount (Catheter) 1750 / 1750 Indwelling Urethral Catheter 1750 / 1750 Other: Weight 111.5 kg - Imaging and Cardiology Imaging: Impressions Chest X-Ray 06/06/18 09:18 CONCLUSION: Bilateral effusions and diffuse interstitial prominence most consistent with CHF. Unchanged from prior. Chest X-Ray 06/06/18 17:04 CONCLUSION: 1. New left IJ central venous catheter with distal tip projecting over the mid SVC. 2. No appreciable pneumothorax. 3. Persistent ill-defined opacification of the mid and lower lungs, likely a combination of airspace disease and pleural fluid. Abdomen/Bladder Ultrasound 06/07/18 00:00 CONCLUSION: 1. Mildly increased renal cortical echogenicity bilaterally. 2. No evidence of hydronephrosis Chest X-Ray 06/07/18 04:00 CONCLUSION: 1. No significant change. Perihilar and bibasilar opacities are again noted most characteristic of pulmonary edema. 2. Bilateral pleural effusions are again noted. Chest X-Ray 06/08/18 06:00 CONCLUSION: Findings most characteristic of congestive heart failure. This appears mildly increased in the perihilar regions. Assessment and Plan - Assessment (1) Congestive heart failure Code(s): I50.9 - Heart failure, unspecified Status: Acute Plan: Severely reduced left ventricular function, EF 20-25%. Acute CHF, basically unchanged since admission. Chest x-ray today largely unchanged. REC continue beta celestine, IV Bumex drip. No ARB or HAI-I with renal insufficiency. (2) Paroxysmal atrial fibrillation Code(s): I48.0 - Paroxysmal atrial fibrillation Status: Acute Plan: More stable rhythm status overnight. Currently in NSR. One tegan possible VT otherwise uneventful monitoring. Recommend continue to hold IV Amiodarone, continue heparin drip. His thromboembolic risk is high. (3) Aortic stenosis Code(s): I35.0 - Nonrheumatic aortic (valve) stenosis Status: Chronic Plan: Severe by exam, echo. Await CABG/AVR which apparently was to be performed by Dr. Enriquez at [facility]. Patient currently in no condition to undergo open heart surgery. (4) Coronary artery disease Code(s): I25.10 - Atherosclerotic heart disease of [place] coronary artery without angina pectoris Status: Chronic Plan: Overall no definite evidence for ACS. CK's negative for [place]. No acute EKG changes. Troponin levels only minimally elevated, in the setting of renal insufficiency. - Plan Code Status: full code (1) Congestive heart failure Qualifiers: Heart failure type: systolic (4) Coronary artery disease Qualifiers: Coronary Disease-Associated Artery/Lesion type: [place] artery [place] vs. transplanted heart: [place] heart Associated angina: angina presence unspecified Qualified Code(s): I25.10 - Atherosclerotic heart disease of [place] coronary artery without angina pectoris
[2018-06-08] MEDS: Insulin Detemir Inj 1,000 UNIT/10 ML Vial SQ SCH ×2 (09:08→20:40)
[2018-06-08] MEDS: Mupirocin 2% Nasal Oint Topical Syringe EACH NARE SCH ×2 (09:08→20:39)
[2018-06-08] MEDS: Carvedilol 6.25 MG Tablet PO SCH ×2 (09:08→20:39)
[2018-06-08] MEDS: Sodium Chloride 0.9% 2 ML Flush BID IV.FLUSH SCH ×2 (09:08→20:41)
--- NOTE | 2018-06-08 10:59 | P.PNID ---
Subjective Remarks: On the ventilator. Sedated. Remains unresponsive. Thick beige secretions via ETT. Afebrile. This is a 73-year-old white male who was brought to the emergency department with respiratory distress. The patient was also noted to have altered mental status. Past Medical History: PAST MEDICAL HISTORY: Unable to obtain because the patient is on the ventilator. He reportedly has coronary artery disease and is due to undergo valve replacement for heart valve disease. Allergies/Adverse Reactions: Allergies No Allergy Information Available Allergy (Verified 06/03/18 14:22) Allergy unobtainable Objective Vital Signs 06/07/18 11:00 06/07/18 11:57 06/07/18 12:00 Temperature 98.8 F Pulse Rate 71 69 Respiratory Rate 16 16 16 Blood Pressure 147/74 H 149/66 H Pulse Oximetry 93 L 93 L 92 L 06/07/18 13:00 06/07/18 14:00 06/07/18 15:00 Temperature Pulse Rate 71 68 59 L Respiratory Rate 17 16 16 Blood Pressure 129/58 L 130/62 138/63 Pulse Oximetry 93 L 93 L 97 06/07/18 15:57 06/07/18 16:00 06/07/18 17:00 Temperature Pulse Rate 57 L 63 55 L Respiratory Rate 16 16 18 Blood Pressure 136/62 120/58 L Pulse Oximetry 97 96 97 06/07/18 18:00 06/07/18 19:00 06/07/18 20:00 Temperature 98.9 F Pulse Rate 56 L 54 L 57 L Respiratory Rate 16 16 16 Blood Pressure 118/56 L 123/60 136/63 Pulse Oximetry 98 98 98 06/07/18 21:00 06/07/18 21:12 06/07/18 22:00 Temperature Pulse Rate 54 L 51 L 50 L Respiratory Rate 16 16 16 Blood Pressure 125/59 L 122/59 L Pulse Oximetry 98 98 98 06/07/18 23:00 06/08/18 00:00 06/08/18 00:26 Temperature 98.8 F Pulse Rate 50 L 56 L 55 L Respiratory Rate 16 16 16 Blood Pressure 121/58 L 142/65 H Pulse Oximetry 98 98 99 06/08/18 01:00 06/08/18 01:01 06/08/18 02:00 Temperature Pulse Rate 50 L 49 L 48 L Respiratory Rate 16 16 16 Blood Pressure 123/58 L 121/58 L Pulse Oximetry 98 98 98 06/08/18 03:00 06/08/18 04:00 06/08/18 04:08 Temperature 98.8 F Pulse Rate 55 L 68 61 Respiratory Rate 16 22 16 Blood Pressure 137/62 162/72 H Pulse Oximetry 98 99 96 06/08/18 05:00 06/08/18 05:01 06/08/18 06:00 Temperature Pulse Rate 55 L 56 L 52 L Respiratory Rate 16 16 15 Blood Pressure 127/61 126/58 L Pulse Oximetry 98 98 98 06/08/18 07:00 06/08/18 08:00 06/08/18 08:36 Temperature 99.3 F Pulse Rate 51 L 63 57 L Respiratory Rate 16 16 16 Blood Pressure 129/61 146/68 H Pulse Oximetry 95 97 06/08/18 09:00 06/08/18 10:00 Temperature Pulse Rate 57 L 50 L Respiratory Rate 16 16 Blood Pressure 118/57 L 117/57 L Pulse Oximetry 96 96 Intake & Output 06/07/18 06/08/18 06/08/18 18:59 06:59 18:59 Intake Total 977 / 977 1455 / 1455 0 / 0 Output Total 1000 / 1000 1750 / 1750 Balance -23 / -23 -295 / -295 0 / 0 Weight 111.5 kg Intake: IV 700 / 700 0 / 0 Heparin/D5W 25,000 U/250 mL 25, 250 / 250 000 unit In 250 ml @ 1,000 UNITS/HR 10 mls/hr IV.CONT TITRATE PRN Rx#:[id number] NovoLIN R (IV Infusion) 100 100 / 100 UNIT In NS Inj 99 ML @ Per Protocol IV.CONT TITRATE PRN Rx #:[id number] Maxipime Inj 1,000 MG In NS Inj 100 / 100 100 ML @ 200 mls/hr IV.SIG Q12HR [facility] Rx#:[id number] fentaNYL 10 mcg/mL Premix Drip 250 / 250 2,500 mcg In 250 ml @ 50 MCG/HR 5 mls/hr IV.SIG TITRATE PRN Rx #:[id number] Tube Feeding 777 / 777 635 / 635 Water Bolus Amount 200 / 200 120 / 120 Output: Urine 1000 / 1000 Urine Amount (Catheter) 1750 / 1750 Indwelling Urethral Catheter 1750 / 1750 06/04/18 17:25 Blood - Peripheral Aerobic Blood Culture - Preliminary No growth in 3 days 06/04/18 17:25 Blood - Peripheral Anaerobic Blood Culture - Preliminary No growth in 3 days 06/04/18 17:30 Blood - Peripheral Aerobic Blood Culture - Preliminary No growth in 3 days 06/04/18 17:30 Blood - Peripheral Anaerobic Blood Culture - Preliminary No growth in 3 days 06/03/18 15:05 Blood - Peripheral Aerobic Blood Culture - Preliminary No growth in 4 days 06/03/18 15:05 Blood - Peripheral Anaerobic Blood Culture - Preliminary No growth in 4 days 06/03/18 15:00 Blood - Peripheral Aerobic Blood Culture - Preliminary No growth in 4 days 06/03/18 15:00 Blood - Peripheral Anaerobic Blood Culture - Preliminary No growth in 4 days 06/04/18 16:15 Sputum - Endotracheal Gram Stain - Final 06/04/18 16:15 Sputum - Endotracheal Sputum Culture - Final S. aureus MRSA 06/04/18 16:15 Catheterized Urine Urine Culture - Final No growth in 48 hours Lab - Hematology Results 06/07/18 06/08/18 05:10 04:30 WBC 8.9 9.8 RBC 3.02 L 3.04 L Hgb 9.0 L 9.2 L Hct 27.0 L 26.8 L MCV 89.4 88.2 MCH 29.9 30.1 MCHC 33.4 34.2 RDW 15.8 15.8 Plt Count 159 195 MPV 9.6 9.2 Neut % (Auto) 77.3 H 80.8 H Lymph % (Auto) 10.3 9.1 [place] % (Auto) 9.7 H 8.3 H Eos % (Auto) 2.3 1.6 Baso % (Auto) 0.4 0.2 Neut # (Auto) 6.9 7.9 H Lymph # (Auto) 0.9 L 0.9 L [place] # (Auto) 0.9 0.8 Eos # (Auto) 0.2 0.2 Baso # (Auto) 0.0 0.0 WBC Differential . . Differential Comment Auto diff final Auto diff final Lab - Chemistry Results 06/06/18 06/06/18 06/07/18 12:14 17:39 00:05 Sodium Potassium Chloride Carbon Dioxide Anion Gap BUN Creatinine Estimated GFR POC Glucose 450 H 437 H 347 H Random Glucose Calcium Phosphorus Magnesium Total Bilirubin AST ALT Alkaline Phosphatase Total Protein Albumin 06/07/18 06/07/18 06/07/18 05:10 06:09 11:57 Sodium 138 Potassium 4.9 Chloride 102 Carbon Dioxide 27.7 Anion Gap 8 BUN 49 H Creatinine 2.71 H Estimated GFR 23 L POC Glucose 461 H* 352 H Random Glucose 378 H Calcium 8.1 L Phosphorus 4.2 D Magnesium 2.6 H Total Bilirubin 0.5 AST 13 L ALT 15 Alkaline Phosphatase 73 Total Protein 6.4 Albumin 2.1 L 06/07/18 06/07/18 06/07/18 13:56 15:04 15:59 Sodium Potassium Chloride Carbon Dioxide Anion Gap BUN Creatinine Estimated GFR POC Glucose 476 H* 507 H* 507 H* Random Glucose Calcium Phosphorus Magnesium Total Bilirubin AST ALT Alkaline Phosphatase Total Protein Albumin 06/07/18 06/07/18 06/07/18 17:14 18:17 19:11 Sodium Potassium Chloride Carbon Dioxide Anion Gap BUN Creatinine Estimated GFR POC Glucose 393 H 357 H 362 H Random Glucose Calcium Phosphorus Magnesium Total Bilirubin AST ALT Alkaline Phosphatase Total Protein Albumin 06/07/18 06/07/18 06/07/18 19:25 20:16 21:18 Sodium 140 Potassium 4.2 Chloride 101 Carbon Dioxide 26.8 Anion Gap 12 BUN 56 H Creatinine 2.67 H Estimated GFR 24 L POC Glucose 247 H 240 H Random Glucose 284 H Calcium 8.8 Phosphorus Magnesium Total Bilirubin AST ALT Alkaline Phosphatase Total Protein Albumin 06/07/18 06/07/18 06/08/18 22:16 23:06 00:14 Sodium Potassium Chloride Carbon Dioxide Anion Gap BUN Creatinine Estimated GFR POC Glucose 236 H 218 H 204 H Random Glucose Calcium Phosphorus Magnesium Total Bilirubin AST ALT Alkaline Phosphatase Total Protein Albumin 06/08/18 06/08/18 06/08/18 01:08 02:19 03:23 Sodium Potassium Chloride Carbon Dioxide Anion Gap BUN Creatinine Estimated GFR POC Glucose 220 H 210 H 208 H Random Glucose Calcium Phosphorus Magnesium Total Bilirubin AST ALT Alkaline Phosphatase Total Protein Albumin 06/08/18 06/08/18 06/08/18 04:25 04:30 05:23 Sodium 142 Potassium 4.0 Chloride 103 Carbon Dioxide 29.8 Anion Gap 9 BUN 66 H Creatinine 2.61 H Estimated GFR 24 L POC Glucose 198 H 182 H Random Glucose 171 H D Calcium 8.7 Phosphorus 3.2 D Magnesium 2.6 H Total Bilirubin 0.5 AST 25 ALT 26 Alkaline Phosphatase 90 Total Protein 6.6 Albumin 2.0 L 06/08/18 06/08/18 06/08/18 06:17 08:00 09:07 Sodium Potassium Chloride Carbon Dioxide Anion Gap BUN Creatinine Estimated GFR POC Glucose 183 H 186 H 176 H Random Glucose Calcium Phosphorus Magnesium Total Bilirubin AST ALT Alkaline Phosphatase Total Protein Albumin Imaging: ITS Impressions Head CT 06/03/18 15:01 CONCLUSION: No acute intracranial abnormality demonstrated. . Abdomen/Bladder Ultrasound 06/07/18 00:00 CONCLUSION: 1. Mildly increased renal cortical echogenicity bilaterally. 2. No evidence of hydronephrosis Chest X-Ray 06/08/18 06:00 CONCLUSION: Findings most characteristic of congestive heart failure. This appears mildly increased in the perihilar regions. Physical Exam: PHYSICAL EXAMINATION: GENERAL: Sedated on the ventilator. HEENT: Unable to fully assess because the patient cannot cooperate. No icterus. Oropharynx intubated. NECK: No adenopathy. LUNGS: Coarse rhonchi bilateral. HEART: A 3/6 to 4/6 systolic murmur at the left sternal border. ABDOMEN: Bowel sounds present. Obese, soft. EXTREMITIES: No clubbing, cyanosis or edema. Decreased peripheral pulses. SKIN: No rash. NEUROLOGIC: Unable to assess. Sedated on the vent. PSYCHIATRIC: Unable to assess. Assessment and Plan - Plan IMPRESSION: 1. Pneumonia due to methicillin-resistant Staphylococcus aureus. CXR has bilateral infiltrates. 2. Acute respiratory failure. 3. Acute kidney disease. 4. Fever. Temp lower. RECOMMENDATIONS: 1. Continue vancomycin. 2. Monitor temperature. 3. Monitor kidney function.
[2018-06-08] MEDS: fentaNYL 10 mcg/mL Premix Drip 2,500 MCG/250 ML BAG IV.SIG PRN ×2 (11:30→22:49)
[2018-06-08] MEDS ORDERED: Vancomycin Inj 1,500 MG in Sodium Chlor 0.9% Inj 500 ML IV.SIG ONE (12:00)
[2018-06-08] MEDS: Bumetanide Inj 25 MG/100 ML BAG IV.CONT SCH (13:15)
--- NOTE | 2018-06-08 13:17 | P.PNCC ---
Subjective Subjective Remarks/Hospital Course: 06/03: 73-year-old male with a medical history of cardiac problems who recently had a workup done at [facility] and [facility] in [place] per family and was evaluated by CT surgeon at [facility] in [place] last week including Dr. Jay Wisdom per family for CT surgery. Patient has been having shortness of breath for the last week or so per his and today his breathing worsened and he was brought to the ER at [facility] where he was in respiratory extremis with O2 sats in the 70s and was intubated and placed on mechanical ventilation. He was also very hypotensive on arrival and after receiving about 500 cc of normal saline bolus he was started on Levophed and dopamine for pressor support. He had a femoral central line placed by ER physician. His chest x-ray in the ER showed pulmonary edema and questionable infiltrates. He did not have a fever or white count on his labs and due to elevated creatinine could not get a CTA of the chest per ER physician. Subsequently he was maintaining his O2 sats around 96% on mechanical ventilation with 100% FiO2 with heart rate in the 60s and systolic blood pressure 100s on dopamine 5 mics per KG per minute. When I evaluated the patient in the ER he was propofol, orally intubated on mechanical ventilation. I spoke with patient's who could not really give me any details of his medical history including recent workup or diagnosis. She tells me he has a history of having "holes in the heart" however is unclear regarding what surgery he was scheduled for at [facility]. I discussed this with Dr. Rich in the ER and requested that he contact Dr. Jay Wisdom who evaluated the patient for his to see if he would want patient transferred to [facility] as he was scheduled for surgery there with him. We do not have any details of his recent workup or diagnosis at this time. 06/04 : Further history revealed following cardiology evaluation by Dr. Schwab who was able to look up his medical records at [facility]. Patient reportedly has severe coronary artery disease and valvular dysfunction and was scheduled for surgery in the near future with CT surgeon at [facility]. Still awaiting medical records from outside hospitals regarding cardiac workup. In the meanwhile patient remains sedated, orally intubated on mechanical ventilation. Off dopamine. 06/05: off pressors. remains intubated. back in afib RVR. diuresing. 06/06: This a.m., patient had worsening hypoxia requiring 100% O2. I was called emergently at bedside by RT. Blood gas reviewed, vent settings changed, currently patient 98% on FiO2 of 1. T-max of 102.9. I/O 4388/2250. Sedation is achieved with fentanyl drip. Patient is sedated and intubated, opens eyes to voice stimuli but does not follow any commands. Amiodarone is infusing at 1 mg/min, patient is still in A. fib with heart rate in the 60s-70s. 06/07: Afebrile. Switch from APRV to PRVC ventilation. PEEP of 10. Arousable on the ventilator. Noted episodic dysrhythmias overnight. Amiodarone discontinued per cardiology recommendation. Potassium and magnesium are greater than 4/2 respectively. Subjective 06/08: Remains on PRVC ventilation. PEEP of 8. Diuresing with bumetanide drip. Arousable follows commands. FiO2 down to 40%. Objective Vital Signs / I&O: Vital Signs 06/07/18 14:00 06/07/18 15:00 06/07/18 15:57 Temperature Pulse Rate 68 59 L 57 L Respiratory Rate 16 16 16 Blood Pressure 130/62 138/63 Pulse Oximetry 93 L 97 97 06/07/18 16:00 06/07/18 17:00 06/07/18 18:00 Temperature Pulse Rate 63 55 L 56 L Respiratory Rate 16 18 16 Blood Pressure 136/62 120/58 L 118/56 L Pulse Oximetry 96 97 98 06/07/18 19:00 06/07/18 20:00 06/07/18 21:00 Temperature 98.9 F Pulse Rate 54 L 57 L 54 L Respiratory Rate 16 16 16 Blood Pressure 123/60 136/63 125/59 L Pulse Oximetry 98 98 98 06/07/18 21:12 06/07/18 22:00 06/07/18 23:00 Temperature Pulse Rate 51 L 50 L 50 L Respiratory Rate 16 16 16 Blood Pressure 122/59 L 121/58 L Pulse Oximetry 98 98 98 06/08/18 00:00 06/08/18 00:26 06/08/18 01:00 Temperature 98.8 F Pulse Rate 56 L 55 L 50 L Respiratory Rate 16 16 16 Blood Pressure 142/65 H Pulse Oximetry 98 99 98 06/08/18 01:01 06/08/18 02:00 06/08/18 03:00 Temperature Pulse Rate 49 L 48 L 55 L Respiratory Rate 16 16 16 Blood Pressure 123/58 L 121/58 L 137/62 Pulse Oximetry 98 98 98 06/08/18 04:00 06/08/18 04:08 06/08/18 05:00 Temperature 98.8 F Pulse Rate 68 61 55 L Respiratory Rate 22 16 16 Blood Pressure 162/72 H Pulse Oximetry 99 96 98 06/08/18 05:01 06/08/18 06:00 06/08/18 07:00 Temperature Pulse Rate 56 L 52 L 51 L Respiratory Rate 16 15 16 Blood Pressure 127/61 126/58 L 129/61 Pulse Oximetry 98 98 95 06/08/18 08:00 06/08/18 08:36 06/08/18 09:00 Temperature 99.3 F Pulse Rate 63 57 L 57 L Respiratory Rate 16 16 16 Blood Pressure 146/68 H 118/57 L Pulse Oximetry 97 96 06/08/18 10:00 06/08/18 11:00 06/08/18 11:54 Temperature Pulse Rate 50 L 50 L 55 L Respiratory Rate 16 16 10 L Blood Pressure 117/57 L 127/60 Pulse Oximetry 96 97 06/08/18 11:55 06/08/18 12:00 Temperature 99.0 F Pulse Rate 53 L Respiratory Rate 10 L 10 L Blood Pressure 129/62 Pulse Oximetry 98 98 Intake & Output 06/07/18 06/08/18 06/08/18 18:59 06:59 18:59 Intake Total 977 / 977 1455 / 1455 398 / 398 Output Total 1000 / 1000 1750 / 1750 Balance -23 / -23 -295 / -295 398 / 398 Weight 111.5 kg Intake: IV 700 / 700 398 / 398 Bumex Inj 25 mg In 100 ml @ 0.5 48 / 48 MG/HR 2 mls/hr IV.CONT .Q24H BLANCHE Rx#:[id number] Heparin/D5W 25,000 U/250 mL 25, 250 / 250 000 unit In 250 ml @ 1,000 UNITS/HR 10 mls/hr IV.CONT TITRATE PRN Rx#:[id number] NovoLIN R (IV Infusion) 100 100 / 100 UNIT In NS Inj 99 ML @ Per Protocol IV.CONT TITRATE PRN Rx #:[id number] Maxipime Inj 1,000 MG In NS Inj 100 / 100 100 / 100 100 ML @ 200 mls/hr IV.SIG Q12HR BLANCHE Rx#:[id number] fentaNYL 10 mcg/mL Premix Drip 250 / 250 250 / 250 2,500 mcg In 250 ml @ 50 MCG/HR 5 mls/hr IV.SIG TITRATE PRN Rx #:[id number] Tube Feeding 777 / 777 635 / 635 Water Bolus Amount 200 / 200 120 / 120 Output: Urine 1000 / 1000 Urine Amount (Catheter) 1750 / 1750 Indwelling Urethral Catheter 1750 / 1750 Result Diagrams: 06/08/18 04:30 06/08/18 04:30 Other Results: Microbiology 06/04/18 17:25 Blood - Peripheral Aerobic Blood Culture - Preliminary No growth in 4 days 06/04/18 17:25 Blood - Peripheral Anaerobic Blood Culture - Preliminary No growth in 4 days 06/04/18 17:30 Blood - Peripheral Aerobic Blood Culture - Preliminary No growth in 4 days 06/04/18 17:30 Blood - Peripheral Anaerobic Blood Culture - Preliminary No growth in 4 days 06/03/18 15:05 Blood - Peripheral Aerobic Blood Culture - Final No growth in 5 days 06/03/18 15:05 Blood - Peripheral Anaerobic Blood Culture - Final No growth in 5 days 06/03/18 15:00 Blood - Peripheral Aerobic Blood Culture - Final No growth in 5 days 06/03/18 15:00 Blood - Peripheral Anaerobic Blood Culture - Final No growth in 5 days 06/04/18 16:15 Sputum - Endotracheal Gram Stain - Final 06/04/18 16:15 Sputum - Endotracheal Sputum Culture - Final S. aureus MRSA 06/04/18 16:15 Catheterized Urine Urine Culture - Final No growth in 48 hours Imaging: Chest X-Ray 06/03/18 14:22 CONCLUSION: 1. ETT in good position. NGT beyond the GE junction. 2. Cardiomegaly with pulmonary edema pattern. 3. More focal airspace consolidation in the left lower lung zone. Head CT 06/03/18 15:01 CONCLUSION: No acute intracranial abnormality demonstrated. . Chest X-Ray 06/04/18 05:00 CONCLUSION: Unchanged exam. Chest X-Ray 06/05/18 05:00 CONCLUSION: No interval change. Chest X-Ray 06/06/18 09:18 CONCLUSION: Bilateral effusions and diffuse interstitial prominence most consistent with CHF. Unchanged from prior. Chest X-Ray 06/06/18 17:04 CONCLUSION: 1. New left IJ central venous catheter with distal tip projecting over the mid SVC. 2. No appreciable pneumothorax. 3. Persistent ill-defined opacification of the mid and lower lungs, likely a combination of airspace disease and pleural fluid. Abdomen/Bladder Ultrasound 06/07/18 00:00 CONCLUSION: 1. Mildly increased renal cortical echogenicity bilaterally. 2. No evidence of hydronephrosis Chest X-Ray 06/07/18 04:00 CONCLUSION: 1. No significant change. Perihilar and bibasilar opacities are again noted most characteristic of pulmonary edema. 2. Bilateral pleural effusions are again noted. Chest X-Ray 06/08/18 06:00 CONCLUSION: Findings most characteristic of congestive heart failure. This appears mildly increased in the perihilar regions. Objective Remarks: General: Elderly gentleman, intubated and sedated, very ill-appearing HEENT: Pupils are equal and reactive, sclerae anicteric, orally intubated, + NGT Neck: Trachea midline, neck is supple and without rigidity, unable to appreciate neck vein distention due to body habitus, no carotid bruit. Left IJ is clean dry and intact Chest/Pulm: Coarse breath sounds bilateral, decreased breath sounds at bases, no wheezes CVS: Irregular heart sounds, systolic ejection murmur at the apex GI/abdomen: Soft, appears nontender, distended, unable to appreciate hepatomegaly or splenomegaly Extremities: Warm and well-perfused, peripheral pulses are present, 1+ edema. Neuro: RASS -2, opens eyes to voice stimuli but does not follow any commands, pupils are equal and reactive, no gaze deviation, withdraws to pain Assessment and Plan - Assessment and Plan Plan: Neuro: Sedation with fentanyl and propofol drips, CT head negative for bleed, follow neuro checks. daily sedation vacation Cardiovascular: Cardiology following, off dopamine and norepinephrine. Discontinue amiodarone infusion per cardiology. Diuresis with bumetanide drip at 0.5 mg an hour, 2D echo results noted with ejection fraction 25%. Initiate statin when okay with cardiology. Still awaiting allergy information to be verified.. Today we will start carvedilol 6.25 mg twice daily if remains off dopamine. Will initiate aspirin [address] surgery consultation. [facility] refused transfer to. Pulmonary: Continue mechanical ventilation, due to worsening hypoxia ventilator settings changed to PRVC Continue broad-spectrum antibiotics with vancomycin and cefepime per infectious disease recommendations GI/liver: tube feeds and advance to goal as tolerated we will switch to Glucerna 1.5 goal 60 cc an hour. Lansoprazole for GI prophylaxis. Renal: Strict intake output, monitor and replete electrolytes, follow BUN creatinine. Diuresis with bumetanide drip. Place Spence catheter for accurate urine output measurement. Check urine eosinophils, sodium and creatinine. Heme: Follow CBC and coags ID: Continue broad-spectrum antibiotics with vancomycin and cefepime per infectious disease evaluation. Due to persistent fever check respiratory viral panel PCR and will ask infectious disease consult evaluate. Endocrine: Continue insulin drip 4 units an hour. Titrate. Add insulin detemir 11 units twice daily due to high blood sugar Prophylaxis: PPI/SCDs/full anticoagulation with heparin gtt No family was present at bedside. Discussed with [facility] RN. I spent 30 minutes of critical care time,TAbdias
[2018-06-08] MEDS ORDERED: Pharmacy Ordered Lab Info OTHER SCH (16:45)
[2018-06-08] MEDS: Insulin Regular (For Infusion) 100 UNIT in Sodium Chlor 0.9% Inj 99 ML IV.CONT PRN (16:53)
[2018-06-08] MEDS: Insulin NovoLIN Regular Correctional Sugar Inj SQ SCH (19:56)
[2018-06-08] MEDS: Heparin Drip 25,000 UNIT/250 ML BAG IV.CONT PRN (21:28)
[2018-06-09 00:55] LABS: Calcium 9.7 mg/dL (8.5-10.1); Carbon Dioxide 32.1 meq/L (21.0-32.0); Potassium 3.5 meq/L (3.5-5.1)
[2018-06-09] MEDS: Heparin 10,000 UNITS/10 ML Vial (for IV use) IV.PUSH PRN ×3 (02:08→20:05)
[2018-06-09] MEDS: Artificial Tears Opth Drops 15 ML Bottle EACH EYE SCH ×3 (04:32→20:03)
--- NOTE | 2018-06-09 05:01 | XR ---
EXAM DATE: 06/09/2018 4:11 AM EST AGE/SEX: 73 years / Male INDICATIONS: Shortness of breath, possible pulmonary edema. CLINICAL DATA: This is the patient's subsequent encounter. Patient reports that signs and symptoms h ave been present for 4 - 6 days and indicates a pain score of Nonresponsive. MEDICAL/SURGICAL HISTORY: Non-responsive. Non-responsive. [place]PAR[place] [facility] [place] S[place]. . FINDINGS: A single AP semierect view of the chest was obtained.. This demonstrates interval placement of nasoga stric tube is seen coursing through the esophagus into the stomach. Left internal jugular central simi ous line remains in place. Hazy opacity remains in both lung bases and perihilar regions which appear s mildly improved. Both costophrenic angles remain blunted. CONCLUSION: Mild interval improvement in the apparent congestive heart failure. Electronically signed by: Riley Peter MD 06/09/2018 4:59 AM EST
[2018-06-09 05:07] LABS: ABG Base Excess 10.4 mmol/L (-2-2); ABG PCO2 33 mmHg (38-42); ABG PO2 89 mmHG (61-120)
[2018-06-09 06:19] LABS: Baso % (Auto) 0.4 % (0.0-2.0); Eos # (Auto) 0.1 th/mm3 (0.0-0.4); Hematocrit 33.4 % (39.0-51.0); Hemoglobin 11.4 gm/dL (13.0-17.0); Lymph # (Auto) 1.4 th/mm3 (1.0-4.8); Lymph % (Auto) 13.7 % (9.0-44.0); Mean Corpuscular HGB Conc 34.2 % (32.0-36.0); Mean Corpuscular Hemoglobin 29.4 pg (27.0-34.0); Mean Corpuscular Volume 85.9 fL (80.0-100.0); Mean Platelet Volume 9.9 fL (7.0-11.0); Mono # (Auto) 1.1 th/mm3 (0.0-0.9); Mono % (Auto) 10.2 % (0.0-8.0); Neut # (Auto) 7.8 th/mm3 (1.8-7.7); Neut % (Auto) 74.7 % (16.0-70.0); Platelet Count 328 th/mm3 (150-450); Red Blood Count 3.89 mil/mm3 (4.50-5.90); Red Cell Distribution Width 15.6 % (11.6-17.2); White Blood Count 10.5 th/mm3 (4.0-11.0)
[2018-06-09 06:26] LABS: Activated Partial Thrombo Time 36.5 sec (23.4-31.7)
[2018-06-09 06:45] LABS: Alanine Aminotransferase 33 U/L (12-78); Albumin 2.2 g/dL (3.4-5.0); Alkaline Phosphatase 86 U/L (45-117); Anion Gap 11 meq/L (5-15); Aspartate Aminotransferase 62 U/L (15-37); Blood Urea Nitrogen 85 mg/dL (7-18); Calcium 9.7 mg/dL (8.5-10.1); Carbon Dioxide 33.5 meq/L (21.0-32.0); Chloride 98 meq/L (98-107); Glomerular Filtration Rate 25 mL/min (>89); Glucose,Random 136 mg/dL (74-106); Magnesium 2.6 mg/dL (1.5-2.5); Phosphorus 4.3 mg/dL (2.5-4.9); Sodium 142 meq/L (136-145)
[2018-06-09 06:48] LABS: Potassium 4.2 meq/L (3.5-5.1)
--- NOTE | 2018-06-09 07:59 | P.PNCA ---
Subjective Interval history: Intubated. Sedated. Medications and Allergies Active Medications: Active Medications Acetaminophen (Tylenol Liq) 650 mg NG/OG Q6H PRN PRN Reason: TEMP>101F, PAIN 1-10, HEADACHE Last Admin: 06/06/18 10:40 Dose: 650 mg Albuterol (Duoneb Neb (Migd[place])) 1 ampul NEB Q4HR NEB [facility] Last Admin: 06/09/18 03:54 Dose: 1 ampul Albuterol (Albuterol Neb (Prn)) 2.5 mg NEB Q2HR NEB PRN PRN Reason: DYSPNEA Artificial Tears (Tears Naturale Opth Drops) 1 drop EACH EYE Q8H [facility] Last Admin: 06/09/18 04:32 Dose: 1 drop Aspirin (Aspirin Chew) 81 mg PO DAILY [facility] Last Admin: 06/08/18 09:08 Dose: 81 mg Carvedilol (Coreg) 6.25 mg PO BID [facility] Last Admin: 06/08/18 20:39 Dose: 6.25 mg Cyanocobalamin (Vitamin B12) 1,000 mcg PO DAILY [facility] Last Admin: 06/08/18 09:07 Dose: 1,000 mcg Dextrose (D50w Vial) 50 ml IV.PUSH UNSCH PRN PRN Reason: PER HYPOGLYCEMIA PROTOCOL Glucagon (Glucagon Inj) 1 mg OTHER PRN PRN PRN Reason: for Hypoglycemia Protocol Heparin Sodium (Porcine) (Heparin Inj) 5,000 units IV.PUSH UNSCH PRN PRN Reason: aPTT < 25 Heparin Sodium (Porcine) (Heparin Inj) 2,500 units IV.PUSH UNSCH PRN PRN Reason: aPTT 25-39 Last Admin: 06/09/18 06:32 Dose: 2,500 units Fentanyl (Fentanyl 10 Mcg/Ml Premix Drip) 2,500 mcg in 250 mls @ 5 mls/hr IV.SIG TITRATE PRN; Protocol PRN Reason: Per Protocol Last Admin: 06/08/18 22:49 Dose: 200 mcg/hr, 20 mls/hr Midazolam HCl (Versed Inj) 50 mg in 50 mls @ 2 mls/hr IV.CONT TITRATE PRN; Protocol PRN Reason: Per Protocol Last Titration: 06/05/18 18:45 Dose: Infused Magnesium Sulfate 4 gm/ Sodium (Chloride) 100 mls @ 50 mls/hr IV.SIG UNSCH PRN PRN Reason: For Magnesium 0.9 - 1.1 mg/dL Magnesium Sulfate 2 gm/ Sodium (Chloride) 100 mls @ 50 mls/hr IV.SIG UNSCH PRN PRN Reason: For Magnesium 1.2 - 1.6 mg/dL Potassium Chloride (Kcl 40 Meq Premix Inj) 40 meq in 100 mls @ 25 mls/hr IV.SIG Q2H PRN PRN Reason: For Potassium 2.8 - 3.2 mEq/L Potassium Chloride (Kcl 20 Meq Premix Inj) 20 meq in 100 mls @ 50 mls/hr IV.SIG Q2H PRN PRN Reason: For Potassium 3.3 - 3.5 mEq/L Last Infusion: 06/04/18 10:25 Dose: Infused Potassium Chloride (Kcl 40 Meq Premix Inj) 40 meq in 100 mls @ 25 mls/hr IV.SIG UNSCH PRN PRN Reason: For Potassium 3.3 - 3.5 mEq/L Potassium Phosphate 30 mmol/ (Sodium Chloride) 260 mls @ 42 mls/hr IV.SIG UNSCH PRN PRN Reason: SEE LABEL COMMENTS Sodium Phosphate 30 mmol/ (Sodium Chloride) 260 mls @ 42 mls/hr IV.SIG UNSCH PRN PRN Reason: For Phosphorus < 2.5 mg/dL Potassium Chloride (Kcl 20 Meq Premix Inj) 20 meq in 100 mls @ 50 mls/hr IV.SIG Q2H PRN PRN Reason: For Potassium 2.8 - 3.2 mEq/L Heparin Sodium/Dextrose (Heparin/D5w 25,000 U/250 Ml) 25,000 unit in 250 mls @ 10 mls/hr IV.CONT TITRATE PRN; Protocol PRN Reason: Per Protocol Last Titration: 06/09/18 06:31 Dose: 1,700 units/hr, 17 mls/hr Amiodarone HCl 450 mg/ (Dextrose) 250 mls @ 33.33 mls/hr IV.CONT CONT PRN PRN Reason: tachycardia Last Infusion: 06/06/18 16:00 Dose: 0 mg/min, 0 mls/hr Insulin Human Regular 100 unit (/ Sodium Chloride) 100 mls @ 0 mls/hr IV.CONT TITRATE PRN; Protocol PRN Reason: See protocol Last Titration: 06/09/18 06:50 Dose: 4 units/hr, 4 mls/hr Cefepime HCl 1,000 mg/ Sodium (Chloride) 100 mls @ 200 mls/hr IV.SIG Q12HR [facility] Last Infusion: 06/08/18 21:15 Dose: Infused Insulin Detemir (Levemir Inj) 11 unit SQ BID [facility] Last Admin: 06/08/18 20:40 Dose: 11 unit Lansoprazole (Prevacid Solutab) 30 mg NG/OG DAILY [facility] Last Admin: 06/08/18 09:07 Dose: 30 mg Magnesium Oxide (Mag-Ox) 800 mg PO UNSCH PRN PRN Reason: For Magnesium 1.2 - 1.6 mg/dL Mupirocin (Bactroban 2% Nasal Oint) 1 applicatio EACH NARE BID [facility] Last Admin: 06/08/18 20:39 Dose: 1 applicatio Ondansetron HCl (Zofran Inj) 4 mg IV.PUSH Q6H PRN PRN Reason: NAUSEA OR VOMITING Pharmacy Profile Note (Vancomycin Consult Pharmacy) 1 each OTHER UNSCH PRN PRN Reason: Pharmacy to dose Potassium Bicarb/Potassium Chloride (K-Lyte Cl Eff) 50 meq PO UNSCH PRN PRN Reason: For Potassium 3.3 - 3.5 mEq/L Potassium Phosphate (K-Phos Original) 2,000 mg PO Q4H PRN PRN Reason: Phosphorus Less Than 2.5 mg/dL Potassium Phosphate (K-Phos Original) 2,000 mg PO UNSCH PRN PRN Reason: SEE LABEL COMMENTS Sodium Chloride (Ns Flush) 2 ml IV.FLUSH BID [facility] Last Admin: 06/08/18 20:41 Dose: 2 ml Sodium Chloride (Ns Flush) 2 ml IV.FLUSH PRN PRN PRN Reason: FLUSH AFTER USING IV ACCESS Allergies Allergy/AdvReac Type Severity Reaction Status Date / Time No Allergy Information Allergy Verified 06/03/18 14:22 Available Home Medications Medication Instructions Recorded Confirmed Type amlodipine 5 mg PO DAILY 06/03/18 06/03/18 History ascorbic acid (vitamin C) [Vitamin 500 mg PO DAILY 06/03/18 06/03/18 History C] aspirin 81 mg PO DAILY 06/03/18 06/03/18 History atorvastatin [Lipitor] 20 mg PO DAILY 06/03/18 06/03/18 History calcium carbonate [Calcium 600] 600 mg PO DAILY 06/03/18 06/03/18 History cinnamon bark [Cinnamon] 1,000 mg PO BID 06/03/18 06/03/18 History cyanocobalamin (vitamin B-12) 1,000 mcg PO DAILY 06/03/18 06/03/18 History [Vitamin B-12] famotidine 20 mg PO DAILY 06/03/18 06/03/18 History ferrous sulfate [iron] 325 mg PO BID 06/03/18 06/03/18 History furosemide [Lasix] 40 mg PO DAILY 06/03/18 06/03/18 History gabapentin 300 mg PO 5 TIMES A DAY 06/03/18 06/03/18 History glimepiride 2 mg PO BID 06/03/18 06/03/18 History hydrocodone-acetaminophen [[place]] 1 tab PO Q6H PRN 06/03/18 06/03/18 History insulin glargine [Lantus U-100 65 unit SUBCUT DAILY 06/03/18 06/03/18 History Insulin] lisinopril 10 mg PO DAILY 06/03/18 06/03/18 History metformin 500 mg PO QID 06/03/18 06/03/18 History metoprolol tartrate 50 mg PO BID 06/03/18 06/03/18 History niacin 500 mg PO DAILY 06/03/18 06/03/18 History potassium 99 mg PO BID 06/03/18 06/03/18 History warfarin [Coumadin] 5 mg PO DAILY 06/03/18 06/03/18 History Physical Exam Vital signs: Vital Signs 06/08/18 08:00 06/08/18 08:36 06/08/18 09:00 Temperature 99.3 F Pulse Rate 63 57 L 57 L Respiratory Rate 16 16 16 Blood Pressure 146/68 H 118/57 L Pulse Oximetry 97 96 06/08/18 10:00 06/08/18 11:00 06/08/18 11:54 Temperature Pulse Rate 50 L 50 L 55 L Respiratory Rate 16 16 10 L Blood Pressure 117/57 L 127/60 Pulse Oximetry 96 97 06/08/18 11:55 06/08/18 12:00 06/08/18 13:00 Temperature 99.0 F Pulse Rate 53 L 58 L Respiratory Rate 10 L 10 L 13 Blood Pressure 129/62 133/62 Pulse Oximetry 98 98 98 06/08/18 15:00 06/08/18 16:00 06/08/18 16:16 Temperature 98.5 F Pulse Rate 114 H 91 H Respiratory Rate 12 13 12 Blood Pressure 136/63 Pulse Oximetry 97 98 06/08/18 20:00 06/08/18 20:25 06/09/18 00:00 Temperature 98.7 F 98.9 F Pulse Rate 79 85 80 Respiratory Rate 13 16 16 Blood Pressure Pulse Oximetry 97 96 97 06/09/18 00:59 06/09/18 03:54 06/09/18 04:00 Temperature 98.6 F Pulse Rate 83 87 87 Respiratory Rate 16 16 16 Blood Pressure Pulse Oximetry 97 98 Intake & Output 06/08/18 06/09/18 06/09/18 18:59 06:59 18:59 Intake Total 1693 / 1693 350 / 350 Output Total 3950 / 3950 5550 / 5550 Balance -2257 / -2257 -5200 / -5200 Weight 101 kg Intake: IV 913 / 913 350 / 350 Bumex Inj 25 mg In 100 ml @ 0.5 48 / 48 MG/HR 2 mls/hr IV.CONT .Q24H [facility] Rx#:[id number] Maxipime Inj 1,000 MG In NS Inj 100 / 100 100 / 100 100 ML @ 200 mls/hr IV.SIG Q12HR [facility] Rx#:[id number] Vancomycin Inj 1,500 MG In NS 515 / 515 Inj 500 ML @ 257.5 mls/hr IV. SIG ONCE ONE Rx#:[id number] fentaNYL 10 mcg/mL Premix Drip 250 / 250 250 / 250 2,500 mcg In 250 ml @ 50 MCG/HR 5 mls/hr IV.SIG TITRATE PRN Rx #:[id number] Tube Feeding 720 / 720 Tube Irrigant 60 / 60 Output: Urine Amount (Catheter) 3950 / 3950 5300 / 5300 Indwelling Urethral Catheter 3950 / 3950 5300 / 5300 Gastric Drainage 250 / 250 Oral 250 / 250 Other: # Incontinent Bowel Movements 0 # Emeses 2 - Constitutional Comments: Intubated. Sedated. - Routine Neck Exam Absent: JVD - Routine Respiratory Exam Comments: Lungs clear anteriorly. - Routine Cardiovascular Exam Present: S1, S2, murmur. Absent: gallop, irregular rhythm Comments: Unchanged systolic murmur. - Routine Abdominal Exam Present: soft, normoactive bowel sounds. Absent: organomegaly - Routine Extremities Exam Absent: cyanosis, clubbing, edema - Urinary Catheter Management Indwelling Urethral Catheter Cath placed during this visit: yes, but has since been removed by the nurse Reason for continuing: Hourly intake/output Insertion date: 06/06/18 Insertion time: 16:00 Removal date: 06/05/18 Removal time: 18:00 Straight Cath placed during this visit: no Reason for continuing: Hourly intake/output Results 06/09/18 05:45 06/09/18 05:45 Cardiac Enzymes 06/08/18 06/09/18 Range/Units 04:30 05:45 AST 25 62 H (15-37) U/L Coagulation 06/08/18 06/08/18 06/08/18 Range/Units 04:30 11:30 18:15 PT 9.8 (9.8-11.6) sec APTT 35.6 H 34.8 H 46.6 H D (23.4-31.7) sec 06/09/18 06/09/18 Range/Units 00:15 05:45 PT 10.0 (9.8-11.6) sec APTT 35.5 H D 36.5 H (23.4-31.7) sec CBC 06/08/18 06/09/18 Range/Units 04:30 05:45 WBC 9.8 10.5 (4.0-11.0) th/mm3 RBC 3.04 L 3.89 L (4.50-5.90) mil/mm3 Hgb 9.2 L 11.4 L D (13.0-17.0) gm/dL Hct 26.8 L 33.4 L (39.0-51.0) % Plt Count 195 328 D (150-450) th/mm3 Neut # (Auto) 7.9 H 7.8 H (1.8-7.7) th/mm3 Lymph # (Auto) 0.9 L 1.4 (1.0-4.8) th/mm3 [place] # (Auto) 0.8 1.1 H (0.0-0.9) th/mm3 Eos # (Auto) 0.2 0.1 (0.0-0.4) th/mm3 Baso # (Auto) 0.0 0.0 (0.0-0.2) th/mm3 Comprehensive Metabolic Panel 06/07/18 06/08/18 06/09/18 Range/Units 19:25 04:30 00:15 Sodium 140 142 143 (136-145) meq/L Potassium 4.2 4.0 3.5 (3.5-5.1) meq/L Chloride 101 103 99 (98-107) meq/L Carbon Dioxide 26.8 29.8 32.1 H (21.0-32.0) meq/L BUN 56 H 66 H 79 H (7-18) mg/dL Creatinine 2.67 H 2.61 H 2.54 H (0.60-1.30) mg/dL Calcium 8.8 8.7 9.7 D (8.5-10.1) mg/dL AST 25 (15-37) U/L ALT 26 (12-78) U/L Alkaline Phosphatase 90 (45-117) U/L Total Protein 6.6 (6.4-8.2) g/dL Albumin 2.0 L (3.4-5.0) g/dL 06/09/18 Range/Units 05:45 Sodium 142 (136-145) meq/L Potassium 4.2 (3.5-5.1) meq/L Chloride 98 (98-107) meq/L Carbon Dioxide 33.5 H (21.0-32.0) meq/L BUN 85 H (7-18) mg/dL Creatinine 2.51 H (0.60-1.30) mg/dL Calcium 9.7 (8.5-10.1) mg/dL AST 62 H (15-37) U/L ALT 33 (12-78) U/L Alkaline Phosphatase 86 (45-117) U/L Total Protein 8.0 D (6.4-8.2) g/dL Albumin 2.2 L (3.4-5.0) g/dL Intake and Output 06/08/18 06/09/18 06/09/18 22:59 06:59 14:59 Intake Total 1130 / 1130 Output Total 4750 / 4750 4750 / 4750 Balance -3620 / -3620 -4750 / -4750 Intake: IV 350 / 350 Maxipime Inj 1,000 MG In NS Inj 100 / 100 100 ML @ 200 mls/hr IV.SIG Q12HR [facility] Rx#:[id number] fentaNYL 10 mcg/mL Premix Drip 250 / 250 2,500 mcg In 250 ml @ 50 MCG/HR 5 mls/hr IV.SIG TITRATE PRN Rx #:[id number] Tube Feeding 720 / 720 Tube Irrigant 60 / 60 Output: Urine Amount (Catheter) 4750 / 4750 4500 / 4500 Indwelling Urethral Catheter 4750 / 4750 4500 / 4500 Gastric Drainage 250 / 250 Oral 250 / 250 Other: # Incontinent Bowel Movements 0 # Emeses 2 Weight 101 kg - Imaging and Cardiology Imaging: Impressions Abdomen/Bladder Ultrasound 06/07/18 00:00 CONCLUSION: 1. Mildly increased renal cortical echogenicity bilaterally. 2. No evidence of hydronephrosis Chest X-Ray 06/08/18 06:00 CONCLUSION: Findings most characteristic of congestive heart failure. This appears mildly increased in the perihilar regions. Chest X-Ray 06/09/18 06:00 CONCLUSION: Mild interval improvement in the apparent congestive heart failure. Assessment and Plan - Assessment (1) Congestive heart failure Code(s): I50.9 - Heart failure, unspecified Status: Acute Plan: Severely reduced left ventricular function, EF 20-25%. Acute CHF, slowly improving. Chest x-ray today better. REC continue beta celestine, IV Bumex drip. No ARB or HAI-I with renal insufficiency. (2) Paroxysmal atrial fibrillation Code(s): I48.0 - Paroxysmal atrial fibrillation Status: Acute Plan: Seems to be predominantly in atrial tachycardia with variable AV conduction or atrial fib. Few salvoes of wide complex tachycardia, possibly aberrantly conducted atrial rhythm. Recommend continue to hold IV Amiodarone as patient still with intermittent bradycardia HR 40's, continue heparin drip. His thromboembolic risk is high. (3) Aortic stenosis Code(s): I35.0 - Nonrheumatic aortic (valve) stenosis Status: Chronic Plan: Severe by exam, echo. Await CABG/AVR which apparently was to be performed by Dr. Enriquez at [facility]. Patient currently in no condition to undergo open heart surgery. (4) Coronary artery disease Code(s): I25.10 - Atherosclerotic heart disease of [place] coronary artery without angina pectoris Status: Chronic Plan: Overall no definite evidence for ACS. CK's negative for CT. No acute EKG changes. Troponin levels only minimally elevated, in the setting of renal insufficiency. - Plan Code Status: full code (1) Congestive heart failure Qualifiers: Heart failure type: systolic (4) Coronary artery disease Qualifiers: Coronary Disease-Associated Artery/Lesion type: [place] artery [place] vs. transplanted heart: [place] heart Associated angina: angina presence unspecified Qualified Code(s): I25.10 - Atherosclerotic heart disease of [place] coronary artery without angina pectoris
[2018-06-09] MEDS: Insulin Detemir Inj 1,000 UNIT/10 ML Vial SQ SCH ×3 (09:02→20:04)
[2018-06-09] MEDS: Mupirocin 2% Nasal Oint Topical Syringe EACH NARE SCH ×2 (09:02→20:02)
[2018-06-09] MEDS: Carvedilol 6.25 MG Tablet PO SCH ×2 (09:02→20:02)
[2018-06-09] MEDS: Sodium Chloride 0.9% 2 ML Flush BID IV.FLUSH SCH ×2 (09:03→20:03)
[2018-06-09] MEDS: fentaNYL 10 mcg/mL Premix Drip 2,500 MCG/250 ML BAG IV.SIG PRN (10:08)
--- NOTE | 2018-06-09 11:17 | P.PNID ---
Subjective Remarks: On the ventilator. Sedated. Opens eyes and follows commands. Afebrile. This is a 73-year-old white male who was brought to the emergency department with respiratory distress. The patient was also noted to have altered mental status. Past Medical History: PAST MEDICAL HISTORY: Unable to obtain because the patient is on the ventilator. He reportedly has coronary artery disease and is due to undergo valve replacement for heart valve disease. Allergies/Adverse Reactions: Allergies No Allergy Information Available Allergy (Verified 06/03/18 14:22) Allergy unobtainable Objective Vital Signs 06/08/18 11:54 06/08/18 11:55 06/08/18 12:00 Temperature 99.0 F Pulse Rate 55 L 53 L Respiratory Rate 10 L 10 L 10 L Blood Pressure 129/62 Pulse Oximetry 98 98 06/08/18 13:00 06/08/18 15:00 06/08/18 16:00 Temperature 98.5 F Pulse Rate 58 L 114 H 91 H Respiratory Rate 13 12 13 Blood Pressure 133/62 136/63 Pulse Oximetry 98 97 06/08/18 16:16 06/08/18 20:00 06/08/18 20:25 Temperature 98.7 F Pulse Rate 79 85 Respiratory Rate 12 13 16 Blood Pressure Pulse Oximetry 98 97 96 06/09/18 00:00 06/09/18 00:59 06/09/18 03:54 Temperature 98.9 F Pulse Rate 80 83 87 Respiratory Rate 16 16 16 Blood Pressure Pulse Oximetry 97 97 06/09/18 04:00 06/09/18 08:00 06/09/18 08:35 Temperature 98.6 F 99.2 F Pulse Rate 87 79 88 Respiratory Rate 16 16 16 Blood Pressure 108/69 Pulse Oximetry 98 98 98 Intake & Output 06/08/18 06/09/18 06/09/18 18:59 06:59 18:59 Intake Total 1693 / 1693 350 / 350 386 / 386 Output Total 3950 / 3950 5550 / 5550 Balance -2257 / -2257 -5200 / -5200 386 / 386 Weight 101 kg Intake: IV 913 / 913 350 / 350 386 / 386 Bumex Inj 25 mg In 100 ml @ 0.5 48 / 48 36 / 36 MG/HR 2 mls/hr IV.CONT .Q24H [facility] Rx#:[id number] Maxipime Inj 1,000 MG In NS Inj 100 / 100 100 / 100 100 / 100 100 ML @ 200 mls/hr IV.SIG Q12HR [facility] Rx#:[id number] Vancomycin Inj 1,500 MG In NS 515 / 515 Inj 500 ML @ 257.5 mls/hr IV. SIG ONCE ONE Rx#:[id number] fentaNYL 10 mcg/mL Premix Drip 250 / 250 250 / 250 250 / 250 2,500 mcg In 250 ml @ 50 MCG/HR 5 mls/hr IV.SIG TITRATE PRN Rx #:[id number] Tube Feeding 720 / 720 Tube Irrigant 60 / 60 Output: Urine Amount (Catheter) 3950 / 3950 5300 / 5300 Indwelling Urethral Catheter 3950 / 3950 5300 / 5300 Gastric Drainage 250 / 250 Oral 250 / 250 Other: # Incontinent Bowel Movements 0 # Emeses 2 06/04/18 17:25 Blood - Peripheral Aerobic Blood Culture - Final No growth in 5 days 06/04/18 17:25 Blood - Peripheral Anaerobic Blood Culture - Final No growth in 5 days 06/04/18 17:30 Blood - Peripheral Aerobic Blood Culture - Final No growth in 5 days 06/04/18 17:30 Blood - Peripheral Anaerobic Blood Culture - Final No growth in 5 days 06/03/18 15:05 Blood - Peripheral Aerobic Blood Culture - Final No growth in 5 days 06/03/18 15:05 Blood - Peripheral Anaerobic Blood Culture - Final No growth in 5 days 06/03/18 15:00 Blood - Peripheral Aerobic Blood Culture - Final No growth in 5 days 06/03/18 15:00 Blood - Peripheral Anaerobic Blood Culture - Final No growth in 5 days 06/04/18 16:15 Sputum - Endotracheal Gram Stain - Final 06/04/18 16:15 Sputum - Endotracheal Sputum Culture - Final S. aureus MRSA 06/04/18 16:15 Catheterized Urine Urine Culture - Final No growth in 48 hours Lab - Hematology Results 06/08/18 06/09/18 04:30 05:45 WBC 9.8 10.5 RBC 3.04 L 3.89 L Hgb 9.2 L 11.4 L D Hct 26.8 L 33.4 L MCV 88.2 85.9 MCH 30.1 29.4 MCHC 34.2 34.2 RDW 15.8 15.6 Plt Count 195 328 D MPV 9.2 9.9 Neut % (Auto) 80.8 H 74.7 H Lymph % (Auto) 9.1 13.7 [place] % (Auto) 8.3 H 10.2 H Eos % (Auto) 1.6 1.0 Baso % (Auto) 0.2 0.4 Neut # (Auto) 7.9 H 7.8 H Lymph # (Auto) 0.9 L 1.4 [place] # (Auto) 0.8 1.1 H Eos # (Auto) 0.2 0.1 Baso # (Auto) 0.0 0.0 WBC Differential . . Differential Comment Auto diff final Auto diff final Lab - Chemistry Results 06/07/18 06/07/18 06/07/18 11:57 13:56 15:04 Sodium Potassium Chloride Carbon Dioxide Anion Gap BUN Creatinine Estimated GFR POC Glucose 352 H 476 H* 507 H* Random Glucose Calcium Phosphorus Magnesium Total Bilirubin AST ALT Alkaline Phosphatase Total Protein Albumin 06/07/18 06/07/18 06/07/18 15:59 17:14 18:17 Sodium Potassium Chloride Carbon Dioxide Anion Gap BUN Creatinine Estimated GFR POC Glucose 507 H* 393 H 357 H Random Glucose Calcium Phosphorus Magnesium Total Bilirubin AST ALT Alkaline Phosphatase Total Protein Albumin 06/07/18 06/07/18 06/07/18 19:11 19:25 20:16 Sodium 140 Potassium 4.2 Chloride 101 Carbon Dioxide 26.8 Anion Gap 12 BUN 56 H Creatinine 2.67 H Estimated GFR 24 L POC Glucose 362 H 247 H Random Glucose 284 H Calcium 8.8 Phosphorus Magnesium Total Bilirubin AST ALT Alkaline Phosphatase Total Protein Albumin 06/07/18 06/07/18 06/07/18 21:18 22:16 23:06 Sodium Potassium Chloride Carbon Dioxide Anion Gap BUN Creatinine Estimated GFR POC Glucose 240 H 236 H 218 H Random Glucose Calcium Phosphorus Magnesium Total Bilirubin AST ALT Alkaline Phosphatase Total Protein Albumin 06/08/18 06/08/18 06/08/18 00:14 01:08 02:19 Sodium Potassium Chloride Carbon Dioxide Anion Gap BUN Creatinine Estimated GFR POC Glucose 204 H 220 H 210 H Random Glucose Calcium Phosphorus Magnesium Total Bilirubin AST ALT Alkaline Phosphatase Total Protein Albumin 06/08/18 06/08/18 06/08/18 03:23 04:25 04:30 Sodium 142 Potassium 4.0 Chloride 103 Carbon Dioxide 29.8 Anion Gap 9 BUN 66 H Creatinine 2.61 H Estimated GFR 24 L POC Glucose 208 H 198 H Random Glucose 171 H D Calcium 8.7 Phosphorus 3.2 D Magnesium 2.6 H Total Bilirubin 0.5 AST 25 ALT 26 Alkaline Phosphatase 90 Total Protein 6.6 Albumin 2.0 L 06/08/18 06/08/18 06/08/18 05:23 06:17 08:00 Sodium Potassium Chloride Carbon Dioxide Anion Gap BUN Creatinine Estimated GFR POC Glucose 182 H 183 H 186 H Random Glucose Calcium Phosphorus Magnesium Total Bilirubin AST ALT Alkaline Phosphatase Total Protein Albumin 06/08/18 06/08/18 06/08/18 09:07 10:02 11:15 Sodium Potassium Chloride Carbon Dioxide Anion Gap BUN Creatinine Estimated GFR POC Glucose 176 H 172 H 156 H Random Glucose Calcium Phosphorus Magnesium Total Bilirubin AST ALT Alkaline Phosphatase Total Protein Albumin 06/08/18 06/08/18 06/08/18 11:55 13:15 14:23 Sodium Potassium Chloride Carbon Dioxide Anion Gap BUN Creatinine Estimated GFR POC Glucose 152 H 151 H 148 H Random Glucose Calcium Phosphorus Magnesium Total Bilirubin AST ALT Alkaline Phosphatase Total Protein Albumin 06/08/18 06/08/18 06/08/18 15:17 16:17 16:52 Sodium Potassium Chloride Carbon Dioxide Anion Gap BUN Creatinine Estimated GFR POC Glucose 158 H 156 H 170 H Random Glucose Calcium Phosphorus Magnesium Total Bilirubin AST ALT Alkaline Phosphatase Total Protein Albumin 06/08/18 06/08/18 06/08/18 18:14 18:55 20:02 Sodium Potassium Chloride Carbon Dioxide Anion Gap BUN Creatinine Estimated GFR POC Glucose 134 H 141 H 141 H Random Glucose Calcium Phosphorus Magnesium Total Bilirubin AST ALT Alkaline Phosphatase Total Protein Albumin 06/08/18 06/08/18 06/08/18 21:04 22:00 23:02 Sodium Potassium Chloride Carbon Dioxide Anion Gap BUN Creatinine Estimated GFR POC Glucose 140 H 136 H 135 H Random Glucose Calcium Phosphorus Magnesium Total Bilirubin AST ALT Alkaline Phosphatase Total Protein Albumin 06/08/18 06/09/18 06/09/18 23:54 00:15 01:03 Sodium 143 Potassium 3.5 Chloride 99 Carbon Dioxide 32.1 H Anion Gap 12 BUN 79 H Creatinine 2.54 H Estimated GFR 25 L POC Glucose 142 H 143 H Random Glucose 131 H Calcium 9.7 D Phosphorus Magnesium Total Bilirubin AST ALT Alkaline Phosphatase Total Protein Albumin 06/09/18 06/09/18 06/09/18 01:57 03:01 03:52 Sodium Potassium Chloride Carbon Dioxide Anion Gap BUN Creatinine Estimated GFR POC Glucose 151 H 163 H 131 H Random Glucose Calcium Phosphorus Magnesium Total Bilirubin AST ALT Alkaline Phosphatase Total Protein Albumin 06/09/18 06/09/18 06/09/18 04:57 05:45 05:49 Sodium 142 Potassium 4.2 Chloride 98 Carbon Dioxide 33.5 H Anion Gap 11 BUN 85 H Creatinine 2.51 H Estimated GFR 25 L POC Glucose 145 H 141 H Random Glucose 136 H Calcium 9.7 Phosphorus 4.3 D Magnesium 2.6 H Total Bilirubin 0.9 AST 62 H ALT 33 Alkaline Phosphatase 86 Total Protein 8.0 D Albumin 2.2 L 06/09/18 06/09/18 06/09/18 06:46 07:59 09:01 Sodium Potassium Chloride Carbon Dioxide Anion Gap BUN Creatinine Estimated GFR POC Glucose 150 H 132 H 115 H Random Glucose Calcium Phosphorus Magnesium Total Bilirubin AST ALT Alkaline Phosphatase Total Protein Albumin 06/09/18 10:07 Sodium Potassium Chloride Carbon Dioxide Anion Gap BUN Creatinine Estimated GFR POC Glucose 121 H Random Glucose Calcium Phosphorus Magnesium Total Bilirubin AST ALT Alkaline Phosphatase Total Protein Albumin Imaging: ITS Impressions Head CT 06/03/18 15:01 CONCLUSION: No acute intracranial abnormality demonstrated. . Abdomen/Bladder Ultrasound 06/07/18 00:00 CONCLUSION: 1. Mildly increased renal cortical echogenicity bilaterally. 2. No evidence of hydronephrosis Chest X-Ray 06/09/18 06:00 CONCLUSION: Mild interval improvement in the apparent congestive heart failure. Physical Exam: PHYSICAL EXAMINATION: GENERAL: Sedated on the ventilator. HEENT: SHERRY, EOMI. No icterus. No icterus. Oropharynx intubated. NECK: No adenopathy. LUNGS: Coarse rhonchi. HEART: 3/6 to 4/6 systolic murmur at the left sternal border. ABDOMEN: Bowel sounds present. Obese, soft. EXTREMITIES: No clubbing, cyanosis or edema. Decreased peripheral pulses. SKIN: No rash. NEUROLOGIC: Unable to assess. Sedated on the vent. PSYCHIATRIC: Unable to assess. Assessment and Plan - Plan IMPRESSION: 1. Pneumonia due to methicillin-resistant Staphylococcus aureus. CXR has bilateral infiltrates. 2. Acute respiratory failure. 3. Acute kidney disease. 4. Fever. Temp improved. RECOMMENDATIONS: 1. Continue vancomycin. 2. Monitor temperature. 3. Monitor kidney function.
[2018-06-09] MEDS ORDERED: Dexmedetomidine Inj 200 MCG in Sodium Chlor 0.9% Inj 48 ML IV.CONT PRN (11:23)
[2018-06-09] MEDS ORDERED: Dextrose 50% in Water 50 ML Vial IV.PUSH PRN (11:30)
--- NOTE | 2018-06-09 11:36 | P.PNCC ---
Subjective Subjective Remarks/Hospital Course: 06/03: 73-year-old male with a medical history of cardiac problems who recently had a workup done at [facility] and [facility] in [place] per family and was evaluated by CT surgeon at [facility] in [place] last week including Dr. Jay Wisdom per family for CT surgery. Patient has been having shortness of breath for the last week or so per his and today his breathing worsened and he was brought to the ER at [facility] where he was in respiratory extremis with O2 sats in the 70s and was intubated and placed on mechanical ventilation. He was also very hypotensive on arrival and after receiving about 500 cc of normal saline bolus he was started on Levophed and dopamine for pressor support. He had a femoral central line placed by ER physician. His chest x-ray in the ER showed pulmonary edema and questionable infiltrates. He did not have a fever or white count on his labs and due to elevated creatinine could not get a CTA of the chest per ER physician. Subsequently he was maintaining his O2 sats around 96% on mechanical ventilation with 100% FiO2 with heart rate in the 60s and systolic blood pressure 100s on dopamine 5 mics per KG per minute. When I evaluated the patient in the ER he was propofol, orally intubated on mechanical ventilation. I spoke with patient's who could not really give me any details of his medical history including recent workup or diagnosis. She tells me he has a history of having "holes in the heart" however is unclear regarding what surgery he was scheduled for at [facility]. I discussed this with Dr. Rich in the ER and requested that he contact Dr. aJy Wisdom who evaluated the patient for his to see if he would want patient transferred to [facility] as he was scheduled for surgery there with him. We do not have any details of his recent workup or diagnosis at this time. 06/04 : Further history revealed following cardiology evaluation by Dr. Schwab who was able to look up his medical records at [facility]. Patient reportedly has severe coronary artery disease and valvular dysfunction and was scheduled for surgery in the near future with CT surgeon at [facility]. Still awaiting medical records from outside hospitals regarding cardiac workup. In the meanwhile patient remains sedated, orally intubated on mechanical ventilation. Off dopamine. 06/05: off pressors. remains intubated. back in afib RVR. diuresing. 06/06: This a.m., patient had worsening hypoxia requiring 100% O2. I was called emergently at bedside by RT. Blood gas reviewed, vent settings changed, currently patient 98% on FiO2 of 1. T-max of 102.9. I/O 4388/2250. Sedation is achieved with fentanyl drip. Patient is sedated and intubated, opens eyes to voice stimuli but does not follow any commands. Amiodarone is infusing at 1 mg/min, patient is still in A. fib with heart rate in the 60s-70s. 06/07: Afebrile. Switch from APRV to PRVC ventilation. PEEP of 10. Arousable on the ventilator. Noted episodic dysrhythmias overnight. Amiodarone discontinued per cardiology recommendation. Potassium and magnesium are greater than 4/2 respectively. 06/08: Remains on PRVC ventilation. PEEP of 8. Diuresing with bumetanide drip. Arousable follows commands. FiO2 down to 40%. Subjective 06/09:. PEEP down to 5. Diuresed -7 L overnight. Arousable does follow commands. Will attempt CPAP trials today. Objective Vital Signs / I&O: Vital Signs 06/08/18 11:54 06/08/18 11:55 06/08/18 12:00 Temperature 99.0 F Pulse Rate 55 L 53 L Respiratory Rate 10 L 10 L 10 L Blood Pressure 129/62 Pulse Oximetry 98 98 06/08/18 13:00 06/08/18 15:00 06/08/18 16:00 Temperature 98.5 F Pulse Rate 58 L 114 H 91 H Respiratory Rate 13 12 13 Blood Pressure 133/62 136/63 Pulse Oximetry 98 97 06/08/18 16:16 06/08/18 20:00 06/08/18 20:25 Temperature 98.7 F Pulse Rate 79 85 Respiratory Rate 12 13 16 Blood Pressure Pulse Oximetry 98 97 96 06/09/18 00:00 06/09/18 00:59 06/09/18 03:54 Temperature 98.9 F Pulse Rate 80 83 87 Respiratory Rate 16 16 16 Blood Pressure Pulse Oximetry 97 97 06/09/18 04:00 06/09/18 08:00 06/09/18 08:35 Temperature 98.6 F 99.2 F Pulse Rate 87 79 88 Respiratory Rate 16 16 16 Blood Pressure 108/69 Pulse Oximetry 98 98 98 Intake & Output 06/08/18 06/09/18 06/09/18 18:59 06:59 18:59 Intake Total 1693 / 1693 350 / 350 386 / 386 Output Total 3950 / 3950 5550 / 5550 Balance -2257 / -2257 -5200 / -5200 386 / 386 Weight 101 kg Intake: IV 913 / 913 350 / 350 386 / 386 Bumex Inj 25 mg In 100 ml @ 0.5 48 / 48 36 / 36 MG/HR 2 mls/hr IV.CONT .Q24H [facility] Rx#:[id number] Maxipime Inj 1,000 MG In NS Inj 100 / 100 100 / 100 100 / 100 100 ML @ 200 mls/hr IV.SIG Q12HR [facility] Rx#:[id number] Vancomycin Inj 1,500 MG In NS 515 / 515 Inj 500 ML @ 257.5 mls/hr IV. SIG ONCE ONE Rx#:[id number] fentaNYL 10 mcg/mL Premix Drip 250 / 250 250 / 250 250 / 250 2,500 mcg In 250 ml @ 50 MCG/HR 5 mls/hr IV.SIG TITRATE PRN Rx #:[id number] Tube Feeding 720 / 720 Tube Irrigant 60 / 60 Output: Urine Amount (Catheter) 3950 / 3950 5300 / 5300 Indwelling Urethral Catheter 3950 / 3950 5300 / 5300 Gastric Drainage 250 / 250 Oral 250 / 250 Other: # Incontinent Bowel Movements 0 # Emeses 2 Result Diagrams: 06/09/18 05:45 06/09/18 05:45 Other Results: Microbiology 06/04/18 17:25 Blood - Peripheral Aerobic Blood Culture - Final No growth in 5 days 06/04/18 17:25 Blood - Peripheral Anaerobic Blood Culture - Final No growth in 5 days 06/04/18 17:30 Blood - Peripheral Aerobic Blood Culture - Final No growth in 5 days 06/04/18 17:30 Blood - Peripheral Anaerobic Blood Culture - Final No growth in 5 days 06/03/18 15:05 Blood - Peripheral Aerobic Blood Culture - Final No growth in 5 days 06/03/18 15:05 Blood - Peripheral Anaerobic Blood Culture - Final No growth in 5 days 06/03/18 15:00 Blood - Peripheral Aerobic Blood Culture - Final No growth in 5 days 06/03/18 15:00 Blood - Peripheral Anaerobic Blood Culture - Final No growth in 5 days 06/04/18 16:15 Sputum - Endotracheal Gram Stain - Final 06/04/18 16:15 Sputum - Endotracheal Sputum Culture - Final S. aureus MRSA 06/04/18 16:15 Catheterized Urine Urine Culture - Final No growth in 48 hours Imaging: Chest X-Ray 06/03/18 14:22 CONCLUSION: 1. ETT in good position. NGT beyond the GE junction. 2. Cardiomegaly with pulmonary edema pattern. 3. More focal airspace consolidation in the left lower lung zone. Head CT 06/03/18 15:01 CONCLUSION: No acute intracranial abnormality demonstrated. . Chest X-Ray 06/04/18 05:00 CONCLUSION: Unchanged exam. Chest X-Ray 06/05/18 05:00 CONCLUSION: No interval change. Chest X-Ray 06/06/18 09:18 CONCLUSION: Bilateral effusions and diffuse interstitial prominence most consistent with CHF. Unchanged from prior. Chest X-Ray 06/06/18 17:04 CONCLUSION: 1. New left IJ central venous catheter with distal tip projecting over the mid SVC. 2. No appreciable pneumothorax. 3. Persistent ill-defined opacification of the mid and lower lungs, likely a combination of airspace disease and pleural fluid. Abdomen/Bladder Ultrasound 06/07/18 00:00 CONCLUSION: 1. Mildly increased renal cortical echogenicity bilaterally. 2. No evidence of hydronephrosis Chest X-Ray 06/07/18 04:00 CONCLUSION: 1. No significant change. Perihilar and bibasilar opacities are again noted most characteristic of pulmonary edema. 2. Bilateral pleural effusions are again noted. Chest X-Ray 06/08/18 06:00 CONCLUSION: Findings most characteristic of congestive heart failure. This appears mildly increased in the perihilar regions. Chest X-Ray 06/09/18 06:00 CONCLUSION: Mild interval improvement in the apparent congestive heart failure. Objective Remarks: General: Elderly gentleman, intubated and sedated, very ill-appearing HEENT: Pupils are equal and reactive, sclerae anicteric, orally intubated, + NGT Neck: Trachea midline, neck is supple and without rigidity, unable to appreciate neck vein distention due to body habitus, no carotid bruit. Left IJ is clean dry and intact Chest/Pulm: Coarse breath sounds bilateral, decreased breath sounds at bases, no wheezes CVS: Irregular heart sounds, systolic ejection murmur at the apex GI/abdomen: Soft, appears nontender, distended, unable to appreciate hepatomegaly or splenomegaly Extremities: Warm and well-perfused, peripheral pulses are present, 1+ edema. Neuro: RASS -2, opens eyes to voice stimuli but does not follow any commands, pupils are equal and reactive, no gaze deviation, withdraws to pain Assessment and Plan - Assessment and Plan Plan: Neuro: Sedation with fentanyl and propofol drips, CT head negative for bleed, follow neuro checks. daily sedation vacation Cardiovascular: Cardiology following, off dopamine and norepinephrine. Discontinue amiodarone infusion per cardiology. Diuresis with bumetanide drip at 0.5 mg an hour, will switch to 2 mg IV twice daily. 2D echo results noted with ejection fraction 25%. Initiate statin when okay with cardiology. Still awaiting allergy information to be verified.. Continue carvedilol 6.25 mg twice daily if remains off dopamine. Will initiate aspirin [address] surgery consultation. [facility] refused transfer per Dr. Yost. Pulmonary: Continue mechanical ventilation, due to worsening hypoxia ventilator settings continue with PRVC Continue broad-spectrum antibiotics with vancomycin and cefepime per infectious disease recommendations GI/liver: tube feeds and advance to goal as tolerated we will switch to Glucerna 1.5 goal 60 cc an hour. Lansoprazole for GI prophylaxis. Renal: Strict intake output, monitor and replete electrolytes, follow BUN creatinine. Diuresis with bumetanide drip. Place Spence catheter for accurate urine output measurement. Check urine eosinophils, sodium and creatinine. Heme: Follow CBC and coags ID: Continue broad-spectrum antibiotics with vancomycin and cefepime per infectious disease evaluation. Due to persistent fever check respiratory viral panel PCR and will ask infectious disease consult evaluate. Endocrine: Continue insulin drip 2 units an hour. Will switch to aspart insulin every 4 hours high-dose insulin titrate. Add insulin detemir 20 units twice daily due to high blood sugar Prophylaxis: PPI/SCDs/full anticoagulation with heparin gtt No family was present at bedside. Discussed with [facility] RN. I spent 30 minutes of critical care time,Ethan
[2018-06-09] MEDS: Insulin NovoLOG Aspart Correctional Sugar Inj SQ SCH ×3 (12:05→20:03)
[2018-06-09] MEDS: Heparin Drip 25,000 UNIT/250 ML BAG IV.CONT PRN (15:43)
[2018-06-09] MEDS ORDERED: Magnesium Sulfate Inj 2 GM in Sodium Chlor 0.9% Inj 96 ML IV.SIG ONE (23:31)
[2018-06-09] MEDS ORDERED: Lidocaine 2% 100 MG/5 ML Syringe IV.PUSH ONE (23:34)
[2018-06-10] MEDS: Insulin NovoLOG Aspart Correctional Sugar Inj SQ SCH ×2 (00:31→03:24)
[2018-06-10 00:49] VITALS: BP 144/64; TEMP 99.3
[2018-06-10 01:38] LABS: Alanine Aminotransferase 35 U/L (12-78); Albumin 2.1 g/dL (3.4-5.0); Alkaline Phosphatase 82 U/L (45-117); Anion Gap 11 meq/L (5-15); Aspartate Aminotransferase 42 U/L (15-37); Blood Urea Nitrogen 88 mg/dL (7-18); Calcium 9.1 mg/dL (8.5-10.1); Chloride 101 meq/L (98-107); Glomerular Filtration Rate 24 mL/min (>89); Glucose,Random 170 mg/dL (74-106); Sodium 146 meq/L (136-145); Total Protein 6.9 g/dL (6.4-8.2)
[2018-06-10 01:39] LABS: Potassium 2.8 meq/L (3.5-5.1)
[2018-06-10] MEDS ORDERED: Potassium Chlor 20 mEq Premix 20 MEQ/100 ML PIGGYBACK IV.SIG ONE (01:48)
[2018-06-10] MEDS: Potassium Chlor 20 mEq Premix 20 MEQ/100 ML PIGGYBACK IV.SIG SCH ×2 (03:01→03:59)
[2018-06-10] MEDS: Artificial Tears Opth Drops 15 ML Bottle EACH EYE SCH (03:25)
[2018-06-10] MEDS ORDERED: Sodium Bicarbonate 8.4% Inj 50 MEQ/50 ML Syringe ONE (04:20)
[2018-06-10] MEDS ORDERED: Lidocaine/D5W 2000 mg/500 mL 2,000 MG/500 ML BAG IV.SIG ONE (04:34)
[2018-06-10] MEDS ORDERED: Atropine Inj 1 MG/10 ML Syringe IV.PUSH ONE (04:34)
[2018-06-10] MEDS ORDERED: Calcium Chloride Inj 1 GM/10 ML Syringe IV.CONT ONE (04:34)
[2018-06-10] MEDS ORDERED: Sodium Bicarbonate 8.4% Inj 50 MEQ/50 ML Syringe IV.CONT ONE (04:34)
--- NOTE | 2018-06-10 04:56 | P.PNCC ---
Critical Care Event Note Code activated: Yes Narrative: CODE BLUE activated due to patient's V. fib/V. tach arrest. Multiple cycles of CPR with injections of epinephrine, amiodarone, lidocaine and multiple shock deliveries for V. fib, the patient never regained spontaneous circulation and was pronounced after more than 32 minutes of ACLS protocol. Critical care time: 30 - 74 mins
[2018-06-10 05:30] VITALS: PULSE 59; RESP 16
[2018-06-10 05:34] VITALS: O2SAT 99
--- NOTE | 2018-06-10 06:35 | MB ---
cc: Edie Coleman MD DATE: 06/09/2018 HISTORY OF PRESENT ILLNESS: This is a 73-year-old male, which we are still trying to obtain medical information. Apparently has a history of coronary artery disease and was scheduled to undergo coronary artery bypass grafting this coming Wednesday by Dr. Brandyn Enriquez at [facility]; however, he was brought in by [facility] to [facility] due to chest pain, shortness of breath, found to be severely hypotensive and in congestive heart failure. He was immediately intubated for respiratory distress and placed on the ventilator. He was also scheduled to have some valvular surgery and we are still waiting on the CDs and the reports. He remains intubated. We were consulted to evaluate for coronary artery bypass grafting and valvular surgery. His echocardiogram on this admission included an ejection fraction of 20-25%, global left ventricular dysfunction, moderate mitral regurgitation, moderate to severe aortic stenosis with an aortic valve area of 1.3. Trace aortic insufficiency, mild tricuspid valve regurgitation, pulmonary artery pressures of 64. There was also a large pleural effusion noted. The patient was immediately admitted to the intensive care unit. He was also placed on dopamine immediately. He currently remains intubated on the ventilator; however, he does follow commands and nods appropriately. The patient also went into atrial fibrillation with RVR during this admission and was placed on an amiodarone drip. He also had a temperature max of 102.9. He was found to have Staph MRSA pneumonia. Blood cultures at negative for bacteremia. Currently remains on PRVC ventilation with a PEEP of 5. He has been diuresed and is -7 liters from yesterday. Weight is down from 111 to 101 kilograms. Currently, he is on vancomycin IV, Bumex IV. PAST MEDICAL HISTORY: Includes valvular heart disease, coronary artery disease, congestive heart failure, recent pneumonia, history of non-Hodgkin's lymphoma, post-chemotherapy, sleep apnea, diabetes mellitus. PAST SURGICAL HISTORY: No past surgeries known other than cardiac catheterization. ALLERGIES: NO ALLERGY INFORMATION GIVEN. HOME MEDICATIONS: 1. Aspirin. 2. Coumadin. 3. Atorvastatin. 4. Amlodipine. 5. Lisinopril. 6. Metoprolol. 7. Lasix. FAMILY HISTORY: Noncontributory. SOCIAL HISTORY: The patient is . Apparently, his has some kind Alzheimer's per the daughter. REVIEW OF SYSTEMS: Unobtainable. PHYSICAL EXAMINATION: VITAL SIGNS: Blood pressure 130/70, heart rate of 90, temperature max 98.9. GENERAL: The patient is slightly sedated on fentanyl. He is opens his eyes, follows commands, moves all extremities, orally intubated. HEENT: Pupils equal and reactive. Oral mucosa pink, moist. NECK: Supple, positive for mild JVD. HEART: Heart sounds S1, S2. Regular rate and rhythm, 3/6 systolic murmur. LUNGS: With coarse bilateral breath sounds. ABDOMEN: Obese, soft, nontender, positive for bowel sounds. EXTREMITIES: Revealed trace edema with good distal pulses. LABORATORY DATA: Shows hemoglobin 11.4, hematocrit 33, white cell count of 10.5, platelet count of 328. INR 1.0. Recent blood gas showed a pH of 7.61, CO2 of 33, pO2 of 89 on 40% FiO2. Sodium 142, potassium 4.2, BUN of 85, creatinine 2.51. BNP on admission was 755. His lactic acid was 3.1, which has normalized. MRSA screen was positive. IMPRESSION: This is a 73-year-old male with extensive comorbidities that was to undergo valvular surgery and also coronary artery bypass grafting by Dr. Brandyn Enriquez at [facility]. At this time, we will obtain the old records and also the cardiac catheterization to evaluate for potential surgery once the patient improves and is extubated and able to make choice decisions. In the meantime, continue supportive care. STS data will be documented in the electronic record. Dictated by KELSEY Osorio I personally interviewed and examined this patient with the [employer]. We will need access and imaging studies from outside hospitals and follow him for potential surgical intervention once he is stable medically. MD COLETTE Jarvis/darnell , 03:37 PM , 03:49 PM JAYDEN
--- NOTE | 2018-07-01 06:48 | P.DN ---
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 Minor?) Previous eval at [facility] Notified:: Service Spoke with:: LOKESH Date Notified:: 06/04/18 Time Notified:: 10:24 Ordering Provider: ALEXA 06/06/18 09:42 Consult to Infectious Diseases Routine Consulting Provider: Jenaro Murrieta Reason for Consultation: MRSA pneumonia, persistently febrile despite broad- spectrum antibiotic Notified:: Service Spoke with:: SATISH Date Notified:: 06/06/18 Time Notified:: 09:43 Ordering Provider: MONET 06/08/18 12:44 Consult to Cardiothoracic Surgery Routine Consulting Provider: Edie Coleman Reason for Consultation: Severe aortic stenosis, acute systolic heart failure. Evaluation. Notified:: Physician Spoke with:: Date Notified:: 06/08/18 Time Notified:: 12:48 Ordering Provider: SAMUEL Pronouncing clinician: Dimitris Shay - Admitting Diagnosis (1) Congestive heart failure (2) Paroxysmal atrial fibrillation (3) Pulmonary edema (4) Respiratory failure (5) Sepsis (6) Aortic stenosis (7) Coronary artery disease - Diagnosis at Time of (1) Congestive heart failure Diagnosis: Principal (2) Paroxysmal atrial fibrillation Diagnosis: Secondary (3) Pulmonary edema Diagnosis: Secondary (4) Respiratory failure Diagnosis: Principal (5) Sepsis Diagnosis: Secondary (6) Aortic stenosis Diagnosis: Principal (7) Coronary artery disease Diagnosis: Principal - Date and Time Date of admission: 06/03/18 17:23 Date of : 06/10/18 Time of : 04:35 - Summary Details: Microbiology 06/04/18 17:25 Blood - Peripheral Aerobic Blood Culture - Final No growth in 5 days 06/04/18 17:25 Blood - Peripheral Anaerobic Blood Culture - Final No growth in 5 days 06/04/18 17:30 Blood - Peripheral Aerobic Blood Culture - Final No growth in 5 days 06/04/18 17:30 Blood - Peripheral Anaerobic Blood Culture - Final No growth in 5 days 06/03/18 15:05 Blood - Peripheral Aerobic Blood Culture - Final No growth in 5 days 06/03/18 15:05 Blood - Peripheral Anaerobic Blood Culture - Final No growth in 5 days 06/03/18 15:00 Blood - Peripheral Aerobic Blood Culture - Final No growth in 5 days 06/03/18 15:00 Blood - Peripheral Anaerobic Blood Culture - Final No growth in 5 days 06/04/18 16:15 Sputum - Endotracheal Gram Stain - Final 06/04/18 16:15 Sputum - Endotracheal Sputum Culture - Final S. aureus MRSA 06/04/18 16:15 Catheterized Urine Urine Culture - Final No growth in 48 hours Procedures: Central line placement Brief History: 73-year-old male with a medical history of cardiac problems who recently had a workup done [facility] [place] family and was evaluated by CT surgeon at [facility] in [place] last week including Dr. Jay Wisdom per [facility] for CT surgery. Patient has been having shortness of breath for the last week or so per his and today his breathing worsened and he was brought to the ER at [facility] where he was in respiratory extremis with O2 sats in the 70s and was intubated and placed on mechanical ventilation. He was also very hypotensive on arrival and after receiving about 500 cc of normal saline bolus he was started on Levophed and dopamine for pressor support. He had a femoral central line placed by ER physician. His chest x-ray in the ER showed pulmonary edema and questionable infiltrates. He did not have a fever or white count on his labs and due to elevated creatinine could not get a CTA of the chest per ER physician. Subsequently he was maintaining his O2 sats around 96% on mechanical ventilation with 100% FiO2 with heart rate in the 60s and systolic blood pressure 100s on dopamine 5 mics per KG per minute. When I evaluated the patient in the ER he was propofol, orally intubated on mechanical ventilation. I spoke with patient's who could not really give me any details of his medical history including recent workup or diagnosis. She tells me he has a history of having "holes in the heart" however is unclear regarding what surgery he was scheduled for at [facility]. I discussed this with Dr. Rich in the ER and requested that he contact Dr. Jay Wisdom who evaluated the patient for his to see if he would want patient transferred to [facility] as he was scheduled for surgery there with him. We do not have any details of his recent workup or diagnosis at this time. Result Diagrams: 06/09/18 05:45 06/10/18 00:20 Significant Findings: Laboratory Results WBC 10.5 th/mm3 (4.0-11.0) 06/09/18 05:45 RBC 3.89 mil/mm3 (4.50-5.90) L 06/09/18 05:45 Hgb 11.4 gm/dL (13.0-17.0) L D 06/09/18 05:45 Hct 33.4 % (39.0-51.0) L 06/09/18 05:45 MCV 85.9 fL (80.0-100.0) 06/09/18 05:45 MCH 29.4 pg (27.0-34.0) 06/09/18 05:45 MCHC 34.2 % (32.0-36.0) 06/09/18 05:45 RDW 15.6 % (11.6-17.2) 06/09/18 05:45 Plt Count 328 th/mm3 (150-450) D 06/09/18 05:45 MPV 9.9 fL (7.0-11.0) 06/09/18 05:45 Neut % (Auto) 74.7 % (16.0-70.0) H 06/09/18 05:45 Lymph % (Auto) 13.7 % (9.0-44.0) 06/09/18 05:45 [place] % (Auto) 10.2 % (0.0-8.0) H 06/09/18 05:45 Eos % (Auto) 1.0 % (0.0-4.0) 06/09/18 05:45 Baso % (Auto) 0.4 % (0.0-2.0) 06/09/18 05:45 Neut # (Auto) 7.8 th/mm3 (1.8-7.7) H 06/09/18 05:45 Lymph # (Auto) 1.4 th/mm3 (1.0-4.8) 06/09/18 05:45 [place] # (Auto) 1.1 th/mm3 (0.0-0.9) H 06/09/18 05:45 Eos # (Auto) 0.1 th/mm3 (0.0-0.4) 06/09/18 05:45 Baso # (Auto) 0.0 th/mm3 (0.0-0.2) 06/09/18 05:45 WBC Differential . 06/09/18 05:45 Differential Comment Auto diff final 06/09/18 05:45 PT 10.0 sec (9.8-11.6) 06/09/18 05:45 INR 1.0 Ratio 06/09/18 05:45 APTT 44.9 sec (23.4-31.7) H 06/10/18 00:11 D-Dimer Quant (PE/DVT) 3.03 mg/L FEU (0.00-0.50) H 06/03/18 15:43 Puncture Site A 06/09/18 04:56 Patient Temperature 98.6 06/09/18 04:56 O2 Saturation 95 % (90-100) 06/09/18 04:56 ABG pH 7.61 (7.380-7.420) H* 06/09/18 04:56 ABG pCO2 33 mmHg (38-42) L 06/09/18 04:56 ABG pO2 89 mmHG (61-120) 06/09/18 04:56 ABG HCO3 33 mmol/L (22-26) H 06/09/18 04:56 ABG O2 Content 15.4 Vol % (12.0-20.0) 06/09/18 04:56 ABG Base Excess 10.4 mmol/L (-2-2) H 06/09/18 04:56 ABG Methemoglobin 1.4 % (0-2) 06/09/18 04:56 Gino Test Present 06/04/18 06:05 Hemoglobin 11.5 G/DL (12.0-16.0) L 06/09/18 04:56 Carboxyhemoglobin 1.5 % (0-4) 06/09/18 04:56 O2 Delivery Device Ventilator 06/09/18 04:56 Vent Setting See comment 06/09/18 04:56 Inspired O2 40 % 06/09/18 04:56 Critical Value Yes 06/09/18 04:56 Sodium 146 meq/L (136-145) H 06/10/18 00:20 Potassium 2.8 meq/L (3.5-5.1) L* D 06/10/18 00:20 Chloride 101 meq/L (98-107) 06/10/18 00:20 Carbon Dioxide 34.0 meq/L (21.0-32.0) H 06/10/18 00:20 Anion Gap 11 meq/L (5-15) 06/10/18 00:20 BUN 88 mg/dL (7-18) H 06/10/18 00:20 Creatinine 2.63 mg/dL (0.60-1.30) H 06/10/18 00:20 Estimated GFR 24 mL/min (>89) L 06/10/18 00:20 POC Glucose 166 mg/dl (68-110) H 06/10/18 03:06 Random Glucose 170 mg/dL (74-106) H 06/10/18 00:20 Lactic Acid 1.3 mmol/L (0.4-2.0) 06/06/18 05:25 Calcium 9.1 mg/dL (8.5-10.1) 06/10/18 00:20 Phosphorus 4.3 mg/dL (2.5-4.9) D 06/09/18 05:45 Magnesium 2.6 mg/dL (1.5-2.5) H 06/09/18 05:45 Total Bilirubin 0.6 mg/dL (0.2-1.0) 06/10/18 00:20 AST 42 U/L (15-37) H 06/10/18 00:20 ALT 35 U/L (12-78) 06/10/18 00:20 Alkaline Phosphatase 82 U/L (45-117) 06/10/18 00:20 Total Creatine Kinase 188 U/L (39-308) 06/05/18 11:55 CK-MB (CK-2) 4.9 ng/mL (0.5-3.6) H 06/03/18 20:46 Troponin I 0.06 ng/mL (0.02-0.05) H 06/04/18 15:38 B-Natriuretic Peptide 1037 pg/mL (0-100) H 06/06/18 05:25 Total Protein 6.9 g/dL (6.4-8.2) D 06/10/18 00:20 Albumin 2.1 g/dL (3.4-5.0) L 06/10/18 00:20 Procalcitonin 0.07 ng/mL (0.00-0.08) 06/04/18 15:38 Urine Color Yellow (Yellw/Straw) 06/03/18 14:51 Urine Clarity Hazy (Clear) H 06/03/18 14:51 Urine pH 5.0 (5.0-8.5) 06/03/18 14:51 Ur Specific [place] 1.016 (1.002-1.035) 06/03/18 14:51 Urine Protein 100 mg/dL (Neg-Trace) H 06/03/18 14:51 Urine Glucose (UA) Negative mg/dL (Negative) 06/03/18 14:51 Urine Ketones Negative mg/dL (Negative) 06/03/18 14:51 Urine Occult Blood Negative (Negative) 06/03/18 14:51 Urine Nitrate Negative (Negative) 06/03/18 14:51 Urine Bilirubin Negative (Negative) 06/03/18 14:51 Urine Urobilinogen Less than 2 mg/dL (Less than 2) 06/03/18 14:51 Ur Leukocyte Esterase Negative (Negative) 06/03/18 14:51 Urine WBC 1 /hpf (0-5) 06/03/18 14:51 Ur Squamous Epith Cells <1 /hpf (0-5) 06/03/18 14:51 Hyaline Casts 14 /lpf (0-3) 06/03/18 14:51 Urine Mucus Few /lpf (Occasional) H 06/03/18 14:51 Micro UA Comment Cath-culture not ind 06/03/18 14:51 Ur Microscopic Review Not Reportable 06/03/18 14:51 Urine Culture Comments Cath-cult not ind 06/03/18 14:51 Nasal Screen MRSA (PCR) Mrsa detected (Negative) 06/03/18 20:45 Random Vancomycin 18.1 Comment 06/08/18 04:[address] 06/03/18 15:01 CONCLUSION: No acute intracranial abnormality demonstrated. . Abdomen/Bladder Ultrasound 06/07/18 00:00 CONCLUSION: 1. Mildly increased renal cortical echogenicity bilaterally. 2. No evidence of hydronephrosis Chest X-Ray 06/09/18 06:00 CONCLUSION: Mild interval improvement in the apparent congestive heart failure. Imaging: Chest X-Ray 06/03/18 14:22 CONCLUSION: 1. ETT in good position. NGT beyond the GE junction. 2. Cardiomegaly with pulmonary edema pattern. 3. More focal airspace consolidation in the left lower lung zone. Head CT 06/03/18 15:01 CONCLUSION: No acute intracranial abnormality demonstrated. . Chest X-Ray 06/04/18 05:00 CONCLUSION: Unchanged exam. Chest X-Ray 06/05/18 05:00 CONCLUSION: No interval change. Chest X-Ray 06/06/18 09:18 CONCLUSION: Bilateral effusions and diffuse interstitial prominence most consistent with CHF. Unchanged from prior. Chest X-Ray 06/06/18 17:04 CONCLUSION: 1. New left IJ central venous catheter with distal tip projecting over the mid SVC. 2. No appreciable pneumothorax. 3. Persistent ill-defined opacification of the mid and lower lungs, likely a combination of airspace disease and pleural fluid. Abdomen/Bladder Ultrasound 06/07/18 00:00 CONCLUSION: 1. Mildly increased renal cortical echogenicity bilaterally. 2. No evidence of hydronephrosis Chest X-Ray 06/07/18 04:00 CONCLUSION: 1. No significant change. Perihilar and bibasilar opacities are again noted most characteristic of pulmonary edema. 2. Bilateral pleural effusions are again noted. Chest X-Ray 06/08/18 06:00 CONCLUSION: Findings most characteristic of congestive heart failure. This appears mildly increased in the perihilar regions. Chest X-Ray 06/09/18 06:00 CONCLUSION: Mild interval improvement in the apparent congestive heart failure. Hospital Course: Neuro: Sedation with fentanyl and propofol drips, CT head negative for bleed, follow neuro checks. daily sedation vacation Cardiovascular: Cardiology following, off dopamine and norepinephrine. Discontinue amiodarone infusion per cardiology. Diuresis with bumetanide drip at 0.5 mg an hour, will switch to 2 mg IV twice daily. 2D echo results noted with ejection fraction 25%. Initiate statin when okay with cardiology. Still awaiting allergy information to be verified.. Continue carvedilol 6.25 mg twice daily if remains off dopamine. Will initiate aspirin [address] surgery consultation. [facility] refused transfer per Dr. Green. Pulmonary: Continue mechanical ventilation, due to worsening hypoxia ventilator settings continue with PRVC Continue broad-spectrum antibiotics with vancomycin and cefepime per infectious disease recommendations GI/liver: tube feeds and advance to goal as tolerated we will switch to Glucerna 1.5 goal 60 cc an hour. Lansoprazole for GI prophylaxis. Renal: Strict intake output, monitor and replete electrolytes, follow BUN creatinine. Diuresis with bumetanide drip. Place Spence catheter for accurate urine output measurement. Check urine eosinophils, sodium and creatinine. Heme: Follow CBC and coags ID: Continue broad-spectrum antibiotics with vancomycin and cefepime per infectious disease evaluation. Due to persistent fever check respiratory viral panel PCR and will ask infectious disease consult evaluate. Endocrine: Continue insulin drip 2 units an hour. Will switch to aspart insulin every 4 hours high-dose insulin titrate. Add insulin detemir 20 units twice daily due to high blood sugar Prophylaxis: PPI/SCDs/full anticoagulation with heparin gtt
== END 2018-06-10 04:35 | disposition expired | DRG 207 ==
LOC: NEPC 14:07 → NEDA 17:23 → HIMC 20:20
PROVIDERS: ADMIT Internal Medicine Critical Care Medicine; ATTEND Internal Medicine Critical Care Medicine
CPT/HCPCS: 36556; 36600; 36620; 70450; 71010; 71045; 76775; 76937; 80048; 80053; 80202; 81001; 82550; 82552; 82805; 82948; 82962; 83520; 83605; 83735; 83880; 84100; 84132; 84145; 84484; 85025; 85379; 85610; 85730; 86403; 87040; 87070; 87086; 87147; 87186; 87205; 87641; 90774; 90784; 92950; 93005; 93306; 94002; 94003; 94640; 94656; 94657; 94664; 94665; 95819; 96374; 97110; 97162; 99285; C8952; J0171; J0282; J0461; J0692; J1160; J1265; J1644; J1815; J1817; J1940; J2001; J2250; J2543; J3010; J3370; J3475; J3480; J7040; J7050; J7060; P9047; S0171